=== PATIENT | female | born 1980 | race Caucasian/White ===

== ENCOUNTER 2023-04-09 11:54 | Outpatient (REF) | payer OTHER, SELFPAY ==
--- NOTE | ~2023-04-09 | US_ITS ---
EXAMINATION: US PELVIS CLINICAL INFORMATION: Menorrhagia COMPARISON: None available. TECHNIQUE: Ultrasound of the pelvis is performed using both transabdominal and transvaginal transducers along with Doppler. Transvaginal imaging is performed due to inadequate visualization transabdominally. FINDINGS: Uterus: The uterus is anteverted and measures 10.1 x 5.5 x 7.0 cm. The double wall endometrial thickness is 1.3 cm and fluid within. The uterus is smooth in contour and has normal myometrial echogenicity. No visible fibroid. There are small nabothian cysts seen in the cervix. Adnexa: Both ovaries are visualized. There is normal color flow to the adnexa. There is no ovarian torsion. There is no pelvic ascites or fluid collection. Right ovary measures 2.8 x 1.6 x 2.1 CM and volume 4.9 mL. Left ovary measures 3.5 x 2.0 x 2.5 and volume 9.2 mL. There is anechoic cyst measuring 2.3 x 1.4 x 1.8 cm. There is no free fluid in cul-de-sac. US/US pelvic and transvaginal IMPRESSION: 1. Unremarkable uterus. 2. Small nabothian cysts in the cervix. 3. Simple cyst left ovary.
== END 2023-04-09 11:55 | disposition home or self-care (01) ==
LOC: HO.US 11:54
PROVIDERS: PCP Family Medicine; Visit Provider Advanced Practice Midwife
DX: N92.0 Excessive and frequent menstruation with regular cycle (principal)
CPT/HCPCS: 76830; 76856

== ENCOUNTER 2024-11-29 09:32 | Outpatient (AMB) | payer MEDICAID, SELFPAY ==
--- NOTE | 2024-11-29 09:34 | A.OFFVIS_ITS ---
Vital Signs 3 11/29/24 09:43 Height 5 ft Weight 127 lb 3.307 oz BMI 24.8 BP 100/64 Blood Pressure Location Rt brachial Position Sitting Pulse 70 Pulse Source Pulse Oximeter Intake Visit Reasons: Enlargement of pituitary gland Intake Note: New patient present today for Enlargement of pituitary gland office visit. Community Recreation Coordinator Required: Yes Community Recreation Coordinator Language: Belt Measurer Services: Community Recreation Coordinator Present Community Recreation Coordinator Name: José Information Interpreted: non-clinical & clinical Accompanied by: Self / Same As Patient Allergies No Known Allergies Allergy (Verified 11/29/24 09:44) Medication List - Last Reconciled 11/29/24 by Mia Tristan MD celecoxib 200 mg PO DAILY cyclobenzaprine 5 mg PO BEDTIME famotidine 20 mg PO BID ibuprofen 800 mg PO Q8H PRN HPI Comments Details: 44-year-old female here today for initial evaluation of pituitary incidentaloma. Patient presented 30 mins late to appointment. Patient had CT scan of her orbits June 2024 due to ocular pain to rule out orbital cellulitis which showed a macroadenoma of the pituitary gland measuring 1.6 X 1.5 cm. No dedicated MRI of the pituitary done. 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 ? Easy bruising: yes Proximal muscle weakness: none No DM, HTN, fractures Nausea: none Vomiting:none Lightheadedness: intermittent Weight: lost 5 lbs in 1 month Physical exam General: sitting comfortably in no acute distress HEENT: normocephalic/atraumatic, EOM intact, moist oral mucosa, visual coe grossly intact Neck: supple, symmetrical, no thyromegaly , no dorsocervical or supraclavicular fat pads Cardiac: normal heart sounds Pulm: normal breath sounds B/L, no added breath sounds Abd: not distended, no tenderness Extremities: no edema, no signs of myxedema Neuro: AAO x3, Speech: normal, no facial droop, moving all 4 extremities [facility] Medical History (Updated 11/29/24 @ 09:49 by Mia Tristan MD) Pituitary macroadenoma Surgical History (Updated 11/29/24 @ 09:40 by RIO Diaz) History of bilateral tubal ligation Social History Alcohol intake: never Patient Tobacco Use Status: Never used Tobacco Assessment & Plan Assessment & Plan (1) Pituitary macroadenoma: Code(s): D35.2 - Benign neoplasm of pituitary gland Category: Medical Plan: 44-year-old female here today for initial evaluation of pituitary macroadenoma. Patient had CT scan of her orbits June 2024 due to ocular pain to rule out orbital cellulitis which showed a macroadenoma of the pituitary gland measuring 1.6 X 1.5 cm. No dedicated MRI of the pituitary done. We will obtain MRI pituitary gland. Given macroadenoma we will evaluate her for both hyper secretion and hypo secretion of the pituitary gland with a full pituitary panel as well as 24 hour urine cortisol levels. She does report some intermittent blurriness, however visual coe grossly intact however given microadenoma we will place ophthalmology referral for visual field evaluation. Plan: MRI of the pituitary ordered Labs for hypo secretion and hypersecretion with full pituitary panel and 24 hour urine cortisol levels Ophthalmology referral placed for evaluation of visual coe -follow up in 6 weeks to discuss results Plan See above Orders: Orders 2 Lutenizing Hormone Today D35.2 - Benign neoplasm of pituitary gland Human Growth Hormone Today D35.2 - Benign neoplasm of pituitary gland IGF-1 (Somatomedin C) Today D35.2 - Benign neoplasm of pituitary gland Free T4 (Free Thyroxine) Today D35.2 - Benign neoplasm of pituitary gland Prolactin Today D35.2 - Benign neoplasm of pituitary gland Prolactin Dilution Study Today D35.2 - Benign neoplasm of pituitary gland Thyroid Stimulating Hormone Today D35.2 - Benign neoplasm of pituitary gland MRI Pituitary w/wo shea Today D35.2 - Benign neoplasm of pituitary gland Adrenocorticotropic Hormone Today D35.2 - Benign neoplasm of pituitary gland Follicle Stimulating Hormone Today D35.2 - Benign neoplasm of pituitary gland Estradiol Ultra Sensitive Today D35.2 - Benign neoplasm of pituitary gland Cortisol Random Today D35.2 - Benign neoplasm of pituitary gland Cortisol, Free 24Hr Urine Today D35.2 - Benign neoplasm of pituitary gland Creatinine, 24 Hr Group Today D35.2 - Benign neoplasm of pituitary gland Alpha Subunit Today D35.2 - Benign neoplasm of pituitary gland DHEA Sulfate Today D35.2 - Benign neoplasm of pituitary gland Referrals 2 Ophthalmology Referral D35.2 - Benign neoplasm of pituitary gland Patient Instructions: Do MRI of the pituitary , someone will call you to schedule this -do blood work forms builder 08:00 fasting Do 24 hour urine collection See eye doctor 24 hr urine collection instructions You have been asked to collect your urine for 24 hours to assess for cortisol excretion. You must choose a 24 hour period of time when you will be home. The morning of the first day, DISCARD the FIRST morning void and then note the time. You will collect every single void from then on for 24 hours. For example, if you wake up at 6am and urinate, flush down that void. You will then collect every drop of urine all day and all night through 6am the following day. You will urinate one last time at 6am for the collection. The jug of urine must be kept in the refrigerator until you bring it to the lab. Haz lavonne resonancia magn?joanna de la hip?fisis, alguien te llamar? para programarla. -hacer an?lisis de sabi temprano en la ma?daysi 08:00 en ayunas italo al oftalm?logo Hacer recolecci?n de orina de 24 horas Instrucciones para la recolecci?n de orina de 24 horas. Se le gonzales pedido que recolecte orina aidan 24 horas para evaluar la excreci?n de cortisol. Debe elegir un per?odo de 24 horas en el que estar? en casa. La ma?daysi del primer d?a, DESCARTE el PRIMER vac?o de la ma?daysi y luego anote la hora. A partir de bruce momento, recolectar?s todos los vac?os aidan 24 horas. Por ejemplo, si te despiertas a las 6 de la ma?daysi y orinas, enrique bruce vac?o. Luego recolectar? cada gota de orina aidan todo el d?a y toda la noche hasta las 6 a.m. del d?a siguiente. Orinar?s por ?ltima vez a las 6 a. m. para la recolecci?n. El frasco de orina debe conservarse en el frigor?fico hasta henao llegada al laboratorio. Coding Level of Care Code New Pt Level 4 (72465) Diagnoses Pituitary macroadenoma D35.2
[2024-11-29 09:43] VITALS: BP 100/64; PULSE 70; BMI 24.8
== END 2024-11-29 10:13 | disposition home or self-care (01) ==
LOC: HO.ENCR 09:32
PROVIDERS: PCP Nurse Practitioner Family; Visit Provider Student in an Organized Health Care Education/Training Program
DX: D35.2 Benign neoplasm of pituitary gland (principal)
CPT/HCPCS: 99204

== ENCOUNTER → 2024-11-29 09:32 | Outpatient (BNVA) | payer MEDICAID, SELFPAY | PROVIDERS: PCP Nurse Practitioner Family; Visit Provider Student in an Organized Health Care Education/Training Program | DX: D35.2 Benign neoplasm of pituitary gland (principal) | CPT/HCPCS: 99202 ==

== ENCOUNTER 2024-12-20 08:32 | Outpatient (REF) | payer MEDICAID, SELFPAY ==
--- OUTSIDE RECORDS SUMMARY | 2024-12-20 08:47 | XMS_ITS | Encounter Summary ---
Author Organization [employer] [facility] Address [address] 7t [place] [address] Care Team Providers Care Auditing Coder Name Role Phone Kim Johnson MARGIN ANALYST Primary Care Provider [phone] Raya Pan NP Primary Care Provider [phone] Encounter Details Date Type Department Care Team (Late st Contact Info) Description 09/25/2023 Abstract [facility] ADULT DENTAL [address] [place] [address] Kate Mejia DDS [address] [place] [address] Social History Tobacco Use Types Packs/Day Years Used Date Smoking Tobacco: Never Smokeless Tobacco: Never Comments No Sex and Gender Information Value Date Recorded Sex Assigned at Female 09/15/2022 10:26 AM EDT Legal Sex Female 10:26 AM EDT Gender Identity Female 09/15/2022 10:26 AM EDT Sexual Orientation Straight 09/15/2022 10 :26 AM EDT documented as of this encounter Plan of Treatment Upcoming Encounters Date Type Department Care Team (Late st Contact Info) Description 12/23/2024 10:30 AM EST Office Visit [facility] MEDICINE [address] [place] [address] Raya Pan, RADHA [address] [place] [address] 03/17/2025 9:30 AM EDT Office Visit [facility] OPTOMETRY [address] [place] [address] Destinee Hernandez, OD [address] [place] [address] documented as of this encounter Visit Diagnoses Not on filedocumented in this encounter Care Teams Auditing Coder Relationship Specialty Start Date End Date Alex GLORIA Alvarez [address] [place] [address] PCP - General Family Medicine 05/14/22 12/17/23 Raya Pan NP [address] [place] [address] PCP - General Family Medicine 12/18/23 documented as of this encounter
--- OUTSIDE RECORDS SUMMARY | 2024-12-20 08:47 | XMS_ITS | Encounter Summary ---
Author Organization [facility] Address [address] 7[address] [place] [address] Care Team Providers Care Sole Stapler Welt Name Role Phone Leslie Panily RADHA Primary Care Provider Reason for Visit * Reason Comments Consult Encounter Details Date Type Department Care Team (Late st Contact Info) Description 11/21/2024 9:00 AM EST Office Visit [facility] ADULT DENTAL [address] [place], [place] [phone] Kate Mejia DDS [address] [place], [place] [phone] Dental plaque (Primary Dx) Social History Tobacco Use Types Packs/Day Years Used Date Smoking Tobacco: Never Smokeless Tobacco: Never Alcohol Use Standard Drinks/Week Comments Never 0 (1 standard drink = 0.6 oz pur e alcohol) Depression Answer Date Recorded Patient Health Questionnaire-9 Score 11 10/07/2024 Patient Health Questionnaire-9 Score 11 10/07/2024 Last PHQ-9: Questionnaire Data Not on file 1 12/07/2023 Housing Stability Answer Date Recorded What is your housing situation today? I have mark morgan 09/29/[address] you li ve. Do you have problems with any of the following? None of the above 09/29/2024 Food Insecurity Answer Date Recorded Within the past 12 months, y ou worried that your food would run out before you got money to buy more: Never True 09/29/2024 Within the past 12 months,th e food you bought just didn't last and you didn't have enough money to get more: Never True Transportation Answer Date Recorded In the past 12 months, has l ack of transportation kept you from medical appts, meetings, work or from getting things needed for daily living? No 09/29/2024 Utilities Answer Date Recorded In the past 12 months, has t he electric, gas, oil or water company threatened to shut off services in your home? No 09/29/2024 Depression Answer Date Recorded Patient Health Questionnaire-2 Score 4 10/07/2024 Internet Access Answer Date Recorded Internet Access Q1 Yes 09/29/2024 Internet Access Q2 Not on file 09/29/2024 Comments No Sex and Gender Information Value Date Recorded Sex Assigned at Female 09/15/2022 10:26 AM EDT Legal Sex Female 10:26 AM EDT Gender Identity Female 09/15/2022 10:26 AM EDT Sexual Orientation Straight 09/15/2022 10 :26 AM EDT documented as of this encounter Last Filed Vital Signs Vital Sign Reading Time Taken Comments Blood Pressure 124/78 11/21/2024 9:24 AM EST Pulse - - Temperature - - Respiratory Rate - - Oxygen Saturation - - Inhaled Oxygen Concentration - - Weight - - Height - - Body Mass Index - - documented in this encounter Progress Notes * Kate Mejia DDS - 11/21/2024 9:00 AM EST Dental procedures in this visit D0140 - LIMITED ORAL EVALUATION - PROBLEM FOCUSED (Completed) Service provider: Kate Mejia DDS Billing provider: Kate Mejia DDS D0270 - BITEWING - SINGLE RADIOGRAPHIC IMAGE (Completed) Service provider: Kate Mejia DDS Billing provider: Kate Mejia DDS [id number] - CASE PRESENTATION, DETAILED AND EXTENSIVE TREATMENT PLANNING (Completed) Service provider: Kate Mejia DDS Billing provider: Kate Mejia DDS Patient ID: Mellissa Tracy is a 44 y.o. female. Time Out: Timeout Date: 11/21/24, Timeout Time: 0924 (Time out for Limited Exam) Location: [facility] Tooth: Maxilla and Mandible Procedure: limited exam Verified the above with patient, personnel assistant, and provider. Confirmed via patient's chart, intraorally and by radiographs. Imitation Marble Mechanic: not applicable Chief Complaint Patient presents with Consult Medical Hx: Vitals: Blood pressure 124/78. Past Medical History: Diagnosis Date Bleeding gums Halitosis Periodontal disease Medications: Outpatient Encounter Medications as of 11/21/2024 Medication Sig Dispense Refill Apple Cider Vinegar 500 MG tablet Take 1 tablet by mouth Once per day. famotidine (Pepcid) 20 MG tablet Take 1 tablet (20 mg) by mouth 2 times daily. 60 tablet 0 No facility-administered encounter medications on file as of 11/21/2024. Subjective: Pt in office for orthodoxy on UL side. On the previous x-ray - no cavity is observed, and a new x-ray is taken today to confirm findings. Also, clinical evaluation completed. Amalgam fillings are within normal limits and no open margins are observed, teeth negative to percussion and palpation. Advised pt to have a Pad since inflammation of surrounding gingival tissue is noticed with soft plaque accumulation. No orthodoxy needed today, pt would like to wait for RPD fabrication. Diagnosis: Dental Plaque Pt tolerated procedure well, all questions answered. Dismissed in good condition. NV: Rpd adjustment Ed Transporter: Ashley Nam Dentist: Kate Mejia DDS documented in this encounter Plan of Treatment Upcoming Encounters Date Type Department Care Team (Late st Contact Info) Description 12/23/2024 10:30 AM EST Office Visit [facility] MEDICINE [address] [place] [address] Raya Pan NP [address] [place] [address] 03/17/2025 9:30 AM EDT Office Visit [facility] OPTOMETRY [address] [place] [address] Destinee Hernandez OD [address] [place] [address] documented as of this encounter Procedures Procedure Name Priority Date/Time Associated Diagnosis Comments LIMITED ORAL EVALUATION - PROBLEM FOCUSED Routine 11/21/2024 9:00 AM EST ADJUN[facility] GENERAL SERVICES - PROFESSIONAL VISITS - CASE PRESENTATION, SUBSEQUENT TO DETAILED AND EXTENSIVE TREATMENT PLANNING Routine 11/21/2024 9:00 AM EST BITEWING - SINGLE RADIOGRAPHIC IMAGE Routine 11/21/2024 9:00 AM EST documented in this encounter Visit Diagnoses Diagnosis Dental plaque- Primary Accretions on teeth documented in this encounter Additional Health Concerns Assessment Noted Time PHQ-9 Depression Total Score: 11 024 9:22 AM EST documented as of this encounter Care Teams Sole Stapler Welt Relationship Specialty Start Date End Date Raya Pan NP [address] [place] [address] PCP - General Family Medicine 12/18/23 documented as of this encounter
--- OUTSIDE RECORDS SUMMARY | 2024-12-20 08:47 | XMS_ITS | Encounter Summary ---
Author Organization [facility] Address [address] [facility] [address] [facility] 7t [place] [address] Care Team Providers Care Summer School Coordinator Name Role Phone Maxim Raya RADHA Primary Care Provider [phone] Reason for Visit * Reason Onset Date Comments pain from crown 09/09/2024 Encounter Details Date Type Department Care Team ([facility] st Contact Info) Description 09/09/2024 Telephone [facility] ADULT DENTAL [address] [place], [place] [phone] Kate Mejia DDS [address] [place], [place] [phone] pain from crown Social History Tobacco Use Types Packs/Day Years Used Date Smoking Tobacco: Never Smokeless Tobacco: Never Alcohol Use Standard Drinks/Week Comments Never 0 (1 standard drink = 0.6 oz pur e alcohol) Comments No Sex and Gender Information Value Date Recorded Sex Assigned at Female 09/15/2022 10:26 AM EDT Legal Sex Female 10:26 AM EDT Gender Identity Female 09/15/2022 10:26 AM EDT Sexual Orientation Straight 09/15/2022 10 :26 AM EDT documented as of this encounter Miscellaneous Notes * Telephone Encounter - Shabnam Pickering - 09/09/2024 12:33 PM EDT Patient called in because she is having pain on crown work she had done on 08/16. She says it hurtsa lot. No emergency appts available today. Gave her emergency protocol. She would like to know if medication can be sent to the pharmacy for pain DR documented in this encounter Plan of Treatment Upcoming Encounters Date Type Department Care Team (Late st Contact Info) Description 12/23/2024 10:30 AM EST Office Visit [facility] [address] [place] [address] Raya Pan NP [address] [place] [address] 03/17/2025 9:30 AM EDT Office Visit [facility] OPTOMETRY [address] [place] [address] Destinee Hernandez, OD [address] [place] [address] documented as of this encounter Visit Diagnoses Not on filedocumented in this encounter Care Teams Summer School Coordinator Relationship Specialty Start Date End Date Raya Pan NP [address] [place] [address] PCP - General Family Medicine 12/18/23 documented as of this encounter
--- OUTSIDE RECORDS SUMMARY | 2024-12-20 08:48 | XMS_ITS | Encounter Summary ---
Author Organization [facility] Address [address] [place] [address] Care Team Providers Care Quality Audit Representative Name Role Phone Kim Johnson Primary Care Provider [phone] Raya Pan REGIONAL CONTROLLER Primary Care Provider [phone] Encounter Details Date Type Department Care Team (Latest Contact Info) Description 10/17/2021 Abstract [facility] Dental, Provider, DDS Social History Tobacco Use Types Packs/Day Years Used Date Smoking Tobacco: Never Assessed Comments Unknown Sex and Gender Information Value Date Recorded Sex Assigned at Female 09/15/2022 10:26 AM EDT Legal Sex Female 10:26 AM EDT Gender Identity Female 09/15/2022 10:26 AM EDT Sexual Orientation Straight 09/15/2022 10 :26 AM EDT documented as of this encounter Plan of Treatment Upcoming Encounters Date Type Department Care Team (Late st Contact Info) Description 12/23/2024 10:30 AM EST Office Visit [facility] [address] [place] [address] Raya Pan, RADHA [address] [place] [address] 03/17/2025 9:30 AM EDT Office Visit [facility] OPTOMETRY [address] [place] [address] Destinee Hernandez, OD [address] [place] [address] documented as of this encounter Visit Diagnoses Not on filedocumented in this encounter Care Teams Quality Audit Representative Relationship Specialty Start Date End Date Kim Johnson FNP [address] [place] [address] PCP - General Family Medicine 05/14/22 12/17/23 Raya Pan NP [address] [place] [address] PCP - General Family Medicine 12/18/23 documented as of this encounter
--- OUTSIDE RECORDS SUMMARY | 2024-12-20 08:48 | XMS_ITS | Encounter Summary ---
Author Organization [facility] Address [address] [facility] [address]t [place] [address] Care Team Providers Care Junior Qa Analyst Name Role Phone Kim Johnson GLORIA Primary Care Provider [phone] Raya Pan NP Primary Care Provider [phone] Encounter Details Date Type Department Care Team (Late st Contact Info) Description 06/30/[address] [facility] ADULT DENTAL [address] [place] [address] Abena Mascorro [address] [place] [address] Social History Tobacco Use Types Packs/Day Years [...] 10:30 AM EST Office Visit [facility] MEDICINE [address] [place] [address] Raya Pan NP [address] [place] [address] 03/17/2025 9:30 AM EDT Office Visit [facility] OPTOMETRY [address] [place] [address] David, Destinee, OD [address] [place] [address] documented as of this encounter Visit Diagnoses Not on filedocumented in this encounter Care Teams Junior Qa Analyst Relationship Specialty Start Date End Date Alex GLORIA Alvarez [address] [place] [address] PCP - General Family Medicine 05/14/22 12/17/23 Raya Pan NP [address] [place] [address] PCP - General Family Medicine 12/18/23 documented as of this encounter
--- OUTSIDE RECORDS SUMMARY | 2024-12-20 08:48 | XMS_ITS | Encounter Summary ---
Author Organization [employer] Address [address] [place] [address] Care Team Providers Care Veterinarian Assistant Name Role Phone Raya Pan NP Primary Care Provider [phone] Reason for Visit * Reason Onset Date Comments Chart Prep 12/13/2024 Encounter Details Date Type Department Care Team ([facility] st Contact Info) Description 12/13/2024 Telephone [facility] MEDICINE [address] [place], [place] [phone] Alena Vega MA Chart Prep Social History Tobacco Use Types Packs/Day Years [...] encounter Miscellaneous Notes * Telephone Encounter - Alena Vega MA - 12/13/2024 9:52 AM EST Chart Prep Labs: not done Images: not done Vaccines due: Covid Due, Tdap Due, Hep B Due, and Flu Due Referrals: Endocrinology pending appt, Optometry appointment on 03/17/25 at 9:30 Am, and Podiatry pending appt, Radiology Pending appointment Screenings: none Overdue care gaps: None documented in this encounter Plan of Treatment Upcoming Encounters Date Type Department Care Team (Late st Contact Info) Description 12/23/2024 10:30 AM EST Office Visit [facility] MEDICINE [address] [place] [address] Raya Pna NP [address] [place] [address] 03/17/2025 9:30 AM EDT Office Visit [facility] OPTOMETRY [address] [place] [address] David, Destinee, OD [address] [place] [address] documented as of this encounter Visit Diagnoses Not on filedocumented in this encounter Additional Health Concerns Assessment Noted Time PHQ-9 Depression Total Score: 11 024 9:22 AM EST documented as of this encounter Care Teams Veterinarian Assistant Relationship Specialty Start Date End Date Raya Pan NP [address] [place] [address] PCP - General Family Medicine 12/18/23 documented as of this encounter
--- OUTSIDE RECORDS SUMMARY | 2024-12-20 08:48 | XMS_ITS | Encounter Summary ---
Author Organization [facility] Address [address] [place] [address] Care Team Providers Care Faculty Member Name Role Phone Raya Pan NP Primary Care Provider [phone] Reason for Visit * Reason Comments Med Refill Encounter Details Date Type Department Care Team ([facility] st Contact Info) Description 11/21/2024 Refill [facility] [address] [place], [place] [phone] Raya Pan NP [address] [place], [place] [phone] Social History Tobacco Use Types Packs/Day Years [...] Description 12/23/2024 10:30 AM EST Office Visit [facility] [address] [place] [address] Raya Pan NP [address] [place] [address] 03/17/2025 9:30 AM EDT Office Visit [facility] OPTOM[facility] [address] [place] [address] David, Destinee, OD [address] [place] [address] documented as of this encounter Visit Diagnoses Not on filedocumented in this encounter Additional Health Concerns Assessment Noted Time PHQ-9 Depression Total Score: 11 024 9:22 AM EST documented as of this encounter Care Teams Faculty Member Relationship Specialty Start Date End Date Raya Pan NP [address] [place] [address] PCP - General Family Medicine 12/18/23 documented as of this encounter
--- OUTSIDE RECORDS SUMMARY | 2024-12-20 08:48 | XMS_ITS | Encounter Summary ---
Author Organization [employer] Address [address] [place] [address] Care Team Providers Care Shredder Operator Name Role Phone Raya Pan NP Primary Care Provider [phone] Reason for Visit * Reason Onset Date Comments Chart Prep 11/30/2024 Encounter Details Date Type Department Care Team ([facility] st Contact Info) Description 11/30/2024 Telephone [facility] [address] [place], [place] [phone] Alena Vega MA Chart Prep Social History [...] Telephone Encounter - Alena Vega MA - 11/30/2024 2:26 PM EST Chart Prep Labs: not done Images: not done Vaccines due: Covid Due, Tdap Due, Hep B Due, and Flu Due Referrals: Endocrinology pending appt, Optometry appointment on 03/17/25 at 9:30 Am, and Podiatry pending appt, Radiology Pending appointment Screenings: none Overdue care gaps: none documented in this encounter Plan of Treatment Upcoming Encounters Date Type Department Care Team (Late st Contact Info) Description 12/23/2024 10:30 AM EST Office Visit [facility] [address] [place] [address] Raya Pan NP [address] [place] [address] 03/17/2025 9:30 AM EDT Office Visit [facility] OPTOMETRY [address] [place] [address] David, Destinee, OD [address] [place] [address] documented as of this encounter Visit Diagnoses Not on filedocumented in this encounter Additional Health Concerns Assessment Noted Time PHQ-9 Depression Total Score: 11 024 9:22 AM EST documented as of this encounter Care Teams Shredder Operator Relationship Specialty Start Date End Date Raya Pan NP [address] [place] [address] PCP - General Family Medicine 12/18/23 documented as of this encounter
--- OUTSIDE RECORDS SUMMARY | 2024-12-20 08:48 | XMS_ITS | Clinical Summary ---
Author Organization [employer] Address [address] [facility] 7t [place] [address] Care Team Providers Care Airflight Attendants Supervisor Name Role Phone Maxim Raya RADHA Primary Care Provider [phone] Allergies Active Allergy Reactions Criticality Noted Date Comments Fish-Derived Products Hives Medium 07/02/2024 Medications Apple Cider Vinegar 500 MG tablet Take 1 tablet by mouth Once per day. Active famotidine (Pepcid) 20 MG tablet TAKE 1 TABLET BY MOUTH TWICE DAILY 180 tablet 5 Active famotidine (Pepcid) 20 MG tablet Take 1 tablet (20 mg) by mouth 2 times daily. 60 tablet 4 11/22/19 25 Discontinued Active Problems Problem Noted Date Diagnosed Date Breast screening 10/07/2024 Unintentional weight change 10/07/2024 Assessment & Plan (10/07/2024 10:03 AM EST): Labs as ordered below History of enlargement of pituitary gland 2023 Assessment & Plan (10/07/2024 10:03 AM EST): Labs as ordered below Referral to endocrine Onychomycosis 10/07/2024 Gastroesophageal reflux disease without esophagi tis 10/07/2024 Assessment & Plan (10/07/2024 10:02 AM EST): Pt epigastric, chest and left breast symptoms are aggravated by spicy and heavy foos Trial famotidine Blurry vision 10/07/2024 Assessment & Plan (10/07/2024 10:03 AM EST): Referral to eye care Dysuria 10/07/2024 Assessment & Plan (10/07/2024 10:01 AM EST): Hx of, denies today Vaginal discharge 10/07/2024 Assessment & Plan (10/07/2024 10:02 AM EST): Reports this occurs post menses, asymptomatic today on menses Reviewed options for vaginal self swab should these symptoms occur post menses Preseptal cellulitis 08/14/2024 Pineal gland, tumor 08/14/2024 Dental calculus 06/02/2023 Periodontal disease 06/02/2023 Moderate localized gingival recession 06/02/2023 Helicobacter pylori gastritis 02/07/2019 ALT (SGPT) level raised 02/02/2019 Prediabetes 02/02/2019 Menorrhagia 02/23/2017 Peripheral neuropathic pain 02/23/2017 Iron deficiency anemia 09/19/2016 Encounters Date Type Department Care Team Description 12/13/2024 Telephone [facility] [address] [place] [address] Alena Vega MA Chart Prep 11/30/2024 Telephone [facility] [address] [place] [address] Alena Vega MA Chart Prep 11/21/2024 9:00 AM EST Office Visit [facility] [address] [place] [address] Kate Mejia, DDS Dental plaque (Primary Dx) 11/21/2024 Refill [facility] [address] [place] [address] Raya Pan NP 10/11/2024 Travel 10/07/2024 9:00 AM EST Office Visit [facility] [address] [place] [address] Raya Pan NP Breast screening (Primary Dx); Unintentional weight change; History of enlargement of pituitary gland; Onychomycosis; Gastroesophageal reflux disease without esophagitis; Blurry vision; Dysuria; Vaginal discharge 10/07/2024 Travel 10/06/2024 11:00 AM EST Office Visit [facility] [address] [place] [address] Hidalgo-Welsh , Kate, DDS Acute gingival inflammation (Primary Dx) 10/05/2024 Telephone [facility] [address] [place] [address] Alena Vega MA Chart Prep 09/29/2024 Patient Outreach [facility] [address] [place] [address] Raya Pan NP Pre-visit Planning (SDOH Screening negative and Tobacco screening negative) 09/23/2024 9:00 AM EST Office Visit [facility] [address] [place] [address] Hidalgo-Welsh , Kate, DDS Tooth sensitivity to cold (Primary Dx) from Last 3 Months Immunizations Name Administration Dates Next Due Hep B, adult 02/02/2023 Influenza injectable quadriv alent IIV4 with preservative 09/15/2016 Influenza injectable quadriv alent preservative free 12/23/2021,10/03/2019,01/31/2019 MMR 03/10/2021 Tdap 08/17/2014 Social History Tobacco Use Types Packs/Day Years Used Date Smoking Tobacco: Never Smokeless Tobacco: Never Tobacco Cessation:Counseling Given: Not Answered Alcohol Use Standard Drinks/Week Comments Never 0 [...] Orientation Straight 09/15/2022 10 :26 AM EDT Last Filed Vital Signs Vital Sign Reading Time Taken Comments Blood Pressure 124/78 11/21/2024 9:24 AM EST Pulse 69 10/07/2024 9:15 AM EST Temperature 36.6 ??C (97.9 ??F) 10/07/2024 9:15 AM ES T Respiratory Rate 16 10/07/2024 9:15 AM EST Oxygen Saturation 98% 10/07/2024 9:15 AM EST Inhaled Oxygen Concentration - - Weight 57.6 kg (127 lb) 10/07/2024 9:15 AM EST Height 146.1 cm (4' 9.5 ) 10/07/2024 9:15 AM EST Body Mass Index 27.01 10/07/2024 9:15 AM EST Plan of Treatment Upcoming Encounters Date Type Department Care Team (Late st Contact Info) Description 12/23/2024 10:30 AM EST Office Visit [facility] [address] [place] [address] Raya Pan NP [address] [place] [address] 03/17/2025 9:30 AM EDT Office Visit [facility] [address] [place] [address] Destinee Hernandez, OD [address] [place] [address] Health Maintenance Due Date Last Done Comments Diabetes: Hemoglobin A1C 1980 Family Planning (PISQ) 1995 Mammogram 2020 Dental Prophylaxis 12/04/2022 06/02/2022, 1 12/18/2020, 01/19/2017, Additional history exists Hepatitis B Vaccines (2 of 3 - 19+ 3-dose series) 03/02/2023 02/02/2023 Dental Oral Exam 12/04/2023 06/02/2023, 07/2022, 10/17/2021, Additional history exists COVID-19 Vaccine ( - season) 2024 04/16/2021 Influenza Vaccine (#1) 2024 , 10/03/2019, 01/31/2019, Additional history exists DTaP/Tdap/Td Vaccines (2 - Td or Tdap) 08/17/2024 08/17/2014 Dental X-Ray: Full Mouth 10/18/2024 10/17/2021, 03/2015 Pap Smear 12/23/2024 12/23/2021, 12/23/2021 Depression Monitoring (PHQ-9) 04/06/2025 10/07/2024, 10/07/2024 SDOH Screening 09/29/2025 09/29/2024 Alcohol/Substance Use Screening 10/07/2025 10/07/2024 Depression Screening 10/07/2025 10/07/2024, 10/07/20 24 Tobacco Screening 11/21/2025 11/21/2024 Dental X-Ray: Bitewings 11/22/2025 11/21/19 25, 10/06/2024, 08/16/2024, Additional history exists Cervical Cancer Screening 12/23/2026 HPV/Cotest 12/23/2026 12/23/2021 Zoster Vaccines (1 of 2) 2030 RSV Patients and Patients Aged 60 years or older (1 - 1-dose 75+ series) 2055 HIV Screening Completed 12/23/2021 Hepatitis C Screening Completed 12/23/2021 HIB Vaccines Aged Out No longer eligi ble based on patient's age to complete this topic HPV Vaccines Aged Out No longer eligi ble based on patient's age to complete this topic Hepatitis A Vaccines Aged Out No long er eligible based on patient's age to complete this topic IPV Vaccines Aged Out No longer eligi ble based on patient's age to complete this topic Meningococcal Vaccine Aged Out No vanessa anderson eligible based on patient's age to complete this topic Pneumococcal Vaccine: Pediatrics (0 to 5 Years) and At-Risk Patients (6 to 49) Years) Aged Out No longer eligible based on patient's age to complete this topic RSV under 20 months Aged Out No longe r eligible based on patient's age to complete this topic Rotavirus Vaccines Aged Out No longer eligible based on patient's age to complete this topic Procedures Procedure Name Priority Date/Time Associated Diagnosis Comments ADJUNCTIVE GENERAL SERVICES - PROFESSIONAL VISITS - CASE PRESENTATION, SUBSEQUENT TO DETAILED AND EXTENSIVE TREATMENT PLANNING Routine 11/21/2024 9:00 AM EST BITEWING - SINGLE RADIOGRAPHIC IMAGE Routine 11/21/2024 9:00 AM EST LIMITED ORAL EVALUATION - PROBLEM FOCUSED Routine 11/21/2024 9:00 AM EST ADJUNCTIVE GENERAL SERVICES - PROFESSIONAL VISITS - CASE PRESENTATION, SUBSEQUENT TO DETAILED AND EXTENSIVE TREATMENT PLANNING Routine 10/06/2024 11:00 AM EST Acute gingival inflammation BITEWING - SINGLE RADIOGRAPHIC IMAGE Routine 10/06/2024 11:00 AM EST Acute gingival inflammation DIAGNOSTIC - CLINICAL ORAL EVALUATIONS - RE-EVALUATION - POST-OPERATIVE OFFICE VISIT Routine 10/06/2024 11:00 AM EST Acute gingival inflammation ADJUNCTIVE GENERAL SERVICES - PROFESSIONAL VISITS - CASE PRESENTATION, SUBSEQUENT TO DETAILED AND EXTENSIVE TREATMENT PLANNING Routine 09/23/2024 9:00 AM EST Tooth sensitivity to cold INTRAORAL - PERIAPICAL FIRST RADIOGRAPHIC IMAGE Routine 09/23/2024 9:00 AM EST Tooth sensitivity to cold LIMITED ORAL EVALUATION - PROBLEM FOCUSED Routine 09/23/2024 9:00 AM EST Tooth sensitivity to cold PERIODIC ORAL EVALUATION - ESTABLISHED PATIENT Routine 06/02/2023 8:00 AM EDT Dental calculus Periodontal disease Moderate localized gingival recession Supra-eruption of tooth Encounter for dental examination Dental caries PROPHYLAXIS - ADULT Routine 06/02/2022 1 2:00 AM EDT ZZZ HISTORICAL HEPATITIS C AB W/REFL TO HCV RNA, QN, PCR Routine 12/23/2021 10:03 AM EST HIV 1/2 ANTIGEN/ANTIBODY, FOURTH GENERATION W/RFL Routine 12/23/2021 10:03 AM EST THINPREP IMAGING PAP AND HPV MRNA E6/E7, WITH CT/NG, TRICHOMONAS Routine 12/23/2021 9:16 AM EST PAP SMEAR Routine 12/23/2021 12:00 AM EST DIAGNOSTIC - DIAGNOSTIC IMAGING - INTRAORAL - COMPREHENSIVE SERIES OF RADIOGRAPHIC IMAGES Routine 10/17/2021 12:00 AM EST from Last 3 Months or Most Recently Relevant to Health Maintenance Results * HEPATITIS C AB W/REFL TO HCV RNA, QN, PCR (12/23/2021 10:03 AM EST) HEPATITIS C ANTIBODY NON-REACT VERONA NON-REACT VERONA [facility] INDEX 0.01 <1.00 [facility] Comment: ?? HCV antibody was non-reactive. There is no laboratory ?? evidence of HCV infection. ?? In most cases, no further action is required. However, if recent HCV exposure is suspected, a test for HCV RNA (test code 03172) is suggested. ?? For additional information please refer to http://education.[employer]/faq/XHC25c5 (This link is being provided for informational/ educational purposes only.) ?? 12/23/2021 10:0 3 AM EST Isi Lind CNM HISTORICAL/NON ORDERABLE LABS Final Result [facility] [address] * HIV 1/2 ANTIGEN/ANTIBODY,FOURTH GENERATION W/RFL (12/23/2021 10:03 AM EST) HIV-1/2 ANTIGEN AND ANTIBODIES, 4TH GENERATION W/ REFLEX NON-REACT VERONA NON-REACT VERONA [facility] Comment: HIV-1 antigen and HIV-1/HIV-2 antibodies were not detected. There is no laboratory evidence of HIV infection. ?? PLEASE NOTE: This information has been disclosed to you from records whose confidentiality may be protected by state law. ??If your state requires such protection, then the state law prohibits you from making any further disclosure of the information without the specific written consent of the person to whom it pertains, or as otherwise permitted by law. A general authorization for the release of medical or other information is NOT sufficient for this purpose. ? For additional information please refer to http://[employer]Soft.[employer]/faq/ANK202 (This link is being provided for informational/ educational purposes only.) ? The performance of this assay has not been clinically validated in patients less than 2 years old. ?? 12/23/2021 10:0 3 AM EST us Isi Lind [facility] BLOOD ORDERABLES Melvina tejinder Result [facility] [address] [place] [address], * THINPREP TIS PAP AND HPV mRNA E6/E7, CT/NG, TRICH (12/23/2021 9:16 AM EST) Chlamydia trachomatis RNA, TMA, Urogenital NOT DETECTED NOT DETECTED [facility] Clinical Information: None given [facility] COMMENT SEE COMMENT [facility] Comment: The analytical performance characteristics of this assay, when used to test SurePath(TM) specimens have been determined by [employer]. The modifications have not been cleared or approved by the FDA. This assay has been validated pursuant to the CLIA regulations and is used for clinical purposes. ?? For additional information, please refer to https://VSoft.[employer]/faq/MBQ230 (This link is being provided for information/ educational purposes only.) ?? COMMENT SEE COMMENT [facility] Comment: EXPLANATORY NOTE: ? The Pap is a screening test for cervical cancer. It is ?? not a diagnostic test and is subject to false negative ?? and false positive results. It is most reliable when a ?? satisfactory sample, regularly obtained, is submitted ?? with relevant clinical findings and history, and when ?? the Pap result is evaluated along with historic and ?? current clinical information. ?? COMMENT: This Pap test has been evaluated with computer assisted technology. [facility] Epic Cupid Analyst: SEE COMMENT [facility] Comment: RMM, CT(ASCP) CT screening location: [address] ??[id number] HPV nRNA E6/E7 Not Detected Not Detected [facility] Comment: Methodology: Cryptologic Supervisor-Mediated Amplification This assay detects E6/E7 viral messenger RNA (mRNA) from 14 high-risk HPV types (16,18,31,33,35,39,45,51,52,56,58,59,66,68). ? The analytical performance characteristics of this assay have been determined by [employer]. The modifications have not been cleared or approved by the FDA. This assay has been validated pursuant to the CLIA regulations and is used for clinical purposes. ?? For additional information, please refer to http://VSoft.[employer]/faq/HIB230q4 (This link if provided for information/ educational purposes only.) Interpretation/Re sult: Negative for intraepithelial lesion or malignancy. [facility] LMP: 12/09/2021 [facility] Neisseria gonorrhoeae RNA, TMA, Urogenital NOT DETECTED NOT DETECTED [facility] Prev. BX: NONE GIVEN [facility] Prev. PAP: NONE GIVEN [facility] SOURCE: None given [facility] Statement Of Adequacy: SEE COMMENT [facility] Comment: Satisfactory for evaluation. Endocervical/transformation zone component present. Trichomonas vaginalis, QL, TMA, PAP Vial NOT DETECTED NOT DETECTED [facility] Comment: The analytical performance characteristics of this assay have been determined by [employer]. The modifications have not been cleared or approved by the FDA. This assay has been validated pursuant to the CLIA regulations and is used for clinical purposes. ?? For additional information, please refer to http://education.[employer]/ faq/Trichomonastma (This link is being provided for information/ educational purposes only.) ?? 12/23/2021 9:16 AM EST [facility] PATHOLOGY ORDERABLES Final Result [facility] [address] [place] [address], * Pap Smear (12/23/2021 12:00 AM EST) Swab [facility] CYTOLOGY ORDERABLES F inal Result [facility] [address] [facility], [place] [address] from Last 3 Months or Most Recently Relevant to Health Maintenance Insurance [employer] ST[facility] ADULT Care Teams Airflight Attendants Supervisor Relationship Specialty Start Date End Date Raya Pan NP [address] [place] [address] PCP - General Family Medicine 12/18/23
--- OUTSIDE RECORDS SUMMARY | 2024-12-20 08:48 | XMS_ITS | Encounter Summary ---
Author Organization [employer] [facility] Address [address] [facility] [address] [place] [address] Care Team Providers Care Burr Bench Operator Name Role Phone Kim Johnson Primary Care Provider [phone] Raya Pan FREEZING ROOM WORKER Primary Care Provider [phone] Encounter Details Date Type Department Care Team (Latest Contact Info) Description 03/07/2019 Abstract [facility] CONVERSIONS Dental, Provider, DDS Social History Tobacco [...] Description 12/23/2024 10:30 AM EST Office Visit [facility] [address] [place] [address] Raya Pan, RADHA [address] [place] [address] 03/17/2025 9:30 AM EDT Office Visit [facility] OPTOMETRY [address] [place] [address] Destinee Hernandez, OD [address] [place] [address] documented as of this encounter Visit Diagnoses Not on filedocumented in this encounter Care Teams Burr Bench Operator Relationship Specialty Start Date End Date Kim Johnson FNP [address] [place] [address] PCP - General Family Medicine 05/14/22 12/17/23 Raya Pan NP [address] [place] [address] PCP - General Family Medicine 12/18/23 documented as of this encounter
[2024-12-20 09:40] LABS: Free T4 (Free Thyroxine) 1.05 ng/dL (0.71-1.85); Thyroid Stimulating Hormone 1.14 uIU/mL (0.32-4.0)
[2024-12-20 11:08] LABS: Cortisol Random < 1.0 ug/dL
[2024-12-21 16:32] LABS: DHEA Sulfate 29 mcg/dL (15-205)
[2024-12-21 17:13] LABS: Human Growth Hormone 0.2 ng/mL (< OR = 7.1)
[2024-12-23 06:53] LABS: Follicle Stimulating Hormone 7.6 mIU/mL; Lutenizing Hormone 7.7 mIU/mL; Prolactin Undiluted 20.7 ng/mL
[2024-12-24 21:04] LABS: Adrenocorticotropic Hormone 13 pg/mL (6-50)
[2024-12-27 08:23] LABS: Estradiol Ultra Sensitive 45 pg/mL
[2024-12-27 15:33] LABS: IGF-1 (Somatomedin C) 73 ng/mL (52-328); IGF-1 Z Score (Female) -1.3 SD (-2.0 - +2.0)
== END 2024-12-20 08:33 | disposition home or self-care (01) ==
LOC: HO.MAMMO 08:32
PROVIDERS: Absent Provider Student in an Organized Health Care Education/Training Program; PCP Nurse Practitioner Family; Visit Provider Nurse Practitioner Family
DX: D35.2 Benign neoplasm of pituitary gland (principal)
CPT/HCPCS: 36415; 82024; 82533; 82627; 82670; 83001; 83002; 83003; 83519; 84146; 84305; 84439; 84443

== ENCOUNTER 2024-12-26 07:52 | Outpatient (REF) | payer MEDICAID, SELFPAY ==
--- OUTSIDE RECORDS SUMMARY | 2024-12-26 08:36 | XMS_ITS | Encounter Summary ---
Author Organization [employer] [facility] Address [address] [facility] [facility] [address] [place] [address] Care Team Providers Care Business Services Director Name Role Phone MaximRaya RADHA Primary Care Provider [phone] Encounter Details Date Type Department Care Team (Late st Contact Info) Description 12/20/2024 Orders Only GENERIC EXTERNAL DATA DEPARTMENT Provider, Generic External Data Social History Tobacco Use Types Packs/Day Years [...] Care Team (Late st Contact Info) Description 03/17/2025 9:30 AM EDT Office Visit [facility] [address] [place] [address] David, Destinee, OD [address] [place] [address] Pending Results Name Type Priority Associated Diagnoses Date /Time DHEA Sulfate Lab Routine 12/20/2024 8 :53 AM EST Growth Hormone (GH) Lab Routine 12/20 8:53 AM EST FSH Lab Routine 12/20/2024 8:5 3 AM EST LH Lab Routine 12/20/2024 8:5 3 AM EST Prolactin, Dilution Study Lab Routine 12/20/2024 8:53 AM EST documented as of this encounter Procedures Procedure Name Priority Date/Time Associated Diagnosis Comments PROLACTIN, DILUTION STUDY Routine 12/20/2024 8:53 AM EST CORTISOL RANDOM Routine 12/20/2024 8:53 AM EST GROWTH HORMONE (GH) Routine 12/20/2024 8 :53 AM EST DHEA SULFATE Routine 12/20/2024 8:53 AM EST ACTH, PLASMA Routine 12/20/2024 8:53 AM EST TSH Routine 12/20/2024 8:53 AM EST T4, FREE Routine 12/20/2024 8:53 AM EST LH Routine 12/20/2024 8:53 AM EST FSH Routine 12/20/2024 8:53 AM EST documented in this encounter Results * ACTH, Plasma (12/20/2024 8:53 AM EST) ACTH, Plasma 13 6 - 50 pg/mL [facility] Comment:Reference range appl ies only to specimens collectedbetween 7am-10am.THIS TEST WAS PERFORMED AT:[employer] [place] [address]WJDDBZZSRAVANI SLAUGHTER MD,PHD 12/20/2024 8:53 AM EST 12/20/2024 8:53 AM EST Generic External Data Provider LAB BLOOD ORDERAB LES Final Result Performing Organization Address [facility]/ZIP Co de Phone Number [facility] [address] [place] [phone] * Cortisol Random (12/20/2024 8:53 AM EST) [facility] Cortisol Random <1.0 ug/dL [facility] Comment:Reference Range*: Be fore 10 am 6.2-19.4 ug/dL After 5 pm 2.3-11.9 ug/dL*Please interpret above results accordingly.This test was performed using the Venmo chemiluminescentmethod. Values obtained from different assay methods cannotbe used interchangeably.Patients receiving fludrocortisone, prednisolone orprednisone may show artificially elevated cortisol valuesdue to cross-reactivity. 12/20/2024 8:53 AM EST 12/20/2024 8:53 AM EST Generic External Data Provider LAB BLOOD ORDERAB LES Final Result Performing Organization Address City/[facility]/ZIP Co de Phone Number [facility] [address] [place] [phone] * TSH (12/20/2024 8:53 AM EST) Thyroid Stimulating Hormone 1.14 0.32 - 4.0 uIU/mL [facility] Comment:TSH 3rd Generation ( [facility]) 12/20/2024 8:53 AM EST 12/20/2024 8:53 AM EST us Generic External Data Provider LAB BLOOD ORDERAB LES Final Result Performing Organization Address [facility] Co de Phone Number [facility] [address] [place] [address] [phone] * T4, Free (12/20/2024 8:53 AM EST) Free T4 (Free Thyroxine) 1.05 0.71 - 1.85 ng/dL [facility] 12/20/2024 8:53 AM EST 12/20/2024 8:53 AM EST Generic External Data Provider LAB BLOOD ORDERAB LES Final Result Performing Organization Address [facility] de Phone Number [facility] [address] [place] [phone] documented in this encounter Visit Diagnoses Not on filedocumented in this encounter Additional Health Concerns Assessment Noted Time PHQ-9 Depression Total Score: 11 024 9:22 AM EST documented as of this encounter Care Teams Business Services Director Relationship Specialty Start Date End Date Raya Pan NP [address] [place] [address] PCP - General Family Medicine 12/18/23 documented as of this encounter
--- OUTSIDE RECORDS SUMMARY | 2024-12-26 08:36 | XMS_ITS | Encounter Summary ---
Author Organization [employer] [facility] Address [address] [facility] [address] [place] [address] Care Team Providers Care Electrical Engineering Drafting Officer Name Role Phone Alex Kim SOLIDS CONTROL TECHNICIAN Primary Care Provider [phone] Raya Pan NP Primary Care Provider [phone] Encounter Details Date Type Department Care Team (Latest Contact Info) Description 03/07/2019 Abstract [facility] CONVERSIONS Dental, Provider, DDS Social History Tobacco [...] Description 03/17/2025 9:30 AM EDT Office Visit [facility] OPTOMETRY [address] [place] [address] Destinee Hernandez, OD [address] [place] [address] documented as of this encounter Visit Diagnoses Not on filedocumented in this encounter Care Teams Electrical Engineering Drafting Officer Relationship Specialty Start Date End Date AlexKim FNP [address] [place] [address] PCP - General Family Medicine 05/14/22 12/17/23 Raya Pan NP [address] [place] [address] PCP - General Family Medicine 12/18/23 documented as of this encounter
--- OUTSIDE RECORDS SUMMARY | 2024-12-26 08:36 | XMS_ITS | Encounter Summary ---
Author Organization [employer] Address [address] [facility] [address] [place] [address] Care Team Providers Care Foxer Name Role Phone Raya Pan NP Primary Care Provider [phone] Reason for Visit * Reason Onset Date Comments Chart Prep 11/30/2024 Encounter Details Date Type Department Care Team ([facility] st Contact Info) Description 11/30/2024 Telephone [facility] MEDICINE [address] [place], [place] [phone] Alena Vega MA Chart Prep Social History [...] Description 03/17/2025 9:30 AM EDT Office Visit [facility] OPTOMETRY [address] [place] [address] David, Destinee, OD [address] [place] [address] documented as of this encounter Visit Diagnoses Not on filedocumented in this encounter Additional Health Concerns Assessment Noted Time PHQ-9 Depression Total Score: 11 024 9:22 AM EST documented as of this encounter Care Teams Foxer Relationship Specialty Start Date End Date Raya Pan NP [address] [place] [address] PCP - General Family Medicine 12/18/23 documented as of this encounter
--- OUTSIDE RECORDS SUMMARY | 2024-12-26 08:36 | XMS_ITS | Encounter Summary ---
Author Organization [employer] [facility] Address [address] [place] [address] [address] [place] [address] Care Team Providers Care Neonatal Doctor Name Role Phone Alex Kim GLORIA Primary Care Provider [phone] Raya Pan NP Primary Care Provider Encounter Details Date Type Department Care Team (Late st Contact Info) Description 09/25/2023 Abstract [facility] ADULT DENTAL [address] [place] [address] Kate Mejia DDS [address] [place] [address] Social History Tobacco Use Types Packs/Day Years [...] Description 03/17/2025 9:30 AM EDT Office Visit [facility] OPTOMETRY [address] [place] [address] David, Destinee, OD 230 [place] [address] documented as of this encounter Visit Diagnoses Not on filedocumented in this encounter Care Teams Neonatal Doctor Relationship Specialty Start Date End Date Kim Johnson FNP [address] [place] [address] PCP - General Family Medicine 05/14/22 12/17/23 Raya Pan NP [address] [place] [address] PCP - General Family Medicine 12/18/23 documented as of this encounter
--- OUTSIDE RECORDS SUMMARY | 2024-12-26 08:36 | XMS_ITS | Clinical Summary ---
Author Organization [employer] Address 75 [facility] 7t [place] [address] Care Team Providers Care Lozenge Dough Mixer Name Role Phone Raya Pan NP Primary Care Provider [phone] Allergies Active Allergy Reactions Criticality Noted Date Comments Fish-Derived Products Hives Medium 07/02/2024 Medications Apple Cider Vinegar 500 MG tablet Take 1 tablet by mouth Once per day. Active hydrocortisone (Cortef) 10 MG tablet Take 20 mg by mouth Once per day. Active famotidine (Pepcid) 20 MG tablet Take 1 tablet (20 mg) by mouth 2 times daily. 180 tablet 12/23/19 25 Active ketoconazole (NIZOral) 2 % creamIndicatio ns:Tinea pedis of right foot Apply topically Once per day. 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 Assessment & Plan (12/23/2024 7:07 PM EST): Pt in care with endocrine, encouraged follow up s/s to report reviewed including headache, vision change Pain due to onychomycosis of toenail of right fo ot 12/23/2024 Assessment & Plan (12/23/2024 7:06 PM EST): Referral to podiatry Tinea pedis of right foot 12/23/2024 Assessment & Plan (12/23/2024 7:06 PM EST): Topical ketoconazole rx Hair loss 12/23/2024 Dietary counseling 12/22/2024 Assessment & Plan (12/23/2024 7:07 PM EST): Dietary Recommendations: Fruits, vegetables, whole grains, protein foods, and fat-free or low-fat dairy products are healthy choices. Eat different types of protein foods in your diet. This can include seafood, lean meats, poultry, beans, peas, lentils, nuts, seeds, soy products, and eggs. Limit foods and beverages higher in added sugars, saturated fat, and sodium. Exercise Recommendations: At least 150 minutes of moderate-intensity physical activity per week, or an equivalent combination of moderate- and vigorous-intensity activity Exercise counseling 12/22/2024 Breast screening 10/07/2024 Unintentional weight change 10/07/2024 [...] neuropathic pain 02/23/2017 Iron deficiency anemia 09/19/2016 Assessment & Plan (12/23/2024 7:06 PM EST): Labs as ordered below Pt reports hair loss Encounters Date Type Department Care Team Description 12/23/2024 10:30 AM EST Office Visit [address] [address] Raya Pan NP Hair loss (Primary Dx); Dietary counseling; Exercise counseling; Tinea pedis of right foot; Pain due to onychomycosis of toenail of right foot; 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[facility]) 12/20/2024 Orders Only GENERIC EXTERNAL DATA DEPARTMENT Provider, Generic External Data 12/13/[address] [address] Alena Vega MA Chart Prep 11/30/[address] [address] Alena Vega MA Chart Prep 11/21/2024 9:00 AM EST Office Visit [facility] ADULT DENTAL [address] [place] [address] Hidalgo-Welsh, Kate, DDS Dental plaque (Primary Dx) 11/21/[address] [address] Raya Pan NP 10/11/2024 Travel 10/07/2024 9:00 AM EST Office Visit [address] [address] Raya Pan NP Breast screening (Primary Dx); Unintentional weight change; History of enlargement of pituitary gland; Onychomycosis; Gastroesophageal reflux disease without esophagitis; Blurry vision; Dysuria; Vaginal discharge 10/07/2024 Travel 10/06/2024 11:00 AM EST Office Visit [facility] ADULT DENTAL [address] [place] [address] Kate Mejia DDS Acute gingival inflammation (Primary Dx) 10/05/2024 Telephone [facility] MEDICINE [address] [place] [address] Alena Vega MA Chart Prep 09/29/2024 Patient Outreach [facility] [address] [place] [address] Raya Pan NP Pre-visit Planning (SDOH Screening negative and Tobacco screening negative) from Last 3 Months Immunizations Name Administration [...] Sign Reading Time Taken Comments Blood Pressure 117/74 12/23/2024 10:34 AM EST Pulse 72 12/23/2024 10:34 AM EST Temperature 36.3 ??C (97.4 ??F) 12/23/2024 10:[address] Respiratory Rate 21 12/23/2024 10:34 AM EST Oxygen Saturation 99% 12/23/2024 10:34 AM EST Inhaled Oxygen Concentration - - Weight 56.7 kg (125 lb) 12/23/2024 10:34 AM EST Height 146.1 cm (4' 9.5 ) 12/23/2024 10:34 AM ES T Body Mass Index 26.58 12/23/2024 10:34 AM EST Plan of Treatment Upcoming Encounters Date Type Department Care Team (Late st Contact Info) Description 03/17/2025 9:30 AM EDT Office Visit [facility] OPTOMETRY [address] [place] [address] David, Destinee, OD [address] [place] [address] Health Maintenance Due Date Last Done Comments Diabetes: Hemoglobin A1C 1980 Family Planning (PISQ) 1995 Mammogram 2020 Dental Prophylaxis 12/04/2022 06/02/2022, 1 12/18/2020, 01/19/2017, Additional history exists Hepatitis B Vaccines (2 of 3 - 19+ 3-dose series) 03/02/2023 02/02/2023 Dental Oral Exam 12/04/2023 06/02/2023, 07/2022, 10/17/2021, Additional history exists COVID-19 Vaccine ( season) 2024 04/16/2021 Influenza Vaccine (#1) 2024 , 10/03/2019, 01/31/2019, Additional history exists DTaP/Tdap/Td Vaccines (2 - Td or Tdap) 08/17/2024 08/17/2014 Dental X-Ray: Full Mouth 10/18/2024 10/17/2021, 03/2015 Pap Smear 12/23/2024 12/23/2021, 12/23/2021 Depression Monitoring (PHQ-9) 04/06/2025 10/07/2024, 10/07/2024 SDOH Screening 09/29/2025 09/29/2024 Alcohol/Substance Use Screening 10/07/2025 10/07/2024 Depression Screening 10/07/2025 10/07/2024, 10/07/20 24 Dental X-Ray: Bitewings 11/22/2025 11/21/19, 10/06/2024, 08/16/2024, Additional history exists Tobacco Screening 12/23/2025 12/23/2024 Cervical Cancer Screening 12/23/2026 HPV/Cotest 12/23/2026 12/23/2021 [...] Procedure Name Priority Date/Time Associated Diagnosis Comments ACTH, PLASMA Routine 12/20/2024 8:53 AM EST PROLACTIN, DILUTION STUDY Routine 12/20/2024 8:53 AM EST LH Routine 12/20/2024 8:53 AM EST FSH Routine 12/20/2024 8:53 AM EST GROWTH HORMONE (GH) Routine 12/20/2024 8 :53 AM EST DHEA SULFATE Routine 12/20/2024 8:53 AM EST CORTISOL RANDOM Routine 12/20/2024 8:53 AM EST TSH Routine 12/20/2024 8:53 AM EST T4, FREE Routine 12/20/2024 8:53 AM EST ADJUNCT[employer] GENER[employer] - PROFESSIONAL [...] 10/06/2024 11:00 AM EST Acute gingival inflammation PERIODIC ORAL EVALUATION - ESTABLISHED PATIENT Routine [...] Recently Relevant to Health Maintenance Results * Cortisol Random (12/20/2024 8:53 AM EST) Cortisol Random <1.0 ug/dL [facility] Comment:Reference Range*: Be fore 10 am 6.2-19.4 ug/dL After 5 pm 2.3-11.9 ug/dL*Please interpret above results accordingly.This test was performed using the Graphene[employer] chemiluminescentmethod. Values obtained from different assay methods cannotbe used interchangeably.Patients receiving fludrocortisone, prednisolone orprednisone may show artificially elevated cortisol valuesdue to cross-reactivity. 12/20/2024 8:53 AM EST 12/20/2024 8:53 AM EST us Generic External Data Provider LAB BLOOD ORDERAB LES Final Result Performing Organization Address [facility]/ZIP Co de Phone Number [facility] [address] [place] [phone] * ACTH, Plasma (12/20/2024 8:53 AM EST) ACTH, Plasma 13 6 - 50 pg/mL [facility] Comment:Reference range appl ies only to specimens collectedbetween 7am-10am.THIS TEST WAS PERFORMED AT:[employer]/[id number] [place] [address]HQARQEQSRAVANI SLAUGHTER MD,PHD 12/20/2024 8:53 AM EST 12/20/2024 8:53 AM EST us Generic External Data Provider LAB BLOOD ORDERAB LES Final Result [facility] [address] [place] [phone] * TSH (12/20/2024 8:53 AM EST) Pathologist [facility] Thyroid Stimulating Hormone 1.14 0.32 - 4.0 uIU/mL [facility] Comment:TSH 3rd Generation ( [facility]) 12/20/2024 8:53 AM EST 12/20/2024 8:53 AM EST Generic External Data Provider LAB BLOOD ORDERAB LES Final Result Performing Organization Address [facility] Co de Phone Number [facility] [address] [place] [phone] * T4, Free (12/20/2024 8:53 AM EST) Pathologist [facility] Free T4 (Free Thyroxine) 1.05 0.71 - 1.85 ng/dL [facility] 12/20/2024 8:53 AM EST 12/20/2024 8:53 AM EST Generic External Data Provider LAB BLOOD ORDERAB LES Final Result Performing Organization Address [facility] de Phone Number [facility] [address] [place] [phone] * HEPATITIS C AB W/REFL TO HCV RNA, QN, PCR (12/23/2021 10:03 AM EST) Pathologist [facility] HEPATITIS C ANTIBODY NON-REACT VERONA NON-REACT [facility] INDEX 0.01 <1.00 [facility] Comment: ?? HCV antibody was non-reactive. There is no laboratory ?? evidence of HCV infection. ?? In most cases, no further action is required. However, if recent HCV exposure is suspected, a test for HCV RNA (test code 17239) is suggested. ?? For additional information please refer to http://education.[employer]/faq/YPN89a6 (This link is being provided for informational/ educational purposes only.) ?? 12/23/2021 10:0 3 AM EST Isi Lind CNM HISTORICAL/NON ORDERABLE LABS Final Result Performing Organization Address [facility] Co de Phone Number [facility] [address] [place] [address], * HIV 1/2 ANTIGEN/ANTIBODY,FOURTH GENERATION W/RFL (12/23/2021 10:03 AM EST) Pathologist [facility] HIV-1/2 ANTIGEN AND ANTIBODIES, 4TH GENERATION W/ REFLEX NON-REACT VERONA NON-REACT VERONA [facility] Comment: HIV-1 antigen and HIV-1/HIV-2 [...] ? For additional information please refer to http://education.[employer]/faq/ZGI836 (This link is being provided for informational/ educational purposes only.) ? The performance of this assay has not been clinically validated in patients less than 2 years old. ?? 12/23/2021 10:0 3 AM EST Isi Lind CNM LAB BLOOD ORDERABLES Melvina l Result Performing Organization Address [facility] Co de Phone Number [facility] [address] [place] [address], * THINPREP TIS PAP AND HPV mRNA E6/E7, CT/NG, TRICH (12/23/2021 9:16 AM EST) Pathologist [facility] Chlamydia trachomatis RNA, TMA, Urogenital NOT DETECTED NOT DETECTED [facility] Clinical Information: None given [facility] COMMENT SEE COMMENT [facility] Comment: The analytical performance characteristics of this assay, when used to test SurePath(TM) specimens have been determined by [employer]. The modifications have not been cleared or approved by the FDA. This assay has been validated pursuant to the CLIA regulations and is used for clinical purposes. ?? For additional information, please refer to https://[employer]/faq/QWT973 (This link is being provided for information/ [...] has been evaluated with computer assisted technology. [facility] Dogman/Woman: SEE COMMENT [facility] Comment: RMM, CT(ASCP) CT screening location: [address] ??[id number] HPV nRNA E6/E7 Not Detected Not Detected [facility] [place] Comment: Methodology: Tool And Cutter Grinder-Mediated Amplification This assay detects E6/E7 viral messenger RNA (mRNA) from 14 high-risk HPV types (16,18,31,33,35,39,45,51,52,56,58,59,66,68). ? The analytical performance characteristics of this assay have been determined by [employer]. The modifications have not been cleared or approved by the FDA. This assay has been validated pursuant to the CLIA regulations and is used for clinical purposes. ?? For additional information, please refer to http://[employer]/faq/NDO116h2 (This link if provided for information/ educational purposes only.) Interpretation/Re sult: Negative for intraepithelial lesion or malignancy. [facility] LMP: 12/09/2021 [facility] [place] Neisseria gonorrhoeae RNA, TMA, Urogenital NOT DETECTED NOT DETECTED [facility] Prev. BX: NONE GIVEN [facility] [...] of this assay have been determined by [employer]. The modifications have not been cleared or approved by the FDA. This assay has been validated pursuant to the CLIA regulations and is used for clinical purposes. ?? For additional information, please refer to http://education.[employer]/ faq/Trichomonastma (This link is being provided for information/ educational purposes only.) ?? 12/23/2021 9:16 AM EST [facility] PATH[facility] ORDERABLES Final Result [facility] [address] * Pap Smear (12/23/2021 12:00 AM EST) Swab [facility] CYTOLOGY ORDERABLES F inal Result [facility] [address], [place] [address] from Last 3 Months or Most Recently Relevant to Health Maintenance Insurance [facility] AD[facility] Care Teams Lozenge Dough Mixer Relationship Specialty Start Date End Date Raya Pan NP [address] [place] [address] PCP - General Family Medicine 12/18/23
--- OUTSIDE RECORDS SUMMARY | 2024-12-26 08:36 | XMS_ITS | Encounter Summary ---
Author Organization [employer] [facility] Address [address] [facility] [address] [address] Care Team Providers Care Vice President Residential Solar Sales Name Role Phone Alex Kim LEGAL SERVICE SPECIALIST Primary Care Provider [phone] Raya Pan NP Primary Care Provider [phone] Encounter Details Date Type Department Care Team (Latest Contact Info) Description 10/17/[address] [facility] CONVERSIONS Dental, Provider, DDS Social History [...] Description 03/17/2025 9:30 AM EDT Office Visit [facility] OPTOMETRY [address] [place] [address] Destinee Hernandez, OD [address] [place] [address] documented as of this encounter Visit Diagnoses Not on filedocumented in this encounter Care Teams Vice President Residential Solar Sales Relationship Specialty Start Date End Date AlexKim FNP [address] [place] [address] PCP - General Family Medicine 05/14/22 12/17/23 Raya Pan NP [address] [place] [address] PCP - General Family Medicine 12/18/23 documented as of this encounter
--- OUTSIDE RECORDS SUMMARY | 2024-12-26 08:36 | XMS_ITS | Encounter Summary ---
Author Organization [employer] [facility] Address [address] [facility] 7t [place] [address] Care Team Providers Care Shore Working Supervisor Name Role Phone Maxim Raya RADHA Primary Care Provider [phone] Reason for Visit * Reason Onset Date Comments pain from crown 09/09/2024 Encounter Details Date Type Department Care Team ([facility] st Contact Info) Description 09/09/2024 Telephone [facility] ADULT DENTAL [address] [place], [place] [phone] Kate Mejia DDS [address] [place], [place] [phone] pain from crown Social History Tobacco Use [...] Description 03/17/2025 9:30 AM EDT Office Visit [facility] OPTOMETRY [address] [place] [address] Destinee Hernandez, JHON [address] [place] [address] documented as of this encounter Visit Diagnoses Not on filedocumented in this encounter Care Teams Shore Working Supervisor Relationship Specialty Start Date End Date Raya Pan NP [address] [place] [address] PCP - General Family Medicine 12/18/23 documented as of this encounter
--- OUTSIDE RECORDS SUMMARY | 2024-12-26 08:36 | XMS_ITS | Encounter Summary ---
Author Organization [employer] [facility] Address [address] [facility] [address]t [place] [address] Care Team Providers Care Gas Prover Name Role Phone Kim JohnsonP Primary Care Provider [phone] Raya Pan NP Primary Care Provider Encounter Details Date Type Department Care Team (Late st Contact Info) Description 06/30/2023 Abstract [facility] ADULT DENTAL [address] [place] [address] Subha, Abena [address] [place] [address] Social History Tobacco Use Types Packs/Day Years [...] Description 03/17/2025 9:30 AM EDT Office Visit [facility] OPTOMETRY [address] [place] [address] David, Destinee, OD [address] [place] [address] documented as of this encounter Visit Diagnoses Not on filedocumented in this encounter Care Teams Gas Prover Relationship Specialty Start Date End Date Kim Johnson FNP [address] [place] [address] PCP - General Family Medicine 05/14/22 12/17/23 Raya Pan NP [address] [place] [address] PCP - General Family Medicine 12/18/23 documented as of this encounter
--- OUTSIDE RECORDS SUMMARY | 2024-12-26 08:36 | XMS_ITS | Encounter Summary ---
Author Organization [employer] Address [address] [facility] [address] [place] [address] Care Team Providers Care Roller Skater Name Role Phone Raya Pan NP Primary Care Provider [phone] Reason for Visit * Reason Onset Date Comments Chart Prep 12/13/2024 Encounter Details Date Type Department Care Team ([facility] st Contact Info) Description 12/13/2024 Telephone [facility] MEDICINE [address] [place], [place] [phone] Alena Vega MA Chart Prep Social History [...] Description 03/17/2025 9:30 AM EDT Office Visit [facility] OPTOMETRY [address] [place] [address] David, Destinee, OD [address] [place] [address] documented as of this encounter Visit Diagnoses Not on filedocumented in this encounter Additional Health Concerns Assessment Noted Time PHQ-9 Depression Total Score: 11 024 9:22 AM EST documented as of this encounter Care Teams Roller Skater Relationship Specialty Start Date End Date Raya Pan NP [address] [place] [address] PCP - General Family Medicine 12/18/23 documented as of this encounter
--- OUTSIDE RECORDS SUMMARY | 2024-12-26 08:36 | XMS_ITS | Encounter Summary ---
Author Organization [facility] Address [address] [place] [address] Care Team Providers Care Apprentice Plant Attendant Name Role Phone Raya Pan NP Primary Care Provider [phone] Reason for Referral * Consultation (Routine) - Pending Review Specialty Diagnoses / Procedures Referred By Chika william Referred To Contact Podiatry Diagnoses Tinea pedis of right foot Pain due to onychomycosis of toenail of right foot Raya Pan NP [address] [place] [address] Phone: tel: fax: Referral ID Status Reason Start Date Expiration Date Visits Requested Visits Authorized [id number] Pending Review Specialty Services Required 12/23/2024 12/23/2025 1 1 Encounter Details Date Type Department Care Team (Latest Contact Info) Description 12/23/2024 10:30 AM EST Office Visit [facility] [address] [place] [address] Raya Pan NP [address], [place] [phone] Hair loss (Primary Dx); Dietary counseling; Exercise counseling; Tinea pedis of right foot; Pain due to onychomycosis of toenail of right foot; 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CMS/HCC) Social History Tobacco Use Types Packs/Day Years [...] Mass Index 26.58 12/23/2024 10:34 AM EST documented in this encounter Progress Notes * Raya Pan, LOGISTICS INTERN - 12/23/2024 10:30 AM EST Subjective Mellissa Tracy is a 44 y.o. female who presents to the office for follow up visit - chronic conditions. Interim history: 44-year-old female here today for initial evaluation of pituitary macroadenoma. Patient had CT scan of her orbits June 2024 due to ocular pain to rule out orbital cellulitis which showed a macroadenoma of the pituitary gland measuring 1.6 X 1.5 cm. No dedicated MRI of the pituitary done. We will obtain MRI pituitary gland. Given macroadenoma we will evaluate her for both hyper secretion and hypo secretion of the pituitary gland with a full pituitary panel as well as 24 hour urine cortisol levels. She does report some intermittent blurriness, however visual coe grossly intact however given microadenoma we will place ophthalmology referral for visual field evaluation. Plan: MRI of the pituitary ordered Labs for hypo secretion and hypersecretion with full pituitary panel and 24 hour urine cortisol levels Ophthalmology referral placed for evaluation of visual coe -follow up in 6 weeks to discuss results Current concerns: Right arm pain, was started on hydrocortisone, right arm pain, sometimes arm gets swollen this has improved Not taking pepcid, but spicy food trigger pain no other abdominal smyptoms including bloating, constipation, diarrhea or blood in the stool Right foot, toenail is damaged and reports dry skin chronically with flaking around heel Patient Active Problem List Diagnosis Dental calculus Periodontal disease Moderate localized gingival recession ALT (SGPT) level raised Helicobacter pylori gastritis Iron deficiency anemia Menorrhagia Peripheral neuropathic pain Prediabetes Preseptal cellulitis Pineal gland, tumor Breast screening Unintentional weight change History of enlargement of pituitary gland Onychomycosis Gastroesophageal reflux disease without esophagitis Blurry vision Dysuria Vaginal discharge Dietary counseling Exercise counseling 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CMS/HCC) Pain due to onychomycosis of toenail of right foot Tinea pedis of right foot Hair loss Review of Systems Constitutional: Negative for activity change and appetite change. Eyes: Negative for discharge, redness, itching and visual disturbance. Respiratory: Negative for chest tightness. Gastrointestinal: Negative for abdominal pain. Musculoskeletal: Positive for arthralgias. Skin: Negative for color change. Objective Visit Vitals BP 117/74 (BP Location: Left arm, Patient Position: Sitting, BP Cuff Size: Adult) Pulse 72 Temp 97.4 ??F (36.3 ??C) (Oral) Resp 21 Ht 4' 9.5 (1.461 m) Wt 125 lb (56.7 kg) SpO2 99% BMI 26.58 kg/m?? OB Status Having periods Smoking Status Never BSA 1.52 m?? Physical Exam Vitals reviewed. HENT: Head: Normocephalic and atraumatic. Nose: Nose normal. Eyes: Conjunctiva/sclera: Conjunctivae normal. Cardiovascular: Rate and Rhythm: Normal rate and regular rhythm. Pulmonary: Effort: Pulmonary effort is normal. Breath sounds: Normal breath sounds. Musculoskeletal: Cervical back: Normal range of motion and neck supple. Skin: General: Skin is dry. Findings: Rash present. Comments: Dry flaking skin right heel Thickened dicolored shortened nail bed of right great toe Neurological: General: No focal deficit present. Mental Status: She is alert. Assessment/Plan Problem List Items Addressed This Visit Dietary counseling Current Assessment & Plan Dietary Recommendations: Fruits, vegetables, whole grains, protein foods, and fat-free or low-fat dairy products are healthychoices. Eat different types of protein foods in your diet. This can include seafood, lean meats, poultry, beans, peas, lentils, nuts, seeds, soy products, and eggs. Limit foods and beverages higher in added sugars, saturated fat, and sodium. Exercise Recommendations: At least 150 minutes of moderate-intensity physical activity per week, or an equivalent combinationof moderate- and vigorous-intensity activity Exercise counseling 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CMS/HCC) Current Assessment & Plan Pt in care with endocrine, encouraged follow up s/s to report reviewed including headache, vision change Pain due to onychomycosis of toenail of right foot Current Assessment & Plan Referral to podiatry Relevant Orders Referral to Podiatry Tinea pedis of right foot Current Assessment & Plan Topical ketoconazole rx Relevant Medications ketoconazole (NIZOral) 2 % cream Other Relevant Orders Referral to Podiatry Hair loss - Primary Relevant Orders CBC auto differential Iron And Total Iron Binding Capacity Hemoglobin A1c Comprehensive Metabolic Panel Current Outpatient Medications Medication Sig Dispense Refill Apple Cider Vinegar 500 MG tablet Take 1 tablet by mouth Once per day. famotidine (Pepcid) 20 MG tablet Take 1 tablet (20 mg) by mouth 2 times daily. 180 tablet 0 hydrocortisone (Cortef) 10 MG tablet Take 20 mg by mouth Once per day. ketoconazole (NIZOral) 2 % cream Apply topically Once per day. 40 g 1 No current facility-administered medications for this visit. Visit Conducted in: Tuvaluan Translation by: provided by [employer] [id number] documented in this encounter Miscellaneous Notes * Assessment & Plan Note - Raya Pan NP - 12/23/2024 7:07 PM ESTAssociated Problem(s): Dietary counseling Dietary Recommendations: Fruits, vegetables, whole grains, protein foods, and fat-free or low-fat dairy products are healthychoices. Eat different types of protein foods in your diet. This can include seafood, lean meats, poultry, beans, peas, lentils, nuts, seeds, soy products, and eggs. Limit foods and beverages higher in added sugars, saturated fat, and sodium. Exercise Recommendations: At least 150 minutes of moderate-intensity physical activity per week, or an equivalent combinationof moderate- and vigorous-intensity activity * Assessment & Plan Note - Raya Pan NP - 12/23/2024 7:07 PM ESTAssociated Problem(s): 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CMS/HCC) Pt in care with endocrine, encouraged follow up s/s to report reviewed including headache, vision change * Assessment & Plan Note - Raya Pan NP - 12/23/2024 7:06 PM ESTAssociated Problem(s): Iron deficiency anemia Labs as ordered below Pt reports hair loss * Assessment & Plan Note - Raya Pan NP - 12/23/2024 7:06 PM ESTAssociated Problem(s): Tinea pedis of right foot Topical ketoconazole rx * Assessment & Plan Note - Raya Pan NP - 12/23/2024 7:06 PM ESTAssociated Problem(s): Pain due to onychomycosis of toenail of right foot Referral to podiatry documented in this encounter Plan of Treatment Upcoming Encounters Date Type Department Care Team (Late st Contact Info) Description 03/17/2025 9:30 AM EDT Office Visit [facility] OPTOMETRY [address] [place], [place] [id number] David, Destinee, OD [address] [place] [address] Scheduled Orders Name Type Priority Associated Diagnoses Orde r Schedule CBC auto differential Lab Routine Hair loss Expected: 12/23/2024 (Approximate), Expires: 12/23/2025 Iron And Total Iron Binding Capacity Lab Routine Hair loss Expected: 12/23/2024, Expires: 12/23/2025 Hemoglobin A1c Lab Routine Hair loss Expected: 12/23/2024 (Approximate), Expires: 12/23/2025 Comprehensive Metabolic Panel Lab Routine Hair loss Expected: 12/23/2024 (Approximate), Expires: 12/23/2025 Scheduled Referrals Name Type Priority Associated Diagnoses Orde r Schedule Referral to Podiatry Outpatient Referral Routine Tinea pedis of right foot Pain due to onychomycosis of toenail of right foot Expected: 12/23/2024 (Approximate), Expires: 12/23/2025 documented as of this encounter Visit Diagnoses Diagnosis Hair loss- Primary Unspecified alopecia Dietary counseling Dietary surveillance and counseling Exercise counseling Tinea pedis of right foot Pain due to onychomycosis of toenail of right foot 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CMS/HCC) Benign neoplasm of pituitary gland and craniopharyngeal duct (pouch) documented in this encounter Additional Health Concerns Assessment Noted Time PHQ-9 Depression Total Score: 11 024 9:22 AM EST documented as of this encounter Care Teams Apprentice Plant Attendant Relationship Specialty Start Date End Date Raya Pan NP [address] [place] [address] PCP - General Family Medicine 12/18/23 documented as of this encounter
[2024-12-26 08:57] LABS: Basophils Percent Auto 0.3 % (0-2); Eosinophils Percent Auto 0.3 % (0-4); Hematocrit 39.7 % (37.0-47.0); Hemoglobin 13.6 g/dl (12.0-16.0); Imm Gran Abs Auto 0.04 X10*3/uL (0.00-0.03); Imm Gran Pct Auto 0.6 % (0.0-0.4); Lymphocytes Absolute Auto 1.6 X10*3/uL (1.2-4.9); MANUAL DIFF FLAG NO; Mean Corpuscular HGB Conc 34.3 g/dl (31.0-35.0); Mean Corpuscular Hemoglobin 28.9 pg (27.0-33.0); Mean Corpuscular Volume 84.5 fL (80.0-98.0); Mean Platelet Volume 12.1 fL (9.4-12.3); Monocytes Absolute Auto 0.4 X10*3/uL (0.1-1.2); Monocytes Percent Auto 5.6 % (2-11); Neutrophils Absolute Auto 4.3 x10*3/uL (2.0-8.3); Neutrophils Percent Auto 68.2 % (45-73); Platelet Count 146 X10*3/uL (160-400); Red Cell Distribution Width 13.2 % (11.0-16.0); White Blood Count 6.3 X10*3/uL (4.8-10.8)
[2024-12-26 09:03] LABS: Estimated Average Glucose 324 mg/dL; Hemoglobin A1C 410.1373 umol/L; Hemoglobin A1c % 12.9 % (<6.0); Total Hemoglobin (HGBA1C) 3486.2488 umol/L
[2024-12-26 09:18] LABS: Alanine Aminotransferase 170 U/L (0-31); Alkaline Phosphatase 149 U/L (39-117); Anion Gap 13 (12-20); Aspartate Amino Transferase 82 U/L (5-31); Bilirubin Total 0.5 mg/dL (0.0-1.0); Blood Urea Nitrogen 15 mg/dL (9-16); Calcium 9.3 mg/dL (8.4-10.2); Carbon Dioxide 24 mmol/L (22-29); Chloride 104 mmol/L (96-108); Estimated Glomerular Filt Rate > 60; Glucose Random 328 mg/dL (60-115); Iron 48 mcg/dL (30-160); Percent Iron Saturation 15 % (15-50); Potassium 3.9 mmol/L (3.3-5.1); Sodium 137 mmol/L (135-145); Total Iron Binding Capacity 321 mcg/dL (228-428); Total Protein 7.7 g/dL (6.5-8.0); Unsaturated Iron Binding 273 ug/dL
[2024-12-26 09:31] LABS: Free T4 (Free Thyroxine) 1.05 ng/dL (0.71-1.85)
[2024-12-26 09:33] LABS: Cortisol Random 2.3 ug/dL
[2024-12-26 09:36] LABS: Thyroid Stimulating Hormone 1.75 uIU/mL (0.32-4.0)
[2024-12-27 18:02] LABS: Follicle Stimulating Hormone 9.5 mIU/mL
[2024-12-27 18:13] LABS: DHEA Sulfate 19 mcg/dL (15-205)
[2024-12-30 23:24] LABS: Adrenocorticotropic Hormone 15 pg/mL (6-50)
== END 2024-12-26 07:53 | disposition home or self-care (01) ==
LOC: HO.LAB 07:52
PROVIDERS: PCP Nurse Practitioner Family; Visit Provider Student in an Organized Health Care Education/Training Program
DX: R68.89 Other general symptoms and signs (principal); Z86.39 Personal history of other endocrine, nutritional and metabolic disease; L65.9 Nonscarring hair loss, unspecified; D35.2 Benign neoplasm of pituitary gland
CPT/HCPCS: 36415; 80053; 82024; 82533; 82627; 83001; 83002; 83036; 83540; 84439; 84443; 85025; 99212

== ENCOUNTER 2025-01-10 09:03 | Outpatient (AMB) | payer MEDICAID, SELFPAY ==
--- NOTE | 2025-01-10 09:04 | A.OFFVIS_ITS ---
Vital Signs 3 01/10/25 09:05 Height 5 ft Weight 127 lb 10.362 oz BMI 24.9 BP 102/70 Blood Pressure Location Lt brachial Position Sitting Pulse 74 Pulse Source Pulse Oximeter Pulse Oximetry (%) 97 Oxygen Delivery Method Room Air Intake Visit Reasons: Enlargement of pituitary gland Intake Note: Patient present today for Enlargement of pituitary gland. Manager Professional Development Required: Yes Manager Professional Development Language: Parts Sales Representative Services: Manager Professional Development Present Manager Professional Development Name: Jacob [id number] Information Interpreted: non-clinical & clinical Accompanied by: Self / Same As Patient Allergies No Known Allergies Allergy (Verified 01/10/25 09:08) Medication List - Last Reconciled 01/10/25 by Mia Tristan MD celecoxib 200 mg PO DAILY cyclobenzaprine 5 mg PO BEDTIME famotidine 20 mg PO BID hydrocortisone 10 mg PO BID ibuprofen 800 mg PO Q8H PRN HPI Comments Details: 44-year-old female here today for followup of pituitary incidentaloma. HPI Patient had CT scan of her orbits June 2024 due to ocular pain to rule out orbital cellulitis which showed a macroadenoma of the pituitary gland measuring 1.6 X 1.5 cm. no mass effect on optic chiasm. No dedicated MRI of the pituitary done. Vision changes: blurry vision intermittently trouble with reading , reports ocular pain intermittently Headache: none Nipple discharge: none Sound Cutter history: LMP: mid October 2024, regular Pregnancies : 4 , 4 living children , no fertility issues Change in sense of smell: no Change in ring size: none Change in shoe size: none Patient currently denies heat or cold intolerance, diarrhea or constipation, hair loss, palpitation, anxiety, weight changes, mood changes, low energy, changes in appearance of eyes or vision changes, tremors, increased diaphoresis or dry skin. ? Easy bruising: yes Proximal muscle weakness: none has uncontrolled DM Nausea: none Vomiting:none Lightheadedness: intermittent Weight: lost 5 lbs in 1 month Labs from 12/20/2024 showed normal thyroid function, undetectable cortisol level, acth of 13, DHEA-S of 29, IGF-1, estradiol level pending. Prolactin level normal 20.7. She is very inconsistent with her history and said that she was having some lightheadedness or dizziness that had already resolved before she started the medication that we had prescribed to her over the phone hydrocortisone 10 mg twice a day. She has lost 5 lb since the last visit. Interval history 12/26/2024: Apparently after holding the hydrocortisone the afternoon before in the morning off, cortisol level in a.m. was 2.3 with a ACTH of 15. 12/27/2024: Again after holding the hydrocortisone in the afternoon before and the morning of, cortisol level was 0.5 in a.m. at [facility] with ACTH of 3.9 No vision changes, no eye symptoms No nausea, vomiting , dizziness , lightheadedness. On hydrocortisone 10 mg in AM and 10 mg in afternoon at 2 PM Still waiting for MRI pituitary to be scheduled Physical exam General: sitting comfortably in no acute distress HEENT: normocephalic/atraumatic, , moist oral mucosa, visual coe grossly intact Neck: supple, Cardiac: normal heart sounds Pulm: normal breath sounds B/L, no added breath sounds Abd: not distended, no tenderness Laboratory Tests 12/20/24 08:53 TSH 1.14 Free T4 1.05 FSH 7.6 Luteinizing Hormone 7.7 Prolactin Undiluted 20.7 DHEA Sulfate 29 Human Growth Hormone 0.2 Random Cortisol < 1.0 ACTH 13 Laboratory Tests 12/20/24 12/26/24 08:53 08:49 Sodium 137 Potassium 3.9 Chloride 104 Carbon Dioxide 24 Anion Gap 13 BUN 15 Creatinine 0.67 Estimated GFR > 60 Alpha Subunit Marker 0.2 TSH 1.14 1.75 Free T4 1.05 1.05 Estradiol Ultra LCMSMS 45 FSH 7.6 9.5 Luteinizing Hormone 7.7 21.0 Prolactin Undiluted 20.7 DHEA Sulfate 29 19 Human Growth Hormone 0.2 Somatomedin-C 73 Somato-C Z-Score Female -1.3 Random Cortisol < 1.0 2.3 ACTH 13 15 PFSH Medical History Pituitary macroadenoma Surgical History History of bilateral tubal ligation Social History Alcohol intake: never Patient Tobacco Use Status: Never used Tobacco Physical Exam Vital Signs: Last Vital Signs Pulse 74 01/10/25 09:05 BP 102/70 01/10/25 09:05 Pulse Ox 97 01/10/25 09:05 Oxygen Delivery Method Room Air 01/10/25 09:05 BMI result Body Mass Index 24.9 Assessment & Plan Assessment & Plan (1) Pituitary macroadenoma: Code(s): D35.2 - Benign neoplasm of pituitary gland Category: Medical Plan: 44-year-old female here today for followup of pituitary macroadenoma. Seen with the help of interpreter translator Patient had CT scan of her orbits June 2024 due to ocular pain to rule out orbital cellulitis which showed a macroadenoma of the pituitary gland measuring 1.6 X 1.5 cm. No optic chiasm compression. No dedicated MRI of the pituitary done. I had ordered 1 on 11/29/2024, and then again 1 on 12/26/2024, however this still has not been scheduled. Our staff is following up on the status. Given macroadenoma we decided to evaluate her for both hyper secretion and hypo secretion of the pituitary gland with a full pituitary panel as well as 24 hour urine cortisol levels. She does report some intermittent blurriness, however visual coe grossly intact however given macroadenoma we placed ophthalmology referral for visual field evaluation. Again patient has still not seen Ophthalmology. Labs from 12/20/2024 showed normal thyroid function, undetectable cortisol level, acth of 13, DHEA-S of 29, IGF-1, estradiol level pending. Prolactin level normal 20.7. Started on hydrocortisone 10 mg in a.m. and 10 mg in the afternoon. 12/26/2024: Apparently after holding the hydrocortisone the afternoon before in the morning off, cortisol level in a.m. was 2.3 with a ACTH of 15. 12/27/2024: Again after holding the hydrocortisone in the afternoon before and the morning of, cortisol level was 0.5 in a.m. at [facility] with ACTH of 3.9 At this point we really need to get MRI of the pituitary, Her labs at [facility] showed a quite a low ACTH levels so I do not see the purpose of doing a cosyntropin stimulation test. Plan: Obtain MRI of the pituitary Ophthalmology referral placed last visit for evaluation of visual coe in November 2024 -continue hydrocortisone 10 mg in a.m. and 10 mg in the afternoon -discussed adrenal insufficiency sick rules and to obtain a medical bracelet -follow up in 2 weeks to discuss results I am going to put in a referral for Dr. Apple Cornejo at [facility] for patient to get evaluated for surgical evaluation of the pituitary microadenoma, however I would like to get the results of the MRI of pituitary before that. We will place the risks referral at the time of patient's follow up appointment in 2 weeks. Note: Patient had told me during her last visit that she does not have any history of diabetes mellitus, however I noticed today on her labs that she has blood sugars in the 300s with an A1c of 12.9%. At this time she is seeing me for pituitary macroadenoma, and we spent all of her visit time addressing that. Could not even get to her diabetes mellitus to see if she knows further about this diagnosis. Seems like PCP ordered these labs so I am unsure why she is not on any diabetes mellitus medications. New diagnosis? I am seeing the patient back in 2 weeks to follow up on her MRI results, we will also get her scheduled for a new diabetes mellitus visit at our clinic , unsure if anybody is managing this?. She is on steroids now for adrenal insufficiency which is just going to make her blood sugars worse. Plan I spent 30 minutes in reviewing the record, seeing the patient and documenting in the medical record. Orders: Orders 2 MR head/brain wo/w con Today D35.2 - Benign neoplasm of pituitary gland Medications: Refilled 2 hydrocortisone Take 1 tablet in the morning and 1 tablet at 2 PM in the afternoon daily 10 mg PO BID 60 tabs 7RF Patient Instructions: Continue hydrocortisone 10 mg in AM and 10 mg in afternoon ADRENAL SICK DAY RULE Minor ailments can affect anyone with a steroid-dependent adrenal condition very differently. Things like vomiting, diarrhea, colds and flu could cause an adrenal crisis. It's important that you spot the early symptoms of a bug or cold and adjust your steroid replacement medication. The Sick Day Rules are here to help you. If you're feeling ill or injured follow these rules to keep safe and reduce the chances of an adrenal crisis.?Make sure that you keep taking your medication whatever is going on. An adrenal crisis is serious, uncomfortable and can be life-threatening. What to do Double?your daily hydrocortisone, prednisone or prednisolone dose if: ? You have a temperature of 100.4 degrees or above. ? You get a bad cold, flu, diarrhea or other infection that makes you feel poorly or weak. ? You break a bone or suffer from any similar significant injury. For how long? ? Double your dose for 48-72 hours. If you are feeling better, go back to your usual dose. ? If you don't feel better after 48hrs, continue to double your does and speak to your doctor for more advice. ? If you are prescribed antibiotics, continue to double your dose until you finish the course or feel completely back to normal. I can't keep my medication down 1. If you vomit and bring up your medication within 30 minutes of taking it, take a double dose again immediately. 2. If you bring up the second dose,?go to ER immediately for IV steroids 3. If you carry on vomiting, you will become dehydrated Get MRI pituitary done MELISSA Buy a medical bracelet which says ADRENAL INSUFFICIENCY Continuar con hidrocortisona 10 mg por la ma?daysi y 10 mg por la tarde. SANIA DEL D?A DE ENFERMEDAD SUPRARRENAL Las dolencias menores pueden afectar de manera muy diferente a cualquier persona con lavonne afecci?n suprarrenal dependiente de esteroides. Cosas efe v?mitos, diarrea, resfriados y gripe pueden provocar lavonne crisis suprarrenal. Es importante que detecte los primeros s?ntomas de un virus o un resfriado y ajuste henao medicamento de reemplazo de esteroides. Las Reglas para los d?as de enfermedad est?n aqu? para ayudarlo. Si se siente enfermo o lesionado, siga estas reglas para mantenerse seguro y reducir las posibilidades de sufrir lavonne crisis suprarrenal.?Aseg?rese de seguir tomando hali medicamentos pase lo que pase. Lavonne crisis suprarrenal es grave, inc?moda y puede poner en peligro la benigno. que hacer Duplique hneao dosis diaria de hidrocortisona, prednisona o prednisolona si: ? Tiene lavonne temperatura de 100,4 grados o m?s. ? Tiene un resfriado esau, gripe, diarrea u otra infecci?n que lo hace sentir mal o d?clarence. ? Se rompe un hueso o sufre alguna lesi?n importante similar. ?Por cu?nto tiempo? ? Duplique henao dosis aidan 48 a 72 horas. Si se siente mejor, vuelva a henao dosis habitual. ? Si no se siente mejor despu?s de 48 horas, contin?e duplicando henao dosis y hable con heano m?dico para obtener m?s consejos. ? Si le recetan antibi?ticos, contin?e duplicando henao dosis hasta que termine el tratamiento o se sienta completamente normal. No puedo mantener mis medicamentos bajos 1. Si vomita y sube el medicamento dentro de los 30 minutos posteriores a haberlo tomado, vuelva a rosmery lavonne dosis doble inmediatamente. 2. Si sube la segunda dosis, vaya a urgencias inmediatamente para recibir esteroides intravenosos. 3. Si contin?as vomitando, te deshidratar?s H?gase lavonne resonancia magn?joanna de la hip?fisis lo antes posible Ted la prueba de estimulaci?n, las enfermeras llamar?n para programarla. Mantenga hidrocortsina el d?a anterior y la ma?daysi de esta prueba de estimulaci?n con cosintropina que se programar? en el centro de infusi?n. Compra lavonne pulsera m?dica que diga INSUFICIENCIA SUPRARRENAL Coding Level of Care Code Est Pt Level 4 (34612) Diagnoses Pituitary macroadenoma D35.2 Time Spent (min) 30
[2025-01-10 09:05] VITALS: BP 102/70; PULSE 74; O2SAT 97; BMI 24.9
--- OUTSIDE RECORDS SUMMARY | 2025-01-10 09:50 | XMS_ITS | Encounter Summary ---
Author Organization [email or web address] [facility] Address [address] [place] [address] Care Team Providers Care Radio Electronics Officer Name Role Phone Kim JohnsonP Primary Care Provider [phone] Raya Pan NP Primary Care Provider [phone] Encounter Details Date Type Department Care Team (Late st Contact Info) Description 06/30/2023 Abstract [facility] ADULT DENTAL [address] [place] [address] Subha, Abena [address] [place] [address] Social History Tobacco Use Types Packs/Day Years [...] Description 03/17/2025 9:30 AM EDT Office Visit [facility] OPTOMETRY [address] [place] [address] David, Destinee, OD [address] [place] [address] documented as of this encounter Visit Diagnoses Not on filedocumented in this encounter Care Teams Radio Electronics Officer Relationship Specialty Start Date End Date Kim Johnson FNP [address] [place] [address] PCP - General Family Medicine 05/14/22 12/17/23 Raya Pan NP [address] [place] [id number] PCP - General Family Medicine 12/18/23 documented as of this encounter
--- OUTSIDE RECORDS SUMMARY | 2025-01-10 09:50 | XMS_ITS | Encounter Summary ---
Author Organization [employer] Address [address] [place] [address] Care Team Providers Care Facility Coordinator Name Role Phone Raya Pan NP Primary Care Provider [phone] Reason for Visit * Reason Onset Date Comments Chart Prep 12/13/2024 Encounter Details Date Type Department Care Team ([facility] st Contact Info) Description 12/13/2024 Telephone [facility] MEDICINE [address] [place], [place] [phone] Alena Vega MA Chart Prep Social History [...] Description 03/17/2025 9:30 AM EDT Office Visit [facility] OPTOMETRY [address] [place] [address] David, Destinee, OD [address] [place] [address] documented as of this encounter Visit Diagnoses Not on filedocumented in this encounter Additional Health Concerns Assessment Noted Time PHQ-9 Depression Total Score: 11 024 9:22 AM EST documented as of this encounter Care Teams Facility Coordinator Relationship Specialty Start Date End Date Raya Pan NP [address] [place] [address] PCP - General Family Medicine 12/18/23 documented as of this encounter
--- OUTSIDE RECORDS SUMMARY | 2025-01-10 09:50 | XMS_ITS | Encounter Summary ---
Author Organization [email or web address] [facility] Address [address] [place] [address] Care Team Providers Care Funeral Home Makeup Artist Name Role Phone Raya Pan NP Primary Care Provider [phone] Reason for Referral * Consultation (Routine) - Authorized Specialty Diagnoses / Procedures Referred By Chika william Referred To Contact Podiatry Diagnoses Tinea pedis of right foot Pain due to onychomycosis of toenail of right foot Raya Pan NP [address] [place] [address] Phone: tel: fax: Kameron Ward DPM [address] [address] Phone: tel: fax: Referral ID Status Reason Start Date Expiration Date Visits Requested Visits Authorized [id number] Authorized Specialty Services Required 12/23/2024 12/23/2025 1 1 Encounter Details Date Type Department Care Team (Latest Contact Info) Description 12/23/2024 10:30 AM EST Office Visit [facility] MEDICINE [address] [place], [place] [phone] Raya Pan NP [address] [place], [place] [phone] Hair loss (Primary Dx); Dietary counseling; Exercise [...] this encounter Progress Notes * Raya Pan, VULCANIZING MACHINE OPERATOR - 12/23/2024 10:30 AM EST Subjective Mellissa [...] medications for this visit. Visit Conducted in: Bulgarian Translation by: provided by [employer] CRAZE [id number] documented in this encounter Miscellaneous Notes * [...] * Assessment & Plan Note - Raya aPn NP - 12/23/2024 7:06 PM ESTAssociated Problem(s): [...] 9:30 AM EDT Office Visit [facility] OPTOMETRY [address] [place] [address] Destinee Hernandez, OD [address] [place] [address] Scheduled Orders Name Type Priority Associated Diagnoses Orde r Schedule CBC auto differential Lab Routine Hair loss Expected: 12/23/2024 (Approximate), Expires: 12/23/2025 Scheduled Referrals Name Type Priority Associated Diagnoses Orde r Schedule Referral to Podiatry Outpatient Referral Routine Tinea pedis of right foot Pain due to onychomycosis of toenail of right foot Expected: 12/23/2024 (Approximate), Expires: 12/23/2025 documented as of this encounter Procedures Procedure Name Priority Date/Time Associated Diagnosis Comments IRON AND TOTAL IRON BINDING CAPACITY Routine 12/26/2024 8:49 AM EST Hair loss HEMOGLOBIN A1C Routine 12/26/2024 8:49 AM EST Hair loss COMPREHENSIVE METABOLIC PANEL Routine 12/26/2024 8:49 AM EST Hair loss documented in this encounter Results * (ABNORMAL) Comprehensive Metabolic Panel (12/26/2024 8:49 AM EST) Sodium 137 135 - 145 mmol/L [facility] Potassium 3.9 3.3 - 5.1 mmol/L [facility] Chloride 104 96 - 108 mmol/L [facility] Carbon Dioxide 24 22 - 29 mmol/L [facility] Anion Gap 13 12 - 20 [facility] Urea Nitrogen (BUN) 15 9 - 16 mg/dL [facility] Creatinine, Serum 0.67 0.5 - 1.4 mg/dL [facility] Estimated Glomerular Filt Rate >60 [facility] Comment:Chronic Kidney Disea se: Estimated GFR < 60 mL/min/[id number] Kidney Disease: Estimated GFR < 15 mL/min/1.73m2 Glucose 328(H) 60 - 115 mg/dL [facility] Calcium 9.3 8.4 - 10.2 mg/dL [facility] Bilirubin, Total 0.5 0.0 - 1.0 mg/dL [facility] Aspartate Amino Transferase 82(H) 5 - 31 U/L [facility] Alanine Aminotransferase 170(H) 0 - 31 U/L [facility] Total Protein 7.7 6.5 - 8.0 g/dL [facility] Albumin Level 4.0 3.5 - 5.0 g/dL [facility] Alkaline Phosphatase 149(H) 39 - 117 U/L [facility] Blood Venous blood specimen / Unknown 12/26/2024 8:49 AM EST 12/26/2024 8:49 AM EST us Raya Pan VULCANIZING MACHINE OPERATOR LAB BLOOD ORDERABLES Final Resul t [facility] [address] [place] [phone] * (ABNORMAL) Hemoglobin A1c (12/26/2024 8:49 AM EST) Hemoglobin A1c 12.9(H) <6.0 % [facility] Comment:Hemoglobin A1C Refer ence Range Adults: 4.8 - 6.0 % Non diabetic: < 6.0 % Goal: < 7.0 %Additional Action Suggested: > 8.0 %Note: Hemoglobin A1c results are invalid for patients with abnormal amounts of HbF. Blood transfusions may impact the HbA1c concentration in the patient sample. Estimated Average Glucose 324 mg/dL [facility] Comment:eAG = Estimated ave rage glucose which is %A1C expressed asaverage glucose, using the formula of the R6I-OxetbzmYamlfed Glucose study (ADAG), Diabetes Care, Vol.31,#8,Jun. 2007 Blood Venous blood specimen / Unknown 12/26/2024 8:49 AM EST 12/26/2024 8:49 AM EST Raya Pan VULCANIZING MACHINE OPERATOR LAB BLOOD ORDERABLES Final Resul t Performing Organization Address [facility] Co de Phone Number [facility] [address] [place] [phone] * Iron And Total Iron Binding Capacity (12/26/2024 8:49 AM EST) Iron 48 30 - 160 mcg/dL [facility] Total Iron Binding Capacity 321 228 - 428 mcg/dL [facility] Percent Iron Saturation 15 15 - 50 % [facility] Unsaturated Iron Binding 273 ug/dL [facility] Blood Venous blood specimen / Unknown 12/26/2024 8:49 AM EST 12/26/2024 8:49 AM EST Raya Pan NP LAB BLOOD ORDERABLES Final Resul t Performing Organization Address [facility] Co de Phone Number [facility] [address] [place] [phone] [phone] documented in this encounter Visit Diagnoses Diagnosis Hair loss- [...] documented as of this encounter Care Teams Funeral Home Makeup Artist Relationship Specialty Start Date End Date Raya Pan NP [address] [place] [phone] PCP - General Family Medicine 12/18/23 documented as of this encounter
--- OUTSIDE RECORDS SUMMARY | 2025-01-10 09:50 | XMS_ITS | Encounter Summary ---
Author Organization [facility] Address [address] [facility] [place] [address] Care Team Providers Care Train Operator Name Role Phone Maxim Raya RADHA Primary Care Provider [phone] Reason for Visit * Reason Onset Date Comments pain from crown 09/09/2024 Encounter Details Date Type Department Care Team ([facility] st Contact Info) Description 09/09/2024 Telephone [facility] ADULT DENTAL [address] [place], [place] [phone] Kate Mejia DDS [address] [place], [place] [phone] pain from crown Social History Tobacco Use [...] Description 03/17/2025 9:30 AM EDT Office Visit [facility] OPTOMETRY [address] [place] [address] Destinee Hernandez, JHON [address] [place] [address] documented as of this encounter Visit Diagnoses Not on filedocumented in this encounter Care Teams Train Operator Relationship Specialty Start Date End Date Raya Pan NP [address] [place] [address] PCP - General Family Medicine 12/18/23 documented as of this encounter
--- OUTSIDE RECORDS SUMMARY | 2025-01-10 09:50 | XMS_ITS | Encounter Summary ---
Author Organization [employer] Address [address] [place] [address] Care Team Providers Care Principal Network Engineer Name Role Phone Raya Pan NP Primary Care Provider [phone] Reason for Visit * Reason Onset Date Comments Chart Prep 12/28/2024 Encounter Details Date Type Department Care Team ([facility] st Contact Info) Description 12/28/2024 Telephone [facility] MEDICINE [address] [place], [place] [phone] Alena Vega MA Chart Prep Social History [...] Telephone Encounter - Alena Vega MA - 12/28/2024 2:36 PM EST Chart Prep Labs: done Images: not done Vaccines due: yes Referrals: pending appt Screenings: Urine protein, Lipid panel Overdue care gaps: Glucose documented in this encounter Plan of Treatment Upcoming Encounters Date Type Department Care Team (Late st Contact Info) Description 03/17/2025 9:30 AM EDT Office Visit [facility] OPTOMETRY [address] [place] [address] Destinee Hernandez, OD [address] [place] [address] documented as of this encounter Visit Diagnoses Not on filedocumented in this encounter Additional Health Concerns Assessment Noted Time PHQ-9 Depression Total Score: 11 024 9:22 AM EST documented as of this encounter Care Teams Principal Network Engineer Relationship Specialty Start Date End Date Raya Pan NP [address] [place] [address] PCP - General Family Medicine 12/18/23 documented as of this encounter
--- OUTSIDE RECORDS SUMMARY | 2025-01-10 09:50 | XMS_ITS | Encounter Summary ---
Author Organization [facility] Address [address] [place] [address] Care Team Providers Care Foreign Correspondent Name Role Phone Raya Pan NP Primary Care Provider [phone] Encounter Details Date Type Department Care Team (Late st Contact Info) Description 01/04/2025 Telephone [facility] MEDICINE [address] [place], [place] [phone] Raya Pan NP [address] [place], [place] [phone] Social History Tobacco Use Types Packs/Day Years [...] encounter Miscellaneous Notes * Telephone Encounter - Raya Pan NP - 01/04/2025 11:10 AM EST Please call pt , she had visit today to disuss hgb A1c of 12.9 (new diagnosis of diabetes) please relay urgency of visit jesús to manage this. Thank you documented in this encounter Plan of Treatment Upcoming Encounters Date Type Department Care Team (Late st Contact Info) Description 03/17/2025 9:30 AM EDT Office Visit [facility] OPTOMETRY [address] [place] [address] Destinee Hernandez, OD [address] [place] [address] documented as of this encounter Visit Diagnoses Not on filedocumented in this encounter Additional Health Concerns Assessment Noted Time PHQ-9 Depression Total Score: 11 024 9:22 AM EST documented as of this encounter Care Teams Foreign Correspondent Relationship Specialty Start Date End Date Raya Pan NP [address] [place] [address] PCP - General Family Medicine 12/18/23 documented as of this encounter
--- OUTSIDE RECORDS SUMMARY | 2025-01-10 09:50 | XMS_ITS | Clinical Summary ---
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/23/2024 Assessment & Plan (12/23/2024 [...] Encounters Date Type Department Care Team Description 01/04/[address] [address] Raya Pan NP 12/28/[address] [address] Alena Vega MA Chart Prep 12/26/[address] [address] Alena Vega MA appointment for results 12/23/2024 10:30 AM EST Office Visit [address] [address] Raya Pan NP Hair loss (Primary Dx); Dietary counseling; Exercise counseling; Tinea pedis of right foot; Pain due to onychomycosis of toenail of right foot; 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[facility]) 12/20/2024 Orders Only GENERIC EXTERNAL DATA DEPARTMENT Provider, Generic External Data 12/13/[address] [address] Alena Vega MA Chart Prep 11/30/[address] [address] Alena Vega MA Chart Prep 11/21/2024 9:00 AM EST Office Visit [facility] [address] [place] [phone] Hidalgo-Welsh, Kate, DDS Dental plaque (Primary Dx) 11/21/[address] [place] [address] Raya Pan NP 10/11/2024 Travel from Last 3 Months Immunizations Name Administration [...] 9:30 AM EDT Office Visit [facility] [address] [place] [address] David, Destinee, OD [address] [place] [address] Health Maintenance Due Date Last Done Comments Lipid Panel 1980 Diabetes: Foot Exam 1990 Eye Exam 1990 Family Planning (PISQ) 1995 Diabetes: Urine Protein Screening 1999 Pneumococcal Vaccine: Pediatrics (0 to 5 Years) and At-Risk Patients (6 to 49) Years) (1 of 2 - PCV) 1999 Mammogram 2020 Dental Prophylaxis 12/04/2022 06/02/2022, 1 12/18/2020, 01/19/2017, Additional history exists Hepatitis B Vaccines (2 of 3 - 19+ 3-dose series) 03/02/2023 02/02/2023 Dental Oral Exam 12/04/2023 06/02/2023, 07/2022, 10/17/2021, Additional history exists COVID-19 Vaccine (2 - 2023- season) 2024 04/16/2021 Influenza Vaccine (#1) 2024 2, 10/03/2019, 01/31/2019, Additional history exists DTaP/Tdap/Td Vaccines (2 - Td or Tdap) 08/17/2024 08/17/2014 Dental X-Ray: Full Mouth 10/18/2024 10/17/2021, 0203/2015 Pap Smear 12/23/2024 12/23/2021, 12/23/2021 Diabetes: Hemoglobin A1C 03/25/2025 12/26/2024 Depression Monitoring (PHQ-9) 04/06/2025 10/07/2024, 10/07/2024 SDOH Screening 09/29/2025 09/29/2024 Alcohol/Substance Use Screening 10/07/2025 10/07/2024 Depression Screening 10/07/2025 10/07/2024, 10/07/20 24 Dental X-Ray: Bitewings 11/22/2025 11/21/19 25, 10/06/2024, 08/16/2024, Additional history exists Tobacco Screening [...] Date/Time Associated Diagnosis Comments ACTH, PLASMA Routine 12/26/2024 8:49 AM EST DHEA SULFATE Routine 12/26/2024 8:49 AM EST LH Routine 12/26/2024 8:49 AM EST FSH Routine 12/26/2024 8:49 AM EST TSH Routine 12/26/2024 8:49 AM EST CORTISOL RANDOM Routine 12/26/2024 8:49 AM EST T4, FREE Routine 12/26/2024 8:49 AM EST COMPREHENSIVE METABOLIC PANEL Routine 12/26/2024 8:49 AM EST Hair loss HEMOGLOBIN A1C Routine 12/26/2024 8:49 AM EST Hair loss IRON AND TOTAL IRON BINDING CAPACITY Routine 12/26/2024 8:49 AM EST Hair loss CBC WITH AUTO DIFFERENTIAL Routine 12/26/2024 8:49 AM EST Unintentional weight change History of enlargement of pituitary gland PROLACTIN Routine 12/20/2024 8:53 AM EST ALPHA SUBUNIT Routine 12/20/2024 8:53 AM EST IGF 1, LC/MS Routine 12/20/2024 8:53 AM EST ESTRADIOL Routine 12/20/2024 8:53 AM EST ACTH, PLASMA [...] T4, FREE Routine 12/20/2024 8:53 AM EST CASE PRESENTATION, DETAILED AND EXTENSIVE TREATMENT PLANNING Routine 11/21/2024 9:00 AM EST BITEWING - SINGLE RADIOGRAPHIC IMAGE Routine 11/21/2024 9:00 AM EST LIMITED ORAL EVALUATION - PROBLEM FOCUSED Routine 11/21/2024 9:00 AM EST PERIODIC ORAL EVALUATION - ESTABLISHED PATIENT Routine [...] PAP SMEAR Routine 12/23/2021 12:00 AM EST INTRAORAL - COMPLETE SERIES OF RADIOGRAPHIC IMAGES Routine 10/17/2021 12:00 AM EST from Last 3 Months or Most Recently Relevant to Health Maintenance Results * Cortisol Random (12/26/2024 8:49 AM EST) Only the most recent of2 resultswithin the time period is included. Cortisol Random 2.3 ug/dL [facility] Comment:Reference Range*: Be fore 10 am 6.2-19.4 ug/dL After 5 pm 2.3-11.9 ug/dL*Please interpret above results accordingly.This test was performed using the Agorique chemiluminescentmethod. Values obtained from different assay methods cannotbe used interchangeably.Patients receiving fludrocortisone, prednisolone orprednisone may show artificially elevated cortisol valuesdue to cross-reactivity. 12/26/2024 8:49 AM EST 12/26/2024 8:49 AM EST us Generic External Data Provider LAB BLOOD ORDERAB LES Final Result [facility] [address] [place] [phone] * (ABNORMAL) CBC auto differential (12/26/2024 8:49 AM EST) White Blood Count 6.3 4.8 - 10.8 X10*3/uL [facility] Red Blood Count 4.70 4.20 - 5.50 X10*6/uL [facility] Hemoglobin 13.6 12.0 - 16.0 g/dl [facility] Hematocrit 39.7 37.0 - 47.0 % [facility] Mean Corpuscular Volume 84.5 80.0 - 98.0 fL [facility] Mean Corpuscular Hemoglobin 28.9 27.0 - 33.0 pg [facility] Mean Corpuscular HGB Conc 34.3 31.0 - 35.0 g/dl [facility] Red Cell Distribution Width 13.2 11.0 - 16.0 % [facility] Platelet Count 146(L) 160 - 400 X10*3/uL [facility] Mean Platelet Volume 12.1 9.4 - 12.3 fL [facility] Neutrophils Percent Auto 68.2 45 - 73 % [facility] Imm Gran Pct Auto 0.6(H) 0.0 - 0.4 % [facility] Lymphocytes Percent Auto 25.0 20 - 40 % [facility] Monocytes Percent Auto 5.6 2 - 11 % [facility] Eosinophils Percent Auto 0.3 0 - 4 % [facility] Basophils Percent Auto 0.3 0 - 2 % [facility] NRBC Pct Auto 0.0 0.0 - 0.2 /100WBC [facility] Neutrophils Absolute Auto 4.3 2.0 - 8.3 x10*3/uL [facility] Imm Gran Abs Auto 0.04(H) 0.00 - 0.03 X10*3/uL [facility] Lymphocytes Absolute Auto 1.6 1.2 - 4.9 X10*3/uL [facility] Monocytes Absolute Auto 0.4 0.1 - 1.2 X10*3/uL [facility] Eosinophils Absolute Auto 0.0 0.0 - 0.4 X10*3/uL [facility] Basophils Absolute Auto 0.0 0.0 - 0.2 X10*3/uL [facility] NRBC Abs Auto 0.000 0.0 - 0.012 X10*3/uL [facility] Blood Venous blood specimen / Unknown 12/26/2024 8:49 AM EST 12/26/2024 9:05 AM EST us Raya Pan MANAGER DRIVE LAB BLOOD ORDERABLES Final Resul t Performing Organization Address City/[facility] de Phone Number [facility] [address] [place] [phone] * Iron And Total Iron Binding Capacity (12/26/2024 8:49 AM EST) Iron 48 30 - 160 mcg/dL [facility] Total Iron Binding Capacity 321 228 - 428 mcg/dL [facility] Percent Iron Saturation 15 15 - 50 % [facility] Unsaturated Iron Binding 273 ug/dL [facility] Blood Venous blood specimen / Unknown 12/26/2024 8:49 AM EST 12/26/2024 8:49 AM EST us Raya Pan MANAGER DRIVE LAB BLOOD ORDERABLES Final Resul t Performing Organization Address [facility] Co de Phone Number [facility] [address] [place] [phone] * DHEA Sulfate (12/26/2024 8:49 AM EST) Only the most recent of2 resultswithin the time period is included. DHEA Sulfate 19 15 - 205 mcg/dL [facility] Comment:THIS TEST WAS PERFOR MED AT:[employer] [address] [address]DGEKNTAMIA HERNANDEZ MD 12/26/2024 8:49 AM EST 12/26/2024 8:49 AM EST Generic External Data Provider LAB BLOOD ORDERAB LES Final Result Performing Organization Address [facility]/ZIP Co de Phone Number [facility] [address] [place] [phone] * ACTH, Plasma (12/26/2024 8:49 AM EST) Only the most recent of2 resultswithin the time period is included. ACTH, Plasma 15 6 - 50 pg/mL [facility] Comment:Reference range appl ies only to specimens collectedbetween 7am-10am.THIS TEST WAS PERFORMED AT:[employer] [place] [address]TAHNUJNSRAVANI SLAUGHTER MD,PHD 12/26/2024 8:49 AM EST 12/26/2024 8:49 AM EST Generic External Data Provider LAB BLOOD ORDERAB LES Final Result Performing Organization Address City/[facility]/ZIP Co de Phone Number [facility] [address] [place] [phone] * TSH (12/26/2024 8:49 AM EST) Only the most recent of2 resultswithin the time period is included. Thyroid Stimulating Hormone 1.75 0.32 - 4.0 uIU/mL [facility] Comment:TSH 3rd Generation ( [facility]) 12/26/2024 8:49 AM EST 12/26/2024 8:49 AM EST us Generic External Data Provider LAB BLOOD ORDERAB LES Final Result Performing Organization Address [facility] Co de Phone Number [facility] [address] [place] [phone] * T4, Free (12/26/2024 8:49 AM EST) Only the most recent of2 resultswithin the time period is included. Free T4 (Free Thyroxine) 1.05 0.71 - 1.85 ng/dL [facility] 12/26/2024 8:49 AM EST 12/26/2024 8:49 AM EST us Generic External Data Provider LAB BLOOD ORDERAB LES Final Result Performing Organization Address [facility] Phone Number [facility] [address] [place] [phone] * (ABNORMAL) Hemoglobin A1c (12/26/2024 8:49 AM EST) Hemoglobin A1c 12.9(H) <6.0 % [facility] Comment:Hemoglobin A1C Refer ence Range Adults: 4.8 - 6.0 % Non diabetic: < 6.0 % Goal: < 7.0 %Additional Action Suggested: > 8.0 %Note: Hemoglobin A1c results are invalid for patients with abnormal amounts of HbF. Blood transfusions may impact the HbA1c concentration in the patient sample. Estimated Average Glucose 324 mg/dL [facility] Comment:eAG = Estimated ave rage glucose which is %A1C expressed asaverage glucose, using the formula of the G2D-UmvxqcfOxrgxky Glucose study (ADAG), Diabetes Care, Vol.31,#8,Jun. 2007 Blood Venous blood specimen / Unknown 12/26/2024 8:49 AM EST 12/26/2024 8:49 AM EST us Raya Pan MANAGER DRIVE LAB BLOOD ORDERABLES Final Resul t Performing Organization Address [facility] de Phone Number [facility] [address] [place] [phone] * LH (12/26/2024 8:49 AM EST) Only the most recent of2 resultswithin the time period is included. Lutenizing Hormone 21.0 mIU/mL [facility] Comment:Reference Range Fol licular Phase 1.9-12.5 Mid-Cycle Peak 8.7-76.3 Luteal Phase 0.5-16.9 Postmenopausal 10.0-54.7THIS TEST WAS PERFORMED AT:[employer] [address] [address]TBLHETAMIA HERNANDEZ MD 12/26/2024 8:49 AM EST 12/26/2024 8:49 AM EST Generic External Data Provider LAB BLOOD ORDERAB LES Final Result Performing Organization Address [facility] Number [facility] [address] [place] [phone] * FSH (12/26/2024 8:49 AM EST) Only the most recent of2 resultswithin the time period is included. Follicle Stimulating Hormone 9.5 mIU/mL [facility] Comment:Reference Range Foll icular Phase 2.5-10.2 Mid-cycle Peak 3.1-17.7 Luteal Phase 1.5- 9.1 Postmenopausal 23.0-116.3THIS TEST WAS PERFORMED AT:[employer] [address] [address]DTWTITAMIA HERNANDEZ MD 12/26/2024 8:49 AM EST 12/26/2024 8:49 AM EST us Generic External Data Provider LAB BLOOD ORDERAB LES Final Result Performing Organization Address [facility] de Phone Number [facility] [address] [place] [phone] * (ABNORMAL) Comprehensive Metabolic Panel (12/26/2024 8:49 AM EST) Pathologist [facility] Sodium 137 135 - 145 mmol/L [facility] Potassium 3.9 3.3 - 5.1 mmol/L [facility] Chloride 104 96 - 108 mmol/L [facility] Carbon Dioxide 24 22 - 29 mmol/L [facility] Anion Gap 13 12 - 20 [facility] Urea Nitrogen (BUN) 15 9 - 16 mg/dL [facility] Creatinine, Serum 0.67 0.5 - 1.4 mg/dL [facility] Estimated Glomerular Filt Rate >60 [facility] Comment:Chronic Kidney Disea se: Estimated GFR < 60 mL/min/1.44y9Rpdtbs Kidney Disease: Estimated GFR < 15 mL/min/1.73m2 Glucose 328(H) 60 - 115 mg/dL [facility] Calcium 9.3 8.4 - 10.2 mg/dL [facility] Bilirubin, Total 0.5 0.0 - 1.0 mg/dL [facility] Aspartate Amino Transferase 82(H) 5 - 31 U/L [facility] Alanine Aminotransferase 170(H) 0 - 31 U/L [facility] Total Protein 7.7 6.5 - 8.0 g/dL [facility] Albumin Level 4.0 3.5 - 5.0 g/dL [facility] Alkaline Phosphatase 149(H) 39 - 117 U/L [facility] Blood Venous blood specimen / Unknown 12/26/2024 8:49 AM EST 12/26/2024 8:49 AM EST us Raya Pan MANAGER DRIVE LAB BLOOD ORDERABLES Final Resul t [facility] [address] [place] [phone] * Alpha Subunit (12/20/2024 8:53 AM EST) Pathologist [facility] Alpha Subunit 0.2 ng/mL [facility] Comment:Reference Range for Alpha Subunit:Premenopausal Females: 0.1-0.6 ng/mLPostmenopausal Females: 0.1-1.5 ng/mLPregnancy (1st and 2nd Trimesters): 35.0-186.0 ng/mLHypothyroidism: 0.2-3.2 ng/mLThis test measures the free alpha subunit that is common toLH, FSH, TSH and hCG. These hormones are comprised ofidentical alpha subunits and unique beta subunits thatconfer biological specificity.This test was developed and its analytical performancecharacteristics have been determined by [email or web address].It has not been cleared or approved by FDA. This assay hasbeen validated pursuant to the CLIA regulations and is usedfor clinical purposes.THIS TEST WAS PERFORMED AT:[employer]/[facility] [id number] [place] [address]OKOMXLEVON FORTE MD,PHD,JOSHUA 12/20/2024 8:53 AM EST 12/20/2024 8:53 AM EST us Generic External Data Provider LAB BLOOD ORDERAB LES Final Result [facility] [address] [place] [phone] * Prolactin, Dilution Study (12/20/2024 8:53 AM EST) Prolactin, Undiluted 20.7 ng/mL [facility] Prolactin, Diluted SEE NOTE ng/mL [facility] Comment:Result confirmed by 1:100 dilution. No high dosehook effect detected. Reference Range Females Non- 3.0-30.0 10.0-209.0 Postmenopausal 2.0-20.0Prolactin dilution studies are done to determine ifthere is a high-dose hook effect (i.e. a non-linearassay response due to a very high concentration ofProlactin). This is reported to occur at Prolactinconcentrations at or above 30,000 ng/mL.This test is not recommended for identifyingmacroprolactin. The [employer] [facility], Prolactin, Total and Monomeric is therecommended test (Order code [id number]).THIS TEST WAS PERFORMED AT:[employer] [place] [address]QKGTXTAMIA HERNANDEZ MD 12/20/2024 8:53 AM EST 12/20/2024 8:53 AM EST Generic External Data Provider LAB BLOOD ORDERAB LES Final Result Performing Organization Address [facility] de Phone Number [facility] [address] [place] [phone] * Prolactin (12/20/2024 8:53 AM EST) Prolactin [facility] Comment:DUPLICATE 12/20/2024 8:53 AM EST 12/20/2024 8:53 AM EST Generic External Data Provider LAB BLOOD ORDERAB LES Final Result Performing Organization Address [facility] Number [facility] [address] [place] [phone] * IGF-1, LC/MS (12/20/2024 8:53 AM EST) IGF 1, LC/MS 73 52 - 328 ng/mL [facility] Z Score (Male) [facility] Z Score (Female) -1.3 -2.0 - 2.0 SD [facility] Comment:This test was develo ped and its analytical performancecharacteristics have been determined by [email or web address].It has not been cleared or approved by FDA. This assay hasbeen validated pursuant to the CLIA regulations and is usedfor clinical purposes.THIS TEST WAS PERFORMED AT:[employer]/[place] [id number] [place] [address]RMESHLEVON FORTE MD,PHD,JOSHUA 12/20/2024 8:53 AM EST 12/20/2024 8:53 AM EST us Generic External Data Provider LAB BLOOD ORDERAB LES Final Result [facility] [address] [place] [phone] * Growth Hormone (GH) (12/20/2024 8:53 AM EST) Growth Hormone 0.2 < OR = 7.1 ng/mL [facility] Comment: Because of a pulsatile secretion pattern, random(unstimulated) growth hormone (GH) levels arefrequently undetectable in normal children and adultsand are not reliable for diagnosing GH deficiency.Regarding suppression tests, failure to suppress GHis diagnostic of acromegaly.Typical GH response in healthy subjects: ??Using the glucose tolerance (GH suppression) test, ??acromegaly is ruled out if the patient's GH level ??is <1.0 ng/mL at any point in the timed sequence. ??[Darvin L, Louis Pacheco ER, Kevan S, et al. ??Acromegaly: an Endocrine Society Clinical Practice ??Guideline. J Clin Endocrinol Metab 2014; 99: 3933- ??3951]. ??Using GH stimulation testing, the following result ??at any point in the timed sequence makes GH ??deficiency unlikely: ?? Adults (> or = 20 years): ?Insulin Hypoglycemia ??> or = 5.1 ng/mL ?Arginine/GHRH ? > or = 4.1 ng/mL ?Glucagon ?> or = 3.0 ng/mL ?? Children (< 20 years): ?All Stimulation Tests > or = 10.0 ng/mLTHIS TEST WAS PERFORMED AT:[facility] [place] [address] ??[id number] HERNANDEZ MD 12/20/2024 8:53 AM EST 12/20/2024 8:53 AM EST us Generic External Data Provider LAB BLOOD ORDERAB LES Final Result Performing Organization Address [facility] Co de Phone Number [facility] [address] [place] [phone] * Estradiol (12/20/2024 8:53 AM EST) Estradiol Ultra Sensitive 45 pg/mL [facility] Comment:Female Reference Ran ges for Estradiol, Ultrasensitive (pg/mL): Follicular Phase: 39-375 Luteal Phase: 48-440 Postmenopausal Phase: < or = 10This test was developed and its analytical performancecharacteristics have been determined by [email or web address].It has not been cleared or approved by FDA. This assay hasbeen validated pursuant to the CLIA regulations and is usedfor clinical purposes.THIS TEST WAS PERFORMED AT:[employer]/[facility] [id number] [place] [address]GDKIZLEVON FORTE MD,PHD,JOSHUA 12/20/2024 8:53 AM EST 12/20/2024 8:53 AM EST Generic External Data Provider LAB BLOOD ORDERAB LES Final Result Performing Organization Address [facility] de Phone Number [facility] [address] [place] [phone] * HEPATITIS C AB W/REFL TO HCV RNA, QN, PCR (12/23/2021 10:03 AM EST) Pathologist [facility] HEPATITIS C ANTIBODY NON-REACT [facility] NON-REACT [facility] INDEX 0.01 <1.00 [facility] Comment: ?? HCV antibody was non-reactive. There is no laboratory ?? evidence of HCV infection. ?? In most cases, no further action is required. However, if recent HCV exposure is suspected, a test for HCV RNA (test code 37900) is suggested. ?? For additional information please refer to http://education.[employer]/faq/WXW78o8 (This link is being provided for informational/ educational purposes only.) ?? 12/23/2021 10:0 3 AM EST Isi Lind CNM HISTORICAL/NON ORDERABLE LABS Final Result Performing Organization Address [facility] Co de Phone Number [facility] [address] * HIV 1/2 ANTIGEN/ANTIBODY,FOURTH GENERATION W/RFL (12/23/2021 10:03 AM EST) Pathologist [facility] HIV-1/2 ANTIGEN AND ANTIBODIES, 4TH GENERATION W/ [...] ? For additional information please refer to http://education.[employer]/faq/PEV110 (This link is being provided for informational/ educational purposes only.) ? The performance of this assay has not been clinically validated in patients less than 2 years old. ?? 12/23/2021 10:0 3 AM EST sIi [facility] LAB BLOOD ORDERABLES Melvina l Result Performing Organization Address [facility] Co de Phone Number [facility] [address] [place] [address], * THINPREP TIS PAP AND HPV mRNA E6/E7, CT/NG, TRICH (12/23/2021 9:16 AM EST) Pathologist [facility] Chlamydia trachomatis RNA, TMA, Urogenital NOT DETECTED NOT DETECTED [facility] Clinical Information: None given [facility] COMMENT SEE COMMENT [facility] Comment: The analytical performance characteristics of this assay, when used to test SurePath(TM) specimens have been determined by [facility]. The modifications have not been cleared or approved by the FDA. This assay has been validated pursuant to the CLIA regulations and is used for clinical purposes. ?? For additional information, please refer to https://SafeNet.[employer]valiant/faq/LDH892 (This link is being provided for information/ [...] has been evaluated with computer assisted technology. [facility] Loom Fixer Apprentice: SEE COMMENT [facility] Comment: RMM, CT(ASCP) CT screening location: [address] ??[address] HPV nRNA E6/E7 Not Detected Not Detected [facility] Comment: Methodology: [employer] Consultant-Mediated Amplification This assay detects E6/E7 viral messenger RNA (mRNA) from 14 high-risk HPV types (16,18,31,33,35,39,45,51,52,56,58,59,66,68). ? The analytical performance characteristics of this assay have been determined by [email or web address]. The modifications have not been cleared or approved by the FDA. This assay has been validated pursuant to the CLIA regulations and is used for clinical purposes. ?? For additional information, please refer to http://SafeNet.[employer]iant/faq/MXO326x5 (This link if provided for information/ educational purposes only.) Interpretation/Re sult: Negative for intraepithelial lesion or malignancy. [facility] LMP: 12/09/2021 [facility] Neisseria gonorrhoeae RNA, TMA, Urogenital NOT DETECTED NOT DETECTED [facility] Prev. BX: NONE GIVEN [facility] Prev. PAP: NONE GIVEN [facility] SOURCE: None given [facility] Statement Of Adequacy: SEE COMMENT [facility] Comment: Satisfactory for evaluation. Endocervical/transformation zone component present. Trichomonas vaginalis, QL, TMA, PAP Vial NOT DETECTED NOT DETECTED [facility] Comment: The analytical performance characteristics of this assay have been determined by [email or web address]. The modifications have not been cleared or approved by the FDA. This assay has been validated pursuant to the CLIA regulations and is used for clinical purposes. ?? For additional information, please refer to http://education.Advaliant/ faq/Trichomonastma (This link is being provided for information/ educational purposes only.) ?? 12/23/2021 9:16 AM EST [facility] PATHOLOGY ORDERABLES Final Result [facility] [address] [place] [address] * Pap Smear (12/23/2021 12:00 AM EST) [facility] CYTOLOGY ORDERABLES F inal Result [facility] [address] [place] [address], [place] [address] from Last 3 Months or Most Recently Relevant to Health Maintenance Insurance N FULL [facility] STANDARD DENTAL-[facility] MEDICAID STAND ADULT Care Teams Machine Engineer Relationship Specialty Start Date End Date Raya Pan NP [address] [place] [phone] PCP - General Family Medicine 12/18/23
--- OUTSIDE RECORDS SUMMARY | 2025-01-10 09:50 | XMS_ITS | Encounter Summary ---
Author Organization [employer] [facility] Address [address] [place] [address] Care Team Providers Care Registration Manager Name Role Phone Alex Kim COAL SAMPLE TESTER Primary Care Provider [phone] Raya Pan NP Primary Care Provider [phone] Encounter Details Date Type Department Care Team (Latest Contact Info) Description 03/07/2019 Abstract [facility] CONVERSIONS Dental, Provider, DDS Social History [...] Description 03/17/2025 9:30 AM EDT Office Visit [facility] OPT[facility] [address] [place] [address] Destinee Hernandez, OD [address] [place] [address] documented as of this encounter Visit Diagnoses Not on filedocumented in this encounter Care Teams Registration Manager Relationship Specialty Start Date End Date AlexKim FNP [address] [place] [address] PCP - General Family Medicine 05/14/22 12/17/23 Raya Pan NP [address] [place] [address] PCP - General Family Medicine 12/18/23 documented as of this encounter
--- OUTSIDE RECORDS SUMMARY | 2025-01-10 09:50 | XMS_ITS | Encounter Summary ---
Author Organization [employer] Address [address] [place] [address] Care Team Providers Care Quality Review Trainer Name Role Phone Raya Pan NP Primary Care Provider [phone] Reason for Visit * Reason Onset Date Comments appointment for results 12/26/2024 Encounter Details Date Type Department Care Team ([facility] st Contact Info) Description 12/26/2024 Telephone [facility] [address] [place], [place] [phone] Alena Vega MA appointment for results Social History Tobacco Use Types Packs/Day Years [...] Telephone Encounter - Alena Vega MA - 12/26/2024 10:26 AM EST Related information to Pt. Pt understood and also aggred to a appointment on 01/04/25 at 10:30 am. * Telephone Encounter - Alena Vega MA - 12/26/2024 10:25 AM EST ----- Message from Raya Pan sent at 12/26/2024 9:18 AM EST ----- Please call pt for visit jesús to discuss this lab result thank you - documented in this encounter Plan of Treatment Upcoming Encounters Date Type Department Care Team (Late st Contact Info) Description 03/17/2025 9:30 AM EDT Office Visit [facility] OPTOMET[facility] [address] [place] [address] Destinee Hernandez, OD [address] [place] [address] documented as of this encounter Visit Diagnoses Not on filedocumented in this encounter Additional Health Concerns Assessment Noted Time PHQ-9 Depression Total Score: 11 024 9:22 AM EST documented as of this encounter Care Teams Quality Review Trainer Relationship Specialty Start Date End Date Raya Pan NP [address] [place] [address] PCP - General Family Medicine 12/18/23 documented as of this encounter
--- OUTSIDE RECORDS SUMMARY | 2025-01-10 09:50 | XMS_ITS | Encounter Summary ---
Author Organization [employer] [facility] Address [address] [place] [address] Care Team Providers Care Library Circulation Technician Name Role Phone MaximRaya RADHA Primary Care Provider [phone] Encounter Details Date Type Department Care Team [...] Description 03/17/2025 9:30 AM EDT Office Visit [facility] OPTOMET[facility] [address] [place] [address] David, Destinee, OD [address] [place] [address] documented as of this encounter Procedures Procedure Name Priority Date/Time Associated Diagnosis Comments CORTISOL RANDOM Routine 12/26/2024 8:49 AM EST DHEA SULFATE Routine 12/26/2024 8:49 AM EST ACTH, PLASMA Routine 12/26/2024 8:49 AM EST TSH Routine 12/26/2024 8:49 AM EST T4, FREE Routine 12/26/2024 8:49 AM EST LH Routine 12/26/2024 8:49 AM EST FSH Routine 12/26/2024 8:49 AM EST ALPHA SUBUNIT Routine 12/20/2024 8:53 AM EST PROLACTIN, DILUTION STUDY Routine 12/20/2024 8:53 AM EST CORTISOL RANDOM Routine 12/20/2024 8:53 AM EST PROLACTIN Routine 12/20/2024 8:53 AM EST IGF 1, LC/MS Routine 12/20/2024 8:53 AM EST GROWTH HORMONE (GH) Routine 12/20/2024 8 :53 AM EST DHEA SULFATE Routine 12/20/2024 8:53 AM EST ESTRADIOL Routine 12/20/2024 8:53 AM EST ACTH, PLASMA Routine 12/20/2024 8:53 AM EST TSH Routine 12/20/2024 8:53 AM EST T4, FREE Routine 12/20/2024 8:53 AM EST LH Routine 12/20/2024 8:53 AM EST FSH Routine 12/20/2024 8:53 AM EST documented in this encounter Results * ACTH, Plasma (12/26/2024 8:49 AM EST) ACTH, Plasma 15 6 - 50 pg/mL [facility] Comment:Reference range appl ies only to specimens collectedbetween 7am-10am.THIS TEST WAS PERFORMED AT:[facility]/[id number] [place] [address]KZXWYUA W. MASON,MD,PHD 12/26/2024 8:49 AM EST 12/26/2024 8:49 AM EST us Generic External Data Provider LAB BLOOD ORDERAB LES Final Result [facility] [address] [place] [address] [phone] * DHEA Sulfate (12/26/2024 8:49 AM EST) DHEA Sulfate 19 15 - 205 mcg/dL [facility] Comment:THIS TEST WAS PERFOR MED AT:[facility] [address] [address]WWXEHPIYUSH HERNANDEZ MD 12/26/2024 8:49 AM EST 12/26/2024 8:49 AM EST us Generic External Data Provider LAB BLOOD ORDERAB LES Final Result Performing Organization Address [facility] de Phone Number [facility] [address] [place] [phone] * LH (12/26/2024 8:49 AM EST) Lutenizing Hormone 21.0 mIU/mL [facility] Comment:Reference Range Foll icular Phase 1.9-12.5 Mid-Cycle Peak 8.7-76.3 Luteal Phase 0.5-16.9 Postmenopausal 10.0-54.7THIS TEST WAS PERFORMED AT:[facility] [address] [address]WNOOUMATHEW HERNANDEZ MD 12/26/2024 8:49 AM EST 12/26/2024 8:49 AM EST Generic External Data Provider LAB BLOOD ORDERAB LES Final Result Performing Organization Address [facility] de Phone Number [facility] [address] [place] [phone] * FSH (12/26/2024 8:49 AM EST) Follicle Stimulating Hormone 9.5 mIU/mL [facility] Comment:Reference Range Foll icular Phase 2.5-10.2 Mid-cycle Peak 3.1-17.7 Luteal Phase 1.5- 9.1 Postmenopausal 23.0-116.3THIS TEST WAS PERFORMED AT:[facility] [address] [address]YSOKBREUBEN HERNANDEZ MD 12/26/2024 8:49 AM EST 12/26/2024 8:49 AM EST us Generic External Data Provider LAB BLOOD ORDERAB LES Final Result Performing Organization Address [facility] Co de Phone Number [facility] [address] [place] [phone] * TSH (12/26/2024 8:49 AM EST) [facility] Thyroid Stimulating Hormone 1.75 0.32 - 4.0 uIU/mL [facility] Comment:TSH 3rd Generation ( [facility]) 12/26/2024 8:49 AM EST 12/26/2024 8:49 AM EST Generic External Data Provider LAB BLOOD ORDERAB LES Final Result Performing Organization Address [facility] Phone Number [facility] [address] [place] [phone] * Cortisol Random (12/26/2024 8:49 AM EST) [facility] Cortisol Random 2.3 ug/dL [facility] Comment:Reference Range*: Be fore 10 am 6.2-19.4 ug/dL After 5 pm 2.3-11.9 ug/dL*Please interpret above results accordingly.This test was performed using the Zahroof Valves chemiluminescentmethod. Values obtained from different assay methods cannotbe used interchangeably.Patients receiving fludrocortisone, prednisolone orprednisone may show artificially elevated cortisol valuesdue to cross-reactivity. 12/26/2024 8:49 AM EST 12/26/2024 8:49 AM EST us Generic External Data Provider LAB BLOOD ORDERAB LES Final Result Performing Organization Address [facility] Co de Phone Number [facility] [address] [place] [phone] * T4, Free (12/26/2024 8:49 AM EST) [facility] Free T4 (Free Thyroxine) 1.05 0.71 - 1.85 ng/dL [facility] 12/26/2024 8:49 AM EST 12/26/2024 8:49 AM EST us Generic External Data Provider LAB BLOOD ORDERAB LES Final Result Performing Organization Address [facility] Co de Phone Number [facility] [address] [place] [phone] * Prolactin (12/20/2024 8:53 AM EST) Prolactin TNP [facility] Comment:DUPLICATE 12/20/2024 8:53 AM EST 12/20/2024 8:53 AM EST Generic External Data Provider LAB BLOOD ORDERAB LES Final Result Performing Organization Address [facility] Number [facility] [address] [place] [phone] * Alpha Subunit (12/20/2024 8:53 AM EST) Alpha Subunit 0.2 ng/mL [facility] Comment:Reference Range for Alpha Subunit:Premenopausal Females: 0.1-0.6 ng/mLPostmenopausal Females: 0.1-1.5 ng/mLPregnancy (1st and 2nd Trimesters): 35.0-186.0 ng/mLHypothyroidism: 0.2-3.2 ng/mLThis test measures the free alpha subunit that is common toLH, FSH, TSH and hCG. These hormones are comprised ofidentical alpha subunits and unique beta subunits thatconfer biological specificity.This test was developed and its analytical performancecharacteristics have been determined by [employer].It has not been cleared or approved by FDA. This assay hasbeen validated pursuant to the CLIA regulations and is usedfor clinical purposes.THIS TEST WAS PERFORMED AT:[facility]/[id number] [place] [address]KPQTDLEVON FORTE MD,PHD,JOSHUA 12/20/2024 8:53 AM EST 12/20/2024 8:53 AM EST Generic External Data Provider LAB BLOOD ORDERAB LES Final Result Performing Organization Address [facility] Co de Phone Number [facility] [address] [place] [phone] * IGF-1, LC/MS (12/20/2024 8:53 AM EST) IGF 1, LC/MS 73 52 - 328 ng/mL [facility] Z Score (Male) TNP [facility] Z Score (Female) -1.3 -2.0 - 2.0 SD [facility] Comment:This test was develo ped and its analytical performancecharacteristics have been determined by [employer].It has not been cleared or approved by FDA. This assay hasbeen validated pursuant to the CLIA regulations and is usedfor clinical purposes.THIS TEST WAS PERFORMED AT:[facility]/[employer] [id number] [place] [address]VKENKLEVON FORTE MD,PHD,JOSHUA 12/20/2024 8:53 AM EST 12/20/2024 8:53 AM EST Generic External Data Provider LAB BLOOD ORDERAB LES Final Result Performing Organization Address [facility] Co de Phone Number [facility] [address] [place] [phone] * Estradiol (12/20/2024 8:53 AM EST) Estradiol Ultra Sensitive 45 pg/mL [facility] Comment:Female Reference Ran ges for Estradiol, Ultrasensitive (pg/mL): Follicular Phase: 39-375 Luteal Phase: 48-440 Postmenopausal Phase: < or = 10This test was developed and its analytical performancecharacteristics have been determined by [employer].It has not been cleared or approved by FDA. This assay hasbeen validated pursuant to the CLIA regulations and is usedfor clinical purposes.THIS TEST WAS PERFORMED AT:[facility]/[id number] [place], [place] [address] [address]WMDGXLEVON FORTE MD,PHD,JOSHUA 12/20/2024 8:53 AM EST 12/20/2024 8:53 AM EST us Generic External Data Provider LAB BLOOD ORDERAB LES Final Result Performing Organization Address [facility]/ZIP Co de Phone Number [facility] [address] [place] [phone] * ACTH, Plasma (12/20/2024 8:53 AM EST) ACTH, Plasma 13 6 - 50 pg/mL [facility] Comment:Reference range appl ies only to specimens collectedbetween 7am-10am.THIS TEST WAS PERFORMED AT:[facility]/[employer] [id number] [place] [address]PNFRCDSSRAVANI SLAUGHTER MD,PHD 12/20/2024 8:53 AM EST 12/20/2024 8:53 AM EST Generic External Data Provider LAB BLOOD ORDERAB LES Final Result Performing Organization Address [facility] Co de Phone Number [facility] [address] [place] [phone] * Prolactin, Dilution Study (12/20/2024 8:53 AM EST) Prolactin, Undiluted 20.7 ng/mL [facility] Prolactin, Diluted SEE NOTE ng/mL [facility] Comment:Result confirmed by 1:100 dilution. No high dosehook effect detected. Reference Range Females Non- 3.0-30.0 10.0-209.0 Postmenopausal 2.0-20.0Prolactin dilution studies are done to determine ifthere is a high-dose hook effect (i.e. a non-linearassay response due to a very high concentration ofProlactin). This is reported to occur at Prolactinconcentrations at or above 30,000 ng/mL.This test is not recommended for identifyingmacroprolactin. The [facility] [employer] [facility], Prolactin, Total and Monomeric is therecommended test (Order code [id number]).THIS TEST WAS PERFORMED AT:[facility] [address] [address]QWIWVREUBEN HERNANDEZ MD 12/20/2024 8:53 AM EST 12/20/2024 8:53 AM EST Generic External Data Provider LAB BLOOD ORDERAB LES Final Result Performing Organization Address [facility]/ZIP Co de Phone Number [facility] [address] [place] [phone] * LH (12/20/2024 8:53 AM EST) Lutenizing Hormone 7.7 mIU/mL [facility] Comment:Reference Range Foll icular Phase 1.9-12.5 Mid-Cycle Peak 8.7-76.3 Luteal Phase 0.5-16.9 Postmenopausal 10.0-54.7THIS TEST WAS PERFORMED AT:[facility] [address] [address]HIPQFTAMIA HERNANDEZ MD 12/20/2024 8:53 AM EST 12/20/2024 8:53 AM EST Generic External Data Provider LAB BLOOD ORDERAB LES Final Result Performing Organization Address [facility] Co de Phone Number [facility] [address] [place] [phone] * FSH (12/20/2024 8:53 AM EST) Follicle Stimulating Hormone 7.6 mIU/mL [facility] Comment:Reference Range Foll icular Phase 2.5-10.2 Mid-cycle Peak 3.1-17.7 Luteal Phase 1.5- 9.1 Postmenopausal 23.0-116.3THIS TEST WAS PERFORMED AT:[facility] [address] [address]DRVBYREUBEN HERNANDEZ MD 12/20/2024 8:53 AM EST 12/20/2024 8:53 AM EST us Generic External Data Provider LAB BLOOD ORDERAB LES Final Result [facility] [address] [place] [phone] [phone] * Growth Hormone (GH) (12/20/2024 8:53 AM EST) Growth Hormone 0.2 < OR = 7.1 ng/mL [facility] Comment: Because of a pulsatile [...] or = 10.0 ng/mLTHIS TEST WAS PERFORMED AT:[employer] [place] [address] ??[address]LJRVETAMIA HERNANDEZ MD 12/20/2024 8:53 AM EST 12/20/2024 8:53 AM EST Generic External Data Provider LAB BLOOD ORDERAB LES Final Result Performing Organization Address [facility] Co de Phone Number [facility] [address] [place] [phone] * DHEA Sulfate (12/20/2024 8:53 AM EST) Pathologist [facility] DHEA Sulfate 29 15 - 205 mcg/dL [facility] Comment:THIS TEST WAS PERFOR MED AT:[employer] [place] [address]TSKMOTAMIA HERNANDEZ MD 12/20/2024 8:53 AM EST 12/20/2024 8:53 AM EST Generic External Data Provider LAB BLOOD ORDERAB LES Final Result Performing Organization Address [facility] Phone Number [facility] [address] [place] [phone] * Cortisol Random (12/20/2024 8:53 AM EST) [facility] Cortisol Random <1.0 ug/dL [facility] Comment:Reference Range*: Be fore 10 am 6.2-19.4 ug/dL After 5 pm 2.3-11.9 ug/dL*Please interpret above results accordingly.This test was performed using the [employer]ah[employer] Valves chemiluminescentmethod. Values obtained from different assay methods cannotbe used interchangeably.Patients receiving fludrocortisone, prednisolone orprednisone may show artificially elevated cortisol valuesdue to cross-reactivity. 12/20/2024 8:53 AM EST 12/20/2024 8:53 AM EST Generic External Data Provider LAB BLOOD ORDERAB LES Final Result Performing Organization Address [facility] Co de Phone Number [facility] [address] [place] [phone] * TSH (12/20/2024 8:53 AM EST) Thyroid Stimulating Hormone 1.14 0.32 - 4.0 uIU/mL [facility] Comment:TSH 3rd Generation ( [facility]) 12/20/2024 8:53 AM EST 12/20/2024 8:53 AM EST us Generic External Data Provider LAB BLOOD ORDERAB LES Final Result Performing Organization Address [facility]/ZIP Co de Phone Number [facility] [address] [place] [address] [phone] * T4, Free (12/20/2024 8:53 AM EST) Free T4 (Free Thyroxine) 1.05 0.71 - 1.85 ng/dL [facility] 12/20/2024 8:53 AM EST 12/20/2024 8:53 AM EST us Generic External Data Provider LAB BLOOD ORDERAB LES Final Result Performing Organization Address [facility] Co de Phone Number [facility] [address] [place] [phone] documented in this encounter Visit Diagnoses Not on filedocumented in this encounter Additional Health Concerns Assessment Noted Time PHQ-9 Depression Total Score: 11 024 9:22 AM EST documented as of this encounter Care Teams Library Circulation Technician Relationship Specialty Start Date End Date Raya Pan NP [address] [place] [phone] PCP - General Family Medicine 12/18/23 documented as of this encounter
--- OUTSIDE RECORDS SUMMARY | 2025-01-10 09:50 | XMS_ITS | Encounter Summary ---
Author Organization [employer] [facility] Address [address] [place] [address] [address] [place] [address] Care Team Providers Care Director Of Business Services Name Role Phone Alex Kim GLORIA Primary Care Provider [phone] Raya Pan NP Primary Care Provider [phone] Encounter Details Date Type Department Care Team (Late st Contact Info) Description 09/25/2023 Abstract [facility] [address] [place] [address] Kate Mejia DDS [address] [place] [address] Social History Tobacco Use Types Packs/Day Years [...] Description 03/17/2025 9:30 AM EDT Office Visit [facility] [address] [place] [address] David, Destinee, OD [address] [place] [address] documented as of this encounter Visit Diagnoses Not on filedocumented in this encounter Care Teams Director Of Business Services Relationship Specialty Start Date End Date Kim Johnson FNP [address] [place] [address] PCP - General Family Medicine 05/14/22 12/17/23 Raya Pan NP [address] [place] [phone] PCP - General Family Medicine 12/18/23 documented as of this encounter
--- OUTSIDE RECORDS SUMMARY | 2025-01-10 09:50 | XMS_ITS | Encounter Summary ---
Author Organization [employer] [facility] Address [address] [place] [address] Care Team Providers Care Acid Strength Inspector Name Role Phone Alex Kim MASKING MACHINE FEEDER Primary Care Provider [phone] Raya Pan NP Primary Care Provider [phone] Encounter Details Date Type Department Care Team (Latest Contact Info) Description 10/17/[address] [facility] CONVERSIONS Dental, Provider, DDS Social History [...] AM EDT Office Visit [facility] OPTOMETRY [address] [place] [address] Destinee Hernandez, OD [address] [place] [address] documented as of this encounter Visit Diagnoses Not on filedocumented in this encounter Care Teams Acid Strength Inspector Relationship Specialty Start Date End Date AlexKim FNP [address] [place] [address] PCP - General Family Medicine 05/14/22 12/17/23 Raya Pan NP [address] [place] [address] PCP - General Family Medicine 12/18/23 documented as of this encounter
== END 2025-01-10 09:33 | disposition home or self-care (01) ==
PROVIDERS: PCP Nurse Practitioner Family; Visit Provider Student in an Organized Health Care Education/Training Program
DX: D35.2 Benign neoplasm of pituitary gland (principal)
CPT/HCPCS: 99214

== ENCOUNTER → 2025-01-10 09:03 | Outpatient (BNVA) | payer MEDICAID, SELFPAY | PROVIDERS: PCP Nurse Practitioner Family; Visit Provider Student in an Organized Health Care Education/Training Program | DX: D35.2 Benign neoplasm of pituitary gland (principal) | CPT/HCPCS: 99212 ==

== ENCOUNTER 2025-01-13 07:45 | Outpatient (AMB) | payer MEDICAID, SELFPAY ==
[2025-01-13 07:48] VITALS: BP 120/76; PULSE 68; O2SAT 98; BMI 24.4
--- NOTE | 2025-01-13 07:48 | MHC.OFFVIS ---
Vital Signs 01/13/25 07:48 Height 5 ft Weight 125 lb 0.034 oz BMI 24.4 BP 120/76 Blood Pressure Location Lt brachial Position Sitting Pulse 68 Pulse Source Pulse Oximeter Pulse Oximetry (%) 98 Oxygen Delivery Method Room Air Intake Visit Reasons: DM Intake Note: Patient present today for Diabetes Mellitus Last Diabetic eye exam: Over 5 years ago Last Podiatry Visit: Doesn't have one Random Glucose: 325 mg/dl HgA1C: 12.9% 12/26/24 Blood Or Blood Bank Technician Required: Yes Blood Or Blood Bank Technician Language: Raised Printer Services: Blood Or Blood Bank Technician Present Blood Or Blood Bank Technician Name: Charley [id number] Information Interpreted: non-clinical & clinical Accompanied by: Spouse Allergies No Known Allergies Allergy (Verified 01/13/25 07:53) Medication List - Last Reconciled 01/13/25 by Mia Tristan MD celecoxib 200 mg PO DAILY cyclobenzaprine 5 mg PO BEDTIME famotidine 20 mg PO BID hydrocortisone 10 mg PO BID ibuprofen 800 mg PO Q8H PRN HPI Comments Details: 44-year-old female here today for initial evaluation of type 2 diabetes mellitus. 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 Noted to have uncontrolled type 2 diabetes mellitus so she was brought in for evaluation of that today. Here today . Pituitary incidentaloma and adrenal insufficiency not addressed for today's visit. Type 2 diabetes mellitus History of diabetes Diagnosed Dec 2024 Prior therapy: None Current regimen: None Random Glucose: 325 mg/dl HgA1C: 12.9% 12/26/24 Denies polyuria, polydipsia currently, says she was having that a few months ago. Weight stable. . Denies any hypoglycemic symptoms. SMBG's Doesnt check new diagnosis Complications Last Diabetic eye exam: Over 5 years ago Last Podiatry Visit: Doesn't have one Neuropathy: no symptoms Kidney disease: no history Macrovascular complications: No history of macrovascular complications. Statin:none VISHNU/ARB: none Exercise: None Active at work but other gamez no Diet control: Most days Breakfast: rice beans and fried chicken tomatoes Some pakoras and samosas sometimes at restaurant Dinner rice and soup No desserts Lately juice and soda, a lot He has never had any hospitalizations for hyperglycemia/hypoglycemia. 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 no mass effect on optic chiasm. No dedicated MRI of the pituitary done. 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 ? Easy bruising: yes Proximal muscle weakness: none has uncontrolled DM Nausea: none Vomiting:none Lightheadedness: intermittent Weight: lost 5 lbs in 1 month Labs from 12/20/2024 showed normal thyroid function, undetectable cortisol level, acth of 13, DHEA-S of 29, IGF-1, estradiol level pending. Prolactin level normal 20.7. She is very inconsistent with her history and said that she was having some lightheadedness or dizziness that had already resolved before she started the medication that we had prescribed to her over the phone hydrocortisone 10 mg twice a day. She has lost 5 lb since the last visit. 12/26/2024: Apparently after holding the hydrocortisone the afternoon before in the morning off, cortisol level in a.m. was 2.3 with a ACTH of 15. 12/27/2024: Again after holding the hydrocortisone in the afternoon before and the morning of, cortisol level was 0.5 in a.m. at [facility] with ACTH of 3.9 No vision changes, no eye symptoms No nausea, vomiting , dizziness , lightheadedness. On hydrocortisone 10 mg in AM and 10 mg in afternoon at 2 PM Still waiting for MRI pituitary to be scheduled Physical exam General: sitting comfortably in no acute distress HEENT: normocephalic/atraumatic, , moist oral mucosa, visual coe grossly intact Neck: supple, Cardiac: normal heart sounds Pulm: normal breath sounds B/L, no added breath sounds Abd: not distended, no tenderness Foot exam: Warm, well-perfused, right big toenail has thickening, Intact sensation to monofilament, intact pulses, intact vibration Laboratory Tests 12/20/24 08:53 TSH 1.14 Free T4 1.05 FSH 7.6 Luteinizing Hormone 7.7 Prolactin Undiluted 20.7 DHEA Sulfate 29 Human Growth Hormone 0.2 Random Cortisol < 1.0 ACTH 13 Laboratory Tests 12/20/24 12/26/24 08:53 08:49 Sodium 137 Potassium 3.9 Chloride 104 Carbon Dioxide 24 Anion Gap 13 BUN 15 Creatinine 0.67 Estimated GFR > 60 Alpha Subunit Marker 0.2 TSH 1.14 1.75 Free T4 1.05 1.05 Estradiol Ultra LCMSMS 45 FSH 7.6 9.5 Luteinizing Hormone 7.7 21.0 Prolactin Undiluted 20.7 DHEA Sulfate 29 19 Human Growth Hormone 0.2 Somatomedin-C 73 Somato-C Z-Score Female -1.3 Random Cortisol < 1.0 2.3 ACTH 13 15 PFSH Medical History Pituitary macroadenoma Surgical History History of bilateral tubal ligation Social History Alcohol intake: never Patient Tobacco Use Status: Never used Tobacco Physical Exam Vital Signs: Last Vital Signs Pulse 68 01/13/25 07:48 BP 120/76 01/13/25 07:48 Pulse Ox 98 01/13/25 07:48 Oxygen Delivery Method Room Air 01/13/25 07:48 BMI result Body Mass Index 24.4 Assessment & Plan Assessment & Plan (1) Diabetes mellitus with hyperglycemia: Code(s): E11.65 - Type 2 diabetes mellitus with hyperglycemia Category: Medical Qualifiers: Diabetes mellitus type: type 2 Diabetes mellitus nursing home insulin use: with termite helper use Qualified Code(s): E11.65 - Type 2 diabetes mellitus with hyperglycemia; Z79.4 - terminal carman (current) use of insulin Plan: 44-year-old female who was seeing me for pituitary incidentaloma and adrenal insufficiency on steroids, was noted to have uncontrolled hyperglycemia, with no prior history of diabetes, now with new onset of type 2 diabetes mellitus. A1c 12.9% from December 2024. Patient states she has never been on any therapy before, and does not know how to check blood sugars. We spent greater than 50% of today's visit, educating her about uncontrolled hyperglycemia, what his type 2 diabetes mellitus, complications of uncontrolled hyperglycemia, and need for monitoring blood sugars and starting medications. She has no family history of type 2 diabetes mellitus and she has never seen anybody check blood sugars or administer insulin. At this time given A1c is greater than 10% and blood sugars are in the 300s and she is currently on steroids for adrenal insufficiency, I will have to start her on basal insulin. She will need appointments with the peer educator as soon as possible. She also has some dietary indiscretion and drinking a lot of sodas and juices lately, I will have her establish with our manager integrated. I asked her nurse to also come after today's visit with me, and teach her how to check blood sugars and administer insulin and Trulicity. Plan: -start insulin Lantus 8 units daily in the morning -start Trulicity 0.75 mg weekly, denies history of pancreatitis, no alcohol use, no history of gallstones, no family history of medullary thyroid cancer , advised about GI intolerance -check blood sugars daily fasting in a.m. and 2 hours post meal -prescribed freestyle Margot 3 less sensor she has a an iPhone for continuous glucose monitoring given she is going to be on insulin -lifestyle modification advised with the avoiding carbs, eliminating any sugars are sugary drinks such as soda isn't juices -150 minutes of exercise advised with 30 minutes of walking daily -see educator -see manager integrated -we already placed ophthalmology referral previously for pituitary incidentaloma to evaluate visual coe given she has a macroadenoma, however she never heard back from them, given number today to call them and establish care -foot exam done today was unremarkable, she does not have any symptoms of neuropathy -ordered lipid panel, urine microalbumin, CMP, we will also check C-peptide and insulin antibodies given her BMI is only 24.4 kg per m2, and she does not have any family history of type 2 diabetes mellitus, evaluating for JONATHAN -podiatry referral placed Plan I spent 70 minutes in reviewing the record, seeing the patient and documenting in the medical record. Orders: Orders Lipid Panel Today E11.65 - Type 2 diabetes mellitus with hyperglycemia C Peptide Today E11.65 - Type 2 diabetes mellitus with hyperglycemia Islet Cell Antibody Scrn/Titer Today E11.65 - Type 2 diabetes mellitus with hyperglycemia Microalbumin, Random (w Creat) Today E11.65 - Type 2 diabetes mellitus with hyperglycemia Comprehensive [place]. Panel Fast Today E11.65 - Type 2 diabetes mellitus with hyperglycemia Glucose Random Today E11.65 - Type 2 diabetes mellitus with hyperglycemia Glutamic acid decarboxylase Ab Today E11.65 - Type 2 diabetes mellitus with hyperglycemia Referrals Podiatry Referral E11.65 - Type 2 diabetes mellitus with hyperglycemia Diabetes Education Referral E11. - Type 2 diabetes mellitus with hyperglycemia Supervisor Capacitor Processing Nutrition Referral E11.65 - Type 2 diabetes mellitus with hyperglycemia Medications: New lancets (Therapydiauch Delica Plus Lancet) As directed to check sugars twice daily 100 ea 5RF blood-glucose meter ([employer]ier LiveTouch Verio Flex Meter) As directed to check sugars 2 times daily 1 ea 0RF pen needle, diabetic As directed to inject insulin daily 100 ea 3RF dulaglutide (Trulicity) 0.75 mg (0.5 mL) subcut QWEEK 2 mL 5RF insulin glargine (Lantus Solostar U-100 Insulin) 8 units (0.08 mL) subcut QPM 6 mL 5RF insulin glargine (Lantus Solostar U-100 Insulin) 8 units (0.08 mL) subcut QAM 6 mL 5RF blood sugar diagnostic (OneTouch Verio test strips) As directed to check sugars twice daily 100 ea 4RF insulin glargine (Lantus Solostar U-100 Insulin) 10 units (0.1 mL) subcut QPM 6 mL 5RF glucose (Dex4 Glucose) Take 4 tablets when blood sugar less than 70mg/dl, repeat in 15 mins if blood glucose less than 70mg/dl 4 grams PO Q15M PRN 60 tabs 4RF hypoglycemia blood-glucose sensor (FreeStyle Margot 3 Plus Sensor device) As directed every 15 days type 2 diabetes mellitus with hyperglycemia and long-term insulin use is E11.65 plus Z79.4 6 ea 5RF Patient Instructions: Do fasting blood work and urine test today Start insulin Lantus (glargine ) 8 units daily in morning Start Trulicity 0.75 mg weekly injection ONCE WEEKLY Check sugars daily in AM fasting (target 90 to 120 mg/dl) And once daily 2 hours post dinner (target <140 mg/dl) See educator and manager integrated Bring your glucometer to every visit in our office Bring your insulins and Trulicity meds and glucometer supplies to educator visit 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 Rest for 15 minutes Re-check your blood glucose. If it is still low, (below 70), repeat step 1 above. ? If your next meal is more than an hour away, you will need to eat one carbohydrate choice as a snack to keep your blood glucose from going low again. ?If you can't figure out why you have low blood glucose, call your healthcare provider, as your medicine may need to be adjusted. ?Always carry something with you to treat an insulin reaction. Use food from the list below. ? Foods equal to One Carbohydrate Choice (15 grams of carbohydrate): 3 Glucose ?tablets or 4 Dextrose tablets 4 ounces of fruit juice 5-6 ounces (about 1/2 can) of regular soda such as Coke or Pepsi ? 7-8 gummy or regular Life Savers ? 1 Tbsp. of sugar or jelly NOTE: If your blood sugar is less than 50, double the portion above for a total of 30 gm. ?Carbohydrate. ? Follow meal plan of 45-60 g of consistent carbohydrates at 3 meals each day and 15 g of carbohydrate at 1-2 snacks each day. See eye doctor H?gase an?lisis de sabi y an?lisis de orina en ayunas hoy Comience con insulina Lantus (glargina) 8 unidades diarias por la ma?daysi Inicie la inyecci?n semanal de Trulicity 0,75 mg LAVONNE VEZ A LA SEMANA Controle los az?cares diariamente en ayunas por la ma?daysi (objetivo de 90 a 120 mg/dl) Y lavonne vez al d?a 2 horas despu?s de la jacqueline (objetivo <140 mg/dl) Italo educador y nutricionista Traiga henao gluc?metro a cada visita a nuestra oficina Traiga hali insulinas, medicamentos Trulicity y suministros de gluc?metro a la visita del educador Cuando recoja hali suministros, si no sabe c?mo usar el medicamento o controlar los niveles de az?car o est? confundido, llame a nuestra oficina para venir a italo tambi?n a la enfermera. Tambi?n le estoy recetando un sensor de monitorizaci?n continua de glucosa que se conectar?a con henao tel?fono para controlar henao nivel de az?car en la sabi. Ll?velo a la visita del educador para que pueda ense?arle c?mo usarlo. S?ntomas revisados ?de hipoglucemia. Shannon de 15 Tratamiento para la hipoglucemia (nivel bajo de az?car en sabi) Si henao nivel de glucosa en sabi es bajo (70 o menos)*, siga los pasos a continuaci?n para tratarlo: Coma o nikole algo de la lista a continuaci?n equivalente a 15 gramos de carbohidratos (carbohidratos). Descanse 15 minutos Vuelva a controlar henao nivel de glucosa en sabi. Si a?n est? bajo (por debajo de 70), repita el paso 1 anterior. ? Si falta m?s de lavonne hora para henao pr?xima comida, necesitar? comer lavonne opci?n de carbohidratos efe refrigerio para evitar que henao nivel de glucosa en sabi vuelva a bajar. ?Si no puede entender por qu? tiene un nivel bajo de glucosa en sabi, llame a henao proveedor de atenci?n m?dica, ya que es posible que sea necesario ajustar henao medicamento. ?Lleve siempre consigo algo para tratar lavonne reacci?n a la insulina. Utilice alimentos de la lista siguiente. ? Alimentos equivalentes a Lavonne Elecci?n de Carbohidratos (15 gramos de carbohidratos): 3 tabletas de glucosa o 4 tabletas de dextrosa 4 onzas de jugo de frutas 5 a 6 onzas (aproximadamente 1/2 ericka) de refresco regular efe Coca-Cola o Pepsi ? 7-8 gomitas o salvavidas regulares ? 1 cucharada. de az?car o gelatina NOTA: Si henao nivel de az?car en sabi es inferior a 50, duplique la porci?n anterior para un total de 30 g. ?Carbohidrato. ? Siga un plan de alimentaci?n de 45 a 60 g de carbohidratos constantes en 3 comidas al d?a y 15 g de carbohidratos en 1 a 2 refrigerios al d?a. Italo oculista Coding Level of Care Code Est Pt Level 5 (74181) Complex EM visit Add On G2211 Diagnoses Type 2 diabetes mellitus with hyperglycemia, with long-term current use of insulin E11.65; Z79.4 Diabetes mellitus type: type 2 Diabetes mellitus nursing home insulin use: with termite helper use Time Spent (min) 70
--- OUTSIDE RECORDS SUMMARY | 2025-01-13 07:49 | XMS_ITS | Encounter Summary ---
Author Organization [employer] Address [address] [place] [address] Care Team Providers Care Librarian Assistant Name Role Phone Raya Pan NP Primary Care Provider [phone] Reason for Visit * Reason Onset Date Comments appointment for results 12/26/2024 Encounter Details Date Type Department Care Team ([facility] st Contact Info) Description 12/26/2024 Telephone [facility] [address] [place], [place] [phone] Alena Vega MA appointment for results Social [...] Office Visit [facility] [address] [place] [address] Destinee Hernandez, OD [address] [place] [address] documented as of this encounter Visit Diagnoses Not on filedocumented in this encounter Additional Health Concerns Assessment Noted Time PHQ-9 Depression Total Score: 11 024 9:22 AM EST documented as of this encounter Care Teams Librarian Assistant Relationship Specialty Start Date End Date Raya Pan NP [address] [place] [address] PCP - General Family Medicine 12/18/23 documented as of this encounter
--- OUTSIDE RECORDS SUMMARY | 2025-01-13 07:49 | XMS_ITS | Encounter Summary ---
Author Organization [facility] Address [address] [place] [address] Care Team Providers Care Sourcing Intern Name Role Phone Maxim Raya RADHA Primary Care Provider Reason for Visit * Reason Onset Date Comments pain from crown 09/09/2024 Encounter Details Date Type Department Care Team ([facility] st Contact Info) Description 09/09/2024 Telephone [facility] [address] [place], [place] [phone] Kate Mejia DDS [address] [place], [place] [phone] pain from crown Social History Tobacco Use [...] Description 03/17/2025 9:30 AM EDT Office Visit [facility] [address] [place] [address] Destinee Hernandez, JHON [address] [place] [address] documented as of this encounter Visit Diagnoses Not on filedocumented in this encounter Care Teams Sourcing Intern Relationship Specialty Start Date End Date Raya Pan NP [address] [place] [address] PCP - General Family Medicine 12/18/23 documented as of this encounter
--- OUTSIDE RECORDS SUMMARY | 2025-01-13 07:49 | XMS_ITS | Encounter Summary ---
Author Organization [facility] [facility] Address [address] [place] [address] Care Team Providers Care Boiler Reliner Name Role Phone Alex Kim SENIOR OFFICER Primary Care Provider [phone] Raya Pan NP Primary Care Provider [phone] Encounter Details Date Type Department Care Team (Latest Contact Info) Description 10/17/2021 Abstract [facility] CONVERSIONS Dental, Provider, DDS Social History [...] 03/17/2025 9:30 AM EDT Office Visit [facility] [address] [place] [address] Destinee Hernandez, OD [address] [place] [address] documented as of this encounter Visit Diagnoses Not on filedocumented in this encounter Care Teams Boiler Reliner Relationship Specialty Start Date End Date AlexKim FNP [address] [place] [address] PCP - General Family Medicine 05/14/22 12/17/23 Raya Pan NP [address] [place] [address] PCP - General Family Medicine 12/18/23 documented as of this encounter
--- OUTSIDE RECORDS SUMMARY | 2025-01-13 07:49 | XMS_ITS | Encounter Summary ---
Author Organization [employer] [facility] Address [address] [place] [address] Care Team Providers Care Houseman Name Role Phone MaximRaya RADHA Primary Care Provider [phone] Encounter Details Date Type Department Care Team [...] 03/17/2025 9:30 AM EDT Office Visit [facility] [address] [place] [address] David, Destinee, OD [address] [place] [address] documented as of this encounter Procedures Procedure [...] ACTH, Plasma 15 6 - 50 pg/mL [facility] Comment:Reference range appl ies only to specimens collectedbetween 7am-10am.THIS TEST WAS PERFORMED AT:[facility]/[id number] [place] [address]UYPUPBY W. MASON,MD,PHD 12/26/2024 8:49 AM EST 12/26/2024 8:49 AM EST us Generic External Data Provider LAB BLOOD ORDERAB LES Final Result [facility] [address] [place] [address] [phone] * DHEA Sulfate (12/26/2024 8:49 AM EST) DHEA Sulfate 19 15 - 205 mcg/dL [facility] Comment:THIS TEST WAS PERFOR MED AT:[facility] [address] [address]XHVIHPIYUSH HERNANDEZ MD 12/26/2024 8:49 AM EST 12/26/2024 8:49 AM EST us Generic External Data Provider LAB BLOOD ORDERAB LES Final Result Performing Organization Address [facility] de Phone Number [facility] [address] [place] [phone] * LH (12/26/2024 8:49 AM EST) Lutenizing Hormone 21.0 mIU/mL [facility] Comment:Reference Range Foll icular Phase 1.9-12.5 Mid-Cycle Peak 8.7-76.3 Luteal Phase 0.5-16.9 Postmenopausal 10.0-54.7THIS TEST WAS PERFORMED AT:[facility] [address] [address]YKPIKMATHEW HERNANDEZ MD 12/26/2024 8:49 AM EST 12/26/2024 8:49 AM EST Generic External Data Provider LAB BLOOD ORDERAB LES Final Result Performing Organization Address [facility] de Phone Number [facility] [address] [place] [phone] * FSH (12/26/2024 8:49 AM EST) Follicle Stimulating Hormone 9.5 mIU/mL [facility] Comment:Reference Range Foll icular Phase 2.5-10.2 Mid-cycle Peak 3.1-17.7 Luteal Phase 1.5- 9.1 Postmenopausal 23.0-116.3THIS TEST WAS PERFORMED AT:[facility] [address] [address]UJCJEREUBEN HERNANDEZ MD 12/26/2024 8:49 AM EST 12/26/2024 8:49 AM EST us Generic External Data Provider LAB BLOOD ORDERAB LES Final Result Performing Organization Address [facility] Co de Phone Number [facility] [address] [place] [phone] * TSH (12/26/2024 8:49 AM EST) [facility] Thyroid Stimulating Hormone 1.75 0.32 - 4.0 uIU/mL [facility] Comment:TSH 3rd Generation ( [facility]) 12/26/2024 8:49 AM EST 12/26/2024 8:49 AM EST Generic External Data Provider LAB BLOOD ORDERAB LES Final Result Performing Organization Address [facility] Phone Number [facility] [address] [place] [phone] * Cortisol Random (12/26/2024 8:49 AM EST) [facility] Cortisol Random 2.3 ug/dL [facility] Comment:Reference Range*: Be fore 10 am 6.2-19.4 ug/dL After 5 pm 2.3-11.9 ug/dL*Please interpret above results accordingly.This test was performed using the [employer] chemiluminescentmethod. Values obtained from different assay methods cannotbe used interchangeably.Patients receiving fludrocortisone, prednisolone orprednisone may show artificially elevated cortisol valuesdue to cross-reactivity. 12/26/2024 8:49 AM EST 12/26/2024 8:49 AM EST us Generic External Data Provider LAB BLOOD ORDERAB LES Final Result Performing Organization Address [facility] Co de Phone Number [facility] [address] [place] [phone] * T4, Free (12/26/2024 8:49 AM EST) [facility] Free T4 (Free Thyroxine) 1.05 0.71 - 1.85 ng/dL [facility] 12/26/2024 8:49 AM EST 12/26/2024 8:49 AM EST us Generic External Data Provider LAB BLOOD ORDERAB LES Final Result Performing Organization Address [facility] Co de Phone Number [facility] [address] [place] [phone] * Prolactin (12/20/2024 8:53 AM EST) Prolactin TNP [facility] Comment:DUPLICATE 12/20/2024 8:53 AM EST 12/20/2024 8:53 AM EST Generic External Data Provider LAB BLOOD ORDERAB LES Final Result Performing Organization Address [facility] Number [facility] [address] [place] [phone] * Alpha Subunit (12/20/2024 8:53 AM EST) Alpha Subunit 0.2 ng/mL [facility] Comment:Reference Range for Alpha Subunit:Premenopausal Females: 0.1-0.6 ng/mLPostmenopausal Females: 0.1-1.5 ng/mLPregnancy (1st and 2nd Trimesters): 35.0-186.0 ng/mLHypothyroidism: 0.2-3.2 ng/mLThis test measures the free alpha subunit that is common toLH, FSH, TSH and hCG. These hormones are comprised ofidentical alpha subunits and unique beta subunits thatconfer biological specificity.This test was developed and its analytical performancecharacteristics have been determined by [email or web address].It has not been cleared or approved by FDA. This assay hasbeen validated pursuant to the CLIA regulations and is usedfor clinical purposes.THIS TEST WAS PERFORMED AT:[facility]/[id number] [place] [address]ACGRFLEVON FORTE MD,PHD,JOSHUA 12/20/2024 8:53 AM EST 12/20/2024 8:53 AM EST Generic External Data Provider LAB BLOOD ORDERAB LES Final Result Performing Organization Address [facility] Co de Phone Number [facility] [address] [place] [phone] * IGF-1, LC/MS (12/20/2024 8:53 AM EST) IGF 1, LC/MS 73 52 - 328 ng/mL [facility] Z Score (Male) TNP [facility] Z Score (Female) -1.3 -2.0 - 2.0 SD [facility] Comment:This test was develo ped and its analytical performancecharacteristics have been determined by [email or web address].It has not been cleared or approved by FDA. This assay hasbeen validated pursuant to the CLIA regulations and is usedfor clinical purposes.THIS TEST WAS PERFORMED AT:[facility]/[employer] [id number] [place] [address]REKYNLEVON FORTE MD,PHD,JOSHUA 12/20/2024 8:53 AM EST 12/20/2024 8:53 AM EST Generic External Data Provider LAB BLOOD ORDERAB LES Final Result Performing Organization Address [facility] Co de Phone Number [facility] [address] [place] [phone] * Estradiol (12/20/2024 8:53 AM EST) Estradiol Ultra Sensitive 45 pg/mL [facility] Comment:Female Reference Ran ges for Estradiol, Ultrasensitive (pg/mL): Follicular Phase: 39-375 Luteal Phase: 48-440 Postmenopausal Phase: < or = 10This test was developed and its analytical performancecharacteristics have been determined by [email or web address].It has not been cleared or approved by FDA. This assay hasbeen validated pursuant to the CLIA regulations and is usedfor clinical purposes.THIS TEST WAS PERFORMED AT:[facility]/[employer] [id number] [place], [place] [address] [address]DMHHULEVON FORTE MD,PHD,JOSHUA 12/20/2024 8:53 AM EST 12/20/2024 8:53 AM EST us Generic External Data Provider LAB BLOOD ORDERAB LES Final Result Performing Organization Address [facility]/ZIP Co de Phone Number [facility] [address] [place] [phone] * ACTH, Plasma (12/20/2024 8:53 AM EST) ACTH, Plasma 13 6 - 50 pg/mL [facility] Comment:Reference range appl ies only to specimens collectedbetween 7am-10am.THIS TEST WAS PERFORMED AT:[facility]/[employer] [id number] [place] [address]QRBEDKKSRAVANI SLAUGHTER MD,PHD 12/20/2024 8:53 AM EST 12/20/2024 8:53 AM EST Generic External Data Provider LAB BLOOD ORDERAB LES Final Result Performing Organization Address [facility] Co de Phone Number [facility] [address] [place] [phone] * Prolactin, Dilution Study (12/20/2024 8:53 AM EST) Prolactin, Undiluted 20.7 ng/mL [facility] Prolactin, Diluted SEE NOTE ng/mL [facility] Comment:Result confirmed by 1:100 dilution. No high dosehook effect detected. Reference Range Females Non- 3.0-30.0 10.0-209.0 Postmenopausal 2.0-20.0Prolactin dilution studies are done to determine ifthere is a high-dose hook effect (i.e. a non-linearassay response due to a very high concentration ofProlactin). This is reported to occur at Prolactinconcentrations at or above 30,000 ng/mL.This test is not recommended for identifyingmacroprolactin. The [facility], Prolactin, Total and Monomeric is therecommended test (Order code [id number]).THIS TEST WAS PERFORMED AT:[facility] [address] [address]LBTTOREUBEN HERNANDEZ MD 12/20/2024 8:53 AM EST 12/20/2024 8:53 AM EST Generic External Data Provider LAB BLOOD ORDERAB LES Final Result Performing Organization Address [facility]/ZIP Co de Phone Number [facility] [address] [place] [phone] * LH (12/20/2024 8:53 AM EST) Lutenizing Hormone 7.7 mIU/mL [facility] Comment:Reference Range Foll icular Phase 1.9-12.5 Mid-Cycle Peak 8.7-76.3 Luteal Phase 0.5-16.9 Postmenopausal 10.0-54.7THIS TEST WAS PERFORMED AT:[facility] [address] [address]WNUWYTAMIA HERNANDEZ MD 12/20/2024 8:53 AM EST 12/20/2024 8:53 AM EST Generic External Data Provider LAB BLOOD ORDERAB LES Final Result Performing Organization Address [facility] Co de Phone Number [facility] [address] [place] [phone] * FSH (12/20/2024 8:53 AM EST) Follicle Stimulating Hormone 7.6 mIU/mL [facility] Comment:Reference Range Foll icular Phase 2.5-10.2 Mid-cycle Peak 3.1-17.7 Luteal Phase 1.5- 9.1 Postmenopausal 23.0-116.3THIS TEST WAS PERFORMED AT:[facility] [address] [address]PQFCLREUBEN HERNANDEZ MD 12/20/2024 8:53 AM EST 12/20/2024 8:53 AM EST us Generic External Data Provider LAB BLOOD ORDERAB LES Final Result [facility] [address] [place] [phone] * Growth Hormone (GH) (12/20/2024 8:53 AM EST) Growth Hormone 0.2 < OR = 7.1 ng/mL [facility] Comment: Because of a pulsatile [...] or = 10.0 ng/mLTHIS TEST WAS PERFORMED AT:[employer] [place] [address] ??[address]IVDEPTAMIA HERNANDEZ MD 12/20/2024 8:53 AM EST 12/20/2024 8:53 AM EST Generic External Data Provider LAB BLOOD ORDERAB LES Final Result Performing Organization Address [facility] Co de Phone Number [facility] [address] [place] [phone] * DHEA Sulfate (12/20/2024 8:53 AM EST) Pathologist [facility] DHEA Sulfate 29 15 - 205 mcg/dL [facility] Comment:THIS TEST WAS PERFOR MED AT:[employer] [place] [address]JVIYCTAMIA HERNANDEZ MD 12/20/2024 8:53 AM EST 12/20/2024 8:53 AM EST Generic External Data Provider LAB BLOOD ORDERAB LES Final Result Performing Organization Address [facility] Phone Number [facility] [address] [place] [phone] * Cortisol Random (12/20/2024 8:53 AM EST) [facility] Cortisol Random <1.0 ug/dL [facility] Comment:Reference Range*: Be fore 10 am 6.2-19.4 ug/dL After 5 pm 2.3-11.9 ug/dL*Please interpret above results accordingly.This test was performed using the [employer] chemiluminescentmethod. Values obtained from different assay methods cannotbe used interchangeably.Patients receiving fludrocortisone, prednisolone orprednisone may show artificially elevated cortisol valuesdue to cross-reactivity. 12/20/2024 8:53 AM EST 12/20/2024 8:53 AM EST Generic External Data Provider LAB BLOOD ORDERAB LES Final Result Performing Organization Address [facility] Co de Phone Number [facility] [address] [place] [phone] * TSH (12/20/2024 8:53 AM EST) Thyroid Stimulating Hormone 1.14 0.32 - 4.0 uIU/mL [facility] Comment:TSH 3rd Generation ( [facility]) 12/20/2024 8:53 AM EST 12/20/2024 8:53 AM EST us Generic External Data Provider LAB BLOOD ORDERAB LES Final Result Performing Organization Address [facility]/ZIP Co de Phone Number [facility] [address] [place] [phone] [phone] * T4, Free (12/20/2024 8:53 AM EST) Free T4 (Free Thyroxine) 1.05 0.71 - 1.85 ng/dL [facility] 12/20/2024 8:53 AM EST 12/20/2024 8:53 AM EST us Generic External Data Provider LAB BLOOD ORDERAB LES Final Result Performing Organization Address [facility] Co de Phone Number [facility] [address] [place] [phone] documented in this encounter Visit Diagnoses Not on filedocumented in this encounter Additional Health Concerns Assessment Noted Time PHQ-9 Depression Total Score: 11 024 9:22 AM EST documented as of this encounter Care Teams Houseman Relationship Specialty Start Date End Date Raya Pan NP [address] [place] [phone] PCP - General Family Medicine 12/18/23 documented as of this encounter
--- OUTSIDE RECORDS SUMMARY | 2025-01-13 07:49 | XMS_ITS | Encounter Summary ---
Author Organization [employer] [facility] Address [address] [place] [address] Care Team Providers Care Commercial Makeup Artist Name Role Phone Raya Pan NP Primary Care Provider [phone] Encounter Details Date Type Department Care Team (Late st Contact Info) Description 01/04/2025 Telephone [facility] [address] [place], [place] [phone] Raya Pan NP [address] [place], [place] [phone] Social History Tobacco Use Types Packs/Day Years [...] Description 03/17/2025 9:30 AM EDT Office Visit [facility] [address] [place] [address] Destinee Hernandez, OD [address] [place] [address] documented as of this encounter Visit Diagnoses Not on filedocumented in this encounter Additional Health Concerns Assessment Noted Time PHQ-9 Depression Total Score: 11 024 9:22 AM EST documented as of this encounter Care Teams Commercial Makeup Artist Relationship Specialty Start Date End Date Raya Pan NP [address] [place] [address] PCP - General Family Medicine 12/18/23 documented as of this encounter
--- OUTSIDE RECORDS SUMMARY | 2025-01-13 07:49 | XMS_ITS | Encounter Summary ---
Author Organization [employer] [facility] Address [address] [facility] [address] [place] [address] Care Team Providers Care Haulpak Driver Name Role Phone Alex Kim TRAY SETTER Primary Care Provider [phone] Raya Pan NP Primary Care Provider [phone] Encounter Details Date Type Department Care Team (Latest Contact Info) Description 03/07/[address] [facility] Dental, Provider, DDS Social History [...] Description 03/17/2025 9:30 AM EDT Office Visit [facility] [address] [place] [address] Destinee Hernandez, OD [address] [place] [address] documented as of this encounter Visit Diagnoses Not on filedocumented in this encounter Care Teams Haulpak Driver Relationship Specialty Start Date End Date AlexKim FNP [address] [place] [address] PCP - General Family Medicine 05/14/22 12/17/23 Raya Pan NP [address] [place] [address] PCP - General Family Medicine 12/18/23 documented as of this encounter
--- OUTSIDE RECORDS SUMMARY | 2025-01-13 07:49 | XMS_ITS | Clinical Summary ---
Author Organization [employer] Address [address] [facility] [address] [place] [address] Care Team Providers Care Shuttle Fixer Name Role Phone Raya Pan NP Primary Care Provider [phone] Allergies Active Allergy Reactions Criticality Noted Date [...] Type Department Care Team Description 01/04/[address] [address] Raay Pan NP 12/28/[address] [address] Alena Vega MA Chart Prep 12/26/[address] [address] Alena Vega [place] appointment for results 12/23/2024 10:30 AM EST Office Visit [address] [address] Raya Pan NP Hair loss (Primary Dx); Dietary counseling; Exercise counseling; Tinea pedis of right foot; Pain due to onychomycosis of toenail of right foot; 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[facility]) 12/20/2024 Orders Only GENERIC EXTERNAL DATA DEPARTMENT Provider, Generic External Data 12/13/[address] [address] Alena Vega MA Chart Prep 11/30/[address] [address] Alena Vega MA Chart Prep 11/21/2024 9:00 AM EST Office Visit [facility] ADULT DENTAL [address] [place] [phone] Hidalgo-Welsh, Kate, DDS Dental plaque (Primary Dx) 11/21/[address] [place] [address] Raya Pan NP from Last 3 Months Immunizations Name Administration [...] Description 03/17/2025 9:30 AM EDT Office Visit [facility] OPTOMETRY [address] [place] [address] David, Destinee, OD [address] [place] [address] Health Maintenance Due Date Last Done Comments [...] Additional history exists COVID-19 Vaccine (2 - season) 2024 04/16/2021 Influenza Vaccine (#1) 2024 2, 10/03/2019, 01/31/2019, Additional history exists DTaP/Tdap/Td Vaccines (2 - Td or Tdap) 08/17/2024 08/17/2014 Dental X-Ray: Full Mouth 10/18/2024 10/17/2021, 03/2015 Pap Smear 12/23/2024 12/23/2021, 12/23/2021 Diabetes: Hemoglobin [...] period is included. Cortisol Random 2.3 ug/dL [facility] Comment:Reference Range*: Be fore 10 am 6.2-19.4 ug/dL After 5 pm 2.3-11.9 ug/dL*Please interpret above results accordingly.This test was performed using the Chtiogen chemiluminescentmethod. Values obtained from different assay methods cannotbe used interchangeably.Patients receiving fludrocortisone, prednisolone orprednisone may show artificially elevated cortisol valuesdue to cross-reactivity. 12/26/2024 8:49 AM EST 12/26/2024 8:49 AM EST us Generic External Data Provider LAB BLOOD ORDERAB LES Final Result [facility] [address] [place] [phone] * (ABNORMAL) CBC auto differential (12/26/2024 8:49 AM EST) White Blood Count 6.3 4.8 - 10.8 X10*3/uL [facility] Red Blood Count 4.70 4.20 - 5.50 X10*6/uL [facility] Hemoglobin 13.6 12.0 - 16.0 g/dl [facility] Hematocrit 39.7 37.0 - 47.0 % [facility] Mean Corpuscular Volume 84.5 80.0 - 98.0 fL [facility] Mean Corpuscular Hemoglobin 28.9 27.0 - 33.0 pg [facility] Mean Corpuscular HGB Conc 34.3 31.0 - 35.0 g/dl [facility] Red Cell Distribution Width 13.2 11.0 - 16.0 % [facility] Platelet Count 146(L) 160 - 400 X10*3/uL [facility] Mean Platelet Volume 12.1 9.4 - 12.3 fL [facility] Neutrophils Percent Auto 68.2 45 - 73 % [facility] Imm Gran Pct Auto 0.6(H) 0.0 - 0.4 % [facility] Lymphocytes Percent Auto 25.0 20 - 40 % [facility] Monocytes Percent Auto 5.6 2 - 11 % [facility] Eosinophils Percent Auto 0.3 0 - 4 % [facility] Basophils Percent Auto 0.3 0 - 2 % [facility] NRBC Pct Auto 0.0 0.0 - 0.2 /100WBC [facility] Neutrophils Absolute Auto 4.3 2.0 - 8.3 x10*3/uL [facility] Imm Gran Abs Auto 0.04(H) 0.00 - 0.03 X10*3/uL [facility] Lymphocytes Absolute Auto 1.6 1.2 - 4.9 X10*3/uL [facility] Monocytes Absolute Auto 0.4 0.1 - 1.2 X10*3/uL [facility] Eosinophils Absolute Auto 0.0 0.0 - 0.4 X10*3/uL [facility] Basophils Absolute Auto 0.0 0.0 - 0.2 X10*3/uL [facility] NRBC Abs Auto 0.000 0.0 - 0.012 X10*3/uL [facility] Blood Venous blood specimen / Unknown 12/26/2024 8:49 AM EST 12/26/2024 9:05 AM EST us Raya Pan FITTER WELDER LAB BLOOD ORDERABLES Final Resul t Performing Organization Address City/[facility]/ZIP Co de Phone Number [facility] [address] [place] [address] [phone] * Iron And Total Iron Binding Capacity (12/26/2024 8:49 AM EST) Iron 48 30 - 160 mcg/dL [facility] Total Iron Binding Capacity 321 228 - 428 mcg/dL [facility] Percent Iron Saturation 15 15 - 50 % [facility] Unsaturated Iron Binding 273 ug/dL [facility] Blood Venous blood specimen / Unknown 12/26/2024 8:49 AM EST 12/26/2024 8:49 AM EST us Raya Pan FITTER WELDER LAB BLOOD ORDERABLES Final Resul t Performing Organization Address City/[facility]/ZIP Co de Phone Number [facility] [address] [place] [phone] * DHEA Sulfate (12/26/2024 8:49 AM EST) Only the most recent of2 resultswithin the time period is included. DHEA Sulfate 19 15 - 205 mcg/dL [facility] Comment:THIS TEST WAS PERFOR MED AT:[facility] [address] [id number] HERNANDEZ MD 12/26/2024 8:49 AM EST 12/26/2024 8:49 AM EST Generic External Data Provider LAB BLOOD ORDERAB LES Final Result Performing Organization Address [facility]/ZIP Co de Phone Number [facility] [address] [place] [phone] * ACTH, Plasma (12/26/2024 8:49 AM EST) Only the most recent of2 resultswithin the time period is included. ACTH, Plasma 15 6 - 50 pg/mL [facility] Comment:Reference range appl ies only to specimens collectedbetween 7am-10am.THIS TEST WAS PERFORMED AT:[facility]/NOAH [id number] [place] [address]TFYOEDHSRAVANI SLAUGHTER MD,PHD 12/26/2024 8:49 AM EST 12/26/2024 8:49 AM EST Generic External Data Provider LAB BLOOD ORDERAB LES Final Result Performing Organization Address City/[facility]/ZIP Co de Phone Number [facility] [address] [place] [phone] * TSH (12/26/2024 8:49 AM EST) Only the most recent of2 resultswithin the time period is included. Thyroid Stimulating Hormone 1.75 0.32 - 4.0 uIU/mL [facility] Comment:TSH 3rd Generation ( [facility]) 12/26/2024 8:49 AM EST 12/26/2024 8:49 AM EST us Generic External Data Provider LAB BLOOD ORDERAB LES Final Result Performing Organization Address [facility] Co de Phone Number [facility] [address] [place] [phone] * T4, Free (12/26/2024 8:49 AM EST) Only the most recent of2 resultswithin the time period is included. Free T4 (Free Thyroxine) 1.05 0.71 - 1.85 ng/dL [facility] 12/26/2024 8:49 AM EST 12/26/2024 8:49 AM EST us Generic External Data Provider LAB BLOOD ORDERAB LES Final Result Performing Organization Address [facility] de Phone Number [facility] [address] [place] [phone] * (ABNORMAL) Hemoglobin A1c (12/26/2024 8:49 AM EST) Hemoglobin A1c 12.9(H) <6.0 % [facility] Comment:Hemoglobin A1C Refer ence Range Adults: 4.8 - 6.0 % Non diabetic: < 6.0 % Goal: < 7.0 %Additional Action Suggested: > 8.0 %Note: Hemoglobin A1c results are invalid for patients with abnormal amounts of HbF. Blood transfusions may impact the HbA1c concentration in the patient sample. Estimated Average Glucose 324 mg/dL [facility] Comment:eAG = Estimated ave rage glucose which is %A1C expressed asaverage glucose, using the formula of the G9E-KuxlepkGxmvkna Glucose study (ADAG), Diabetes Care, Vol.31,#8,Jun. 2007 Blood Venous blood specimen / Unknown 12/26/2024 8:49 AM EST 12/26/2024 8:49 AM EST us Raya Pan NP LAB BLOOD ORDERABLES Final Resul t Performing Organization Address City/[facility]/ZIP Co de Phone Number [facility] [address] [place] [phone] * LH (12/26/2024 8:49 AM EST) Only the most recent of2 resultswithin the time period is included. Lutenizing Hormone 21.0 mIU/mL [facility] Comment:Reference Range Foll icular Phase 1.9-12.5 Mid-Cycle Peak 8.7-76.3 Luteal Phase 0.5-16.9 Postmenopausal 10.0-54.7THIS TEST WAS PERFORMED AT:[facility] [address] [address]TDUPMTAMIA HERNANDEZ MD 12/26/2024 8:49 AM EST 12/26/2024 8:49 AM EST us Generic External Data Provider LAB BLOOD ORDERAB LES Final Result Performing Organization Address [facility] Number [facility] [address] [place] [phone] * FSH (12/26/2024 8:49 AM EST) Only the most recent of2 resultswithin the time period is included. Follicle Stimulating Hormone 9.5 mIU/mL [facility] Comment:Reference Range Foll icular Phase 2.5-10.2 Mid-cycle Peak 3.1-17.7 Luteal Phase 1.5- 9.1 Postmenopausal 23.0-116.3THIS TEST WAS PERFORMED AT:[facility] [address] [address]JDQQCTAMIA HERNANDEZ MD 12/26/2024 8:49 AM EST 12/26/2024 8:49 AM EST us Generic External Data Provider LAB BLOOD ORDERAB LES Final Result Performing Organization Address [facility] Co de Phone Number [facility] [address] [place] [phone] * (ABNORMAL) Comprehensive Metabolic Panel (12/26/2024 8:49 AM EST) Sodium 137 135 - 145 mmol/L [facility] Potassium 3.9 3.3 - 5.1 mmol/L [facility] Chloride 104 96 - 108 mmol/L [facility] Carbon Dioxide 24 22 - 29 mmol/L [facility] Anion Gap 13 12 - 20 [facility] Urea Nitrogen (BUN) 15 9 - 16 mg/dL [facility] Creatinine, Serum 0.67 0.5 - 1.4 mg/dL [facility] Estimated Glomerular Filt Rate >60 [facility] Comment:Chronic Kidney Disea se: Estimated GFR < 60 mL/min/1.70q2Mkrzhw Kidney Disease: Estimated GFR < 15 mL/min/1.73m2 Glucose 328(H) 60 - 115 mg/dL [facility] Calcium 9.3 8.4 - 10.2 mg/dL [facility] Bilirubin, Total 0.5 0.0 - 1.0 mg/dL [facility] Aspartate Amino Transferase 82(H) 5 - 31 U/L [facility] Alanine Aminotransferase 170(H) 0 - 31 U/L [facility] Total Protein 7.7 6.5 - 8.0 g/dL [facility] Albumin Level 4.0 3.5 - 5.0 g/dL [facility] Alkaline Phosphatase 149(H) 39 - 117 U/L [facility] Blood Venous blood specimen / Unknown 12/26/2024 8:49 AM EST 12/26/2024 8:49 AM EST us Raya Pan NP LAB BLOOD ORDERABLES Final Resul t [facility] [address] [place] [phone] * Alpha Subunit (12/20/2024 8:53 AM EST) Alpha Subunit 0.2 ng/mL [facility] Comment:Reference Range for Alpha Subunit:Premenopausal Females: 0.1-0.6 ng/mLPostmenopausal Females: 0.1-1.5 ng/mLPregnancy (1st and 2nd Trimesters): 35.0-186.0 ng/mLHypothyroidism: 0.2-3.2 ng/mLThis test measures the free alpha subunit that is common toLH, FSH, TSH and hCG. These hormones are comprised ofidentical alpha subunits and unique beta subunits thatconfer biological specificity.This test was developed and its analytical performancecharacteristics have been determined by [employer].It has not been cleared or approved by FDA. This assay hasbeen validated pursuant to the CLIA regulations and is usedfor clinical purposes.THIS TEST WAS PERFORMED AT:[facility]/[employer] [id number] [place] [address]JJWINLEVON FORTE MD,PHD,JOSHUA 12/20/2024 8:53 AM EST 12/20/2024 8:53 AM EST us Generic External Data Provider LAB BLOOD ORDERAB LES Final Result [facility] [address] [place] [address] [phone] * Prolactin, Dilution Study (12/20/2024 8:53 AM EST) Prolactin, Undiluted 20.7 ng/mL [facility] Prolactin, Diluted SEE NOTE ng/mL [facility] Comment:Result confirmed by 1:100 dilution. No high dosehook effect detected. Reference Range Females Non- 3.0-30.0 10.0-209.0 Postmenopausal 2.0-20.0Prolactin dilution studies are done to determine ifthere is a high-dose hook effect (i.e. a non-linearassay response due to a very high concentration ofProlactin). This is reported to occur at Prolactinconcentrations at or above 30,000 ng/mL.This test is not recommended for identifyingmacroprolactin. The [employer], Prolactin, Total and Monomeric is therecommended test (Order code 10661).THIS TEST WAS PERFORMED AT:[employer] [place] [address]MNLJQTAMIA HERNANDEZ MD 12/20/2024 8:53 AM EST 12/20/2024 8:53 AM EST Generic External Data Provider LAB BLOOD ORDERAB LES Final Result Performing Organization Address [facility] Phone Number [facility] [address] [place] [phone] * Prolactin (12/20/2024 8:53 AM EST) Prolactin [facility] Comment:DUPLICATE 12/20/2024 8:53 AM EST 12/20/2024 8:53 AM EST Generic External Data Provider LAB BLOOD ORDERAB LES Final Result Performing Organization Address [facility] Number [facility] [address] [place] [phone] * IGF-1, LC/MS (12/20/2024 8:53 AM EST) [facility] IGF 1, LC/MS 73 52 - 328 ng/mL [facility] Z Score (Male) [facility] Z Score (Female) -1.3 -2.0 - 2.0 SD [facility] Comment:This test was develo ped and its analytical performancecharacteristics have been determined by [employer].It has not been cleared or approved by FDA. This assay hasbeen validated pursuant to the CLIA regulations and is usedfor clinical purposes.THIS TEST WAS PERFORMED AT:[facility]/[id number] [place] [address]FAWRELEVON FORTE MD,PHD,JOSHUA 12/20/2024 8:53 AM EST 12/20/2024 8:53 AM EST us Generic External Data Provider LAB BLOOD ORDERAB LES Final Result Performing Organization Address [facility]/State/ZIP Co de Phone Number [facility] [address] [place] [phone] [phone] * Growth Hormone (GH) (12/20/2024 8:53 AM EST) Growth Hormone 0.2 < OR = 7.1 ng/mL [facility] Comment: Because of a pulsatile secretion [...] or = 10.0 ng/mLTHIS TEST WAS PERFORMED AT:[employer] [place] [address] ??[id number] HERNANDEZ MD 12/20/2024 8:53 AM EST 12/20/2024 8:53 AM EST Generic External Data Provider LAB BLOOD ORDERAB LES Final Result Performing Organization Address City/[facility]/ZIP Co de Phone Number [facility] [address] [place] [phone] * Estradiol (12/20/2024 8:53 AM EST) Estradiol Ultra Sensitive 45 pg/mL [facility] Comment:Female Reference Ran ges for Estradiol, Ultrasensitive (pg/mL): Follicular Phase: 39-375 Luteal Phase: 48-440 Postmenopausal Phase: < or = 10This test was developed and its analytical performancecharacteristics have been determined by [employer].It has not been cleared or approved by FDA. This assay hasbeen validated pursuant to the CLIA regulations and is usedfor clinical purposes.THIS TEST WAS PERFORMED AT:[facility] [id number] [facility] [place] [address]OPGOLLEVON FORTE MD,PHD,JOSHUA 12/20/2024 8:53 AM EST 12/20/2024 8:53 AM EST us Generic External Data Provider LAB BLOOD ORDERAB LES Final Result Performing Organization Address [facility] Co de Phone Number [facility] [address] [place] [phone] * HEPATITIS C AB W/REFL TO HCV RNA, QN, PCR (12/23/2021 10:03 AM EST) Pathologist [facility] HEPATITIS C ANTIBODY NON-REACT VERONA NON-REACT [facility] INDEX 0.01 <1.00 [facility] Comment: ?? HCV antibody was non-reactive. There is no laboratory ?? evidence of HCV infection. ?? In most cases, no further action is required. However, if recent HCV exposure is suspected, a test for HCV RNA (test code 98781) is suggested. ?? For additional information please refer to http://education.[employer] Mobile/faq/JBI69q0 (This link is being provided for informational/ educational purposes only.) ?? 12/23/2021 10:0 3 AM EST [facility]i [facility] HISTORICAL/NON ORDERABLE LABS Final Result Performing Organization Address [facility] Co de Phone Number [facility] [address] [place] [address], * HIV 1/2 ANTIGEN/ANTIBODY,FOURTH GENERATION W/RFL (12/23/2021 10:03 AM EST) HIV-1/2 ANTIGEN AND ANTIBODIES, 4TH GENERATION W/ REFLEX NON-REACT VERONA NON-REACT VREONA [facility] Comment: HIV-1 [...] ? For additional information please refer to http://education.[employer]/faq/KZQ292 (This link is being provided for informational/ educational purposes only.) ? The performance of this assay has not been clinically validated in patients less than 2 years old. ?? 12/23/2021 10:0 3 AM EST [facility] LAB BLOOD ORDERABLES Melvina l Result Performing Organization Address [facility] Co de Phone Number [facility] [address] [place] [address], * THINPREP TIS PAP AND HPV mRNA E6/E7, CT/NG, TRICH (12/23/2021 9:16 AM EST) Chlamydia trachomatis RNA, TMA, Urogenital NOT DETECTED NOT DETECTED [facility] Clinical Information: None given [facility] COMMENT SEE COMMENT [facility] Comment: The analytical performance characteristics of this assay, when used to test SurePath(TM) specimens have been determined by [employer]. The modifications have not been cleared or approved by the FDA. This assay has been validated pursuant to the CLIA regulations and is used for clinical purposes. ?? For additional information, please refer to https://AppTap.[employer] Mobile/faq/OPO545 (This link is being provided for information/ [...] has been evaluated with computer assisted technology. [employer] [facility] Gas Examiner: SEE COMMENT [facility] Comment: RMM, CT(ASCP) CT screening location: [address] ??[phone] HPV nRNA E6/E7 Not Detected Not Detected [facility] Comment: Methodology: Barrel Washer-Mediated Amplification This assay detects E6/E7 viral messenger RNA (mRNA) from 14 high-risk HPV types (16,18,31,33,35,39,45,51,52,56,58,59,66,68). ? The analytical performance characteristics of this assay have been determined by [employer]. The modifications have not been cleared or approved by the FDA. This assay has been validated pursuant to the CLIA regulations and is used for clinical purposes. ?? For additional information, please refer to http://AppTap.[employer] Mobile/faq/XLW646d6 (This link if provided for information/ educational purposes only.) Interpretation/Re sult: Negative for intraepithelial lesion or malignancy. [employer] [facility] LMP: 12/09/2021 [facility] [...] of this assay have been determined by [employer]. The modifications have not been cleared or approved by the FDA. This assay has been validated pursuant to the CLIA regulations and is used for clinical purposes. ?? For additional information, please refer to http://education.[employer]/ faq/Trichomonastma (This link is being provided for information/ educational purposes only.) ?? 12/23/2021 9:16 AM EST Isi Lind [facility] PATHOLOGY ORDERABLES Final Result [facility] [address] * Pap Smear (12/23/2021 12:00 AM EST) Swab [facility] LAB CYTOLOGY ORDERABLES F inal Result [facility] [address], [place] [phone] from Last 3 Months or Most Recently Relevant to Health Maintenance Insurance [facility] STANDARD D[facility]AL[facility] STAND ADULT Care Teams Shuttle Fixer Relationship Specialty Start Date End Date Raya Pan NP [address] [place] [phone] PCP - General Family Medicine 12/18/23
--- OUTSIDE RECORDS SUMMARY | 2025-01-13 07:49 | XMS_ITS | Encounter Summary ---
Author Organization [employer] [facility] Address [address] [facility] 7t [place] [address] Care Team Providers Care Flare Man Name Role Phone Raya Pan NP Primary Care Provider [phone] Reason for Referral * Consultation (Routine) - Authorized Specialty Diagnoses / Procedures Referred By Chika william Referred To Contact Podiatry Diagnoses Tinea pedis of right foot Pain due to onychomycosis of toenail of right foot Raya Pan NP [address] [place] [address] Phone: tel: fax: Kameron Ward DPM [address] [address] Phone: tel: fax: Referral ID Status Reason Start Date Expiration Date Visits Requested Visits Authorized [id number] Authorized Specialty Services Required 12/23/2024 12/23/2025 1 1 Encounter Details Date Type Department Care Team (Latest Contact Info) Description 12/23/2024 10:30 AM EST Office Visit [facility] [address] [place], [place] [phone] Raya Pan NP [address] [place], [place] [phone] Hair loss (Primary Dx); Dietary counseling; Exercise [...] this encounter Progress Notes * Raya Pan, PANELBOARD TANK PUMPER - 12/23/2024 10:30 AM EST Subjective Mellissa [...] medications for this visit. Visit Conducted in: Wolof Translation by: provided by [employer] [id number] documented in this encounter Miscellaneous Notes * [...] Description 03/17/2025 9:30 AM EDT Office Visit [facility] OPTOMETRY [address] [place] [address] Destinee Hernandez, OD [address] [place] [address] Scheduled Orders Name Type Priority Associated Diagnoses [...] EST) Sodium 137 135 - 145 mmol/L [facility] Potassium 3.9 3.3 - 5.1 mmol/L [facility] Chloride 104 96 - 108 mmol/L [facility] Carbon Dioxide 24 22 - 29 mmol/L [facility] Anion Gap 13 12 - 20 [facility] Urea Nitrogen (BUN) 15 9 - 16 mg/dL [facility] Creatinine, Serum 0.67 0.5 - 1.4 mg/dL [facility] Estimated Glomerular Filt Rate >60 [facility] Comment:Chronic Kidney Disea se: Estimated GFR < 60 mL/min/[id number] Kidney Disease: Estimated GFR < 15 mL/min/1.73m2 Glucose 328(H) 60 - 115 mg/dL [facility] Calcium 9.3 8.4 - 10.2 mg/dL [facility] Bilirubin, Total 0.5 0.0 - 1.0 mg/dL [facility] Aspartate Amino Transferase 82(H) 5 - 31 U/L [facility] Alanine Aminotransferase 170(H) 0 - 31 U/L [facility] Total Protein 7.7 6.5 - 8.0 g/dL [facility] Albumin Level 4.0 3.5 - 5.0 g/dL [facility] Alkaline Phosphatase 149(H) 39 - 117 U/L [facility] Blood Venous blood specimen / Unknown 12/26/2024 8:49 AM EST 12/26/2024 8:49 AM EST us Raya Pan PANELBOARD TANK PUMPER LAB BLOOD ORDERABLES Final Resul t [facility] [address] [place] [address] [phone] * (ABNORMAL) Hemoglobin A1c (12/26/2024 8:49 AM EST) Hemoglobin A1c 12.9(H) <6.0 % [facility] Comment:Hemoglobin A1C Refer ence Range Adults: 4.8 - 6.0 % Non diabetic: < 6.0 % Goal: < 7.0 %Additional Action Suggested: > 8.0 %Note: Hemoglobin A1c results are invalid for patients with abnormal amounts of HbF. Blood transfusions may impact the HbA1c concentration in the patient sample. Estimated Average Glucose 324 mg/dL [facility] Comment:eAG = Estimated ave rage glucose which is %A1C expressed asaverage glucose, using the formula of the R3W-MipyfetFuyqkki Glucose study (ADAG), Diabetes Care, Vol.31,#8,Jun. 2007 Blood Venous blood specimen / Unknown 12/26/2024 8:49 AM EST 12/26/2024 8:49 AM EST Raya Pan PANELBOARD TANK PUMPER LAB BLOOD ORDERABLES Final Resul t Performing Organization Address [facility] Co de Phone Number [facility] [address] [place] [phone] * Iron And Total Iron Binding Capacity (12/26/2024 8:49 AM EST) Iron 48 30 - 160 mcg/dL [facility] Total Iron Binding Capacity 321 228 - 428 mcg/dL [facility] Percent Iron Saturation 15 15 - 50 % [facility] Unsaturated Iron Binding 273 ug/dL [facility] Blood Venous blood specimen / Unknown 12/26/2024 8:49 AM EST 12/26/2024 8:49 AM EST Raya aPn NP LAB BLOOD ORDERABLES Final Resul t Performing Organization Address [facility] Co de Phone Number [facility] [address] [place] [address] [phone] documented in this encounter Visit Diagnoses [...] documented as of this encounter Care Teams Flare Man Relationship Specialty Start Date End Date Raya Pan NP [address] [place] [address] PCP - General Family Medicine 12/18/23 documented as of this encounter
--- OUTSIDE RECORDS SUMMARY | 2025-01-13 07:49 | XMS_ITS | Encounter Summary ---
Author Organization [facility] Address [address] [place] [address] [address] [place] [address] Care Team Providers Care New Autos Delivery Driver Name Role Phone Alex Kim GLORIA Primary Care Provider [phone] Raya Pan NP Primary Care Provider [phone] Encounter Details Date Type Department Care Team (Late st Contact Info) Description 09/25/2023 Abstract [facility] ADULT DENTAL [address] [place] [address] Kate Mejia DDS [address] [place] [address] Social History Tobacco Use Types Packs/Day Years [...] Description 03/17/2025 9:30 AM EDT Office Visit [facility] OPTOMETRY [address] [place] [address] David, Destinee, OD [address] [place] [address] documented as of this encounter Visit Diagnoses Not on filedocumented in this encounter Care Teams New Autos Delivery Driver Relationship Specialty Start Date End Date Kim Johnson FNP [address] [place] [address] PCP - General Family Medicine 05/14/22 12/17/23 Raya Pan NP [address] [place] [address] PCP - General Family Medicine 12/18/23 documented as of this encounter
--- OUTSIDE RECORDS SUMMARY | 2025-01-13 07:49 | XMS_ITS | Encounter Summary ---
Author Organization [employer] Address [address] [facility] [address] 7[address] [place] [address] Care Team Providers Care Ethylene Compressor Operator Name Role Phone Raya Pan NP Primary Care Provider [phone] Reason for Visit * Reason Onset Date Comments Chart Prep 12/28/2024 Encounter Details Date Type Department Care Team ([facility] st Contact Info) Description 12/28/2024 Telephone [facility] MEDICINE [address] [place], [place] [phone] Alena Vega MA Chart Prep Social History [...] 9:30 AM EDT Office Visit [facility] OPTOMETRY [address] [place] [address] Destinee Hernandez, OD [address] [place] [address] documented as of this encounter Visit Diagnoses Not on filedocumented in this encounter Additional Health Concerns Assessment Noted Time PHQ-9 Depression Total Score: 11 024 9:22 AM EST documented as of this encounter Care Teams Ethylene Compressor Operator Relationship Specialty Start Date End Date Raya Pan NP [address] [place] [address] PCP - General Family Medicine 12/18/23 documented as of this encounter
--- OUTSIDE RECORDS SUMMARY | 2025-01-13 07:50 | XMS_ITS | Encounter Summary ---
Author Organization [employer] [facility] Address [address] [facility] 7t [place] [address] Care Team Providers Care Database Administration Project Manager Name Role Phone Kim JohnsonP Primary Care Provider [phone] Raya Pan NP Primary Care Provider [phone] Encounter Details Date Type Department Care Team (Late st Contact Info) Description 06/30/2023 Abstract [facility] ADULT DENTAL [address] [place] [address] Subha, Abena [address] [place] [address] Social History Tobacco Use Types Packs/Day Years [...] Description 03/17/2025 9:30 AM EDT Office Visit [facility] OPTOM[facility]RY [address] [place] [address] David, Destinee, OD [address] [place] [address] documented as of this encounter Visit Diagnoses Not on filedocumented in this encounter Care Teams Database Administration Project Manager Relationship Specialty Start Date End Date Kim Johnson FNP [address] [place] [address] PCP - General Family Medicine 05/14/22 12/17/23 Raya Pan NP [address] [place] [address] PCP - General Family Medicine 12/18/23 documented as of this encounter
[2025-01-13 09:01] LABS: Glucose, Whole Blood 325 mg/dL (60-115)
== END 2025-01-13 10:05 | disposition home or self-care (01) ==
PROVIDERS: PCP Nurse Practitioner Family; Visit Provider Student in an Organized Health Care Education/Training Program
DX: E11.65 Type 2 diabetes mellitus with hyperglycemia (principal); Z79.4 Long term (current) use of insulin
CPT/HCPCS: 99215

== ENCOUNTER → 2025-01-13 07:45 | Outpatient (BNVA) | payer MEDICAID, SELFPAY | PROVIDERS: PCP Nurse Practitioner Family; Visit Provider Student in an Organized Health Care Education/Training Program | DX: E11.65 Type 2 diabetes mellitus with hyperglycemia (principal); Z79.4 Long term (current) use of insulin | CPT/HCPCS: 36415; 80061; 82043; 82570; 82947; 99212 ==

== ENCOUNTER 2025-01-13 10:14 | Outpatient (REF) | payer MEDICAID, SELFPAY ==
--- OUTSIDE RECORDS SUMMARY | 2025-01-13 11:27 | XMS_ITS | Encounter Summary ---
Author Organization [employer] [facility] Address [address] [facility] [address] [address] 7[address] [place] [address] Care Team Providers Care Hha Name Role Phone Raya Pan NP Primary Care Provider [phone] Encounter Details Date Type Department Care Team (Late st Contact Info) Description 01/04/[address] [facility] MEDICINE [address] [place], [place] [phone] Raya Pan NP [address] [place], [place] [phone] Social History Tobacco Use Types Packs/Day Years [...] 9:30 AM EDT Office Visit [facility] OPTOMETRY [address] [place] [address] Destinee Hernandez, OD [address] [place] [address] documented as of this encounter Visit Diagnoses Not on filedocumented in this encounter Additional Health Concerns Assessment Noted Time PHQ-9 Depression Total Score: 11 024 9:22 AM EST documented as of this encounter Care Teams Hha Relationship Specialty Start Date End Date Raya Pan NP [address] [place] [address] PCP - General Family Medicine 12/18/23 documented as of this encounter
--- OUTSIDE RECORDS SUMMARY | 2025-01-13 11:27 | XMS_ITS | Encounter Summary ---
Author Organization [email or web address] [facility] Address [address] [facility] 7t [place] [address] Care Team Providers Care Boarder Machine Name Role Phone Maxim Raya RADHA Primary Care Provider [phone] Reason for Visit * Reason Onset Date Comments pain from crown 09/09/2024 Encounter Details Date Type Department Care Team ([facility] st Contact Info) Description 09/09/2024 Telephone [facility] ADULT DENTAL [address] [place], [place] [phone] Kate Mejia DDS [address] [place], [place] [phone] pain from crown Social History Tobacco Use [...] Description 03/17/2025 9:30 AM EDT Office Visit [facility] OPTOMETRY [address] [place] [address] Destinee Hernandez, JHON [address] [place] [address] documented as of this encounter Visit Diagnoses Not on filedocumented in this encounter Care Teams Boarder Machine Relationship Specialty Start Date End Date Raya Pan NP [address] [place] [address] PCP - General Family Medicine 12/18/23 documented as of this encounter
--- OUTSIDE RECORDS SUMMARY | 2025-01-13 11:27 | XMS_ITS | Encounter Summary ---
Author Organization [employer] [facility] Address [address] [facility] 7t [place] [address] Care Team Providers Care Economic Research Analyst Name Role Phone Raya Pan NP Primary Care Provider [phone] Reason for Referral * Consultation (Routine) - Authorized Specialty Diagnoses / Procedures Referred By Chika william Referred To Contact Podiatry Diagnoses Tinea pedis of right foot Pain due to onychomycosis of toenail of right foot Raya Pan NP [address] [place] [address] Phone: tel: fax: Kameron Ward DPM [address] [address] Phone: tel: fax: Referral ID Status Reason Start Date Expiration Date Visits Requested Visits Authorized [id number] Authorized Specialty Services Required 12/23/2024 12/23/2025 1 1 Encounter Details Date Type Department Care Team (Latest Contact Info) Description 12/23/2024 10:30 AM EST Office Visit [facility] [address] [place], [place] [phone] Raya Pan NP [address] [place], [place] [phone] Hair loss (Primary Dx); Dietary counseling; Exercise [...] this encounter Progress Notes * Raya Pan, CORRECTIONAL PROBATION OFFICER - 12/23/2024 10:30 AM EST Subjective Mellissa [...] medications for this visit. Visit Conducted in: Georgian Translation by: provided by [employer] [id number] documented in this encounter Miscellaneous Notes * [...] 9:30 AM EDT Office Visit [facility] OPTOMET[facility] [address] [place] [address] Destinee Hernandez, OD [address] [place] [address] Scheduled Orders Name Type Priority Associated Diagnoses [...] EST) Sodium 137 135 - 145 mmol/L [facility] Potassium 3.9 3.3 - 5.1 mmol/L [facility] Chloride 104 96 - 108 mmol/L [facility] Carbon Dioxide 24 22 - 29 mmol/L [facility] Anion Gap 13 12 - 20 [facility] Urea Nitrogen (BUN) 15 9 - 16 mg/dL [facility] Creatinine, Serum 0.67 0.5 - 1.4 mg/dL [facility] Estimated Glomerular Filt Rate >60 [facility] Comment:Chronic Kidney Disea se: Estimated GFR < 60 mL/min/[id number] Kidney Disease: Estimated GFR < 15 mL/min/1.73m2 Glucose 328(H) 60 - 115 mg/dL [facility] Calcium 9.3 8.4 - 10.2 mg/dL [facility] Bilirubin, Total 0.5 0.0 - 1.0 mg/dL [facility] Aspartate Amino Transferase 82(H) 5 - 31 U/L [facility] Alanine Aminotransferase 170(H) 0 - 31 U/L [facility] Total Protein 7.7 6.5 - 8.0 g/dL [facility] Albumin Level 4.0 3.5 - 5.0 g/dL [facility] Alkaline Phosphatase 149(H) 39 - 117 U/L [facility] Blood Venous blood specimen / Unknown 12/26/2024 8:49 AM EST 12/26/2024 8:49 AM EST us Raya Pan CORRECTIONAL PROBATION OFFICER LAB BLOOD ORDERABLES Final Resul t [facility] [address] [place] [address] [phone] * (ABNORMAL) Hemoglobin A1c (12/26/2024 8:49 AM EST) Hemoglobin A1c 12.9(H) <6.0 % [facility] Comment:Hemoglobin A1C Refer ence Range Adults: 4.8 - 6.0 % Non diabetic: < 6.0 % Goal: < 7.0 %Additional Action Suggested: > 8.0 %Note: Hemoglobin A1c results are invalid for patients with abnormal amounts of HbF. Blood transfusions may impact the HbA1c concentration in the patient sample. Estimated Average Glucose 324 mg/dL [facility] Comment:eAG = Estimated ave rage glucose which is %A1C expressed asaverage glucose, using the formula of the P4Q-JehlzelHnxwbqe Glucose study (ADAG), Diabetes Care, Vol.31,#8,Jun. 2007 Blood Venous blood specimen / Unknown 12/26/2024 8:49 AM EST 12/26/2024 8:49 AM EST Raya Pan CORRECTIONAL PROBATION OFFICER LAB BLOOD ORDERABLES Final Resul t Performing Organization Address [facility] Co de Phone Number [facility] [address] [place] [phone] * Iron And Total Iron Binding Capacity (12/26/2024 8:49 AM EST) Iron 48 30 - 160 mcg/dL [facility] Total Iron Binding Capacity 321 228 - 428 mcg/dL [facility] Percent Iron Saturation 15 15 - 50 % [facility] Unsaturated Iron Binding 273 ug/dL [facility] Blood Venous blood specimen / Unknown 12/26/2024 8:49 AM EST 12/26/2024 8:49 AM EST Raya Pan NP LAB BLOOD ORDERABLES Final Resul t Performing Organization Address [facility] Co de Phone Number [facility] [address] [place] [address] [phone] documented in this encounter Visit Diagnoses [...] documented as of this encounter Care Teams Economic Research Analyst Relationship Specialty Start Date End Date Raya Pan NP [address] [place] [address] PCP - General Family Medicine 12/18/23 documented as of this encounter
--- OUTSIDE RECORDS SUMMARY | 2025-01-13 11:27 | XMS_ITS | Encounter Summary ---
Author Organization [employer] [facility] Address [address] [place] [address] Care Team Providers Care Director Telemetry Name Role Phone MaximRaya RADHA Primary Care Provider [phone] Encounter Details Date Type Department Care Team [...] 9:30 AM EDT Office Visit [facility] OPTOMETRY [address] [place] [address] David, Destinee, OD [address] [place] [address] documented as of this encounter Procedures Procedure Name Priority Date/Time Associated Diagnosis Comments GLUCOSE, WHOLE BLOOD Routine 01/13/2025 7:57 AM EST CORTISOL RANDOM Routine 12/26/2024 8:49 [...] EST documented in this encounter Results * (ABNORMAL) Glucose, Whole Blood (01/13/2025 7:57 AM EST) Glucose, Whole Blood 325(H) 60 - 115 mg/dL [facility] Comment:METER #: [id number] Testing performed in the Endocrinology Department [address] , [address], [facility]. 01/13/2025 7:57 AM EST 01/13/2025 9:01 AM EST us Generic External Data Provider LAB BLOOD ORDERAB LES Final Result [facility] [address] [place] [phone] * ACTH, Plasma (12/26/2024 8:49 AM EST) ACTH, Plasma 15 6 - 50 pg/mL [facility] Comment:Reference range appl ies only to specimens collectedbetween 7am-10am.THIS TEST WAS PERFORMED AT:[facility] [id number] [place] [address]LFTRCDJSRAVANI SLAUGHTER MD,PHD 12/26/2024 8:49 AM EST 12/26/2024 8:49 AM EST us Generic External Data Provider LAB BLOOD ORDERAB LES Final Result Performing Organization Address [facility] Co de Phone Number [facility] [address] [place] [phone] * DHEA Sulfate (12/26/2024 8:49 AM EST) DHEA Sulfate 19 15 - 205 mcg/dL [facility] Comment:THIS TEST WAS PERFOR MED AT:[facility] [address] [id number] HERNANDEZ MD 12/26/2024 8:49 AM EST 12/26/2024 8:49 AM EST Generic External Data Provider LAB BLOOD ORDERAB LES Final Result Performing Organization Address [facility] de Phone Number [facility] [address] [place] [phone] * LH (12/26/2024 8:49 AM EST) Lutenizing Hormone 21.0 mIU/mL [facility] Comment:Reference Range Foll icular Phase 1.9-12.5 Mid-Cycle Peak 8.7-76.3 Luteal Phase 0.5-16.9 Postmenopausal 10.0-54.7THIS TEST WAS PERFORMED AT:[facility] [address] [id number] HERNANDEZ MD 12/26/2024 8:49 AM EST 12/26/2024 8:49 AM EST Generic External Data Provider LAB BLOOD ORDERAB LES Final Result Performing Organization Address [facility] de Phone Number [facility] [address] [place] [phone] * FSH (12/26/2024 8:49 AM EST) Follicle Stimulating Hormone 9.5 mIU/mL [facility] Comment:Reference Range Foll icular Phase 2.5-10.2 Mid-cycle Peak 3.1-17.7 Luteal Phase 1.5- 9.1 Postmenopausal 23.0-116.3THIS TEST WAS PERFORMED AT:[employer] [place] [id number] HERNANDEZ MD 12/26/2024 8:49 AM EST 12/26/2024 8:49 AM EST Generic External Data Provider LAB BLOOD ORDERAB LES Final Result Performing Organization Address [facility] de Phone Number [facility] [address] [place] [phone] * TSH (12/26/2024 8:49 AM EST) [facility] Thyroid Stimulating Hormone 1.75 0.32 - 4.0 uIU/mL [facility] Comment:TSH 3rd Generation ( [facility]) 12/26/2024 8:49 AM EST 12/26/2024 8:49 AM EST Generic External Data Provider LAB BLOOD ORDERAB LES Final Result Performing Organization Address [facility] Co de Phone Number [facility] [address] [place] [phone] * Cortisol Random (12/26/2024 8:49 AM EST) Cortisol Random 2.3 ug/dL [facility] Comment:Reference Range*: Be fore 10 am 6.2-19.4 ug/dL After 5 pm 2.3-11.9 ug/dL*Please interpret above results accordingly.This test was performed using the [employer] chemiluminescentmethod. Values obtained from different assay methods cannotbe used interchangeably.Patients receiving fludrocortisone, prednisolone orprednisone may show artificially elevated cortisol valuesdue to cross-reactivity. 12/26/2024 8:49 AM EST 12/26/2024 8:49 AM EST Generic External Data Provider LAB BLOOD ORDERAB LES Final Result Performing Organization Address [facility] Co de Phone Number [facility] [address] [place] [phone] * T4, Free (12/26/2024 8:49 AM EST) Pathologist [facility] Free T4 (Free Thyroxine) 1.05 0.71 - 1.85 ng/dL [facility] 12/26/2024 8:49 AM EST 12/26/2024 8:49 AM EST Generic External Data Provider LAB BLOOD ORDERAB LES Final Result Performing Organization Address [facility] de Phone Number [facility] [address] [place] [phone] * Prolactin (12/20/2024 8:53 AM EST) Pathologist [facility] Prolactin [facility] Comment:DUPLICATE 12/20/2024 8:53 AM EST 12/20/2024 8:53 AM EST Generic External Data Provider LAB BLOOD ORDERAB LES Final Result Performing Organization Address [facility] de Phone Number [facility] [address] [place] [address] [phone] * Alpha Subunit (12/20/2024 8:53 AM EST) Alpha Subunit 0.2 ng/mL [facility] Comment:Reference Range for Alpha Subunit:Premenopausal Females: 0.1-0.6 ng/mLPostmenopausal Females: 0.1-1.5 ng/mLPregnancy (1st and 2nd Trimesters): 35.0-186.0 ng/mLHypothyroidism: 0.2-3.2 ng/mLThis test measures the free alpha subunit that is common toLH, FSH, TSH and hCG. These hormones are comprised ofidentical alpha subunits and unique beta subunits thatconfer biological specificity.This test was developed and its analytical performancecharacteristics have been determined by [employer].It has not been cleared or approved by FDA. This assay hasbeen validated pursuant to the CLIA regulations and is usedfor clinical purposes.THIS TEST WAS PERFORMED AT:[facility] [id number] ASHOK YANEZ [id number] FORTE MD,PHD,JOSHUA 12/20/2024 8:53 AM EST 12/20/2024 8:53 AM EST us Generic External Data Provider LAB BLOOD ORDERAB LES Final Result [facility] [address] [place] [address] [phone] * IGF-1, LC/MS (12/20/2024 8:53 AM EST) IGF 1, LC/MS 73 52 - 328 ng/mL [facility] Z Score (Male) TNP [facility] Z Score (Female) -1.3 -2.0 - 2.0 SD [facility] Comment:This test was develo ped and its analytical performancecharacteristics have been determined by [employer].It has not been cleared or approved by FDA. This assay hasbeen validated pursuant to the CLIA regulations and is usedfor clinical purposes.THIS TEST WAS PERFORMED AT:[facility] [id number] ASHOK YANEZ [address]MYIVALEVON FORTE MD,PHD,JOSHUA 12/20/2024 8:53 AM EST 12/20/2024 8:53 AM EST Generic External Data Provider LAB BLOOD ORDERAB LES Final Result Performing Organization Address [facility]/ZIP Co de Phone Number [facility] [address] [place] [phone] * Estradiol (12/20/2024 8:53 AM EST) Estradiol Ultra Sensitive 45 pg/mL [facility] Comment:Female Reference Ran ges for Estradiol, Ultrasensitive (pg/mL): Follicular Phase: 39-375 Luteal Phase: 48-440 Postmenopausal Phase: < or = 10This test was developed and its analytical performancecharacteristics have been determined by [employer].It has not been cleared or approved by FDA. This assay hasbeen validated pursuant to the CLIA regulations and is usedfor clinical purposes.THIS TEST WAS PERFORMED AT:[facility] [id number] [facility] [address]ZHDWFLEVON FORTE MD,PHD,JOSHUA 12/20/2024 8:53 AM EST 12/20/2024 8:53 AM EST Generic External Data Provider LAB BLOOD ORDERAB LES Final Result Performing Organization Address [facility] Co de Phone Number [facility] [address] [place] [phone] * ACTH, Plasma (12/20/2024 8:53 AM EST) ACTH, Plasma 13 6 - 50 pg/mL [facility] Comment:Reference range appl ies only to specimens collectedbetween 7am-10am.THIS TEST WAS PERFORMED AT:[facility] [id number] [place] [address]EGOPLHASRAVANI SLAUGHTER MD,PHD 12/20/2024 8:53 AM EST 12/20/2024 8:53 AM EST Generic External Data Provider LAB BLOOD ORDERAB LES Final Result Performing Organization Address [facility]/ZIP Co de Phone Number [facility] [address] [place] [phone] * Prolactin, Dilution Study (12/20/2024 8:53 AM EST) Prolactin, Undiluted 20.7 ng/mL [facility] Prolactin, Diluted SEE NOTE ng/mL [facility] Comment:Result confirmed by 1:100 dilution. No high dosehook effect detected. Reference Range Females Non- 3.0-30.0 10.0-209.0 Postmenopausal 2.0-20.0Prolactin dilution studies are done to determine ifthere is a high-dose hook effect (i.e. a non-linearassay response due to a very high concentration ofProlactin). This is reported to occur at Prolactinconcentrations at or above 30,000 ng/mL.This test is not recommended for identifyingmacroprolactin. The [employer], Prolactin, Total and Monomeric is therecommended test (Order code [id number]).THIS TEST WAS PERFORMED AT:[employer] [place] [id number] HERNANDEZ MD 12/20/2024 8:53 AM EST 12/20/2024 8:53 AM EST us Generic External Data Provider LAB BLOOD ORDERAB LES Final Result Performing Organization Address [facility]/ZIP Co de Phone Number [facility] [address] [place] [phone] * LH (12/20/2024 8:53 AM EST) Lutenizing Hormone 7.7 mIU/mL [facility] Comment:Reference Range Foll icular Phase 1.9-12.5 Mid-Cycle Peak 8.7-76.3 Luteal Phase 0.5-16.9 Postmenopausal 10.0-54.7THIS TEST WAS PERFORMED AT:[facility] [address] [id number] HERNANDEZ MD 12/20/2024 8:53 AM EST 12/20/2024 8:53 AM EST Generic External Data Provider LAB BLOOD ORDERAB LES Final Result Performing Organization Address [facility] de Phone Number [facility] [address] [place] [phone] * FSH (12/20/2024 8:53 AM EST) Follicle Stimulating Hormone 7.6 mIU/mL [facility] Comment:Reference Range Foll icular Phase 2.5-10.2 Mid-cycle Peak 3.1-17.7 Luteal Phase 1.5- 9.1 Postmenopausal 23.0-116.3THIS TEST WAS PERFORMED AT:[employer] [place] [id number] HERNANDEZ MD 12/20/2024 8:53 AM EST 12/20/2024 8:53 AM EST Generic External Data Provider LAB BLOOD ORDERAB LES Final Result Performing Organization Address [facility] Phone Number [facility] [address] [place] [phone] * Growth Hormone (GH) (12/20/2024 8:53 AM EST) Growth Hormone 0.2 < OR = 7.1 ng/mL [facility] Comment: Because of a [...] or = 10.0 ng/mLTHIS TEST WAS PERFORMED AT:[employer] [place] [address] ??[phone] HERNANDEZ MD 12/20/2024 8:53 AM EST 12/20/2024 8:53 AM EST Generic External Data Provider LAB BLOOD ORDERAB LES Final Result Performing Organization Address [facility] de Phone Number [facility] [address] [place] [phone] * DHEA Sulfate (12/20/2024 8:53 AM EST) DHEA Sulfate 29 15 - 205 mcg/dL [facility] Comment:THIS TEST WAS PERFOR MED AT:[employer] [place] [id number] HERNANDEZ MD 12/20/2024 8:53 AM EST 12/20/2024 8:53 AM EST Generic External Data Provider LAB BLOOD ORDERAB LES Final Result Performing Organization Address [facility] de Phone Number [facility] [address] [place] [phone] * Cortisol Random (12/20/2024 8:53 AM EST) Cortisol Random <1.0 ug/dL [facility] Comment:Reference Range*: Be fore 10 am 6.2-19.4 ug/dL After 5 pm 2.3-11.9 ug/dL*Please interpret above results accordingly.This test was performed using the [employer]iluminescentmethod. Values obtained from different assay methods cannotbe used interchangeably.Patients receiving fludrocortisone, prednisolone orprednisone may show artificially elevated cortisol valuesdue to cross-reactivity. 12/20/2024 8:53 AM EST 12/20/2024 8:53 AM EST Generic External Data Provider LAB BLOOD ORDERAB LES Final Result Performing Organization Address [facility] Co de Phone Number [facility] [address] [place] [phone] * TSH (12/20/2024 8:53 AM EST) Thyroid Stimulating Hormone 1.14 0.32 - 4.0 uIU/mL [facility] Comment:TSH 3rd Generation ( [facility]) 12/20/2024 8:53 AM EST 12/20/2024 8:53 AM EST Generic External Data Provider LAB BLOOD ORDERAB LES Final Result Performing Organization Address [facility] Co de Phone Number [facility] [address] [place] [phone] * T4, Free (12/20/2024 8:53 AM EST) Free T4 (Free Thyroxine) 1.05 0.71 - 1.85 ng/dL [facility] 12/20/2024 8:53 AM EST 12/20/2024 8:53 AM EST Generic External Data Provider LAB BLOOD ORDERAB LES Final Result Performing Organization Address [facility] Co de Phone Number [facility] [address] [place] [phone] documented in this encounter Visit Diagnoses Not on filedocumented in this encounter Additional Health Concerns Assessment Noted Time PHQ-9 Depression Total Score: 11 024 9:22 AM EST documented as of this encounter Care Teams Director Telemetry Relationship Specialty Start Date End Date Raya Pan NP [address] [place] [address] PCP - General Family Medicine 12/18/23 documented as of this encounter
--- OUTSIDE RECORDS SUMMARY | 2025-01-13 11:27 | XMS_ITS | Clinical Summary ---
Author Organization [employer] Address [address] [facility] 7t [place] [address] Care Team Providers Care Agency Owner Name Role Phone Raya Pan NP Primary Care Provider [phone] Allergies Active Allergy Reactions Criticality Noted Date [...] Type Department Care Team Description 01/04/[address] [address] Raya Pan NP 12/28/[address] [address] Alena Vega [place] Chart Prep 12/26/[address] [address] Alena Vega [place] appointment for results 12/23/2024 10:30 AM EST Office Visit [address] [address] Raya Pan NP Hair loss (Primary Dx); Dietary counseling; Exercise counseling; Tinea pedis of right foot; Pain due to onychomycosis of toenail of right foot; 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[facility]) 12/20/2024 Orders Only GENERIC EXTERNAL DATA DEPARTMENT Provider, Generic External Data 12/13/[address] [address] Alena Vega [place] Chart Prep 11/30/[address] [address] Alena Vega MA Chart Prep 11/21/2024 9:00 AM EST Office Visit [facility] [address] [place] [phone] Hidalgo-Welsh, Kate, DDS Dental plaque (Primary Dx) 11/21/[address] [place] [address] Raya Pan NP from Last 3 Months [...] Description 03/17/2025 9:30 AM EDT Office Visit [facility] OPTOMETRY [address] [place] [address] David, Destinee, OD [address] [place] [address] Health Maintenance Due Date Last Done Comments [...] WHOLE BLOOD Routine 01/13/2025 7:57 AM EST ACTH, PLASMA Routine 12/26/2024 8:49 [...] Recently Relevant to Health Maintenance Results * (ABNORMAL) Glucose, Whole Blood (01/13/2025 7:57 AM EST) Glucose, Whole Blood 325(H) 60 - 115 mg/dL [facility] Comment:METER #: [id number] Testing performed in the Endocrinology Department [address], [facility]. 01/13/2025 7:57 AM EST 01/13/2025 9:01 AM EST Generic External Data Provider LAB BLOOD ORDERAB LES Final Result Performing Organization Address [facility]/ZIP Co de Phone Number [facility] [address] [place] [address] [phone] * Cortisol Random (12/26/2024 8:49 AM EST) Only the most recent of2 resultswithin the time period is included. Cortisol Random 2.3 ug/dL [facility] Comment:Reference Range*: Be fore 10 am 6.2-19.4 ug/dL After 5 pm 2.3-11.9 ug/dL*Please interpret above results accordingly.This test was performed using the Cardpool chemiluminescentmethod. Values obtained from different assay methods cannotbe used interchangeably.Patients receiving fludrocortisone, prednisolone orprednisone may show artificially elevated cortisol valuesdue to cross-reactivity. 12/26/2024 8:49 AM EST 12/26/2024 8:49 AM EST Generic External Data Provider LAB BLOOD ORDERAB LES Final Result Performing Organization Address [facility]/ZIP Co de Phone Number [facility] [address] [place] [phone] * (ABNORMAL) CBC auto differential (12/26/2024 8:49 AM EST) White Blood Count 6.3 4.8 - 10.8 X10*3/uL [facility] Red Blood Count 4.70 4.20 - 5.50 X10*6/uL [facility] Hemoglobin 13.6 12.0 - 16.0 g/dl [facility] Hematocrit 39.7 37.0 - 47.0 % [facility] Mean Corpuscular Volume 84.5 80.0 - 98.0 fL [facility] Mean Corpuscular Hemoglobin 28.9 27.0 - 33.0 pg [facility] Mean Corpuscular HGB Conc 34.3 31.0 - 35.0 g/dl [facility] Red Cell Distribution Width 13.2 11.0 - 16.0 % [facility] Platelet Count 146(L) 160 - 400 X10*3/uL [facility] Mean Platelet Volume 12.1 9.4 - 12.3 fL [facility] Neutrophils Percent Auto 68.2 45 - 73 % [facility] Imm Gran Pct Auto 0.6(H) 0.0 - 0.4 % [facility] Lymphocytes Percent Auto 25.0 20 - 40 % [facility] Monocytes Percent Auto 5.6 2 - 11 % [facility] Eosinophils Percent Auto 0.3 0 - 4 % [facility] Basophils Percent Auto 0.3 0 - 2 % [facility] NRBC Pct Auto 0.0 0.0 - 0.2 /100WBC [facility] Neutrophils Absolute Auto 4.3 2.0 - 8.3 x10*3/uL [facility] Imm Gran Abs Auto 0.04(H) 0.00 - 0.03 X10*3/uL [facility] Lymphocytes Absolute Auto 1.6 1.2 - 4.9 X10*3/uL [facility] Monocytes Absolute Auto 0.4 0.1 - 1.2 X10*3/uL [facility] Eosinophils Absolute Auto 0.0 0.0 - 0.4 X10*3/uL [facility] Basophils Absolute Auto 0.0 0.0 - 0.2 X10*3/uL [facility] NRBC Abs Auto 0.000 0.0 - 0.012 X10*3/uL [facility] Blood Venous blood specimen / Unknown 12/26/2024 8:49 AM EST 12/26/2024 9:05 AM EST us Raya Pan NP LAB BLOOD ORDERABLES Final Resul t [facility] [address] [place] [address] [phone] * Iron And Total Iron Binding Capacity (12/26/2024 8:49 AM EST) Iron 48 30 - 160 mcg/dL [facility] Total Iron Binding Capacity 321 228 - 428 mcg/dL [facility] Percent Iron Saturation 15 15 - 50 % [facility] Unsaturated Iron Binding 273 ug/dL [facility] Blood Venous blood specimen / Unknown 12/26/2024 8:49 AM EST 12/26/2024 8:49 AM EST us Raya Pan NP LAB BLOOD ORDERABLES Final Resul t Performing Organization Address [facility]/ZIP Co de Phone Number [facility] [address] [place] [phone] * DHEA Sulfate (12/26/2024 8:49 AM EST) Only the most recent of2 resultswithin the time period is included. Pathologist [facility] DHEA Sulfate 19 15 - 205 mcg/dL [facility] Comment:THIS TEST WAS PERFOR MED AT:[facility] [address] [address]WDSZBTAMIA HERNANDEZ MD 12/26/2024 8:49 AM EST 12/26/2024 8:49 AM EST us Generic External Data Provider LAB BLOOD ORDERAB LES Final Result Performing Organization Address City/[facility]/ZIP Co de Phone Number [facility] [address] [place] [phone] * ACTH, Plasma (12/26/2024 8:49 AM EST) Only the most recent of2 resultswithin the time period is included. ACTH, Plasma 15 6 - 50 pg/mL [facility] Comment:Reference range appl ies only to specimens collectedbetween 7am-10am.THIS TEST WAS PERFORMED AT:[facility] [place] [address]TWEZIYNSRAVANI SLAUGHTER MD,PHD 12/26/2024 8:49 AM EST 12/26/2024 8:49 AM EST us Generic External Data Provider LAB BLOOD ORDERAB LES Final Result Performing Organization Address City/[facility]/ZIP Co de Phone Number [facility] [address] [place] [phone] * TSH (12/26/2024 8:49 AM EST) Only the most recent of2 resultswithin the time period is included. Thyroid Stimulating Hormone 1.75 0.32 - 4.0 uIU/mL [facility] Comment:TSH 3rd Generation ( [facility]) 12/26/2024 8:49 AM EST 12/26/2024 8:49 AM EST Generic External Data Provider LAB BLOOD ORDERAB LES Final Result Performing Organization Address [facility] Co de Phone Number [facility] [address] [place] [phone] * T4, Free (12/26/2024 8:49 AM EST) Only the most recent of2 resultswithin the time period is included. Free T4 (Free Thyroxine) 1.05 0.71 - 1.85 ng/dL [facility] 12/26/2024 8:49 AM EST 12/26/2024 8:49 AM EST Generic External Data Provider LAB BLOOD ORDERAB LES Final Result Performing Organization Address [facility] Co de Phone Number [facility] [address] [place] [phone] * (ABNORMAL) Hemoglobin A1c (12/26/2024 8:49 AM EST) Hemoglobin A1c 12.9(H) <6.0 % [facility] Comment:Hemoglobin A1C Refer ence Range Adults: 4.8 - 6.0 % Non diabetic: < 6.0 % Goal: < 7.0 %Additional Action Suggested: > 8.0 %Note: Hemoglobin A1c results are invalid for patients with abnormal amounts of HbF. Blood transfusions may impact the HbA1c concentration in the patient sample. Estimated Average Glucose 324 mg/dL [facility] Comment:eAG = Estimated ave rage glucose which is %A1C expressed asaverage glucose, using the formula of the E4D-KpqgvsiAaccpzi Glucose study (ADAG), Diabetes Care, Vol.31,#8,2007 Blood Venous blood specimen / Unknown 12/26/2024 8:49 AM EST 12/26/2024 8:49 AM EST us Raya Pan NP LAB BLOOD ORDERABLES Final Resul t Performing Organization Address [facility]/ZIP Co de Phone Number [facility] [address] [place] [phone] * LH (12/26/2024 8:49 AM EST) Only the most recent of2 resultswithin the time period is included. Lutenizing Hormone 21.0 mIU/mL [facility] Comment:Reference Range Foll icular Phase 1.9-12.5 Mid-Cycle Peak 8.7-76.3 Luteal Phase 0.5-16.9 Postmenopausal 10.0-54.7THIS TEST WAS PERFORMED AT:[facility] [place] [id number] HERNANDEZ MD 12/26/2024 8:49 AM EST 12/26/2024 8:49 AM EST us Generic External Data Provider LAB BLOOD ORDERAB LES Final Result Performing Organization Address [facility]/ZIP Co de Phone Number [facility] [address] [place] [phone] * FSH (12/26/2024 8:49 AM EST) Only the most recent of2 resultswithin the time period is included. Follicle Stimulating Hormone 9.5 mIU/mL [facility] Comment:Reference Range Foll icular Phase 2.5-10.2 Mid-cycle Peak 3.1-17.7 Luteal Phase 1.5- 9.1 Postmenopausal 23.0-116.3THIS TEST WAS PERFORMED AT:[facility] [place] [id number] HERNANDEZ MD 12/26/2024 8:49 AM EST 12/26/2024 8:49 AM EST us Generic External Data Provider LAB BLOOD ORDERAB LES Final Result [facility] [address] [place] [phone] * (ABNORMAL) Comprehensive Metabolic Panel (12/26/2024 8:49 AM EST) Pathologist [facility] Sodium 137 135 - 145 mmol/L [facility] Potassium 3.9 3.3 - 5.1 mmol/L [facility] Chloride 104 96 - 108 mmol/L [facility] Carbon Dioxide 24 22 - 29 mmol/L [facility] Anion Gap 13 12 - 20 [facility] Urea Nitrogen (BUN) 15 9 - 16 mg/dL [facility] Creatinine, Serum 0.67 0.5 - 1.4 mg/dL [facility] Estimated Glomerular Filt Rate >60 [facility] Comment:Chronic Kidney Disea se: Estimated GFR < 60 mL/min/1.71l5Ubqynv Kidney Disease: Estimated GFR < 15 mL/min/1.73m2 Glucose 328(H) 60 - 115 mg/dL [facility] Calcium 9.3 8.4 - 10.2 mg/dL [facility] Bilirubin, Total 0.5 0.0 - 1.0 mg/dL [facility] Aspartate Amino Transferase 82(H) 5 - 31 U/L [facility] Alanine Aminotransferase 170(H) 0 - 31 U/L [facility] Total Protein 7.7 6.5 - 8.0 g/dL [facility] Albumin Level 4.0 3.5 - 5.0 g/dL [facility] Alkaline Phosphatase 149(H) 39 - 117 U/L [facility] Blood Venous blood specimen / Unknown 12/26/2024 8:49 AM EST 12/26/2024 8:49 AM EST us Raya Pan CRIMINAL INVESTIGATOR LAB BLOOD ORDERABLES Final Resul t Performing Organization Address [facility] Co de Phone Number [facility] [address] [place] [phone] * Alpha Subunit (12/20/2024 8:53 AM EST) Alpha Subunit 0.2 ng/mL [facility] Comment:Reference Range for Alpha Subunit:Premenopausal Females: 0.1-0.6 ng/mLPostmenopausal Females: 0.1-1.5 ng/mLPregnancy (1st and 2nd Trimesters): 35.0-186.0 ng/mLHypothyroidism: 0.2-3.2 ng/mLThis test measures the free alpha subunit that is common toLH, FSH, TSH and hCG. These hormones are comprised ofidentical alpha subunits and unique beta subunits thatconfer biological specificity.This test was developed and its analytical performancecharacteristics have been determined by [facility].It has not been cleared or approved by FDA. This assay hasbeen validated pursuant to the CLIA regulations and is usedfor clinical purposes.THIS TEST WAS PERFORMED AT:[facility] [id number] [facility] [place] [address]KWJMYLEVON FORTE MD,PHD,JOSHUA 12/20/2024 8:53 AM EST 12/20/2024 8:53 AM EST us Generic External Data Provider LAB BLOOD ORDERAB LES Final Result Performing Organization Address [facility]/ZIP Co de Phone Number [facility] [address] [place] [phone] * Prolactin, Dilution Study (12/20/2024 8:53 AM EST) Prolactin, Undiluted 20.7 ng/mL [facility] Prolactin, Diluted SEE NOTE ng/mL [facility] Comment:Result confirmed by 1:100 dilution. No high dosehook effect detected. Reference Range Females Non- 3.0-30.0 10.0-209.0 Postmenopausal 2.0-20.0Prolactin dilution studies are done to determine ifthere is a high-dose hook effect (i.e. a non-linearassay response due to a very high concentration ofProlactin). This is reported to occur at Prolactinconcentrations at or above 30,000 ng/mL.This test is not recommended for identifyingmacroprolactin. The [facility], Prolactin, Total and Monomeric is therecommended test (Order code [id number]).THIS TEST WAS PERFORMED AT:[facility] [address] [address]CPEHCTAMIA HENRANDEZ MD 12/20/2024 8:53 AM EST 12/20/2024 8:53 AM EST us Generic External Data Provider LAB BLOOD ORDERAB LES Final Result [facility] [address] [place] [phone] * Prolactin (12/20/2024 8:53 AM EST) Prolactin TNP [facility] Comment:DUPLICATE 12/20/2024 8:53 AM EST 12/20/2024 8:53 AM EST us Generic External Data Provider LAB BLOOD ORDERAB LES Final Result [facility] [address] [place] [phone] [phone] * IGF-1, LC/MS (12/20/2024 8:53 AM EST) IGF 1, LC/MS 73 52 - 328 ng/mL [facility] Z Score (Male) TNP [facility] Z Score (Female) -1.3 -2.0 - 2.0 SD [facility] Comment:This test was develo ped and its analytical performancecharacteristics have been determined by [facility].It has not been cleared or approved by FDA. This assay hasbeen validated pursuant to the CLIA regulations and is usedfor clinical purposes.THIS TEST WAS PERFORMED AT:[facility] [id number] [place] [address]DSALALEVON FORTE MD,PHD,JOSHUA 12/20/2024 8:53 AM EST 12/20/2024 8:53 AM EST us Generic External Data Provider LAB BLOOD ORDERAB LES Final Result [facility] [address] [place] [phone] * Growth Hormone (GH) (12/20/2024 8:53 AM EST) Pathologist [facility] Growth Hormone 0.2 < OR = 7.1 ng/mL [facility] Comment: Because of a pulsatile [...] any point in the timed sequence. ??[Darvin Marr, Louis Pacheco ER, Kevan S, et al. [...] or = 10.0 ng/mLTHIS TEST WAS PERFORMED AT:[facility] [address] ??[address]IPKIRTAMIA HERNANDEZ MD 12/20/2024 8:53 AM EST 12/20/2024 8:53 AM EST Generic External Data Provider LAB BLOOD ORDERAB LES Final Result Performing Organization Address [facility] Phone Number [facility] [address] [place] [phone] * Estradiol (12/20/2024 8:53 AM EST) Pathologist [facility] Estradiol Ultra Sensitive 45 pg/mL [facility] Comment:Female Reference Ran ges for Estradiol, Ultrasensitive (pg/mL): Follicular Phase: 39-375 Luteal Phase: 48-440 Postmenopausal Phase: < or = 10This test was developed and its analytical performancecharacteristics have been determined by [facility].It has not been cleared or approved by FDA. This assay hasbeen validated pursuant to the CLIA regulations and is usedfor clinical purposes.THIS TEST WAS PERFORMED AT:[facility] [id number] ASHOK YANEZ [address]BNZKKLEVON FORTE MD,PHD,JOSHUA 12/20/2024 8:53 AM EST 12/20/2024 8:53 AM EST us Generic External Data Provider LAB BLOOD ORDERAB LES Final Result Performing Organization Address [facility] de Phone Number [facility] [address] [place] [phone] [phone] * HEPATITIS C AB W/REFL TO [...] a test for HCV RNA (test code 02918) is suggested. ?? For additional information please refer to http://[employer]gr[employer]/faq/LHQ05a2 (This link is being provided for informational/ educational purposes only.) ?? 12/23/2021 10:0 3 AM EST Isi Lind CNM HISTORICAL/NON ORDERABLE LABS Final Result [facility] [address] * HIV 1/2 ANTIGEN/ANTIBODY,FOURTH GENERATION W/RFL [...] ? For additional information please refer to http://[employer]/faq/BBQ532 (This link is being provided for informational/ educational purposes only.) ? The performance of this assay has not been clinically validated in patients less than 2 years old. ?? 12/23/2021 10:0 3 AM EST Isi Lind [facility] BLOOD ORDERABLES Melvina marr Result [facility] [address] [place] [address], * THINPREP TIS PAP AND HPV mRNA E6/E7, CT/NG, TRICH (12/23/2021 9:16 AM EST) Chlamydia trachomatis RNA, TMA, Urogenital NOT DETECTED NOT DETECTED [facility] Clinical Information: None given [facility] COMMENT SEE COMMENT [facility] Comment: The analytical performance characteristics of this assay, when used to test SurePath(TM) specimens have been determined by [facility]. The modifications have not been cleared or approved by the FDA. This assay has been validated pursuant to the CLIA regulations and is used for clinical purposes. ?? For additional information, please refer to https://education.[employer]/faq/WVI628 (This link is being provided for information/ [...] has been evaluated with computer assisted technology. [facility] [place]: SEE COMMENT [facility] Comment: RMM, CT(ASCP) CT screening location: [address] ??[address] HPV nRNA E6/E7 Not Detected Not Detected [facility] Comment: Methodology: Critical Care Nurse Practitioner-Mediated Amplification This assay detects E6/E7 viral messenger RNA (mRNA) from 14 high-risk HPV types (16,18,31,33,35,39,45,51,52,56,58,59,66,68). ? The analytical performance characteristics of this assay have been determined by [facility]. The modifications have not been cleared or approved by the FDA. This assay has been validated pursuant to the CLIA regulations and is used for clinical purposes. ?? For additional information, please refer to http://[employer]/faq/NOV131d7 (This link if provided for information/ educational purposes only.) Interpretation/Re sult: Negative for intraepithelial lesion or malignancy. [facility] LMP: 12/09/2021 [facility] Neisseria gonorrhoeae RNA, TMA, Urogenital [...] of this assay have been determined by [facility]. The modifications have not been cleared or approved by the FDA. This assay has been validated pursuant to the CLIA regulations and is used for clinical purposes. ?? For additional information, please refer to http://[employer]gr[employer]/ faq/Trichomonastma (This link is being provided for information/ educational purposes only.) ?? 12/23/2021 9:16 AM EST Isi Lind [facility] PATHOLOGY ORDERABLES Final Result Performing Organization Address City/[facility]/ZIP Co de Phone Number [facility] [address] * Pap Smear (12/23/2021 12:00 AM EST) Swab Isi Lind [facility] CYTOLOGY ORDERABLES F inal Result [facility] [address], [place] [address] from Last 3 Months or Most Recently Relevant to Health Maintenance Insurance [employer] F[employer] [facility] STANDARD DENTAL-[facility] MEDICAID STAND ADULT Care Teams Agency Owner Relationship Specialty Start Date End Date Raya Pan NP [address] [place] [phone] PCP - General Family Medicine 12/18/23
--- OUTSIDE RECORDS SUMMARY | 2025-01-13 11:27 | XMS_ITS | Encounter Summary ---
Author Organization [employer] [facility] Address [address] [place] [address] [address] [place] [address] Care Team Providers Care Harvest Worker Field Crop Name Role Phone Alex Kim GLORIA Primary Care Provider [phone] Raya Pan NP Primary Care Provider [phone] Encounter Details Date Type Department Care Team (Late st Contact Info) Description 09/25/2023 Abstract [facility] [address] [place] [address] Kate Mejia DDS [address] [place] [address] Social History Tobacco Use Types Packs/Day Years [...] Description 03/17/2025 9:30 AM EDT Office Visit [facility] OPT[facility] [address] [place] [address] David, Destinee, OD [address] [place] [address] documented as of this encounter Visit Diagnoses Not on filedocumented in this encounter Care Teams Harvest Worker Field Crop Relationship Specialty Start Date End Date Kim Johnson FNP [address] [place] [address] PCP - General Family Medicine 05/14/22 12/17/23 Raya Pan NP [address] [place] [address] PCP - General Family Medicine 12/18/23 documented as of this encounter
--- OUTSIDE RECORDS SUMMARY | 2025-01-13 11:27 | XMS_ITS | Encounter Summary ---
Author Organization [employer] [facility] Address [address] [facility] [address]t [place] [address] Care Team Providers Care Steel Rod Buster Name Role Phone Kim JohnsonP Primary Care Provider [phone] Raya Pan NP Primary Care Provider [phone] Encounter Details Date Type Department Care Team (Late st Contact Info) Description 06/30/2023 Abstract [facility]ULT D[facility] [address] [place] [address] Subha, Abena [address] [place] [address] Social History Tobacco Use Types Packs/Day Years [...] 9:30 AM EDT Office Visit [facility] OPTOMETRY [address] [place] [address] David, Destinee, OD [address] [place] [address] documented as of this encounter Visit Diagnoses Not on filedocumented in this encounter Care Teams Steel Rod Buster Relationship Specialty Start Date End Date Kim Johnson FNP [address] [place] [address] PCP - General Family Medicine 05/14/22 12/17/23 Raya Pan NP [address] [place] [address] PCP - General Family Medicine 12/18/23 documented as of this encounter
--- OUTSIDE RECORDS SUMMARY | 2025-01-13 11:27 | XMS_ITS | Encounter Summary ---
Author Organization [employer] [facility] Address [address] [facility] [address] [place] [address] Care Team Providers Care Lab Asst Name Role Phone Alex Kim WOOD BOX MAKER Primary Care Provider [phone] Raya Pan NP Primary Care Provider [phone] Encounter Details Date Type Department Care Team (Latest Contact Info) Description 03/07/2019 Abstract [facility] CONVERSIONS Dental, Provider, DDS Social [...] Description 03/17/2025 9:30 AM EDT Office Visit [facility] OPTOMETRY [address] [place] [address] Destinee Hernandez, OD [address] [place] [address] documented as of this encounter Visit Diagnoses Not on filedocumented in this encounter Care Teams Lab Asst Relationship Specialty Start Date End Date AlexKim FNP [address] [place] [address] PCP - General Family Medicine 05/14/22 12/17/23 Raya Pan NP [address] [place] [address] PCP - General Family Medicine 12/18/23 documented as of this encounter
--- OUTSIDE RECORDS SUMMARY | 2025-01-13 11:27 | XMS_ITS | Encounter Summary ---
Author Organization [employer] Address [address] [place] [address] Care Team Providers Care Lubrication Worker Name Role Phone Raya Pan NP Primary Care Provider [phone] Reason for Visit * Reason Onset Date Comments appointment for results 12/26/2024 Encounter Details Date Type Department Care Team ([facility] st Contact Info) Description 12/26/2024 Telephone [facility] [address] [place], [place] [phone] Alena Vega MA appointment for results Social [...] 03/17/2025 9:30 AM EDT Office Visit [facility] OPTOM[facility] [address] [place] [address] Destinee Hernandez, OD [address] [place] [address] documented as of this encounter Visit Diagnoses Not on filedocumented in this encounter Additional Health Concerns Assessment Noted Time PHQ-9 Depression Total Score: 11 024 9:22 AM EST documented as of this encounter Care Teams Lubrication Worker Relationship Specialty Start Date End Date Raya Pan NP [address] [place] [address] PCP - General Family Medicine 12/18/23 documented as of this encounter
--- OUTSIDE RECORDS SUMMARY | 2025-01-13 11:27 | XMS_ITS | Encounter Summary ---
Author Organization [employer] Address [address] [place] [address] Care Team Providers Care Ekg Tech Name Role Phone Raya Pan NP Primary Care Provider [phone] Reason for Visit * Reason Onset Date Comments Chart Prep 12/28/2024 Encounter Details Date Type Department Care Team ([facility] st Contact Info) Description 12/28/2024 Telephone [facility] [address] [place], [place] [phone] Alena Vega MA Chart Prep Social History [...] Description 03/17/2025 9:30 AM EDT Office Visit [facility] [address] [place] [address] Destinee Hernandez, OD [address] [place] [address] documented as of this encounter Visit Diagnoses Not on filedocumented in this encounter Additional Health Concerns Assessment Noted Time PHQ-9 Depression Total Score: 11 024 9:22 AM EST documented as of this encounter Care Teams Ekg Tech Relationship Specialty Start Date End Date Raya Pan NP [address] [place] [address] PCP - General Family Medicine 12/18/23 documented as of this encounter
--- OUTSIDE RECORDS SUMMARY | 2025-01-13 11:27 | XMS_ITS | Encounter Summary ---
Author Organization [facility] [facility] Address [address] [place] [address] Care Team Providers Care Chair Spring Assembler Name Role Phone Alex Kim PULMONOLOGIST INTENSIVIST Primary Care Provider [phone] Raya Pan NP Primary Care Provider [phone] Encounter Details Date Type Department Care Team (Latest Contact Info) Description 10/17/2021 Abstract [facility] CONVERSIONS Dental, Provider, DDS Social History [...] Description 03/17/2025 9:30 AM EDT Office Visit [facility] OPTOMETRY [address] [place] [address] Destinee Hernandez, OD [address] [place] [address] documented as of this encounter Visit Diagnoses Not on filedocumented in this encounter Care Teams Chair Spring Assembler Relationship Specialty Start Date End Date AlexKim FNP [address] [place] [address] PCP - General Family Medicine 05/14/22 12/17/23 Raya Pan NP [address] [place] [address] PCP - General Family Medicine 12/18/23 documented as of this encounter
[2025-01-13 11:40] LABS: Cholesterol 244 mg/dL (<200); HDL Cholesterol 49 mg/dL (>40); LDL Cholesterol Calculated 171 mg/dL (<100); Triglycerides 120 mg/dL (<150)
[2025-01-13 11:55] LABS: Creatinine Urine 38.72 mg/dL; Microalbum/Creatinine Ratio Ur 28.4 ug/mg cr (<30)
== END 2025-01-13 10:15 | disposition home or self-care (01) ==
LOC: HO.10HDL 10:14
PROVIDERS: Visit Provider Student in an Organized Health Care Education/Training Program
DX: E11.65 Type 2 diabetes mellitus with hyperglycemia (principal)
CPT/HCPCS: 36415; 80061; 82043; 82570

== ENCOUNTER 2025-01-15 13:41 | Outpatient (REF) | payer MEDICAID, SELFPAY ==
--- NOTE | ~2025-01-15 | MR_ITS ---
CLINICAL HISTORY: D35.2 - Benign neoplasm of pituitary gland MR brain without contrast. Thin slice imaging through the pituitary gland was obtained. COMPARISON: None FINDINGS: High-resolution imaging of the pituitary region demonstrates a T1 isointense, T2 mildly hyperintense, FLAIR hyperintense, diffusion restricting, mildly heterogeneously enhancing mass measuring 1.6 x 1.2 x 1.5 cm within the sella turcica. The pituitary stalk is shifted to the left. Neurohypophysis appears normal in position. Mass abuts the optic chiasm. Cavernous sinuses appear symmetric. Flow voids within the carotid siphons normal. There is likely mild expansion of the sella turcica. No abnormal diffusion restriction in the brain parenchyma or extra-axial spaces. No evidence of mass, mass effect or midline shift. No intracranial hemorrhage or abnormal extra-axial fluid collection. No evidence of hydrocephalus. The basilar cisterns are patent. A few scattered foci of T2/FLAIR hyperintensity within the chapman radiata white matter in the frontal lobes bilaterally and in the right temporal lobe. Cerebellar hemispheres and cerebellar vermis are normal. Fourth ventricle is normal. No brainstem abnormality is identified. Intracranial flow voids are patent. The visualized paranasal sinuses and mastoid air-cells are clear. IMPRESSION: 1. Pituitary mass measuring up to 1.6 cm abuts the optic chiasm and shift the pituitary stalk to the left. 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 This document has been electronically signed by: Lam Tripathi MD on 01/15/2025 15:31:23
[2025-01-15] MEDS: gadobutroL 7.5 ML VIAL IVPUSH (14:42)
== END 2025-01-15 13:42 | disposition home or self-care (01) ==
LOC: HO.MRI 13:41
PROVIDERS: PCP Nurse Practitioner Family; Visit Provider Student in an Organized Health Care Education/Training Program
DX: D35.2 Benign neoplasm of pituitary gland (principal)
CPT/HCPCS: 70553; A9585

== ENCOUNTER → 2025-01-15 13:59 | Outpatient (BNV) | payer MEDICAID, SELFPAY | PROVIDERS: PCP Nurse Practitioner Family; Visit Provider Radiology Diagnostic Radiology | DX: D35.2 Benign neoplasm of pituitary gland (principal) | CPT/HCPCS: 70553 ==

== ENCOUNTER 2025-01-24 08:33 | Outpatient (AMB) | payer MEDICAID, SELFPAY ==
[2025-01-24 08:40] VITALS: BP 118/72; PULSE 77; O2SAT 98; BMI 24.1
--- NOTE | 2025-01-24 08:40 | MHC.OFFVIS ---
Vital Signs 01/24/25 08:40 Height 5 ft Weight 123 lb 7.342 oz BMI 24.1 BP 118/72 Blood Pressure Location Rt brachial Position Sitting Pulse 77 Pulse Source Pulse Oximeter Pulse Oximetry (%) 98 Intake Visit Reasons: Enlargement of pituitary gland Intake Note: Patient present today for Enlargement of pituitary gland. Reproduction Production Manager Required: Yes Reproduction Production Manager Services: Reproduction Production Manager Present (Rajeshe Tablet) Reproduction Production Manager Name: Radha [id number] Information Interpreted: non-clinical & clinical Accompanied by: Self / Same As Patient Allergies No Known Allergies Allergy (Verified 01/13/25 07:53) Medication List - Last Reconciled 01/24/25 by Mia Tristan MD blood sugar diagnostic (Advanced Oncotherapy Verio test strips) As directed to check sugars twice daily blood-glucose meter (Newsh[employer] Verio Flex Meter) As directed to check sugars 2 times daily blood-glucose sensor (FreeStyle Margot 3 Plus Sensor device) As directed every 15 days type 2 diabetes mellitus with hyperglycemia and long-term insulin use is E11.65 plus Z79.4 celecoxib 200 mg PO DAILY cyclobenzaprine 5 mg PO BEDTIME dulaglutide (Trulicity) 0.75 mg (0.5 mL) subcut QWEEK famotidine 20 mg PO BID glucose (Dex4 Glucose) 4 grams PO Q15M PRN hydrocortisone orally 2 times a day; Take 1 tablet in the morning and 0.5 tablet at 2 PM in the afternoon daily ibuprofen 800 mg PO Q8H PRN insulin glargine (Lantus Solostar U-100 Insulin) 8 units (0.08 mL) subcut QAM lancets (YUPIQTouch Delica Plus Lancet) As directed to check sugars twice daily pen needle, diabetic As directed to inject insulin daily HPI Comments Details: 44-year-old female here today for followup of pituitary incidentaloma. She is also has a new diagnosis of type 2 diabetes mellitus for which I am seeing her as well, however not addressed in today's visit. She has follow up on 01/26/2025 for addressing her type 2 diabetes mellitus. HPI Patient had CT scan of her orbits June 2024 due to ocular pain to rule out orbital cellulitis which showed a macroadenoma of the pituitary gland measuring 1.6 X 1.5 cm. no mass effect on optic chiasm. No dedicated MRI of the pituitary done. 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 ? Easy bruising: yes Proximal muscle weakness: none has uncontrolled DM Nausea: none Vomiting:none Lightheadedness: intermittent Weight: lost 5 lbs in 1 month Labs from 12/20/2024 showed normal thyroid function, undetectable cortisol level, acth of 13, DHEA-S of 29, IGF-1, estradiol level pending. Prolactin level normal 20.7. She is very inconsistent with her history and said that she was having some lightheadedness or dizziness that had already resolved before she started the medication that we had prescribed to her over the phone hydrocortisone 10 mg twice a day. She has lost 5 lb since the last visit. 12/26/2024: after holding the hydrocortisone the afternoon before in the morning off, cortisol level in a.m. was 2.3 with a ACTH of 15. 12/27/2024: Again after holding the hydrocortisone in the afternoon before and the morning of, cortisol level was 0.5 in a.m. at [facility] with ACTH of 3.9 Interval history 01/24/2025 Continues on hydrocortisone 10 mg in a.m. and 10 mg in the afternoon 01/15/2025: MRI of the pituitary with and without contrast showed a T1 isointense and a T2 mildly hyperintense, mildly heterogenously enhancing mass measuring 1.6 X 1.2 X 1.5 cm within the sella turcica with the pituitary stalk shifted to the left. Mass abuts the optic chiasm. Cavernous sinuses appear symmetric. No evidence of mass, mass effect or midline shift. Appearance consistent with pituitary macroadenoma. Medical alert bracelet:hasnt bought yet Ophthalmology referral: faxed referral . and then again on 01/19/25 Neurosurgery referral:Referral has been sent to Dr. Apple Cornejo 01/20/25, she hasnt heard from them yet No vision changes, no eye symptoms No nausea, vomiting , dizziness , lightheadedness. Physical exam General: sitting comfortably in no acute distress HEENT: normocephalic/atraumatic, , moist oral mucosa, visual coe grossly intact Neck: supple, Cardiac: normal heart sounds Pulm: normal breath sounds B/L, no added breath sounds Abd: not distended, no tenderness Laboratory Tests 12/20/24 08:53 TSH 1.14 Free T4 1.05 FSH 7.6 Luteinizing Hormone 7.7 Prolactin Undiluted 20.7 DHEA Sulfate 29 Human Growth Hormone 0.2 Random Cortisol < 1.0 ACTH 13 Laboratory Tests 12/20/24 12/26/24 08:53 08:49 Sodium 137 Potassium 3.9 Chloride 104 Carbon Dioxide 24 Anion Gap 13 BUN 15 Creatinine 0.67 Estimated GFR > 60 Alpha Subunit Marker 0.2 TSH 1.14 1.75 Free T4 1.05 1.05 Estradiol Ultra LCMSMS 45 FSH 7.6 9.5 Luteinizing Hormone 7.7 21.0 Prolactin Undiluted 20.7 DHEA Sulfate 29 19 Human Growth Hormone 0.2 Somatomedin-C 73 Somato-C Z-Score Female -1.3 Random Cortisol < 1.0 2.3 ACTH 13 15 MR brain without contrast. Thin slice imaging through the pituitary gland was obtained. 01/15/25 COMPARISON: None FINDINGS: High-resolution imaging of the pituitary region demonstrates a T1 isointense, T2 mildly hyperintense, FLAIR hyperintense, diffusion restricting, mildly heterogeneously enhancing mass measuring 1.6 x 1.2 x 1.5 cm within the sella turcica. The pituitary stalk is shifted to the left. Neurohypophysis appears normal in position. Mass abuts the optic chiasm. Cavernous sinuses appear symmetric. Flow voids within the carotid siphons normal. There is likely mild expansion of the sella turcica. No abnormal diffusion restriction in the brain parenchyma or extra-axial spaces. No evidence of mass, mass effect or midline shift. No intracranial hemorrhage or abnormal extra-axial fluid collection. No evidence of hydrocephalus. The basilar cisterns are patent. A few scattered foci of T2/FLAIR hyperintensity within the chapman radiata white matter in the frontal lobes bilaterally and in the right temporal lobe. Cerebellar hemispheres and cerebellar vermis are normal. Fourth ventricle is normal. No brainstem abnormality is identified. Intracranial flow voids are patent. The visualized paranasal sinuses and mastoid air-cells are clear. IMPRESSION: 1. Pituitary mass measuring up to 1.6 cm abuts the optic chiasm and shift the pituitary stalk to the left. 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 This document has been electronically signed by: Lam Tripathi MD on 01/15/2025 15:31:23 [facility] Medical History (Updated 01/13/25 @ 09:06 by Mia Tristan MD) Diabetes mellitus with hyperglycemia Pituitary macroadenoma Surgical History History of bilateral tubal ligation Social History Alcohol intake: never Patient Tobacco Use Status: Never used Tobacco Physical Exam Vital Signs: BMI result Body Mass Index 24.1 Assessment & Plan Assessment & Plan (1) Pituitary macroadenoma: Code(s): D35.2 - Benign neoplasm of pituitary gland Category: Medical Plan: 44-year-old female here today for followup of pituitary macroadenoma. Seen with the help of faculty support coordinator Patient had CT scan of her orbits June 2024 due to ocular pain to rule out orbital cellulitis which showed a macroadenoma of the pituitary gland measuring 1.6 X 1.5 cm. No optic chiasm compression. 01/15/2025: MRI of the pituitary with and without contrast showed a T1 isointense and a T2 mildly hyperintense, mildly heterogenously enhancing mass measuring 1.6 X 1.2 X 1.5 cm within the sella turcica with the pituitary stalk shifted to the left. Mass abuts the optic chiasm. Cavernous sinuses appear symmetric. No evidence of mass, mass effect or midline shift. Appearance consistent with pituitary macroadenoma. We [place] [facility] [place] Apple Cornejo on 01/20/2025, patient is waiting to hear back from them for surgical evaluation. Also we had sent ophthalmology referral for evaluation of visual coe on 11/29/2024, patient did not hear back from them and then we sent a referral again on 01/19/2025 after making ophthalmology office aware about the referral again, and also given patient number today to call the office and confirm her appointment. Given macroadenoma we decided to evaluate her for both hyper secretion and hypo secretion of the pituitary gland with a full pituitary panel as well as 24 hour urine cortisol levels. She does report some intermittent blurriness, however visual coe grossly intact however given macroadenoma we placed ophthalmology referral for visual field evaluation. Again patient has still not seen Ophthalmology. Labs from 12/20/2024 showed normal thyroid function, undetectable cortisol level, acth of 13, DHEA-S of 29, IGF-1, estradiol level pending. Prolactin level normal 20.7. Started on hydrocortisone 10 mg in a.m. and 10 mg in the afternoon. 12/26/2024: after holding the hydrocortisone the afternoon before in the morning off, cortisol level in a.m. was 2.3 with a ACTH of 15. 12/27/2024: Again after holding the hydrocortisone in the afternoon before and the morning of, cortisol level was 0.5 in a.m. 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 and 5 mg in the afternoon -discussed adrenal insufficiency sick rules and emphasized again to obtain a medical bracelet -follow up in 8 weeks Plan I spent 30 minutes in reviewing the record, seeing the patient and documenting in the medical record. Medications: Changed From hydrocortisone Take 1 tablet in the morning and 1 tablet at 2 PM in the afternoon daily 10 mg PO BID 60 tabs 7RF To hydrocortisone orally 2 times a day; Take 1 tablet in the morning and 0.5 tablet at 2 PM in the afternoon daily 60 tabs 7RF Patient Instructions: Please call the eye doctor above , and let them know you need to be seen urgently and your endocrine doctor sent a referral for evaluation of visual coe for your pituitary tumor and evaluation for diabetic retinopathy as well Reduce hydrocortisone to 10 mg in AM and 5 mg at 2 pm in afternoon You should be getting a call from [facility] [employer] from Dr. Apple Cornejo office , if you dont hear back within this week , call our office or their office to check on the status of the referral Dr. Apple Cornejo office Get medical alert bracelet saying ADRENAL INSUFFICIENCY from [facility], [facility] or [employer] Llame al oftalm?logo mencionado anteriormente y d?gale que necesita que lo atiendan con urgencia. [place] endocrin?logo le envi? lavonne derivaci?n para que eval?en los fung visuales de [place] tumor hipofisario y tambi?n para que eval?en la retinopat?a diab?joanna. [phone] Reduzca la hidrocortisona a 10 mg por la ma?daysi y a 5 mg a las 2:00 p. m. por la tarde. Deber?a recibir lavonne llamada del [facility] de la oficina de la . Apple Cornejo. Si no recibe lavonne respuesta dentro de esta semana, llame a nuestra oficina o a la de ellos para verificar el estado de la derivaci?n. Oficina de la [place]. Apple Cornejo [phone] Consigue lavonne pulsera de alerta m?dica que diga INSUFICIENCIA SUPRARRENAL en [facility], [facility] o [employer] Coding Level of Care Code Est Pt Level 4 (48747) Diagnoses Pituitary macroadenoma D35.2 Time Spent (min) 30
== END 2025-01-24 09:05 | disposition home or self-care (01) ==
LOC: HO.ENCR 08:33
PROVIDERS: PCP Nurse Practitioner Family; Visit Provider Student in an Organized Health Care Education/Training Program
DX: D35.2 Benign neoplasm of pituitary gland (principal)
CPT/HCPCS: 99214

== ENCOUNTER → 2025-01-24 08:33 | Outpatient (BNVA) | payer MEDICAID, SELFPAY | PROVIDERS: PCP Nurse Practitioner Family; Visit Provider Student in an Organized Health Care Education/Training Program | DX: D35.2 Benign neoplasm of pituitary gland (principal) | CPT/HCPCS: 99212 ==

== ENCOUNTER 2025-01-26 07:38 | Outpatient (AMB) | payer MEDICAID, SELFPAY ==
[2025-01-26 07:41] VITALS: BP 100/60; PULSE 74; O2SAT 98; BMI 24.1
--- NOTE | 2025-01-26 07:41 | MHC.OFFVIS ---
Vital Signs 01/26/25 07:41 Height 5 ft Weight 123 lb 7.342 oz BMI 24.1 BP 100/60 Blood Pressure Location Rt brachial Position Sitting Pulse 74 Pulse Source Pulse Oximeter Pulse Oximetry (%) 98 Oxygen Delivery Method Room Air Intake Visit Reasons: T2DM Intake Note: Patient presents today for a follow-up on Type 2 Diabetes Mellitus: Last Diabetic eye exam was on: DUE Last Podiatry exam was on: Patient does not see a Snowboard Instructor Most recent HbA1c: 12.9%, 12/26/2024 Random Glucose- 299 mg/dL, Today Floor Coverings Salesperson Required: Yes Floor Coverings Salesperson Language: Power And Recovery Supervisor Services: Floor Coverings Salesperson Present (Ante Up Rebeca) Floor Coverings Salesperson Name: Sukumar #[id number] Information Interpreted: non-clinical & clinical Allergies No Known Allergies Allergy (Verified 01/13/25 07:53) HPI Comments Details: 44-year-old female here today for follow up of type 2 diabetes mellitus. 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 Pituitary incidentaloma and adrenal insufficiency not addressed for today's visit. Type 2 diabetes mellitus History of diabetes Diagnosed Dec 2024 Prior therapy: None Current regimen: insulin Lantus 8 units in AM hasnt started yet Trulicity 0.75 mg weekly took first dose 01/25/25Thursday fasting today Glucose: 299 mg/dl HgA1C: 12.9% 12/26/24 Denies polyuria, polydipsia currently, says she was having that a few months ago. Weight stable. . Denies any hypoglycemic symptoms. SMBG's glucometer has pick Complications Last Diabetic eye exam: referral placed in Dec 10, still pending appointment Last Podiatry Visit: Doesn't have one Neuropathy: no symptoms Kidney disease: no history Macrovascular complications: No history of macrovascular complications. Statin:none VISHNU/ARB: none Exercise: None Active at work but other gamez no Diet control: Most days Breakfast: rice beans and fried chicken tomatoes Some pakoras and samosas sometimes at restaurant Dinner rice and soup No desserts Stopped drinking sodas and juices CDE appointment upcoming 01/30/25 Office Director appointment upcoming 02/09/25 He has never had any hospitalizations for hyperglycemia/hypoglycemia. 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 no mass effect on optic chiasm. No dedicated MRI of the pituitary done. Vision changes: blurry vision intermittently trouble with reading , reports ocular pain intermittently Headache: none Nipple discharge: none Electrical Systems Drafter history: LMP: mid October 2024, regular Pregnancies : 4 , 4 living children , no fertility issues Change in sense of smell: no Change in ring size: none Change in shoe size: none Patient currently denies heat or cold intolerance, diarrhea or constipation, hair loss, palpitation, anxiety, weight changes, mood changes, low energy, changes in appearance of eyes or vision changes, tremors, increased diaphoresis or dry skin. ? Easy bruising: yes Proximal muscle weakness: none has uncontrolled DM Nausea: none Vomiting:none Lightheadedness: intermittent Weight: lost 5 lbs in 1 month Labs from 12/20/2024 showed normal thyroid function, undetectable cortisol level, acth of 13, DHEA-S of 29, IGF-1, estradiol level pending. Prolactin level normal 20.7. She is very inconsistent with her history and said that she was having some lightheadedness or dizziness that had already resolved before she started the medication that we had prescribed to her over the phone hydrocortisone 10 mg twice a day. She has lost 5 lb since the last visit. 12/26/2024: after holding the hydrocortisone the afternoon before in the morning off, cortisol level in a.m. was 2.3 with a ACTH of 15. 12/27/2024: Again after holding the hydrocortisone in the afternoon before and the morning of, cortisol level was 0.5 in a.m. at [facility] with ACTH of 3.9 Continues on hydrocortisone 10 mg in a.m. and 10 mg in the afternoon 01/15/2025: MRI of the pituitary with and without contrast showed a T1 isointense and a T2 mildly hyperintense, mildly heterogenously enhancing mass measuring 1.6 X 1.2 X 1.5 cm within the sella turcica with the pituitary stalk shifted to the left. Mass abuts the optic chiasm. Cavernous sinuses appear symmetric. No evidence of mass, mass effect or midline shift. Appearance consistent with pituitary macroadenoma. Medical alert bracelet:hasnt bought yet Ophthalmology referral: faxed referral . and then again on 01/19/25 Neurosurgery referral:Referral has been sent to Dr. Apple Cornejo 01/20/25, she hasnt heard from them yet No vision changes, no eye symptoms No nausea, vomiting , dizziness , lightheadedness. Physical exam General: sitting comfortably in no acute distress HEENT: normocephalic/atraumatic, , moist oral mucosa, visual coe grossly intact Neck: supple, Cardiac: normal heart sounds Pulm: normal breath sounds B/L, no added breath sounds Abd: not distended, no tenderness Foot exam: done 01/13/25 Warm, well-perfused, right big toenail has thickening, Intact sensation to monofilament, intact pulses, intact vibration Laboratory Tests 12/20/24 08:53 TSH 1.14 Free T4 1.05 FSH 7.6 Luteinizing Hormone 7.7 Prolactin Undiluted 20.7 DHEA Sulfate 29 Human Growth Hormone 0.2 Random Cortisol < 1.0 ACTH 13 Laboratory Tests 12/20/24 12/26/24 08:53 08:49 Sodium 137 Potassium 3.9 Chloride 104 Carbon Dioxide 24 Anion Gap 13 BUN 15 Creatinine 0.67 Estimated GFR > 60 Alpha Subunit Marker 0.2 TSH 1.14 1.75 Free T4 1.05 1.05 Estradiol Ultra LCMSMS 45 FSH 7.6 9.5 Luteinizing Hormone 7.7 21.0 Prolactin Undiluted 20.7 DHEA Sulfate 29 19 Human Growth Hormone 0.2 Somatomedin-C 73 Somato-C Z-Score Female -1.3 Random Cortisol < 1.0 2.3 ACTH 13 15 Laboratory Tests 12/26/24 01/13/25 01/13/25 08:49 07:57 10:18 Plt Count 146 L Sodium 137 Potassium 3.9 Creatinine 0.67 Estimated GFR > 60 Glucose (Clinic) 325 H Random Glucose 328 H Estimat Average Glucose 324 Hemoglobin A1c % 12.9 H AST 82 H ALT 170 H Alkaline Phosphatase 149 H Albumin 4.0 Triglycerides 120 Cholesterol 244 H LDL Cholesterol, Calc 171 H HDL Cholesterol 49 Urine Creatinine 38.72 Urine Microalbumin 11.0 Microalb/Creat Ratio 28.4 01/26/25 07:44 Plt Count Sodium Potassium Creatinine Estimated GFR Glucose (Clinic) 299 H Random Glucose Estimat Average Glucose Hemoglobin A1c % AST ALT Alkaline Phosphatase Albumin Triglycerides Cholesterol LDL Cholesterol, Calc HDL Cholesterol Urine Creatinine Urine Microalbumin Microalb/Creat Ratio MR brain without contrast. Thin slice imaging through the pituitary gland was obtained. 01/15/25 COMPARISON: None FINDINGS: High-resolution imaging of the pituitary region demonstrates a T1 isointense, T2 mildly hyperintense, FLAIR hyperintense, diffusion restricting, mildly heterogeneously enhancing mass measuring 1.6 x 1.2 x 1.5 cm within the sella turcica. The pituitary stalk is shifted to the left. Neurohypophysis appears normal in position. Mass abuts the optic chiasm. Cavernous sinuses appear symmetric. Flow voids within the carotid siphons normal. There is likely mild expansion of the sella turcica. No abnormal diffusion restriction in the brain parenchyma or extra-axial spaces. No evidence of mass, mass effect or midline shift. No intracranial hemorrhage or abnormal extra-axial fluid collection. No evidence of hydrocephalus. The basilar cisterns are patent. A few scattered foci of T2/FLAIR hyperintensity within the chapman radiata white matter in the frontal lobes bilaterally and in the right temporal lobe. Cerebellar hemispheres and cerebellar vermis are normal. Fourth ventricle is normal. No brainstem abnormality is identified. Intracranial flow voids are patent. The visualized paranasal sinuses and mastoid air-cells are clear. IMPRESSION: 1. Pituitary mass measuring up to 1.6 cm abuts the optic chiasm and shift the pituitary stalk to the left. 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 This document has been electronically signed by: Lam Tripathi MD on 01/15/2025 15:31:23 [facility] Medical History (Updated 01/26/25 @ 08:28 by Mia Tristan MD) HLD (hyperlipidemia) Diabetes mellitus with hyperglycemia Pituitary macroadenoma Surgical History History of bilateral tubal ligation Social History Alcohol intake: never Patient Tobacco Use Status: Never used Tobacco Physical Exam Vital Signs: Last Vital Signs Pulse 74 01/26/25 07:41 BP 100/60 01/26/25 07:41 Pulse Ox 98 01/26/25 07:41 Oxygen Delivery Method Room Air 01/26/25 07:41 BMI result Body Mass Index 24.1 Results Reviewed Results Reviewed: Laboratory Last Values Glucose (Clinic) 299 mg/dL (60-115) H 01/26/25 07:44 Assessment & Plan Assessment & Plan (1) Diabetes mellitus with hyperglycemia: Code(s): E11.65 - Type 2 diabetes mellitus with hyperglycemia Category: Medical Qualifiers: Diabetes mellitus shelter insulin use: with civil defense director use Diabetes mellitus type: type 2 Qualified Code(s): E11.65 - Type 2 diabetes mellitus with hyperglycemia; Z79.4 - nursing home (current) use of insulin Plan: 44-year-old female who was seeing me for pituitary incidentaloma and adrenal insufficiency on steroids, was noted to have uncontrolled hyperglycemia, with no prior history of diabetes, now with new onset of type 2 diabetes mellitus. A1c 12.9% from December 2024. Last visit we spent around 2 hours on her, with 60 minutes of my in person time, plus the nurse spend over 60 minutes with her teaching her how to administer medications, check blood sugars. Today again she presented saying she has not started checking blood sugars. She did not bring the meter or any of her supplies which I told her to bring for us to clarify how to administer medications are check blood sugars. She did not bring her freestyle Margot either for us to apply this. She has an appointment coming up with the educator on 01/30/2025 and I have stressed to her again how important it is to bring all her supplies to this appointment. Again todayWe spent greater than 50% of today's visit, educating her about uncontrolled hyperglycemia, what his type 2 diabetes mellitus, complications of uncontrolled hyperglycemia, and need for monitoring blood sugars and starting medications. She has no family history of type 2 diabetes mellitus and she has never seen anybody check blood sugars or administer insulin. At this time given A1c is greater than 10% and blood sugars are in the 300s and she is currently on steroids for adrenal insufficiency, I have started her on on basal insulin. she has pending appointments with the assembler sandal parts and educator. She has still not started the Lantus despite picking it up 2 days ago. She only took the Trulicity yesterday. It was again a very challenging visit today as patient has a very poor understanding of her health condition and I spent a great amount of time explaining to her regarding importance controlling blood sugars. She is still has not called the eye doctor herself. Plan: -start insulin Lantus 8 units daily in the morning -continue Trulicity 0.75 mg weekly, denies history of pancreatitis, no alcohol use, no history of gallstones, no family history of medullary thyroid cancer , advised about GI intolerance -check blood sugars daily fasting in a.m. and 2 hours post meal -prescribed freestyle Margot 3 less sensor she has a an iPhone for continuous glucose monitoring given she is going to be on insulin -lifestyle modification advised with the avoiding carbs, eliminating any sugars are sugary drinks such as soda isn't juices -150 minutes of exercise advised with 30 minutes of walking daily -see educator -see assembler sandal parts -we already placed ophthalmology referral previously for pituitary incidentaloma to evaluate visual coe given she has a macroadenoma, however she never heard back from them, given number again today to call them and establish care -foot exam done 01/13/25, she does not have any symptoms of neuropathy - I had ordered C-peptide and insulin antibodies given her BMI is only 24.4 kg per m2, and she does not have any family history of type 2 diabetes mellitus, evaluating for JONATHAN, these were not drawn with her other labs given how challenging her situation is right now, I will have her do these later to avoid multiple visits to labs. I am not sure why the lab did not draw these with her other labs. -podiatry referral in place (2) HLD (hyperlipidemia): Code(s): E78.5 - Hyperlipidemia, unspecified Category: Medical Qualifiers: Hyperlipidemia type: mixed hyperlipidemia Qualified Code(s): E78.2 - Mixed hyperlipidemia Plan: LDL elevated at 171 mg/dL. Goal LDL less than 70 mg/dL. Plan: - start atorvastatin 40 mg daily -will plan to repeat lipid panel in 3 months sometime around April 2025 Plan I spent 45 minutes in reviewing the record, seeing the patient and documenting in the medical record. Medications: New atorvastatin 40 mg PO BEDTIME 90 tabs 3RF atorvastatin 40 mg PO BEDTIME 90 tabs 3RF Refilled hydrocortisone orally 2 times a day; Take 1 tablet in the morning and 0.5 tablet at 2 PM in the afternoon daily 60 tabs 7RF Patient Instructions: Start insulin Lantus (glargine ) 8 units daily in morning Start Trulicity 0.75 mg weekly injection ONCE WEEKLY Check sugars daily in AM fasting (target 90 to 120 mg/dl) And once daily 2 hours post dinner (target <140 mg/dl) Start atorvastatin 40 mg daily at bedtime See educator and assembler sandal parts Bring your glucometer to every visit in our office Bring your insulins and Trulicity meds and glucometer supplies to educator visit When you warehouse order picker your supplies , if you dont know how to use the medicine or check sugars or are confused call our office to also come see the nurse I am also prescribing you a continuous glucose monitor sensor that would connect with your phone to monitor your blood sugars, please bring this to educator visit so she can teach you how to use it Reviewed symptoms of hypoglycemia Rule of 15 Treatment for Hypoglycemia (Low blood sugar) If your blood glucose is low (70 and below)*, follow the steps below to treat: Eat or drink something from the list below equal to 15 grams of carbohydrate (carb). Rest for 15 minutes Re-check your blood glucose. If it is still low, (below 70), repeat step 1 above. ? If your next meal is more than an hour away, you will need to eat one carbohydrate choice as a snack to keep your blood glucose from going low again. ?If you can't figure out why you have low blood glucose, call your healthcare provider, as your medicine may need to be adjusted. ?Always carry something with you to treat an insulin reaction. Use food from the list below. ? Foods equal to One Carbohydrate Choice (15 grams of carbohydrate): 3 Glucose ?tablets or 4 Dextrose tablets 4 ounces of fruit juice 5-6 ounces (about 1/2 can) of regular soda such as Coke or Pepsi ? 7-8 gummy or regular Life Savers ? 1 Tbsp. of sugar or jelly NOTE: If your blood sugar is less than 50, double the portion above for a total of 30 gm. ?Carbohydrate. ? Follow meal plan of 45-60 g of consistent carbohydrates at 3 meals each day and 15 g of carbohydrate at 1-2 snacks each day. See eye doctor Please call the eye doctor above , and let them know you need to be seen urgently and your endocrine doctor sent a referral for evaluation of visual coe for your pituitary tumor and evaluation for diabetic retinopathy as well Lonny al antonio?logo mencionado anteriormente y d?gale que necesita que lo atiendan con urgencia. Eugene endocrin?logo le envi? lavonne derivaci?n para que eval?en los fung visuales de eugene tumor hipofisario y tambi?n para que eval?en la retinopat?a diab?joanna. [phone] H?gase an?lisis de sabi y an?lisis de orina en ayunas hoy Comience con insulina Lantus (glargina) 8 unidades diarias por la ma?daysi Inicie la inyecci?n semanal de Trulicity 0,75 mg LAVONNE VEZ A LA SEMANA Controle los az?cares diariamente en ayunas por la ma?daysi (objetivo de 90 a 120 mg/dl) Y lavonne vez al d?a 2 horas despu?s de la jacqueline (objetivo <140 mg/dl) Comience a rosmery atorvastatina 40 mg al d?a antes de acostarse. Italo educador y nutricionista Traiga eugene gluc?metro a cada visita a nuestra oficina Traiga hali insulinas, medicamentos Trulicity y suministros de gluc?metro a la visita del educador Cuando recoja hali suministros, si no sabe c?mo usar el medicamento o controlar los niveles de az?car o est? confundido, llame a nuestra oficina para venir a italo tambi?n a la enfermera. Tambi?n le estoy recetando un sensor de monitorizaci?n continua de glucosa que se conectar?a con eugene tel?fono para controlar eugene nivel de az?car en la sabi. Ll?velo a la visita del educador para que pueda ense?arle c?mo usarlo. S?ntomas revisados ?de hipoglucemia. Shannon de 15 Tratamiento para la hipoglucemia (nivel bajo de az?car en sabi) Si eugene nivel de glucosa en sabi es bajo (70 o menos)*, siga los pasos a continuaci?n para tratarlo: Coma o nikole algo de la lista a continuaci?n equivalente a 15 gramos de carbohidratos (carbohidratos). Descanse 15 minutos Vuelva a controlar eugene nivel de glucosa en sabi. Si a?n est? bajo (por debajo de 70), repita el paso 1 anterior. ? Si falta m?s de lavonne hora para eugene pr?xima comida, necesitar? comer lavonne opci?n de carbohidratos efe refrigerio para evitar que eugene nivel de glucosa en sabi vuelva a bajar. ?Si no puede entender por qu? tiene un nivel bajo de glucosa en sabi, llame a eugene proveedor de atenci?n m?dica, ya que es posible que sea necesario ajustar eugene medicamento. ?Lleve siempre consigo algo para tratar lavonne reacci?n a la insulina. Utilice alimentos de la lista siguiente. ? Alimentos equivalentes a Lavonne Elecci?n de Carbohidratos (15 gramos de carbohidratos): 3 tabletas de glucosa o 4 tabletas de dextrosa 4 onzas de jugo de frutas 5 a 6 onzas (aproximadamente 1/2 ericka) de refresco regular efe Coca-Cola o Pepsi ? 7-8 gomitas o salvavidas regulares ? 1 cucharada. de az?car o gelatina NOTA: Si eugene nivel de az?car en sabi es inferior a 50, duplique la porci?n anterior para un total de 30 g. ?Carbohidrato. ? Siga un plan de alimentaci?n de 45 a 60 g de carbohidratos constantes en 3 comidas al d?a y 15 g de carbohidratos en 1 a 2 refrigerios al d?a. Coding Level of Care Code Est Pt Level 4 (12333) Complex EM visit Add On G2211 Diagnoses Type 2 diabetes mellitus with hyperglycemia, with long-term current use of insulin E11.65; Z79.4 Diabetes mellitus civil defense director insulin use: with shelter use Diabetes mellitus type: type 2 Mixed hyperlipidemia E78.2 Hyperlipidemia type: mixed hyperlipidemia Time Spent (min) 45
--- OUTSIDE RECORDS SUMMARY | 2025-01-26 07:42 | XMS_ITS | Encounter Summary ---
Author Organization [facility] Address [address] [place] [address] Care Team Providers Care Auto Club Travel Counselor Name Role Phone Maxim Raya RADHA Primary Care Provider [phone] Reason for Visit * Reason Onset Date Comments pain from crown 09/09/2024 Encounter Details Date Type Department Care Team ([facility] st Contact Info) Description 09/09/2024 Telephone [facility] [address] [place], [place] [phone] Kate Mejia DDS [address] [place], [place] [phone] pain from crown Social History Tobacco Use [...] Description 03/17/2025 9:30 AM EDT Office Visit [facility] [address] [place] [address] Destinee Hernandez, OD [address] [place] [address] 03/23/2025 9:00 AM EDT Office Visit [facility] [address] [place] [address] Ana Koehler documented as of this encounter Visit Diagnoses Not on filedocumented in this encounter Care Teams Auto Club Travel Counselor Relationship Specialty Start Date End Date Raya Pan NP [address] [place] [address] PCP - General Family Medicine 12/18/23 documented as of this encounter
--- OUTSIDE RECORDS SUMMARY | 2025-01-26 07:42 | XMS_ITS | Encounter Summary ---
Author Organization [facility] Address [address] [place] [address] Care Team Providers Care Civil Cad Tech Name Role Phone Kim Johnson CARDIAC NURSE Primary Care Provider [phone] Raya Pan NP Primary Care Provider [phone] Encounter Details Date Type Department Care Team (Late st Contact Info) Description 09/25/2023 Abstract [facility] [address] [place] [address] Kate Mejia DDS [address] [place] [address] Social History Tobacco Use Types Packs/Day Years [...] 03/17/2025 9:30 AM EDT Office Visit [facility] [address] [place] [address] David, Destinee, OD [address] [place] [address] 03/23/2025 9:00 AM EDT Office Visit [facility] [address] [place] [address] Ana Koehler documented as of this encounter Visit Diagnoses Not on filedocumented in this encounter Care Teams Civil Cad Tech Relationship Specialty Start Date End Date Kim Johnson GLORIA [address] [place] [address] PCP - General Family Medicine 05/14/22 12/17/23 Raya Pan NP [address] [place] [address] PCP - General Family Medicine 12/18/23 documented as of this encounter
--- OUTSIDE RECORDS SUMMARY | 2025-01-26 07:42 | XMS_ITS | Clinical Summary ---
Author Organization Not [employer] Address [address] [facility] 7[address] [place] [address] Care Team Providers Care Avionics Electrical Engineer Name Role Phone Raya Pan NP Primary Care Provider [phone] Allergies Active Allergy Reactions Criticality Noted Date Comments Fish-Derived Products Hives Medium 07/02/2024 Medications Apple Cider Vinegar 500 MG tablet Take 1 tablet by mouth Once per day. Active hydrocortisone (Cortef) 10 MG tablet Take 20 mg by mouth Once per day. Active famotidine (Pepcid) 20 MG tablet Take 1 tablet (20 mg) by mouth 2 times daily. 180 tablet Active ketoconazole (NIZOral) 2 % creamIndication s:Tinea pedis of right foot Apply topically Once per day. 40 g 1 5 Active Active Problems Problem Noted Date Diagnosed Date [...] Encounters Date Type Department Care Team Description 01/17/[address] [address] Raya Pan NP 01/04/[address] [address] Raya Pan NP 12/28/[address] [address] Alena Vega MA Chart Prep 12/26/[address] [address] Alena Vega MA appointment for results 12/23/2024 10:30 AM EST Office Visit [address] [address] Raya Pan NP Hair loss (Primary Dx); Dietary counseling; Exercise counseling; Tinea pedis of right foot; Pain due to onychomycosis of toenail of right foot; 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 I have markvictor m morgan 09/29/[address] you [...] Description 03/17/2025 9:30 AM EDT Office Visit [facility] [address] [place] [address] DavidDestinee, OD [address] [place] [address] 03/23/2025 9:00 AM EDT Office Visit [facility] [address] [place] [address] Ana Koehler Health Maintenance Due Date Last Done Comments [...] Additional history exists COVID-19 Vaccine ( - 2024-25 season) 2024 04/16/2021 Influenza Vaccine (#1) 2024 2, 10/03/2019, 01/31/2019, Additional history exists DTaP/Tdap/Td Vaccines (2 - Td or Tdap) 08/17/2024 08/17/2014 Dental X-Ray: Full Mouth 10/18/2024 10/17/2021, 03/2015 Pap Smear 12/23/2024 12/23/2021, 12/23/2021 Diabetes: Hemoglobin A1C 03/25/2025 12/26/2024 Depression Monitoring (PHQ-9) 04/06/2025 10/07/2024, 10/07/2024 SDOH Screening 09/29/2025 09/29/2024 Alcohol/Substance Use Screening 10/07/2025 10/07/2024 Depression Screening 10/07/2025 10/07/2024, 10/07/20 Dental X-Ray: Bitewings 11/22/2025 11/21/19 25, 10/06/2024, [...] Procedure Name Priority Date/Time Associated Diagnosis Comments MR BRAIN W AND WO CONTRAST Routine 01/15/2025 3:31 PM EST GLUCOSE, WHOLE BLOOD Routine 01/13/2025 7:57 AM [...] Recently Relevant to Health Maintenance Results * Mr Brain w/ and w/o Contrast (01/15/2025 3:31 PM EST) Anatomical Region Laterality Modality Brain Magnetic Resonan ce 01/15/2025 3:31 PM EST Narrative 01/15/2025 3:33 PM EST ? [facility] ?[address] ?[place], [place] [address] ? Magnetic Resonance Report ? Signed ? Patient: Stephanie Tracy,Kendra ?MR# ?? : [id number] ? : 1980 ?Acct:[id number] ? Age/Sex: 44 / F ?ADM Date: 01/15/25 ? Loc: HO.MRI ? Attending Dr: Mia Tristan MD ? Ordering Physician: Mia Tristan MD ?? Date of Service: 01/15/25 ?? Procedure(s): MR head/brain wo/w con ?? Accession Number(s): [id number] ? cc: Raya Pan NP; Mia Tristan MD ? CLINICAL HISTORY: D35.2 - Benign neoplasm of pituitary gland ? MR brain without contrast. Thin slice imaging through the pituitary gland ?? was obtained. ? COMPARISON: None ? FINDINGS: ?? High-resolution imaging of the pituitary region demonstrates a T1 ?? isointense, T2 mildly hyperintense, FLAIR hyperintense, diffusion ?? restricting, mildly heterogeneously enhancing mass measuring 1.6 x 1.2 x ?? 1.5 cm within the sella turcica. The pituitary stalk is shifted to the ?? left. Neurohypophysis appears normal in position. Mass abuts the optic ?? chiasm. Cavernous sinuses appear symmetric. Flow voids within the carotid ?? siphons normal. There is likely mild expansion of the sella turcica. ?? No abnormal diffusion restriction in the brain parenchyma or extra-axial ?? spaces. ? No evidence of mass, mass effect or midline shift. ?? No intracranial hemorrhage or abnormal extra-axial fluid collection. ?? No evidence of hydrocephalus. The basilar cisterns are patent. ?? A few scattered foci of T2/FLAIR hyperintensity within the chapman radiata ?? white matter in the frontal lobes bilaterally and in the right temporal ?? lobe. ? Cerebellar hemispheres and cerebellar vermis are normal. Fourth ventricle ?? is normal. ?? No brainstem abnormality is identified. ? Intracranial flow voids are patent. ?? The visualized paranasal sinuses and mastoid air-cells are clear. ? IMPRESSION: ?? 1. Pituitary mass measuring up to 1.6 cm abuts the optic chiasm and shift ?? the pituitary stalk to the left. 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 ? This document has been electronically signed by: Lam Tripathi MD on ?? 01/15/2025 15:31:23 ? Dictated By: ?Lam Tripathi MD ? Signed By: ?<Electronically signed by Lam Tripathi MD in OV> ?01/15/25 1532 ? DD/ 1531 ? TD/TT: 01/15/25 1531 ? Strap Cutting Machine Operator: ? Procedure Note Donotuseinterpreter, Image - 01/15/2025 [place] [address] Magnetic Resonance Report Signed Patient: Mellissa Basurto AMR# : [id number] : 1980Acct:[id number] Age/Sex: 44 / FADM Date: 01/15/25 Loc: HO.MRI Attending Dr: Mia Tristan MD Ordering Physician: Mia Tristan MD Date of Service: 01/15/25 Procedure(s): MR head/brain wo/w con Accession Number(s): [id number] cc: Raya Pan MERCHANDISE PROCESSOR; Mia Tristan MD CLINICAL HISTORY: D35.2 - Benign neoplasm of pituitary gland MR brain without contrast. Thin slice imaging through the pituitary gland was obtained. COMPARISON: None FINDINGS: High-resolution imaging of the pituitary region demonstrates a T1 isointense, T2 mildly hyperintense, FLAIR hyperintense, diffusion restricting, mildly heterogeneously enhancing mass measuring 1.6 x 1.2 x 1.5 cm within the sella turcica. The pituitary stalk is shifted to the left. Neurohypophysis appears normal in position. Mass abuts the optic chiasm. Cavernous sinuses appear symmetric. Flow voids within the carotid siphons normal. There is likely mild expansion of the sella turcica. No abnormal diffusion restriction in the brain parenchyma or extra-axial spaces. No evidence of mass, mass effect or midline shift. No intracranial hemorrhage or abnormal extra-axial fluid collection. No evidence of hydrocephalus. The basilar cisterns are patent. A few scattered foci of T2/FLAIR hyperintensity within the chapman radiata white matter in the frontal lobes bilaterally and in the right temporal lobe. Cerebellar hemispheres and cerebellar vermis are normal. Fourth ventricle is normal. No brainstem abnormality is identified. Intracranial flow voids are patent. The visualized paranasal sinuses and mastoid air-cells are clear. IMPRESSION: 1. Pituitary mass measuring up to 1.6 cm abuts the optic chiasm and shift the pituitary stalk to the left. 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 This document has been electronically signed by: Lam Tripathi MD on 01/15/2025 15:31:23 Dictated By: Lam Tripathi MD Signed By: <Electronically signed by Lam Tripathi MD in OV> 01/15/25 1532 DD/ 153 TD/TT: 01/15/25 1531 Strap Cutting Machine Operator: [facility] External Provider IMG MRI PROCEDURES Edited Result - Final * (ABNORMAL) Glucose, Whole Blood (01/13/2025 7:57 AM EST) Glucose, Whole Blood 325(H) 60 - 115 mg/dL [facility] Comment:METER #: [id number] Testing performed in the Endocrinology Department [address] , [address], [facility]. 01/13/2025 7:57 AM EST 01/13/2025 9:01 AM EST Generic External Data Provider LAB BLOOD ORDERAB LES Final Result [facility] [address] [place], [place] [phone] * Cortisol Random (12/26/2024 8:49 AM EST) Only the most recent of2 resultswithin the time period is included. Cortisol Random 2.3 ug/dL [facility] Comment:Reference Range*: Be fore 10 am 6.2-19.4 ug/dL After 5 pm 2.3-11.9 ug/dL*Please interpret above results accordingly.This test was performed using the Kaboodle chemiluminescentmethod. Values obtained from different assay methods cannotbe used interchangeably.Patients receiving fludrocortisone, prednisolone orprednisone may show artificially elevated cortisol valuesdue to cross-reactivity. 12/26/2024 8:49 AM EST 12/26/2024 8:49 AM EST us Generic External Data Provider LAB BLOOD ORDERAB LES Final Result [facility] [address] [place] [address] [phone] * (ABNORMAL) CBC auto differential (12/26/2024 8:49 AM EST) White Blood Count 6.3 4.8 - 10.8 X10*3/uL [facility] Red Blood Count 4.70 4.20 - 5.50 X10*6/uL [facility] Hemoglobin 13.6 12.0 - 16.0 g/dl [facility] Hematocrit 39.7 37.0 - 47.0 % [facility] Mean Corpuscular Volume 84.5 80.0 - 98.0 fL [facility] Mean Corpuscular Hemoglobin 28.9 27.0 - 33.0 pg [facility] Mean Corpuscular HGB Conc 34.3 31.0 - 35.0 g/dl [facility] Red Cell Distribution Width 13.2 11.0 - 16.0 % [facility] Platelet Count 146(L) 160 - 400 X10*3/uL [facility] Mean Platelet Volume 12.1 9.4 - 12.3 fL [facility] Neutrophils Percent Auto 68.2 45 - 73 % [facility] Imm Gran Pct Auto 0.6(H) 0.0 - 0.4 % [facility] Lymphocytes Percent Auto 25.0 20 - 40 % [facility] Monocytes Percent Auto 5.6 2 - 11 % [facility] Eosinophils Percent Auto 0.3 0 - 4 % [facility] Basophils Percent Auto 0.3 0 - 2 % [facility] NRBC Pct Auto 0.0 0.0 - 0.2 /100WBC [facility] Neutrophils Absolute Auto 4.3 2.0 - 8.3 x10*3/uL [facility] Imm Gran Abs Auto 0.04(H) 0.00 - 0.03 X10*3/uL [facility] Lymphocytes Absolute Auto 1.6 1.2 - 4.9 X10*3/uL [facility] Monocytes Absolute Auto 0.4 0.1 - 1.2 X10*3/uL [facility] Eosinophils Absolute Auto 0.0 0.0 - 0.4 X10*3/uL [facility] Basophils Absolute Auto 0.0 0.0 - 0.2 X10*3/uL [facility] NRBC Abs Auto 0.000 0.0 - 0.012 X10*3/uL [facility] Blood Venous blood specimen / Unknown 12/26/2024 8:49 AM EST 12/26/2024 9:05 AM EST us Raya Pan NP LAB BLOOD ORDERABLES Final Resul t Performing Organization Address [facility] de Phone Number [facility] [address] [place] [phone] * Iron And Total Iron Binding Capacity (12/26/2024 8:49 AM EST) Iron 48 30 - 160 mcg/dL [facility] Total Iron Binding Capacity 321 228 - 428 mcg/dL [facility] Percent Iron Saturation 15 15 - 50 % [facility] Unsaturated Iron Binding 273 ug/dL [facility] Blood Venous blood specimen / Unknown 12/26/2024 8:49 AM EST 12/26/2024 8:49 AM EST us Raya Pan MERCHANDISE PROCESSOR LAB BLOOD ORDERABLES Final Resul t Performing Organization Address City/[facility] Co de Phone Number [facility] [address] [place] [phone] * DHEA Sulfate (12/26/2024 8:49 AM EST) Only the most recent of2 resultswithin the time period is included. DHEA Sulfate 19 15 - 205 mcg/dL [facility] Comment:THIS TEST WAS PERFOR MED AT:[facility] [address] [phone] HERNANDEZ MD 12/26/2024 8:49 AM EST 12/26/2024 8:49 AM EST Generic External Data Provider LAB BLOOD ORDERAB LES Final Result Performing Organization Address [facility] Co de Phone Number [facility] [address] [place] [phone] * ACTH, Plasma (12/26/2024 8:49 AM EST) Only the most recent of2 resultswithin the time period is included. ACTH, Plasma 15 6 - 50 pg/mL [facility] Comment:Reference range appl ies only to specimens collectedbetween 7am-10am.THIS TEST WAS PERFORMED AT:[id number] [place] [address]QFWSOQVSRAVANI SLAUGHTER MD,PHD 12/26/2024 8:49 AM EST 12/26/2024 8:49 AM EST us Generic External Data Provider LAB BLOOD ORDERAB LES Final Result Performing Organization Address City/[facility]/ZIP Co de Phone Number [facility] [address] [place] [phone] * TSH (12/26/2024 8:49 AM EST) Only the most recent of2 resultswithin the time period is included. Thyroid Stimulating Hormone 1.75 0.32 - 4.0 uIU/mL [facility] Comment:TSH 3rd Generation ( [facility]) 12/26/2024 8:49 AM EST 12/26/2024 8:49 AM EST us Generic External Data Provider LAB BLOOD ORDERAB LES Final Result Performing Organization Address [facility]/ZIP Co de Phone Number [facility] [address] [place] [phone] * T4, Free (12/26/2024 8:49 AM EST) Only the most recent of2 resultswithin the time period is included. Free T4 (Free Thyroxine) 1.05 0.71 - 1.85 ng/dL [facility] 12/26/2024 8:49 AM EST 12/26/2024 8:49 AM EST Generic External Data Provider LAB BLOOD ORDERAB LES Final Result Performing Organization Address [facility] Co de Phone Number [facility] [address] [place] [phone] * (ABNORMAL) Hemoglobin A1c (12/26/2024 8:49 AM EST) Hemoglobin A1c 12.9(H) <6.0 % [facility] Comment:Hemoglobin A1C Refer ence Range Adults: 4.8 - 6.0 % Non diabetic: < 6.0 % Goal: < 7.0 %Additional Action Suggested: > 8.0 %Note: Hemoglobin A1c results are invalid for patients with abnormal amounts of HbF. Blood transfusions may impact the HbA1c concentration in the patient sample. Estimated Average Glucose 324 mg/dL [facility] Comment:eAG = Estimated ave rage glucose which is %A1C expressed asaverage glucose, using the formula of the D7C-TunumwxZsijvwh Glucose study (ADAG), Diabetes Care, Vol.31,#8,Jun. 2007 Blood Venous blood specimen / Unknown 12/26/2024 8:49 AM EST 12/26/2024 8:49 AM EST us Raya Radhaguerda MERCHANDISE PROCESSOR LAB BLOOD ORDERABLES Final Resul t Performing Organization Address [facility] de Phone Number [facility] [address] [place] [phone] * LH (12/26/2024 8:49 AM EST) Only the most recent of2 resultswithin the time period is included. Lutenizing Hormone 21.0 mIU/mL [facility] Comment:Reference Range Foll icular Phase 1.9-12.5 Mid-Cycle Peak 8.7-76.3 Luteal Phase 0.5-16.9 Postmenopausal 10.0-54.7THIS TEST WAS PERFORMED AT:[facility] [place] [phone] HERNANDEZ MD 12/26/2024 8:49 AM EST 12/26/2024 8:49 AM EST us Generic External Data Provider LAB BLOOD ORDERAB LES Final Result Performing Organization Address [facility] de Phone Number [facility] [address] [place] [phone] * FSH (12/26/2024 8:49 AM EST) Only the most recent of2 resultswithin the time period is included. Follicle Stimulating Hormone 9.5 mIU/mL [facility] Comment:Reference Range Foll icular Phase 2.5-10.2 Mid-cycle Peak 3.1-17.7 Luteal Phase 1.5- 9.1 Postmenopausal 23.0-116.3THIS TEST WAS PERFORMED AT:[email or web address] [place] [id number] HERNANDEZ MD 12/26/2024 8:49 AM EST 12/26/2024 8:49 AM EST us Generic External Data Provider LAB BLOOD ORDERAB LES Final Result Performing Organization Address [facility] Co de Phone Number [facility] [address] [place] [phone] * (ABNORMAL) Comprehensive Metabolic Panel (12/26/2024 8:49 AM EST) [facility] Sodium 137 135 - 145 mmol/L [facility] Potassium 3.9 3.3 - 5.1 mmol/L [facility] Chloride 104 96 - 108 mmol/L [facility] Carbon Dioxide 24 22 - 29 mmol/L [facility] Anion Gap 13 12 - 20 [facility] Urea Nitrogen (BUN) 15 9 - 16 mg/dL [facility] Creatinine, Serum 0.67 0.5 - 1.4 mg/dL [facility] Estimated Glomerular Filt Rate >60 [facility] Comment:Chronic Kidney Disea se: Estimated GFR < 60 mL/min/1.65s4Nmiqhb Kidney Disease: Estimated GFR < 15 mL/min/1.73m2 Glucose 328(H) 60 - 115 mg/dL [facility] Calcium 9.3 8.4 - 10.2 mg/dL [facility] Bilirubin, Total 0.5 0.0 - 1.0 mg/dL [facility] Aspartate Amino Transferase 82(H) 5 - 31 U/L [facility] Alanine Aminotransferase 170(H) 0 - 31 U/L [facility] Total Protein 7.7 6.5 - 8.0 g/dL [facility] Albumin Level 4.0 3.5 - 5.0 g/dL [facility] Alkaline Phosphatase 149(H) 39 - 117 U/L [facility] Blood Venous blood specimen / Unknown 12/26/2024 8:49 AM EST 12/26/2024 8:49 AM EST us Raya Pan NP LAB BLOOD ORDERABLES Final Resul t [facility] [address] [place] [phone] * Alpha Subunit (12/20/2024 8:53 AM EST) Alpha Subunit 0.2 ng/mL [facility] Comment:Reference Range for Alpha Subunit:Premenopausal Females: 0.1-0.6 ng/mLPostmenopausal Females: 0.1-1.5 ng/mLPregnancy (1st and 2nd Trimesters): 35.0-186.0 ng/mLHypothyroidism: 0.2-3.2 ng/mLThis test measures the free alpha subunit that is common toLH, FSH, TSH and hCG. These hormones are comprised ofidentical alpha subunits and unique beta subunits thatconfer biological specificity.This test was developed and its analytical performancecharacteristics have been determined by [employer].It has not been cleared or approved by FDA. This assay hasbeen validated pursuant to the CLIA regulations and is usedfor clinical purposes.THIS TEST WAS PERFORMED AT:[facility]/[employer] [id number] [facility]WORKTEQUILA [facility] [place] [address]HULCMLEVON FORTE MD,PHD,JOSHUA 12/20/2024 8:53 AM EST 12/20/2024 8:53 AM EST us Generic External Data Provider LAB BLOOD ORDERAB LES Final Result [facility] [address] [place] [phone] * Prolactin, Dilution Study (12/20/2024 8:53 AM EST) Prolactin, Undiluted 20.7 ng/mL [facility] Prolactin, Diluted SEE NOTE ng/mL [facility] Comment:Result confirmed by 1:100 dilution. No high dosehook effect detected. Reference Range Females Non- 3.0-30.0 10.0-209.0 Postmenopausal 2.0-20.0Prolactin dilution studies are done to determine ifthere is a high-dose hook effect (i.e. a non-linearassay response due to a very high concentration ofProlactin). This is reported to occur at Prolactinconcentrations at or above 30,000 ng/mL.This test is not recommended for identifyingmacroprolactin. The [facility], Prolactin, Total and Monomeric is therecommended test (Order code [id number]).THIS TEST WAS PERFORMED AT:[facility] [address] [phone] HERNANDEZ MD 12/20/2024 8:53 AM EST 12/20/2024 8:53 AM EST Generic External Data Provider LAB BLOOD ORDERAB LES Final Result Performing Organization Address [facility] Co de Phone Number [facility] [address] [place] [phone] * Prolactin (12/20/2024 8:53 AM EST) Prolactin [facility] Comment:DUPLICATE 12/20/2024 8:5 3 AM EST 12/20/2024 8:53 AM EST Generic External Data Provider LAB BLOOD ORDERAB LES Final Result Performing Organization Address [facility] de Phone Number [facility] [address] [place] [phone] * IGF-1, LC/MS (12/20/2024 8:53 AM EST) IGF 1, LC/MS 73 52 - 328 ng/mL [facility] Z Score (Male) [facility] Z Score (Female) -1.3 -2.0 - 2.0 SD [facility] Comment:This test was develo ped and its analytical performancecharacteristics have been determined by [employer].It has not been cleared or approved by FDA. This assay hasbeen validated pursuant to the CLIA regulations and is usedfor clinical purposes.THIS TEST WAS PERFORMED AT:[facility] [employer]/[employer] [id number] ASHOK YANEZ [phone] FORTE MD,PHD,JOSHUA 12/20/2024 8:53 AM EST 12/20/2024 8:53 AM EST us Generic External Data Provider LAB BLOOD ORDERAB LES Final Result [facility] [address] [place] [phone] * Growth Hormone (GH) (12/20/2024 8:53 AM EST) Growth Hormone 0.2 < OR = 7.1 ng/mL [facility] Comment: Because of a pulsatile [...] any point in the timed sequence. ??[Darvin Silverman, Louis Pacheco ER, Kevan S, et al. [...] or = 10.0 ng/mLTHIS TEST WAS PERFORMED AT:[facility] [place] [address] ??[phone] HERNANDEZ MD 12/20/2024 8:53 AM EST 12/20/2024 8:53 AM EST Generic External Data Provider LAB BLOOD ORDERAB LES Final Result Performing Organization Address [facility]/ZIP Co de Phone Number [facility] [address] [place] [phone] * Estradiol (12/20/2024 8:53 AM EST) Estradiol Ultra Sensitive 45 pg/mL [facility] Comment:Female Reference Ran ges for Estradiol, Ultrasensitive (pg/mL): Follicular Phase: 39-375 Luteal Phase: 48-440 Postmenopausal Phase: < or = 10This test was developed and its analytical performancecharacteristics have been determined by [employer].It has not been cleared or approved by FDA. This assay hasbeen validated pursuant to the CLIA regulations and is usedfor clinical purposes.THIS TEST WAS PERFORMED AT:[facility] [employer]/[employer] [id number] [facility] [place] [address]NIGJBLEVON FORTE MD,PHD,JOSHUA 12/20/2024 8:53 AM EST 12/20/2024 8:53 AM EST Generic External Data Provider LAB BLOOD ORDERAB LES Final Result Performing Organization Address [facility] Co de Phone Number [facility] [address] [place] [phone] * HEPATITIS C AB W/REFL TO HCV RNA, QN, PCR (12/23/2021 10:03 AM EST) Pathologist [facility] HEPATITIS C ANTIBODY NON-REACT [facility] NON-REACT [facility] INDEX 0.01 <1.00 [facility] Comment: ?? HCV antibody was non-reactive. There is no laboratory ?? evidence of HCV infection. ?? In most cases, no further action is required. However, if recent HCV exposure is suspected, a test for HCV RNA (test code 24533) is suggested. ?? For additional information please refer to http://education.Twigmore/faq/JKR25m5 (This link is being provided for informational/ educational purposes only.) ?? 12/23/2021 10:0 3 AM EST [facility] HISTORICAL/NON ORDERABLE LABS Final Result Performing Organization Address [facility] [facility] Co de Phone Number [facility] [address] [place] [address], * HIV 1/2 ANTIGEN/ANTIBODY,FOURTH GENERATION W/RFL (12/23/2021 10:03 AM EST) Pathologist [facility] HIV-1/2 ANTIGEN AND ANTIBODIES, 4TH GENERATION W/ REFLEX NON-REACT VERONA NON-REACT VERONA [facility] Comment: HIV-1 antigen and HIV-1/HIV-2 [...] ? For additional information please refer to http://education.Twigmore/faq/HRG538 (This link is being provided for informational/ educational purposes only.) ? The performance of this assay has not been clinically validated in patients less than 2 years old. ?? 12/23/2021 10:0 3 AM EST Isi [facility]ON LAB BLOOD ORDERABLES Melvina l Result Performing Organization Address [facility] Co de Phone Number [facility] [address] [place] [address], * THINPREP TIS PAP AND HPV mRNA E6/E7, CT/NG, TRICH (12/23/2021 9:16 AM EST) Pathologist [facility] Chlamydia trachomatis RNA, TMA, Urogenital NOT DETECTED NOT DETECTED [facility] Clinical Information: None given [facility] COMMENT SEE COMMENT [facility] Comment: The analytical performance characteristics of this assay, when used to test SurePath(TM) specimens have been determined by [employer]. The modifications have not been cleared or approved by the FDA. This assay has been validated pursuant to the CLIA regulations and is used for clinical purposes. ?? For additional information, please refer to https://[employer].Twigmore/faq/KBJ896 (This link is being provided for information/ [...] has been evaluated with computer assisted technology. [facility] Biology Research Assistant: SEE COMMENT [facility] Comment: RMM, CT(ASCP) CT screening location: [address] ??[address] HPV nRNA E6/E7 Not Detected Not Detected [facility] ShowEvidence Comment: Methodology: Comic Artist-Mediated Amplification This assay detects E6/E7 viral messenger RNA (mRNA) from 14 high-risk HPV types (16,18,31,33,35,39,45,51,52,56,58,59,66,68). ? The analytical performance characteristics of this assay have been determined by [employer]. The modifications have not been cleared or approved by the FDA. This assay has been validated pursuant to the CLIA regulations and is used for clinical purposes. ?? For additional information, please refer to http://[employer].Twigmore/faq/EVI969g4 (This link if provided for information/ educational purposes only.) Interpretation/Re sult: Negative for intraepithelial lesion or malignancy. [facility] LMP: 12/09/2021 [facility] Neisseria gonorrhoeae RNA, TMA, Urogenital NOT DETECTED NOT DETECTED [facility] Prev. BX: NONE GIVEN [facility] Prev. PAP: NONE GIVEN [facility] SOURCE: None given [facility] Statement Of Adequacy: SEE COMMENT [facility] Comment: Satisfactory for evaluation. Endocervical/transformation zone component present. Trichomonas vaginalis, QL, TMA, PAP Vial NOT DETECTED NOT DETECTED [facility] Comment: The analytical performance characteristics of this assay have been determined by [employer]. The modifications have not been cleared or approved by the FDA. This assay has been validated pursuant to the CLIA regulations and is used for clinical purposes. ?? For additional information, please refer to http://education.Twigmore/ faq/Trichomonastma (This link is being provided for information/ educational purposes only.) ?? 12/23/2021 9:16 AM EST [facility] Final Result Performing Organization Address City/[facility]/ZIP Co de Phone Number [facility] [address] [place] [address] * Pap Smear (12/23/2021 12:00 AM EST) Swab [facility] CYTOLOGY ORDERABLES F inal Result [facility] [address] [place] [address], [place] [address] from Last 3 Months or Most Recently Relevant to Health Maintenance Insurance [facility] STAND ADULT Care Teams Avionics Electrical Engineer Relationship Specialty Start Date End Date Raya Pan NP [address] [place] [address] PCP - General Family Medicine 12/18/23
--- OUTSIDE RECORDS SUMMARY | 2025-01-26 07:42 | XMS_ITS | Encounter Summary ---
Author Organization [facility] Address [address] [place] [address] Care Team Providers Care Mechanical Door Repairer Name Role Phone Raya Pan NP Primary Care Provider [phone] Encounter Details Date Type Department Care Team (Late st Contact Info) Description 01/04/2025 Telephone [facility] MEDICINE [address] [place], [place] [phone] Raya Pan NP [address] [place], [place] [phone] Social History Tobacco Use Types Packs/Day Years [...] Description 03/17/2025 9:30 AM EDT Office Visit [facility] OPTOMETRY [address] [place] [address] David, Destinee, OD [address] [place] [address] 03/23/2025 9:00 AM EDT Office Visit [facility] ADULT DENTAL [address] [place] [address] Ana Koehler documented as of this encounter Visit Diagnoses Not on filedocumented in this encounter Additional Health Concerns Assessment Noted Time PHQ-9 Depression Total Score: 11 024 9:22 AM EST documented as of this encounter Care Teams Mechanical Door Repairer Relationship Specialty Start Date End Date Raya Pan NP [address] [place] [address] PCP - General Family Medicine 12/18/23 documented as of this encounter
--- OUTSIDE RECORDS SUMMARY | 2025-01-26 07:42 | XMS_ITS | Encounter Summary ---
Author Organization [facility] Address [address] [facility] 7t [place] [address] Care Team Providers Care Grails Web Application Developer Name Role Phone Kim Johnson Primary Care Provider [phone] Raya Pan NP Primary Care Provider [phone] Encounter Details Date Type Department Care Team (Latest Contact Info) Description 03/07/2019 Abstract [facility] CONVERSIONS Dental, Provider, DDS Social History [...] Description 03/17/2025 9:30 AM EDT Office Visit [facility] OPTOMETRY [address] [place] [address] David, Destinee, OD [address] [place] [address] 03/23/2025 9:00 AM EDT Office Visit [facility] ADULT DENTAL [address] [place] [address] Ana Koehler documented as of this encounter Visit Diagnoses Not on filedocumented in this encounter Care Teams Grails Web Application Developer Relationship Specialty Start Date End Date Kim Johnson FNP [address] [place] [address] PCP - General Family Medicine 05/14/22 12/17/23 Raya Pan NP [address] [place] [address] PCP - General Family Medicine 12/18/23 documented as of this encounter
--- OUTSIDE RECORDS SUMMARY | 2025-01-26 07:42 | XMS_ITS | Encounter Summary ---
Author Organization [facility] Address [address] [place] [address] Care Team Providers Care Sales Director Name Role Phone Raya Pan NP Primary Care Provider [phone] Encounter Details Date Type Department Care Team (Late st Contact Info) Description 01/17/2025 Telephone [facility] MEDICINE [address] [place], [place] [phone] Raya Pan NP [address] [place], [place] [phone] Social History Tobacco Use Types Packs/Day Years [...] encounter Miscellaneous Notes * Telephone Encounter - Vale Whatley RN - 01/17/2025 1:28 PM EST T/C to pt via [facility] Wood[employer] Machine Feeder Jose #[id number] per request of pcp to reschedule missed f/u glucose appointment as soon as possible. No answer, v/m left to return call to [place] team nurses. documented in this encounter Plan of Treatment Upcoming Encounters Date Type Department Care Team (Late st Contact Info) Description 03/17/2025 9:30 AM EDT Office Visit [facility] OPTOMETRY [address] [place] [address] David, Destinee, OD [address] [place] [address] 03/23/2025 9:00 AM EDT Office Visit [facility] ADULT DENTAL [address] [place] [address] Ana Koehler documented as of this encounter Visit Diagnoses Not on filedocumented in this encounter Additional Health Concerns Assessment Noted Time PHQ-9 Depression Total Score: 11 024 9:22 AM EST documented as of this encounter Care Teams Sales Director Relationship Specialty Start Date End Date Raya Pan NP [address] [place] [address] PCP - General Family Medicine 12/18/23 documented as of this encounter
--- OUTSIDE RECORDS SUMMARY | 2025-01-26 07:42 | XMS_ITS | Encounter Summary ---
Author Organization [facility] Address [address] [facility] [address] [place] [address] Care Team Providers Care Television Newscast Director Name Role Phone Kim Johnson Primary Care Provider [phone] Raya Pan NP Primary Care Provider [phone] Encounter Details Date Type Department Care Team (Late st Contact Info) Description 06/30/2023 Abstract [facility] ADULT DENTAL [address] [place] [address] Abena Mascorro [address] [place] [address] Social History Tobacco Use Types Packs/Day Years [...] 9:30 AM EDT Office Visit [facility] OPTOMETRY [address] [place] [address] David, Destinee, OD [address] [place] [address] 03/23/2025 9:00 AM EDT Office Visit [facility] ADULT DENTAL [address] [place] [address] Ana Koehler documented as of this encounter Visit Diagnoses Not on filedocumented in this encounter Care Teams Television Newscast Director Relationship Specialty Start Date End Date Kim Johnson FNP [address] [place] [address] PCP - General Family Medicine 05/14/22 12/17/23 Raya Pan NP [address] [place] [address] PCP - General Family Medicine 12/18/23 documented as of this encounter
--- OUTSIDE RECORDS SUMMARY | 2025-01-26 07:42 | XMS_ITS | Encounter Summary ---
Author Organization [facility] Address [address] [facility] 7t [place] [address] Care Team Providers Care Sample Washer Name Role Phone Kim Johnson Primary Care Provider [phone] Raya Pan NP Primary Care Provider [phone] Encounter Details Date Type Department Care Team (Latest Contact Info) Description 10/17/2021 Abstract [facility] CONVERSIONS Dental, Provider, DDS Social [...] Upcoming Encounters Date Type Department Care Team ( st Contact Info) Description 03/17/2025 9:30 AM EDT Office Visit [facility] OPTOMETRY [address] [place] [address] David, Destinee, OD [address] [place] [address] 03/23/2025 9:00 AM EDT Office Visit [facility] ADULT DENTAL [address] [place] [address] Ana Koehler documented as of this encounter Visit Diagnoses Not on filedocumented in this encounter Care Teams Sample Washer Relationship Specialty Start Date End Date AlexKim FNP [address] [place] [address] PCP - General Family Medicine 05/14/22 12/17/23 Raya Pan NP [address] [place] [address] PCP - General Family Medicine 12/18/23 documented as of this encounter
--- OUTSIDE RECORDS SUMMARY | 2025-01-26 07:42 | XMS_ITS | Encounter Summary ---
Author Organization [employer] Address [address] [facility] [address] [place] [address] Care Team Providers Care Foreign Agent Name Role Phone Raya Pan NP Primary Care Provider [phone] Reason for Visit * Reason Onset Date Comments Chart Prep 12/28/2024 Encounter Details Date Type Department Care Team ([facility] st Contact Info) Description 12/28/2024 Telephone [facility] MEDICINE [address] [place], [place] [phone] Alena Vega MA Chart Prep Social History [...] Visit [facility] OPTOMETRY [address] [place] [address] David, Destinee, OD [address] [place] [address] 03/23/2025 9:00 AM EDT Office Visit [facility] ADULT DENTAL [address] [place] [address] Ana Koehler documented as of this encounter Visit Diagnoses Not on filedocumented in this encounter Additional Health Concerns Assessment Noted Time PHQ-9 Depression Total Score: 11 024 9:22 AM EST documented as of this encounter Care Teams Foreign Agent Relationship Specialty Start Date End Date Raya Pan NP [address] [place] [address] PCP - General Family Medicine 12/18/23 documented as of this encounter
[2025-01-26 07:48] LABS: Glucose, Whole Blood 299 mg/dL (60-115)
== END 2025-01-26 08:24 | disposition home or self-care (01) ==
LOC: HO.ENCR 07:39
PROVIDERS: PCP Nurse Practitioner Family; Visit Provider Student in an Organized Health Care Education/Training Program
DX: E11.65 Type 2 diabetes mellitus with hyperglycemia (principal); Z79.4 Long term (current) use of insulin; E78.2 Mixed hyperlipidemia
CPT/HCPCS: 99214

== ENCOUNTER → 2025-01-26 07:38 | Outpatient (BNVA) | payer MEDICAID, SELFPAY | PROVIDERS: PCP Nurse Practitioner Family; Visit Provider Student in an Organized Health Care Education/Training Program | DX: E11.65 Type 2 diabetes mellitus with hyperglycemia (principal); E78.2 Mixed hyperlipidemia; Z79.4 Long term (current) use of insulin | CPT/HCPCS: 82947; 99212 ==

== ENCOUNTER 2025-01-30 08:05 | Outpatient (AMB) | payer MEDICAID, SELFPAY ==
--- OUTSIDE RECORDS SUMMARY | 2025-01-30 08:09 | XMS_ITS | Encounter Summary ---
Author Organization [employer] [facility] Address [address] [facility] 7[address] [place] [address] Care Team Providers Care Straight Knife Cutter Machine Name Role Phone Kim Johnson WILD LIFE PHOTOGRAPHER Primary Care Provider [phone] Raya Pan NP Primary Care Provider [phone] Encounter Details Date Type Department Care Team (Late st Contact Info) Description 09/25/2023 Abstract [facility] ADULT DENTAL [address] [place] [address] Kate Mejia DDS [address] [place] [address] Social History Tobacco Use Types Packs/Day Years [...] Description 03/17/2025 9:30 AM EDT Office Visit [facility] OPTOMETRY [address] [place] [address] David, Destinee, OD [address] [place] [address] 03/23/2025 9:00 AM EDT Office Visit [facility] ADULT DENTAL [address] [place] [address] Ana Koehler documented as of this encounter Visit Diagnoses Not on filedocumented in this encounter Care Teams Straight Knife Cutter Machine Relationship Specialty Start Date End Date Kim Johnson GLORIA 230 [place] [address] PCP - General Family Medicine 05/14/22 12/17/23 Raya Pan NP [address] [place] [address] PCP - General Family Medicine 12/18/23 documented as of this encounter
--- OUTSIDE RECORDS SUMMARY | 2025-01-30 08:10 | XMS_ITS | Encounter Summary ---
Author Organization [employer] [facility] Address [address] [facility] 7t [place] [address] Care Team Providers Care Injection Molding Machine Offbearer Name Role Phone Kim Johnson Primary Care Provider Raya Pan NP Primary Care Provider [phone] Encounter Details Date Type Department Care Team (Latest Contact Info) Description 10/17/2021 Abstract [facility] CONVERSIONS Dental, Provider, DDS Social [...] 03/17/2025 9:30 AM EDT Office Visit [facility] OPTOMETRY [address] [place] [address] David, Destinee, OD [address] [place] [address] 03/23/2025 9:00 AM EDT Office Visit [facility] ADULT DENTAL [address] [place] [address] Ana Koehler documented as of this encounter Visit Diagnoses Not on filedocumented in this encounter Care Teams Injection Molding Machine Offbearer Relationship Specialty Start Date End Date AlexKim FNP [address] [place] [address] PCP - General Family Medicine 05/14/22 12/17/23 Raya Pan NP [address] [place] [address] PCP - General Family Medicine 12/18/23 documented as of this encounter
--- OUTSIDE RECORDS SUMMARY | 2025-01-30 08:10 | XMS_ITS | Encounter Summary ---
Author Organization [employer] [facility] Address [address] [place] [address] Care Team Providers Care Comfort Station Attendant Name Role Phone Raya Pan NP Primary Care Provider [phone] Encounter Details Date Type Department Care Team (Late st Contact Info) Description 01/17/2025 Telephone [facility] MEDICINE [address] [place], [place] [phone] Raya Pan NP [address] [place], [place] [phone] Social History Tobacco Use Types Packs/Day Years [...] 1:28 PM EST T/C to pt via [facility] Humane Agent Jose #[id number] per request of pcp to reschedule missed f/u glucose appointment as soon as possible. No answer, v/m left to return call to [place] team nurses. documented in this encounter Plan of Treatment Upcoming Encounters Date Type Department Care Team (Late st Contact Info) Description 03/17/2025 9:30 AM EDT Office Visit [facility] OPTOMETRY [address] [place] [address] David, Destinee, OD [address] [place] [address] 03/23/2025 9:00 AM EDT Office Visit [facility] ADULT DENTAL [address] [place] [address] Ana Koehler documented as of this encounter Visit Diagnoses Not on filedocumented in this encounter Additional Health Concerns Assessment Noted Time PHQ-9 Depression Total Score: 11 024 9:22 AM EST documented as of this encounter Care Teams Comfort Station Attendant Relationship Specialty Start Date End Date Raya Pan NP [address] [place] [address] PCP - General Family Medicine 12/18/23 documented as of this encounter
--- OUTSIDE RECORDS SUMMARY | 2025-01-30 08:10 | XMS_ITS | Encounter Summary ---
Author Organization [employer] [facility] Address [address] [facility] [address] [address] Care Team Providers Care Foster Winder Name Role Phone Kim Johnson Primary Care Provider [phone] Raya Pan NP Primary Care Provider [phone] Encounter Details Date Type Department Care Team (Late st Contact Info) Description 06/30/2023 Abstract [facility] ADULT DENTAL [address] [place] [address] Abena Mascorro [address] [place] [address] Social History Tobacco Use Types Packs/Day Years [...] Description 03/17/2025 9:30 AM EDT Office Visit [facility] OPTOMETRY [address] [place] [address] David, Destinee, OD [address] [place] [address] 03/23/2025 9:00 AM EDT Office Visit [facility] ADULT DENTAL [address] [place] [address] Ana Koehler documented as of this encounter Visit Diagnoses Not on filedocumented in this encounter Care Teams Foster Winder Relationship Specialty Start Date End Date Kim Johnson FNP 230 [place] [address] PCP - General Family Medicine 05/14/22 12/17/23 Raya Pan NP [address] [place] [address] PCP - General Family Medicine 12/18/23 documented as of this encounter
--- OUTSIDE RECORDS SUMMARY | 2025-01-30 08:10 | XMS_ITS | Clinical Summary ---
Author Organization [employer] Address [address] [facility] 7t [place] [address] Care Team Providers Care Continuous Improvement Engineer Name Role Phone Raya Pan NP Primary Care Provider [phone] Allergies Active Allergy Reactions Criticality Noted Date [...] Encounters Date Type Department Care Team Description 01/27/2025 Population Health Risk Score [facility] (C3) Department [address] [phone] Provider, Population Health Generic 01/17/2025 Telephone [facility] MEDICINE [address] [place] [address] Raya Pan NP 01/04/2025 Telephone [facility] MEDICINE [address] [place] [address] Raya Pan NP 12/28/[address] [address] Alena Vega MA Chart Prep 12/26/[address] [address] Alena Vega MA appointment for results 12/23/2024 10:30 AM EST Office Visit [address] [address] Raya Pan NP Hair loss (Primary Dx); Dietary counseling; Exercise counseling; Tinea pedis of right foot; Pain due to onychomycosis of toenail of right foot; 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[facility]) 12/20/2024 Orders Only GENERIC EXTERNAL DATA DEPARTMENT Provider, Generic External Data 12/13/[address] [address] Alena Vega MA Chart Prep 11/30/[address] [address] Alena Vega MA Chart Prep 11/21/2024 9:00 AM EST Office Visit [facility] ADULT DENTAL [address] [place] [phone] Kate Mejia, EMILIE Dental plaque (Primary Dx) 11/21/2024 Refill [facility] MEDICINE [address] [place] [address] Raya Pan NP from Last 3 Months [...] Description 03/17/2025 9:30 AM EDT Office Visit [facility] OPTOMETRY [address] [place] [address] David, Destinee, OD [address] [place] [address] 03/23/2025 9:00 AM EDT Office Visit [facility] ADULT DENTAL [address] [place] [address] Ana Koehler Health Maintenance Due Date Last [...] Associated Diagnosis Comments GLUCOSE, WHOLE BLOOD Routine 01/26/2025 7:44 AM EDT MR BRAIN W AND WO CONTRAST Routine [...] Maintenance Results * (ABNORMAL) Glucose, Whole Blood (01/26/2025 7:44 AM EDT) Only the most recent of2 resultswithin the time period is included. Glucose, Whole Blood 299(H) 60 - 115 mg/dL [facility] Comment:METER #: [id number] Testing performed in the Endocrinology Department [address] , [address], [place] SRIVASTAVA. 01/26/2025 7:44 AM EDT 01/26/2025 7:48 AM EDT us Generic External Data Provider LAB BLOOD ORDERAB LES Final Result Performing Organization Address City/State/[facility] Co de Phone Number [facility] [address] [place] [address] [phone] * Mr Brain w/ and w/o Contrast (01/15/2025 3:31 PM EST) Anatomical Region Laterality Modality Brain Magnetic Resonan ce 01/15/2025 3:31 PM EST Narrative 01/15/2025 3:33 PM EST ? [facility] ?[address] ?[place] [address] ? Magnetic Resonance Report ? Signed ? Patient: Stephanie Tracy,Kendra ?MR# ?? : [id number] ? : 1980 ?Acct:[id number] ? Age/Sex: 44 / F ?ADM Date: 03/02/25 ? Loc: HO.MRI ? Attending Dr: Mia Tristan MD ? Ordering Physician: Mia Tristan MD ?? Date of Service: 01/15/25 ?? Procedure(s): MR head/brain wo/w con ?? Accession Number(s): [id number] ? cc: Raya Pan NP; Mia Tristan [...] DD/ 1531 ? TD/TT: 01/15/25 1531 ? Cleaning And Maintenance Worker: ? Procedure Note Alonzo Garcia - 01/15/[address] [address] Magnetic Resonance Report Signed Patient: Stephanie YeyoMellissa srivastava [facility]# : [id number] : 1980Acct:[id number] Age/Sex: 44 / FADM Date: 01/15/25 Loc: HO.MRI Attending Dr: Mia Tristan MD Ordering Physician: Mia Tristan MD Date of Service: 01/15/25 Procedure(s): MR head/brain wo/w con Accession Number(s): [id number] cc: Raya Pan PULVERIZER MILL OPERATOR; Mia Tristan MD CLINICAL HISTORY: D35.2 - [...] Tripathi MD in OV> 01/15/25 1532 DD/ 1531 TD/TT: 01/15/25 1531 Cleaning And Maintenance Worker: [facility] External Provider IMG MRI PROCEDURES Edited Result - Final * Cortisol Random (12/26/2024 8:49 AM EST) Only the most recent of2 resultswithin the time period is included. Pathologist [facility] Cortisol Random 2.3 ug/dL [facility] Comment:Reference Range*: Be fore 10 am 6.2-19.4 ug/dL After 5 pm 2.3-11.9 ug/dL*Please interpret above results accordingly.This test was performed using the [facility] chemiluminescentmethod. Values obtained from different assay methods cannotbe used interchangeably.Patients receiving fludrocortisone, prednisolone orprednisone may show artificially elevated cortisol valuesdue to cross-reactivity. 12/26/2024 8:49 AM EST 12/26/2024 8:49 AM EST us Generic External Data Provider LAB BLOOD ORDERAB LES Final Result [facility] [address] [place] [phone] * (ABNORMAL) CBC auto differential (12/26/2024 8:49 AM EST) Pathologist [facility] White Blood Count 6.3 4.8 - 10.8 X10*3/uL [facility] Red Blood Count 4.70 4.20 - 5.50 X10*6/uL [facility] Hemoglobin 13.6 12.0 - 16.0 g/dl [facility] Hematocrit 39.7 37.0 - 47.0 % [facility] Mean Corpuscular Volume 84.5 80.0 - 98.0 fL [facility] Mean Corpuscular Hemoglobin 28.9 27.0 - 33.0 pg [facility] Mean Corpuscular HGB Conc 34.3 31.0 - 35.0 g/dl [facility] Red Cell Distribution Width 13.2 11.0 - 16.0 % [facility] Platelet Count 146(L) 160 - 400 X10*3/uL [facility] Mean Platelet Volume 12.1 9.4 - 12.3 fL [facility] Neutrophils Percent Auto 68.2 45 - 73 % [facility] Imm Gran Pct Auto 0.6(H) 0.0 - 0.4 % [facility] Lymphocytes Percent Auto 25.0 20 - 40 % [facility] Monocytes Percent Auto 5.6 2 - 11 % [facility] Eosinophils Percent Auto 0.3 0 - 4 % [facility] Basophils Percent Auto 0.3 0 - 2 % [facility] NRBC Pct Auto 0.0 0.0 - 0.2 /100WBC [facility] Neutrophils Absolute Auto 4.3 2.0 - 8.3 x10*3/uL [facility] Imm Gran Abs Auto 0.04(H) 0.00 - 0.03 X10*3/uL [facility] Lymphocytes Absolute Auto 1.6 1.2 - 4.9 X10*3/uL [facility] Monocytes Absolute Auto 0.4 0.1 - 1.2 X10*3/uL [facility] Eosinophils Absolute Auto 0.0 0.0 - 0.4 X10*3/uL [facility] Basophils Absolute Auto 0.0 0.0 - 0.2 X10*3/uL [facility] NRBC Abs Auto 0.000 0.0 - 0.012 X10*3/uL [facility] Blood Venous blood specimen / Unknown 12/26/2024 8:49 AM EST 12/26/2024 9:05 AM EST us Raya Pan PULVERIZER MILL OPERATOR LAB BLOOD ORDERABLES Final Resul t [facility] [address] [place], [place] [phone] * Iron And Total Iron Binding Capacity (12/26/2024 8:49 AM EST) Iron 48 30 - 160 mcg/dL [facility] Total Iron Binding Capacity 321 228 - 428 mcg/dL [facility] Percent Iron Saturation 15 15 - 50 % [facility] Unsaturated Iron Binding 273 ug/dL [facility] Blood Venous blood specimen / Unknown 12/26/2024 8:49 AM EST 12/26/2024 8:49 AM EST us Raya Pan NP LAB BLOOD ORDERABLES Final Resul t Performing Organization Address [facility]/ZIP Co de Phone Number [facility] [address] [place] [phone] * DHEA Sulfate (12/26/2024 8:49 AM EST) Only the most recent of2 resultswithin the time period is included. DHEA Sulfate 19 15 - 205 mcg/dL [facility] Comment:THIS TEST WAS PERFOR MED AT:[employer] [address] [id number] HERNANDEZ MD 12/26/2024 8:49 AM EST 12/26/2024 8:49 AM EST us Generic External Data Provider LAB BLOOD ORDERAB LES Final Result Performing Organization Address [facility] de Phone Number [facility] [address] [place] [phone] * ACTH, Plasma (12/26/2024 8:49 AM EST) Only the most recent of2 resultswithin the time period is included. ACTH, Plasma 15 6 - 50 pg/mL [facility] Comment:Reference range appl ies only to specimens collectedbetween 7am-10am.THIS TEST WAS PERFORMED AT:[employer]/[id number] [place] [address]RLTIXTSSRAVANI SLAUGHTER MD,PHD 12/26/2024 8:49 AM EST 12/26/2024 8:49 AM EST us Generic External Data Provider LAB BLOOD ORDERAB LES Final Result Performing Organization Address City/[facility]/ZIP Co de Phone Number [facility] [address] [place] [phone] * TSH (12/26/2024 8:49 AM EST) Only the most recent of2 resultswithin the time period is included. Thyroid Stimulating Hormone 1.75 0.32 - 4.0 uIU/mL [facility] Comment:TSH 3rd Generation ( [facility]) 12/26/2024 8:49 AM EST 12/26/2024 8:49 AM EST Generic External Data Provider LAB BLOOD ORDERAB LES Final Result Performing Organization Address City/[facility]/ZIP Co de Phone Number [facility] [address] [place] [phone] * T4, Free (12/26/2024 8:49 AM EST) Only the most recent of2 resultswithin the time period is included. Free T4 (Free Thyroxine) 1.05 0.71 - 1.85 ng/dL [facility] 12/26/2024 8:49 AM EST 12/26/2024 8:49 AM EST Generic External Data Provider LAB BLOOD ORDERAB LES Final Result Performing Organization Address City/[facility]/ZIP Co de Phone Number [facility] [address] [place] [phone] * (ABNORMAL) Hemoglobin A1c (12/26/2024 8:49 AM EST) Hemoglobin A1c 12.9(H) <6.0 % [facility] Comment:Hemoglobin A1C Refer ence Range Adults: 4.8 - 6.0 % Non diabetic: < 6.0 % Goal: < 7.0 %Additional Action Suggested: > 8.0 %Note: Hemoglobin A1c results are invalid for patients with abnormal amounts of HbF. Blood transfusions may impact the HbA1c concentration in the patient sample. Estimated Average Glucose 324 mg/dL [facility] Comment:eAG = Estimated ave rage glucose which is %A1C expressed asaverage glucose, using the formula of the U1P-MsebfqzTqgulrm Glucose study (ADAG), Diabetes Care, Vol.31,#8,2007 Blood Venous blood specimen / Unknown 12/26/2024 8:49 AM EST 12/26/2024 8:49 AM EST us Raya Pan PULVERIZER MILL OPERATOR LAB BLOOD ORDERABLES Final Resul t Performing Organization Address [facility] Co de Phone Number [facility] [address] [place] [phone] * LH (12/26/2024 8:49 AM EST) Only the most recent of2 resultswithin the time period is included. Lutenizing Hormone 21.0 mIU/mL [facility] Comment:Reference Range Foll icular Phase 1.9-12.5 Mid-Cycle Peak 8.7-76.3 Luteal Phase 0.5-16.9 Postmenopausal 10.0-54.7THIS TEST WAS PERFORMED AT:[employer] [place] [phone] HERNANDEZ MD 12/26/2024 8:49 AM EST 12/26/2024 8:49 AM EST us Generic External Data Provider LAB BLOOD ORDERAB LES Final Result Performing Organization Address [facility] de Phone Number [facility] [address] [place] [phone] * FSH (12/26/2024 8:49 AM EST) Only the most recent of2 resultswithin the time period is included. Follicle Stimulating Hormone 9.5 mIU/mL [facility] Comment:Reference Range Foll icular Phase 2.5-10.2 Mid-cycle Peak 3.1-17.7 Luteal Phase 1.5- 9.1 Postmenopausal 23.0-116.3THIS TEST WAS PERFORMED AT:[facility] [place] [phone] HERNANDEZ MD 12/26/2024 8:49 AM EST 12/26/2024 8:49 AM EST us Generic External Data Provider LAB BLOOD ORDERAB LES Final Result [facility] [address] [place] [phone] * (ABNORMAL) Comprehensive Metabolic Panel (12/26/2024 8:49 AM EST) Sodium 137 135 - 145 mmol/L [facility] Potassium 3.9 3.3 - 5.1 mmol/L [facility] Chloride 104 96 - 108 mmol/L [facility] Carbon Dioxide 24 22 - 29 mmol/L [facility] Anion Gap 13 12 - 20 [facility] Urea Nitrogen (BUN) 15 9 - 16 mg/dL [facility] Creatinine, Serum 0.67 0.5 - 1.4 mg/dL [facility] Estimated Glomerular Filt Rate >60 [facility] Comment:Chronic Kidney Disea se: Estimated GFR < 60 mL/min/1.56r2Ilgyhi Kidney Disease: Estimated GFR < 15 mL/min/1.73m2 Glucose 328(H) 60 - 115 mg/dL [facility] Calcium 9.3 8.4 - 10.2 mg/dL [facility] Bilirubin, Total 0.5 0.0 - 1.0 mg/dL [facility] Aspartate Amino Transferase 82(H) 5 - 31 U/L [facility] Alanine Aminotransferase 170(H) 0 - 31 U/L [facility] Total Protein 7.7 6.5 - 8.0 g/dL [facility] Albumin Level 4.0 3.5 - 5.0 g/dL [facility] Alkaline Phosphatase 149(H) 39 - 117 U/L [facility] Blood Venous blood specimen / Unknown 12/26/2024 8:49 AM EST 12/26/2024 8:49 AM EST us Raya Radhaguerda PULVERIZER MILL OPERATOR LAB BLOOD ORDERABLES Final Resul t Performing Organization Address [facility] de Phone Number [facility] [address] [place] [phone] * Alpha Subunit (12/20/2024 8:53 AM EST) Alpha Subunit 0.2 ng/mL [facility] Comment:Reference Range for Alpha Subunit:Premenopausal Females: 0.1-0.6 ng/mLPostmenopausal Females: 0.1-1.5 ng/mLPregnancy (1st and 2nd Trimesters): 35.0-186.0 ng/mLHypothyroidism: 0.2-3.2 ng/mLThis test measures the free alpha subunit that is common toLH, FSH, TSH and hCG. These hormones are comprised ofidentical alpha subunits and unique beta subunits thatconfer biological specificity.This test was developed and its analytical performancecharacteristics have been determined by sones.It has not been cleared or approved by FDA. This assay hasbeen validated pursuant to the CLIA regulations and is usedfor clinical purposes.THIS TEST WAS PERFORMED AT:[employer] [id number] [place] [address]WHOHXLEVON FORTE MD,PHD,JOSHUA 12/20/2024 8:53 AM EST 12/20/2024 8:53 AM EST us Generic External Data Provider LAB BLOOD ORDERAB LES Final Result Performing Organization Address [facility] Co de Phone Number [facility] [address] [place] [phone] * Prolactin, Dilution Study (12/20/2024 8:53 AM EST) Prolactin, Undiluted 20.7 ng/mL [facility] Prolactin, Diluted SEE NOTE ng/mL [facility] Comment:Result confirmed by 1:100 dilution. No high dosehook effect detected. Reference Range Females Non- 3.0-30.0 10.0-209.0 Postmenopausal 2.0-20.0Prolactin dilution studies are done to determine ifthere is a high-dose hook effect (i.e. a non-linearassay response due to a very high concentration ofProlactin). This is reported to occur at Prolactinconcentrations at or above 30,000 ng/mL.This test is not recommended for identifyingmacroprolactin. [facility], Prolactin, Total and Monomeric is therecommended test (Order code [id number]).THIS TEST WAS PERFORMED AT:[employer] [address] [phone] HERNANDEZ MD 12/20/2024 8:53 AM EST 12/20/2024 8:53 AM EST Generic External Data Provider LAB BLOOD ORDERAB LES Final Result Performing Organization Address [facility] de [facility] [address] [place] [phone] * Prolactin (12/20/2024 8:53 AM EST) Prolactin [facility] Comment:DUPLICATE 12/20/2024 8:53 AM EST 12/20/2024 8:53 AM EST Generic External Data Provider LAB BLOOD ORDERAB LES Final Result Performing Organization Address [facility] de [facility] Number [facility] [address] [place] [phone] * IGF-1, LC/MS (12/20/2024 8:53 AM EST) IGF 1, LC/MS 73 52 - 328 ng/mL [facility] Z Score (Male) [facility] Z Score (Female) -1.3 -2.0 - 2.0 SD [facility] Comment:This test was develo ped and its analytical performancecharacteristics have been determined by sones.It has not been cleared or approved by FDA. This assay hasbeen validated pursuant to the CLIA regulations and is usedfor clinical purposes.THIS TEST WAS PERFORMED AT:[employer] [id number] [place] [address]RJIDCLEVON FORTE MD,PHD,JOSHUA 12/20/2024 8:53 AM EST 12/20/2024 8:53 AM EST us Generic External Data Provider LAB BLOOD ORDERAB LES Final Result [facility] [address] [place] [phone] * Growth Hormone (GH) (12/20/2024 8:53 AM EST) Growth Hormone 0.2 < OR = 7.1 ng/mL [facility] Comment: Because of a pulsatile [...] or = 10.0 ng/mLTHIS TEST WAS PERFORMED AT:[employer] [address] ??[phone] HERNANDEZ MD 12/20/2024 8:53 AM EST 12/20/2024 8:53 AM EST Generic External Data Provider LAB BLOOD ORDERAB LES Final Result Performing Organization Address [facility] Co de Phone Number [facility] [address] [place] [phone] [phone] * Estradiol (12/20/2024 8:53 AM EST) Pathologist [facility] Estradiol Ultra Sensitive 45 pg/mL [facility] Comment:Female Reference Ran ges for Estradiol, Ultrasensitive (pg/mL): Follicular Phase: 39-375 Luteal Phase: 48-440 Postmenopausal Phase: < or = 10This test was developed and its analytical performancecharacteristics have been determined by sones.It has not been cleared or approved by FDA. This assay hasbeen validated pursuant to the CLIA regulations and is usedfor clinical purposes.THIS TEST WAS PERFORMED AT:[employer] [id number] [facility] [place] [address]IMBKLLEVON FORTE MD,PHD,JOSHUA 12/20/2024 8:53 AM EST 12/20/2024 8:53 AM EST [facility] External Data Provider LAB BLOOD ORDERAB LES Final Result Performing Organization Address [facility] Co de Phone Number [facility] [address] [place] [phone] [phone] * HEPATITIS C AB W/REFL TO HCV RNA, QN, PCR (12/23/2021 10:03 AM EST) Pathologist [facility] HEPATITIS C ANTIBODY NON-REACT VERONA NON-REACT VERONA [facility] INDEX 0.01 <1.00 [facility] Comment: ?? HCV antibody was non-reactive. There is no laboratory ?? evidence of HCV infection. ?? In most cases, no further action is required. However, if recent HCV exposure is suspected, a test for HCV RNA (test code 53172) is suggested. ?? For additional information please refer to http://SocietyOne.AudioCompass/faq/TFZ49x5 (This link is being provided for informational/ educational purposes only.) ?? 12/23/2021 10:0 3 AM EST Isi Lind CNM HISTORICAL/NON ORDERABLE LABS Final Result Performing Organization Address [facility] Phone Number [facility] [address] [place] [address], * HIV 1/2 ANTIGEN/ANTIBODY,FOURTH GENERATION W/RFL (12/23/2021 10:03 AM EST) Pathologist [facility] HIV-1/2 ANTIGEN AND ANTIBODIES, 4TH GENERATION W/ REFLEX NON-REACT VERONA NON-REACT VERONA [facility] Comment: HIV-1 antigen and HIV-1/HIV-2 [...] ? For additional information please refer to http://SocietyOne.AudioCompass/faq/WFZ059 (This link is being provided for informational/ educational purposes only.) ? The performance of this assay has not been clinically validated in patients less than 2 years old. ?? 12/23/2021 10:0 3 AM EST Isi OBREGON LAB BLOOD ORDERABLES Melvina l Result Performing Organization Address [facility] Phone Number [facility] [address] [place] [address], * THINPREP TIS PAP AND HPV mRNA E6/E7, CT/NG, TRICH (12/23/2021 9:16 AM EST) Chlamydia trachomatis RNA, TMA, Urogenital NOT DETECTED NOT DETECTED [facility] Clinical Information: None given [facility] COMMENT SEE COMMENT [facility] Comment: The analytical performance characteristics of this assay, when used to test SurePath(TM) specimens have been determined by sones. The modifications have not been cleared or approved by the FDA. This assay has been validated pursuant to the CLIA regulations and is used for clinical purposes. ?? For additional information, please refer to https://SocietyOne.AudioCompass/faq/TIL754 (This link is being provided for information/ [...] has been evaluated with computer assisted technology. [facility] Senior Compensation Consultant: SEE COMMENT [facility] Comment: KALIE GARCIA(ASCP) CT screening location: [address] ??[phone] HPV nRNA E6/E7 Not Detected Not Detected [facility] Comment: Methodology: Candy Mixer-Mediated Amplification This assay detects E6/E7 viral messenger RNA (mRNA) from 14 high-risk HPV types (16,18,31,33,35,39,45,51,52,56,58,59,66,68). ? The analytical performance characteristics of this assay have been determined by sones. The modifications have not been cleared or approved by the FDA. This assay has been validated pursuant to the CLIA regulations and is used for clinical purposes. ?? For additional information, please refer to http://SocietyOne.AudioCompass/faq/SPQ487z6 (This link if provided for information/ educational purposes only.) Interpretation/Re sult: Negative for intraepithelial lesion or malignancy. [facility] LMP: 12/09/2021 [facility] Neisseria gonorrhoeae RNA, TMA, Urogenital [...] of this assay have been determined by sones. The modifications have not been cleared or approved by the FDA. This assay has been validated pursuant to the CLIA regulations and is used for clinical purposes. ?? For additional information, please refer to http://education.AudioCompass/ faq/Trichomonastma (This link is being provided for information/ educational purposes only.) ?? 12/23/2021 9:16 AM EST Isi OBREGON LAB PATHOLOGY ORDERABLES Final Result [facility] [address] * Pap Smear (12/23/2021 12:00 AM EST) Swab Isi OBREGON LAB CYTOLOGY ORDERABLES F inal Result [facility] [address] [place] [address], [place] [phone] from Last 3 Months or Most Recently Relevant to Health Maintenance Insurance [employer] FULL [facility] STANDARD DENTAL-[facility] [address] Care Teams Continuous Improvement Engineer Relationship Specialty Start Date End Date Raya Pan NP [address] [place] [address] PCP - General Family Medicine 12/18/23
--- OUTSIDE RECORDS SUMMARY | 2025-01-30 08:10 | XMS_ITS | Encounter Summary ---
Author Organization [facility] Address [address] [place] [address] Care Team Providers Care Tumbler Dyeing Machine Operator Name Role Phone Raya Pan NP Primary Care Provider [phone] Encounter Details Date Type Department Care Team (Late st Contact Info) Description 01/04/2025 Telephone [facility] MEDICINE [address] [place], [place] [phone] Raya Pan NP [address] [place], [place] [phone] Social History Tobacco Use Types Packs/Day Years [...] Description 03/17/2025 9:30 AM EDT Office Visit [facility] OPTOMETRY [address] [place] [address] David, Destinee, OD [address] [place] [address] 03/23/2025 9:00 AM EDT Office Visit [facility] ADULT DENTAL [address] [place] [address] Ana Koehler documented as of this encounter Visit Diagnoses Not on filedocumented in this encounter Additional Health Concerns Assessment Noted Time PHQ-9 Depression Total Score: 11 024 9:22 AM EST documented as of this encounter Care Teams Tumbler Dyeing Machine Operator Relationship Specialty Start Date End Date Raya Pan NP [address] [place] [address] PCP - General Family Medicine 12/18/23 documented as of this encounter
--- OUTSIDE RECORDS SUMMARY | 2025-01-30 08:10 | XMS_ITS | Encounter Summary ---
Author Organization [facility] Address [address] [place] [address] Care Team Providers Care Soccer Player Name Role Phone Kim Johnson Primary Care Provider [phone] Raya Pan NP Primary Care Provider [phone] Encounter Details Date Type Department Care Team (Latest Contact Info) Description 03/07/[address] [facility] CONVERSIONS [...] [facility] OPTOMETRY [address] [place] [address] David, Destinee, OD [address] [place] [address] 03/23/2025 9:00 AM EDT Office Visit [facility] ADULT DENTAL [address] [place] [address] Ana Koehler documented as of this encounter Visit Diagnoses Not on filedocumented in this encounter Care Teams Soccer Player Relationship Specialty Start Date End Date Kim Johnson FNP [address] [place] [address] PCP - General Family Medicine 05/14/22 12/17/23 Raya Pan NP [address] [place] [address] PCP - General Family Medicine 12/18/23 documented as of this encounter
--- OUTSIDE RECORDS SUMMARY | 2025-01-30 08:10 | XMS_ITS | Encounter Summary ---
Author Organization [employer] [facility] Address [address] [place] [address] Care Team Providers Care Fish Bait Picker Name Role Phone MaximRaya RADHA Primary Care Provider [phone] Encounter Details Date Type Department Care Team (Late st Contact Info) Description 01/27/2025 Population Health Risk Score [facility] ([facility]) Department [address] [facility] [address] [place] [phone] Provider, Population Health Generic Social History Tobacco Use Types Packs/Day Years [...] your housing situation today? I have mark morgna 09/29/[address] you li [...] [facility] OPTOMETRY [address] [place] [address] DavidDestinee roman, OD [address] [place] [address] 03/23/2025 9:00 AM EDT Office Visit [facility] ADULT DENTAL [address] [place] [address] Ana Koehler documented as of this encounter Visit Diagnoses Not on filedocumented in this encounter Additional Health Concerns Assessment Noted Time PHQ-9 Depression Total Score: 11 024 9:22 AM EST documented as of this encounter Care Teams Fish Bait Picker Relationship Specialty Start Date End Date Raya Pan NP [address] [place] [address] PCP - General Family Medicine 12/18/23 documented as of this encounter
--- OUTSIDE RECORDS SUMMARY | 2025-01-30 08:10 | XMS_ITS | Encounter Summary ---
Author Organization [facility] Address [address] [place] [address] Care Team Providers Care It Specialist Name Role Phone Maxim Raya RADHA Primary Care Provider Reason for Visit * Reason Onset Date Comments pain from crown 09/09/2024 Encounter Details Date Type Department Care Team ([facility] st Contact Info) Description 09/09/2024 Telephone [facility] ADULT DENTAL [address] [place], [place] [phone] Kate Mejia DDS [address] [place], [place] [phone] pain from crown Social History Tobacco Use [facility] [address] [place] [address] Destinee Hernandez, OD [address] [place] [address] 03/23/2025 9:00 AM EDT Office Visit [facility] ADULT DENTAL [address] [place] [address] Ana Koehler documented as of this encounter Visit Diagnoses Not on filedocumented in this encounter Care Teams It Specialist Relationship Specialty Start Date End Date Raya Pan NP [address] [place] [address] PCP - General Family Medicine 12/18/23 documented as of this encounter
--- NOTE | 2025-01-30 08:59 | A.OFFVIS_ITS ---
Intake Intake Visit Reasons: T2DM Assistant Produce Manager Required: Yes Assistant Produce Manager Language: [place] Citizen Accompanied by: Self / Same As Patient Allergies No Known Allergies Allergy (Verified 01/13/25 07:53) HPI Comprehensive Diabetes Asmnt General Diabetes type undetermined Age of onset 44 Diabetes pertinent visit history endocrinology visit Date of last diabetes education 01/30/25 Comorbidities reports hyperlipidemia History of nephropathy No Microalbuminuria No Proteinuria No History of neuropathy No Followed by parole agent No Wears diabetic shoes No Toenails trimmed by self (Pt has current referral to podiatry) Medications Current medications reviewed, see updated home meds list Long acting insulin treatment details Lantus 8 units daily Uses insulin pump No Past diabetes medications reports other (Trulicity 0.75 mg) side effects: No (D enies n/v, GI side effects after 1st dose) Lifestyle Physical activity functional status independent ambulation Nutrition Dietary counseling other (Carbohydrates) Who buys your food self Who prepares/cooks your food self Self Mgmt What meter brand do you use? Reports Pwintystyle Glucose continuous monitoring comment Margot 3+ Areas of life affected by diabetes family life and finances Insured status medicaid Insurance pays for glucose meter, strips, lancets, diabetes medication and diabetes education Education What would you like to learn about living with diabetes? eat healthy, treat high and low blood sugar and test blood sugar regularly How do you learn best? One-on-One Instruction Patient comprehension yes Defines diabetes in basic terms Nutrition yes States the effect of food on BG levels and Food plate method Monitoring and record keeping yes Describes/demonstrates how to care for equipment and Identifies potential barriers to Diabetes monitoring plan Medication management yes Identifies prescribed diabetes medication, proper dose and frequency Problem solving yes Sets behavior change goals following SMART guidelines Healthy coping yes Recognizes that managing chronic disease requires ongoing adaptation Reducing risks yes Understands A1C blood pressure and Sets realistic/measurable goals for reducing risks Most Recent Diabetes Results: Hemoglobin A1c 6.4 % 10/04/19 Microalb/Creat Ratio 28.4 ug/mg cr (<30) 01/13/25 Cholesterol 244 mg/dL (<200) H 01/13/25 HDL Cholesterol 49 mg/dL (>40) 01/13/25 Triglycerides 120 mg/dL (<150) 01/13/25 Creatinine 0.67 mg/dL (0.5-1.4) 12/26/24 Blood Urea Nitrogen 15 mg/dL (9-16) 12/26/24 Sodium 137 mmol/L (135-145) 12/26/24 Potassium 3.9 mmol/L (3.3-5.1) 12/26/24 Chloride 104 mmol/L (96-108) 12/26/24 Carbon Dioxide 24 mmol/L (22-29) 12/26/24 Calcium 9.3 mg/dL (8.4-10.2) 12/26/24 AST 82 U/L (5-31) H 12/26/24 ALT 170 U/L (0-31) H 12/26/24 Total Protein 7.7 g/dL (6.5-8.0) 12/26/24 Albumin 4.0 g/dL (3.5-5.0) 12/26/24 [facility] Medical History (Updated 01/26/25 @ 08:28 by Mia Tristan MD) HLD (hyperlipidemia) Diabetes mellitus with hyperglycemia Pituitary macroadenoma Surgical History History of bilateral tubal ligation Social History Alcohol intake: never Patient Tobacco Use Status: Never used Tobacco Assessment & Plan Assessment & Plan (1) Diabetes mellitus with hyperglycemia: Code(s): E11.65 - Type 2 diabetes mellitus with hyperglycemia Qualifiers: Diabetes mellitus type: type 2 Diabetes mellitus penitentiary insulin use: with penitentiary use Qualified Code(s): E11.65 - Type 2 diabetes mellitus with hyperglycemia; Z79.4 - ferry terminal agent (current) use of insulin Plan: Diabetes self-management education and support participation record Assessment/scale: 1= needs instructed? 2= needs review? 3= comprehend keep point? 4= demonstrates understanding/ competent? NC= Not Covered Topics Learning Objective: Initial visit Initial or post srvc Initial or post srvc Initial or post srvc Initial or post srvc Initial or post srvc Post srvc Comments Pre Edu-assessment/plan Outcome or reassess Outcome or reassess Outcome or reassess Outcome or reassess Outcome or reassess Outcome or reassess Diabetes pathophysiology 1 Healthy eating 1 Being active 1 Taking medication 1 Monitoring glucose 1 Acute complication Chronic complicated Lifestyle and healthy coping Diabetes distress in support ?Diabetes pathophysiology: ?Defined diabetes med identify own type of diabetes; list 3 options for treating diabetes Healthy eating: ?Described effect of type, amount and ?timing of food on blood glucose; list 3 methods for planning meal Being active: ?State effect of exercise on blood glucose level Taking medication: ?State effect of diabetes medications on diabetes; name diabetes medications taking, action and side effects Monitoring glucose: ?Identify recommended blood glucose targets and personal target Acute complication: ?List symptoms and treatment of hyper and hypoglycemia, DKA, sick day guidelines and guidelines for severe weather or situations of crisis and diabetes supply manage Chronic complication: ?To find the relationship of blood glucose levels to long- term complications of diabetes in screening and preventative measures Lifestyle and healthy coping: ?Described lifestyle and healthy coping strategies to rule out diabetes self-management Diabetes to stress and support: ?Recognize Diabetes to stress and be able to id entified support options Learning objectives: The patient was provided with verbal and written education on the following topics as outlined below. The patient met all learning objectives and was able to verbalize understanding and provide teach back of education topics discussed . The patient was provided with the opportunity to ask questions and all questions were answered. Patient Assessment Assess patient education level/literacy/barriers, patient is [place] Citizen-speaking, recently diagnosed at hot knife cutter visit A1c of 12.9% Patient questions/concerns, ask questions managing glucose her dietary changes What is Diabetes? Pathophysiology How the body produces and uses insulin Identify type of DM Risk factors Signs of Diabetes Brief overview of Diabetes Management Monitoring blood sugar Following a meal plan Regular exercise Maintaining a healthy weight Taking medication as needed Members of the care team (PCP, RN, MA, RD, CDE, hot knife cutter) Blood glucose monitoring When/how often to test Target blood sugar ranges Introduction to Nutrition Importance of healthy diet in managing DM Diet is personalized to individual preference Review patient?s regular diet/food preferences Who prepares meals/does food shopping/ Dining out?/ Barriers? How diet effects glucose Eating 3 balanced meals a day with small, healthy snacks between meals Review food groups Carbohydrates: What is a carbohydrate/Which food/food groups are considered carbohydrates Effect of carbohydrates on blood glucose Portion sizes Reading food labels Basic carb counting (if applicable per nursing assessment) Plate method Meal planning Recommendations: Follow plate method, consistent carbs and read nutritional labels. Smart Goal: Identify foods and current meal plan that contain carbohydrates between now and next visit Educational Materials: The patient was provided with the following written educational materials: Planning Healthy Meals Handout Patient Response to instructions: Comprehension of Instructions: Fair Readiness to make changes: Contemplation How confident they feel about making changes: fair Portions of this note were created using voice recognition software, please excuse any words or phrases that may have been misinterpreted. Patient Instructions: Incluir actividad diaria regular. ADA recomienda 30 minutos de ejercicio 5 d?as a la semana. P?rdida de peso, hable con el PCP o el cardi?logo antes de comenzar un nuevo plan. Mida el nivel de az?car en la sabi seg?n las indicaciones; Ayuno y comida m?s rory de 2hpp. Observe las tendencias en los resultados. Utilice los resultados y eval?e c?mo los alimentos, la actividad f?kaylyn y los medicamentos afectan los resultados de az?car en la sabi. Lleve el gluc?metro o CGM a la pr?xima visita. Conocer los medicamentos para la diabetes, henao acci?n, los efectos secundarios, la eficacia, la toxicidad, la dosis prescrita, el momento y la frecuencia de administraci?n apropiados, el efecto de las dosis olvidadas y retrasadas y las instrucciones de almacenamiento, viaje y seguridad. T?cnicas de resoluci?n de problemas para el seguimiento de episodios de hipo/hiperglucemia y tratamientos. Reducir los comportamientos de reducci?n de riesgos, dejar de fumar, ex?menes regulares de ojos, pies y dentales. Coding Level of Care Code Est Pt Level 1 (08506) Diagnoses Type 2 diabetes mellitus with hyperglycemia, with long-term current use of insulin E11.65; Z79.4 Diabetes mellitus type: type 2 Diabetes mellitus penitentiary insulin use: with penitentiary use
== END 2025-01-30 09:08 | disposition home or self-care (01) ==
LOC: HO.ENCR 08:05
PROVIDERS: PCP Nurse Practitioner Family; Visit Provider Registered Nurse Diabetes Educator
DX: E11.65 Type 2 diabetes mellitus with hyperglycemia (principal); Z79.4 Long term (current) use of insulin

== ENCOUNTER → 2025-01-30 08:05 | Outpatient (BNVA) | payer MEDICAID, SELFPAY | PROVIDERS: PCP Nurse Practitioner Family; Visit Provider Registered Nurse Diabetes Educator | DX: E11.65 Type 2 diabetes mellitus with hyperglycemia (principal); Z79.4 Long term (current) use of insulin | CPT/HCPCS: 99211 ==

== ENCOUNTER 2025-02-09 08:38 | Outpatient (AMB) | payer MEDICAID, SELFPAY ==
--- NOTE | 2025-02-09 08:40 | MHC.AMNUTRGE ---
VS Expanded 02/09/25 08:43 02/09/25 08:50 Height 5 ft 5 ft Weight 127 lb 13.89 oz 128 lb BMI 25.0 25.0 Intake Visit Reasons: T2DM Allergies No Known Allergies Allergy (Verified 01/13/25 07:53) Nutrition Presentation Details: Pt presents for MNT for unspecifed DM food frequency fruits: 0-1/d veg: daily 2 servings at least dairy 2-3 /d fish 0-1x/wk starches 22 serving/d beverages: drinking water or diluted juices with water eoth/smoking:denies physical activity: ADL BS Monitoring Most Recent Diabetes Results: Microalb/Creat Ratio 28.4 ug/mg cr (<30) 01/13/25 Cholesterol 244 mg/dL (<200) H 01/13/25 HDL Cholesterol 49 mg/dL (>40) 01/13/25 Triglycerides 120 mg/dL (<150) 01/13/25 [id number]-Fs.Jeor Equation Height: 5 ft Weight: 128 lb Resting Metabolic Rate: 1155.04 Calculated Activity Level: Moderate Activity Calories Needed to Maintain Weight: 1790.31 [facility] Medical History (Updated 01/26/25 @ 08:28 by Mia Tristan MD) HLD (hyperlipidemia) Diabetes mellitus with hyperglycemia Pituitary macroadenoma Surgical History History of bilateral tubal ligation Social History Alcohol intake: never Patient Tobacco Use Status: Never used Tobacco Assessment & Plan Assessment & Plan (1) Diabetes mellitus with hyperglycemia: Code(s): E11.65 - Type 2 diabetes mellitus with hyperglycemia Category: Medical Qualifiers: Diabetes mellitus type: type 2 Diabetes mellitus senior care insulin use: with senior care use Qualified Code(s): E11.65 - Type 2 diabetes mellitus with hyperglycemia; Z79.4 - intermission coordinator (current) use of insulin Plan: Wt: 58 Kg ( 02/07) Est kcal needs as per MSJ: 1700 (40% carb, 30% protein/fat) Est fluid needs as per 25-30 ml/d: 1700 Est prot per day as per 1 g/kg bw: 60 Recommend fiber intake : 8-10 g per day and gradually increase to 25-28 g per day for women and 35-38 g for men or as tolerated Recommend sodium intake per day : less than 2000 mg Educated patient on: ( R = reviewed V = verbalizes understanding N/R = needs review N/A = not applicable Food sources of carbohydrate, adequate serving sizes and its role in various health conditions: R Differences between complex carbohydrates a simple carbohydrates, role of fiber in diet: R Lean protein sources of foods: R V NR Differences between types of fats and role in diet (mono on saturated fat fatty acids, saturated fatty acids, trans fats): R Food sources of sodium in salt and healthy modifications for heart health in kidney health: R V R/V Vitamins and minerals: R V N/R Healthy plate method concept: R Physical activity: Benefits a precaution: R V N/R Hypoglycemia protocol (rule of 15): R V N/R Dietary prevention of Hyperglycemia: R Patient Instructions: work on follwing helathy plate method, reducing total carb to 30-45 g per meal choose fiber rich foods and keep hydrated Sigue el pmetodo del plato saludable, reduciendo el total carbohidrato de 30-45 g por comida Escoja comidas altas en fibras (lentejas, frutas, maiz/vegetales almidonosos) Incluya lavonne protein en hali meriendas (nueces, huevo , por ejemplo Coding Level of Care Code Nutr Indiv Intake (48988) Diagnoses Type 2 diabetes mellitus with hyperglycemia, with long-term current use of insulin E11.65; Z79.4 Diabetes mellitus type: type 2 Diabetes mellitus extermination inspector insulin use: with senior care use Time Spent (min) 30
[2025-02-09 08:43] VITALS: BMI 25.0
[2025-02-14 13:33] VITALS: BMI 25.0
== END 2025-02-09 09:16 | disposition home or self-care (01) ==
LOC: HO.ENCR 08:38
PROVIDERS: PCP Nurse Practitioner Family; Visit Provider Dietitian, Registered
DX: E11.65 Type 2 diabetes mellitus with hyperglycemia (principal); Z79.4 Long term (current) use of insulin

== ENCOUNTER → 2025-02-09 08:38 | Outpatient (BNVA) | payer MEDICAID, SELFPAY | PROVIDERS: PCP Nurse Practitioner Family; Visit Provider Dietitian, Registered | DX: E11.65 Type 2 diabetes mellitus with hyperglycemia (principal); Z79.4 Long term (current) use of insulin | CPT/HCPCS: 97802 ==

== ENCOUNTER 2025-02-17 07:55 | Outpatient (AMB) | payer MEDICAID, SELFPAY ==
--- NOTE | 2025-02-17 07:57 | A.OFFVIS_ITS ---
Vital Signs 3 02/17/25 08:05 Height 5 ft Weight 133 lb 2.547 oz BMI 26.0 BP 90/68 Blood Pressure Location Rt brachial Position Sitting Pulse 68 Pulse Source Pulse Oximeter Pulse Oximetry (%) 99 Oxygen Delivery Method Room Air Intake Visit Reasons: T2DM Intake Note: Patient presents today for a follow-up on Type 2 Diabetes Mellitus: Last Diabetic eye exam was on: 02/13/2025 negrita Last Podiatry exam was on: Patient does not see a Concierge Most recent HbA1c: 12.9%, 12/26/2024 glucose 157 mg/dl Compensation And Benefits Administrator Name: won [id number] Information Interpreted: non-clinical & clinical Accompanied by: Self / Same As Patient Allergies No Known Allergies Allergy (Verified 02/17/25 08:07) Medication List - Last Reconciled 02/17/25 by Mia Tristan MD atorvastatin 40 mg PO BEDTIME blood sugar diagnostic (FreeStyle Lite Strips) As directed to check blood sugars three times a day type 2 diabetes mellitus with hyperglycemia and long-term insulin use is E11.65 plus Z79.4 blood-glucose meter (FreeStyle Lite Meter kit) As directed to check blood sugars three times a day type 2 diabetes mellitus with hyperglycemia and long-term insulin use is E11.65 plus Z79.4 blood-glucose sensor (FreeStyle Margot 3 Plus Sensor device) As directed every 15 days type 2 diabetes mellitus with hyperglycemia and long-term insulin use is E11.65 plus Z79.4 celecoxib 200 mg PO DAILY cyclobenzaprine 5 mg PO BEDTIME dulaglutide (Trulicity) 0.75 mg (0.5 mL) subcut QWEEK famotidine 20 mg PO BID glucose (Dex4 Glucose) 4 grams PO Q15M PRN hydrocortisone orally 2 times a day; Take 1 tablet in the morning and 0.5 tablet at 2 PM in the afternoon daily ibuprofen 800 mg PO Q8H PRN insulin glargine (Lantus Solostar U-100 Insulin) 8 units (0.08 mL) subcut QAM lancets (FreeStyle Lancets) As directed to check blood sugars thrice a day type 2 diabetes mellitus with hyperglycemia and long-term insulin use is E11.65 plus Z79.4 pen needle, diabetic As directed to inject insulin daily HPI Comments Details: 44-year-old female here today for follow up of type 2 diabetes mellitus. 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 Pituitary incidentaloma and adrenal insufficiency not addressed for today's visit. Type 2 diabetes mellitus History of diabetes Diagnosed Dec 2024 Prior therapy: None Current regimen: insulin Lantus 8 units in AM Trulicity 0.75 mg weekly started 01/25/25 takes it on Thursday fasting today Glucose: 157 mg/dl HgA1C: 12.9% 12/26/24 Denies polyuria, polydipsia currently, says she was having that a few months ago. Weight stable. . Denies any hypoglycemic symptoms. SMBG's glucometer : says she doesnt have the meter , i told her this was prescribed again 01/30/25, she keeps saying she wasnt given the meter Not wearing the sensor today says it caused pain in her arm , did not try the other arm Complications Last Diabetic eye exam: saw 02/15/25, she was told visual coe are intact, no diabetic retinopathy, just some bleeding in 1 eye, I will obtain these records Last Podiatry Visit: Doesn't have one Neuropathy: no symptoms Kidney disease: no history Macrovascular complications: No history of macrovascular complications. Statin: Atorvastatin 40 mg daily started January 2025 VISHNU/ARB: none Exercise: None Active at work but other gamez no Diet control: Most days Breakfast: rice beans and fried chicken tomatoes Some pakoras and samosas sometimes at restaurant Dinner rice and soup No desserts Stopped drinking sodas and juices CDE appointment done 01/30/25, has fup in February Spacecraft Systems Engineer appointment done 02/09/25 He has never had any hospitalizations for hyperglycemia/hypoglycemia. 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 no mass effect on optic chiasm. No dedicated MRI of the pituitary done. 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 ? Easy bruising: yes Proximal muscle weakness: none has uncontrolled DM Nausea: none Vomiting:none Lightheadedness: intermittent Weight: lost 5 lbs in 1 month Labs from 12/20/2024 showed normal thyroid function, undetectable cortisol level, acth of 13, DHEA-S of 29, IGF-1, estradiol level pending. Prolactin level normal 20.7. She is very inconsistent with her history and said that she was having some lightheadedness or dizziness that had already resolved before she started the medication that we had prescribed to her over the phone hydrocortisone 10 mg twice a day. She has lost 5 lb since the last visit. 12/26/2024: after holding the hydrocortisone the afternoon before in the morning off, cortisol level in a.m. was 2.3 with a ACTH of 15. 12/27/2024: Again after holding the hydrocortisone in the afternoon before and the morning of, cortisol level was 0.5 in a.m. at [facility] with ACTH of 3.9 01/15/2025: MRI of the pituitary with and without contrast showed a T1 isointense and a T2 mildly hyperintense, mildly heterogenously enhancing mass measuring 1.6 X 1.2 X 1.5 cm within the sella turcica with the pituitary stalk shifted to the left. Mass abuts the optic chiasm. Cavernous sinuses appear symmetric. No evidence of mass, mass effect or midline shift. Appearance consistent with pituitary macroadenoma. Interval history Continues on hydrocortisone 10 mg in a.m. and 5 mg in the afternoon No vision changes, no eye symptoms No nausea, vomiting , dizziness , lightheadedness. Medical alert bracelet:hasnt bought yet Ophthalmology referral: Has appointment 12/20/2024, per patient visual coe were normal, I do not have these records, have message staff to obtain Neurosurgery referral:Patient scheduled on 03/27/25 @ 12:30. with Dr. Apple Cornejo [facility] [place] Physical exam General: sitting comfortably in no acute distress HEENT: normocephalic/atraumatic, , moist oral mucosa, visual coe grossly intact Neck: supple, Cardiac: normal heart sounds Pulm: normal breath sounds B/L, no added breath sounds Abd: not distended, no tenderness Foot exam: done 01/13/25 Warm, well-perfused, right big toenail has thickening, Intact sensation to monofilament, intact pulses, intact vibration Laboratory Tests 12/20/24 08:53 TSH 1.14 Free T4 1.05 FSH 7.6 Luteinizing Hormone 7.7 Prolactin Undiluted 20.7 DHEA Sulfate 29 Human Growth Hormone 0.2 Random Cortisol < 1.0 ACTH 13 Laboratory Tests 12/20/24 12/26/24 08:53 08:49 Sodium 137 Potassium 3.9 Chloride 104 Carbon Dioxide 24 Anion Gap 13 BUN 15 Creatinine 0.67 Estimated GFR > 60 Alpha Subunit Marker 0.2 TSH 1.14 1.75 Free T4 1.05 1.05 Estradiol Ultra LCMSMS 45 FSH 7.6 9.5 Luteinizing Hormone 7.7 21.0 Prolactin Undiluted 20.7 DHEA Sulfate 29 19 Human Growth Hormone 0.2 Somatomedin-C 73 Somato-C Z-Score Female -1.3 Random Cortisol < 1.0 2.3 ACTH 13 15 Laboratory Tests 12/26/24 01/13/25 01/13/25 08:49 07:57 10:18 Plt Count 146 L Sodium 137 Potassium 3.9 Creatinine 0.67 Estimated GFR > 60 Glucose (Clinic) 325 H Random Glucose 328 H Estimat Average Glucose 324 Hemoglobin A1c % 12.9 H AST 82 H ALT 170 H Alkaline Phosphatase 149 H Albumin 4.0 Triglycerides 120 Cholesterol 244 H LDL Cholesterol, Calc 171 H HDL Cholesterol 49 Urine Creatinine 38.72 Urine Microalbumin 11.0 Microalb/Creat Ratio 28.4 01/26/25 07:44 Plt Count Sodium Potassium Creatinine Estimated GFR Glucose (Clinic) 299 H Random Glucose Estimat Average Glucose Hemoglobin A1c % AST ALT Alkaline Phosphatase Albumin Triglycerides Cholesterol LDL Cholesterol, Calc HDL Cholesterol Urine Creatinine Urine Microalbumin Microalb/Creat Ratio MR brain without contrast. Thin slice imaging through the pituitary gland was obtained. 01/15/25 COMPARISON: None FINDINGS: High-resolution imaging of the pituitary region demonstrates a T1 isointense, T2 mildly hyperintense, FLAIR hyperintense, diffusion restricting, mildly heterogeneously enhancing mass measuring 1.6 x 1.2 x 1.5 cm within the sella turcica. The pituitary stalk is shifted to the left. Neurohypophysis appears normal in position. Mass abuts the optic chiasm. Cavernous sinuses appear symmetric. Flow voids within the carotid siphons normal. There is likely mild expansion of the sella turcica. No abnormal diffusion restriction in the brain parenchyma or extra-axial spaces. No evidence of mass, mass effect or midline shift. No intracranial hemorrhage or abnormal extra-axial fluid collection. No evidence of hydrocephalus. The basilar cisterns are patent. A few scattered foci of T2/FLAIR hyperintensity within the chapman radiata white matter in the frontal lobes bilaterally and in the right temporal lobe. Cerebellar hemispheres and cerebellar vermis are normal. Fourth ventricle is normal. No brainstem abnormality is identified. Intracranial flow voids are patent. The visualized paranasal sinuses and mastoid air-cells are clear. IMPRESSION: 1. Pituitary mass measuring up to 1.6 cm abuts the optic chiasm and shift the pituitary stalk to the left. 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 A1c 12.9% from December 2024. It has been very challenging to stressed with the patient importance of monitoring blood sugars. She said she wore the sensor for a few days, but it caused pain in her arms so she has not been wearing it. Today she is not wearing the sensor. I could not pull up the torres on her phone. 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 I discussed with her that she told me last visit she did not get the meter from her pharmacy and I did prescribe it again, but she seems very lost regarding what happened to it. I stressed to her importance of going in picking of the meter and checking her fingersticks fasting every day and 2 hours after a meal. Also told her to try the other arm for the sensor on bring me some data to next visit. Her fasting blood sugar today is 157 mg/dL these are much more improved numbers done her previous 300s. Plan: -continue insulin Lantus 8 units daily in the morning -continue Trulicity 0.75 mg weekly, denies history of pancreatitis, no alcohol use, no history of gallstones, no family history of medullary thyroid cancer , advised about GI intolerance -check blood sugars daily fasting in a.m. and 2 hours post meal -prescribed freestyle Margot 3 less sensor she has a an iPhone for continuous glucose monitoring given she is going to be on insulin needs, has a an appointment coming up with educator follow up end of February, told her to bring sensor to that visit if she is having trouble with putting it on. -lifestyle modification advised with the avoiding carbs, eliminating any sugars are sugary drinks such as soda isn't juices -150 minutes of exercise advised with 30 minutes of walking daily -saw Ophthalmology 02/15/2025 at [facility] with Dr. Isabel, we will obtain records. -foot exam done 01/13/25, she does not have any symptoms of neuropathy - I had ordered C-peptide and insulin antibodies given her BMI is only 24.4 kg per m2, and she does not have any family history of type 2 diabetes mellitus, evaluating for JONATHAN, these were not drawn with her other labs given how challenging her situation is right now, I will have her do these later to avoid multiple visits to labs. I am not sure why the lab did not draw these with her other labs. -podiatry referral in place (2) HLD (hyperlipidemia): Code(s): E78.5 - Hyperlipidemia, unspecified Category: Medical Qualifiers: Hyperlipidemia type: mixed hyperlipidemia Qualified Code(s): E78.2 - Mixed hyperlipidemia Plan: LDL elevated at 171 mg/dL. Goal LDL less than 70 mg/dL. started atorvatstain 40 mg daily 01/26/25 Plan: - continue atorvastatin 40 mg daily -will plan to repeat lipid panel in 3 months sometime around April 2025 (3) Pituitary macroadenoma: Code(s): D35.2 - Benign neoplasm of pituitary gland Category: Medical Plan: 44-year-old female here today for followup of pituitary macroadenoma. Seen with the help of hatch boss Patient had CT scan of her orbits June 2024 due to ocular pain to rule out orbital cellulitis which showed a macroadenoma of the pituitary gland measuring 1.6 X 1.5 cm. No optic chiasm compression. 01/15/2025: MRI of the pituitary with and without contrast showed a T1 isointense and a T2 mildly hyperintense, mildly heterogenously enhancing mass measuring 1.6 X 1.2 X 1.5 cm within the sella turcica with the pituitary stalk shifted to the left. Mass abuts the optic chiasm. Cavernous sinuses appear symmetric. No evidence of mass, mass effect or midline shift. Appearance consistent with pituitary macroadenoma. Given macroadenoma we decided to evaluate her for both hyper secretion and hypo secretion of the pituitary gland with a full pituitary panel as well as 24 hour urine cortisol levels. She does report some intermittent blurriness, however visual coe grossly intact however given macroadenoma Labs from 12/20/2024 showed normal thyroid function, undetectable cortisol level, acth of 13, DHEA-S of 29, IGF-1, estradiol level pending. Prolactin level normal 20.7. Started on hydrocortisone 10 mg in a.m. and 10 mg in the afternoon. 12/26/2024: after holding the hydrocortisone the afternoon before in the morning off, cortisol level in a.m. was 2.3 with a ACTH of 15. 12/27/2024: Again after holding the hydrocortisone in the afternoon before and the morning of, cortisol level was 0.5 in a.m. at [facility] with ACTH of 3.9 Summarizing her case she has a pituitary macroadenoma 1.6 cm abutting the optic chiasm and is pending appointment with neurosurgery at [facility], with secondary adrenal insufficiency on hydrocortisone, Medical alert bracelet:hasnt bought yet Ophthalmology referral: Saw Ophthalmology 02/15/2025, we will obtain records Neurosurgery referral:Patient scheduled on 03/27/25 @ 12:30. with Dr. Apple Cornejo [facility] [place] Plan: -obtain ophthalmology records -has neurosurgery appointment 03/27/2025, patient given time, date, address and number to confirm address -continue hydrocortisone 10 mg in a.m. and 5 mg in the afternoon -discussed adrenal insufficiency sick rules and emphasized again to obtain a medical bracelet -follow up in 4-5 weeks Plan I spent 45 minutes in reviewing the record, seeing the patient and documenting in the medical record. Patient Instructions: You have an appointment with Dr. Apple Cornejo at [facility] in [place] on 03/27/25 at 12:30. Please make sure you show 30 mins before your appointment time [facility] [address] [place] [address] [address] [place],?[place]?[id number] ? Please call this number above to confirm exact address Please bring meter and phone to next appointment with blood sugar readings supervisory forester your meter from the pharmacy Continue insulin lantus 8 units in morning Continue Trulicity medication Rule of 15 Treatment for Hypoglycemia (Low blood sugar) If your blood glucose is low (70 and below)*, follow the steps below to treat: Eat or drink something from the list below equal to 15 grams of carbohydrate (carb). Rest for 15 minutes Re-check your blood glucose. If it is still low, (below 70), repeat step 1 above. ? If your next meal is more than an hour away, you will need to eat one carbohydrate choice as a snack to keep your blood glucose from going low again. ?If you can't figure out why you have low blood glucose, call your healthcare provider, as your medicine may need to be adjusted. ?Always carry something with you to treat an insulin reaction. Use food from the list below. ? Foods equal to One Carbohydrate Choice (15 grams of carbohydrate): 3 Glucose ?tablets or 4 Dextrose tablets 4 ounces of fruit juice 5-6 ounces (about 1/2 can) of regular soda such as Coke or Pepsi ? 7-8 gummy or regular Life Savers ? 1 Tbsp. of sugar or jelly NOTE: If your blood sugar is less than 50, double the portion above for a total of 30 gm. ?Carbohydrate. ? Follow meal plan of 45-60 g of consistent carbohydrates at 3 meals each day and 15 g of carbohydrate at 1-2 snacks each day. ADRENAL SICK DAY RULE Minor ailments can affect anyone with a steroid-dependent adrenal condition very differently. Things like vomiting, diarrhea, colds and flu could cause an adrenal crisis. It's important that you spot the early symptoms of a bug or cold and adjust your steroid replacement medication. The Sick Day Rules are here to help you. If you're feeling ill or injured follow these rules to keep safe and reduce the chances of an adrenal crisis.?Make sure that you keep taking your medication whatever is going on. An adrenal crisis is serious, uncomfortable and can be life-threatening. What to do Double?your daily hydrocortisone, prednisone or prednisolone dose if: ? You have a temperature of 100.4 degrees or above. ? You get a bad cold, flu, diarrhea or other infection that makes you feel poorly or weak. ? You break a bone or suffer from any similar significant injury. For how long? ? Double your dose for 48-72 hours. If you are feeling better, go back to your usual dose. ? If you don't feel better after 48hrs, continue to double your does and speak to your doctor for more advice. ? If you are prescribed antibiotics, continue to double your dose until you finish the course or feel completely back to normal. I can't keep my medication down 1. If you vomit and bring up your medication within 30 minutes of taking it, take a double dose again immediately. 2. If you bring up the second dose,?inject yourself with 100mg of hydrocortisone?(if this has been prescribed to you) and seek medical advice immediately. 3. If you carry on vomiting, you will become dehydrated Tiene lavonne remi con rebecca Cornejo en el [facility] el 10/20/25 a las 12:30. Por favor, aseg?rese de presentarse 30 minutos antes de henao remi. Neuro[facility]?a del [facility]) [address] [facility] [address] [facility] [address] [place] [address] Tel?fono: [phone] Por favor, llame al n?conner de arriba para confirmar la direcci?n exacta. Por favor, traiga henao medidor y tel?fono a la pr?xima remi con las lecturas de glucosa. Recoja henao medidor en la farmacia. Contin?e con la administraci?n de 8 unidades de insulina Lantus por la ma?daysi. Contin?e con la medicaci?n Trulicity. Tratamiento de la Shannon del 15 para la Hipoglucemia (nivel bajo de az?car en sabi) Si henao nivel de glucosa en sabi es bajo (70 o menos)*, siga los pasos a continuaci?n para tratarlo: Coma o nikole algo de la lista a continuaci?n equivalente a 15 gramos de carbohidratos. Descanse 15 minutos. Vuelva a medir henao nivel de glucosa en sabi. Si sigue bajo (menos de 70), repita el paso 1 anterior. Si henao pr?xima comida es en m?s de lavonne hora, deber? consumir un carbohidrato efe refrigerio para evitar que henao nivel de glucosa en sabi baje de nuevo. Si no puede determinar la causa de henao nivel bajo de glucosa en sabi, llame a henao m?dico, ya que podr?a ser necesario ajustar henao medicaci?n. Lleve siempre consigo algo para tratar lavonne reacci?n a la insulina. Use alimentos de la lista a continuaci?n. Alimentos equivalentes a lavonne opci?n de carbohidratos (15 gramos): 3 tabletas de glucosa o 4 tabletas de dextrosa 113 g de jugo de fruta 140 g (aproximadamente 1/2 ericka) de refresco regular efe Coca-Cola o Pepsi 7-8 gomitas o Life Savers regulares 1 cucharada de az?car o jalea NOTA: Si henao nivel de az?car en sabi es inferior a 50, duplique la porci?n anterior para un total de 30 g de carbohidratos. Siga un plan de alimentaci?n de 45 a 60 g de carbohidratos consistentes en 3 comidas al d?a y 15 g de carbohidratos en 1 o 2 refrigerios al d?a. SHANNON PARA LOS D? DE ENFERMEDAD SUPRARRENAL Las dolencias menores pueden afectar de forma muy diferente a cualquier persona con lavonne afecci?n suprarrenal dependiente de esteroides. S?ntomas efe v?mitos, diarrea, resfriados y gripe pueden causar lavonne crisis suprarrenal. Es importante que detectes los primeros s?ntomas de un resfriado o gripe y ajustes tu medicaci?n de reemplazo de esteroides. Las Reglas para los D?as de Enfermer?a est?n aqu? para ayudarte. Si te sientes enfermo o lesionado, sigue estas reglas para mantenerte seguro y reducir las probabilidades de lavonne crisis suprarrenal. Aseg?rate de seguir tomando tu medicaci?n pase lo que pase. Lavonne crisis suprarrenal es grave, inc?moda y puede poner en peligro la benigno. Qu? hacer Duplique henao dosis diaria de hidrocortisona, prednisona o prednisolona si: ? Tiene fiebre de 38 ?C o m?s. ? Tiene un resfriado esau, gripe, diarrea u otra infecci?n que te lizandro sentir mal o d?clarence. ? Se fractura un hueso o sufre lavonne lesi?n significativa similar. ?Por cu?nto tiempo? ? Duplique la dosis aidan 48-72 horas. Si se siente mejor, vuelva a henao dosis habitual. ? Si no se siente mejor despu?s de 48 horas, contin?e duplicando la dosis y consulte a henao m?dico para obtener m?s consejos. ? Si le recetan antibi?ticos, contin?e duplicando la dosis hasta que termine el tratamiento o se sienta completamente normal. No puedo retener la medicaci?n. 1. Si vomita y vomita la medicaci?n dentro de los 30 minutos posteriores a la reid, tome lavonne dosis doble de inmediato. 2. Si vomita la segunda dosis, iny?ctese 100 mg de hidrocortisona (si se la thomas recetado) y busque atenci?n m?dica de inmediato. 3. Si contin?a vomitando, se deshidratar?. Coding Level of Care Code Est Pt Level 5 (02946) Complex EM visit Add On G2211 Diagnoses Type 2 diabetes mellitus with hyperglycemia, with long-term current use of insulin E11.65; Z79.4 Diabetes mellitus halfway insulin use: with halfway use Diabetes mellitus type: type 2 Mixed hyperlipidemia E78.2 Hyperlipidemia type: mixed hyperlipidemia Pituitary macroadenoma D35.2 Time Spent (min) 45
--- OUTSIDE RECORDS SUMMARY | 2025-02-17 08:00 | XMS_ITS | Encounter Summary ---
Author Organization [facility] Address [address] [place] [address] Care Team Providers Care Occupational Health Physician Name Role Phone Kim Johnson Primary Care Provider [phone] Raya Pan NP Primary Care Provider [phone] Encounter Details Date Type Department Care Team (Latest Contact Info) Description 10/17/2021 Abstract [facility] CONVERSIONS Dental, Provider, DDS Social History [...] 03/17/2025 9:30 AM EDT Office Visit [facility] OPTOMETRY [address] [place] [address] David, Destinee, OD [address] [place] [address] 03/23/2025 9:00 AM EDT Office Visit [facility] ADULT DENTAL [address] [place] [address] Ana Koehler documented as of this encounter Visit Diagnoses Not on filedocumented in this encounter Care Teams Occupational Health Physician Relationship Specialty Start Date End Date DamonKim FNP [address] [place] [address] PCP - General Family Medicine 05/14/22 12/17/23 Raya Pan NP [address] [place] [id number] PCP - General Family Medicine 12/18/23 documented as of this encounter
--- OUTSIDE RECORDS SUMMARY | 2025-02-17 08:00 | XMS_ITS | Encounter Summary ---
Author Organization [facility] Address [address] [place] [address] Care Team Providers Care Accounts Clerk Name Role Phone Maxim Raya RADHA Primary Care Provider [phone] Reason for Visit * Reason Onset Date Comments pain from crown 09/09/2024 Encounter Details Date Type Department Care Team ([facility] st Contact Info) Description 09/09/2024 Telephone [facility] ADULT DENTAL [address] [place], [place] [phone] Kate Mejia DDS [address] [place], [place] [phone] pain from crown Social History Tobacco Use [...] Description 03/17/2025 9:30 AM EDT Office Visit [facility] OPTOMETRY [address] [place] [address] Destinee Hernandez, OD [address] [place] [address] 03/23/2025 9:00 AM EDT Office Visit [facility] ADULT DENTAL [address] [place] [address] Ana Koehler documented as of this encounter Visit Diagnoses Not on filedocumented in this encounter Care Teams Accounts Clerk Relationship Specialty Start Date End Date Raya Pan NP [address] [place] [address] PCP - General Family Medicine 12/18/23 documented as of this encounter
--- OUTSIDE RECORDS SUMMARY | 2025-02-17 08:00 | XMS_ITS | Clinical Summary ---
Author Organization [employer] Address [address] [facility] 7t [place] [address] Care Team Providers Care Lead Recoverer Name Role Phone Raya Pan NP Primary Care Provider [phone] Allergies Active Allergy Reactions Criticality Noted Date [...] Team Description 01/27/2025 Population Health Risk Score [facility] (C3) Department [address] [phone] Provider, Population Health Generic 01/17/2025 Telephone [facility] [address] [place] [phone] Raya Pan NP 01/04/2025 Telephone [facility] [address] [place] [phone] Raya Pan NP 12/28/[address] [address] Alena Vega MA Chart Prep 12/26/[address] [phone] Alena Vega [place] appointment for results 12/23/2024 10:30 AM EST Office Visit [address] [phone] Raya Pan NP Hair loss (Primary Dx); Dietary counseling; Exercise counseling; Tinea pedis of right foot; Pain due to onychomycosis of toenail of right foot; 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[facility]) 12/20/2024 Orders Only GENERIC EXTERNAL DATA DEPARTMENT Provider, Generic External Data 12/13/[address] [address] Alena Vega MA Chart Prep 11/30/[address] [address] Alena Vega MA Chart Prep 11/21/2024 9:00 AM EST Office Visit [facility] [address] [place] [phone] Kate Mejia, EMILIE Dental plaque (Primary Dx) 11/21/2024 Refill [facility] [address] [place] [address] Raya Pan NP from Last 3 Months [...] Description 03/17/2025 9:30 AM EDT Office Visit [facility] [address] [place] [address] David, Destinee, OD [address] [place] [address] 03/23/2025 9:00 AM EDT Office Visit [facility] [address] [place] [address] Ana Koehler Health Maintenance Due Date Last [...] Whole Blood 299(H) 60 - 115 mg/dL [facility] Comment:METER #: [id number] Testing performed in the Endocrinology Department [address] , [address], Amanda SRIVASTAVA. 01/26/2025 7:44 AM EDT 01/26/2025 7:48 AM EDT us Generic External Data Provider LAB BLOOD ORDERAB LES Final Result Performing Organization Address City/State/[facility] Co de Phone Number [facility] [address] [place] [address] [phone] * Mr Brain w/ and w/o Contrast (01/15/2025 3:31 PM EST) Anatomical Region Laterality Modality Brain Magnetic Resonan ce 01/15/2025 3:31 PM EST Narrative 01/15/2025 3:33 PM EST ? [facility] ?[address] ?[place] [address] ? Magnetic Resonance Report ? Signed ? Patient: Stephanie Tracy,Kendra ?MR# ?? : [id number] ? : 1980 ?Acct:[id number] ? Age/Sex: 44 / F ?ADM Date: 03/02/25 ? Loc: HO.MRI ? Attending Dr: Mia Tristan MD ? Ordering Physician: Mia Tristan MD ?? Date of Service: 01/15/25 ?? Procedure(s): MR head/brain wo/w con ?? Accession Number(s): [id number] ? cc: Raya Pan NP; Mia Tristan [...] DD/ 1531 ? TD/TT: 01/15/25 1531 ? Enrollment Advisor: ? Procedure Note Alonzo Garcia - 01/15/[address] [address] Magnetic Resonance Report Signed Patient: Stephanie YeyoMellissa srivastava [facility]# : [id number] : 1980Acct:[id number] Age/Sex: 44 / FADM Date: 01/15/25 Loc: HO.MRI Attending Dr: Mia Tristan MD Ordering Physician: Mia Tristan MD Date of Service: 01/15/25 Procedure(s): MR head/brain wo/w con Accession Number(s): [id number] cc: Raya Pan [employer]; Mia Tristan MD CLINICAL HISTORY: D35.2 - [...] 01/15/25 1532 DD/ 1531 TD/TT: 01/15/25 1531 Enrollment Advisor: [facility] External Provider IMG MRI PROCEDURES Edited Result - Final * Cortisol Random (12/26/2024 8:49 AM EST) Only the most recent of2 resultswithin the time period is included. Pathologist [facility] Cortisol Random 2.3 ug/dL [facility] Comment:Reference Range*: Be fore 10 am 6.2-19.4 ug/dL After 5 pm 2.3-11.9 ug/dL*Please interpret above results accordingly.This test was performed using the [employer] chemiluminescentmethod. Values obtained from different assay methods cannotbe used interchangeably.Patients receiving fludrocortisone, prednisolone orprednisone may show artificially elevated cortisol valuesdue to cross-reactivity. 12/26/2024 8:49 AM EST 12/26/2024 8:49 AM EST us Generic External Data Provider LAB BLOOD ORDERAB LES Final Result [facility] [address] [place] [phone] * (ABNORMAL) CBC auto differential (12/26/2024 8:49 AM EST) Pathologist [facility] White Blood Count 6.3 4.8 - 10.8 X10*3/uL [facility] Red Blood Count 4.70 4.20 - 5.50 X10*6/uL [facility] Hemoglobin 13.6 12.0 - 16.0 g/dl [facility] Hematocrit 39.7 37.0 - 47.0 % [facility] Mean Corpuscular Volume 84.5 80.0 - 98.0 fL [facility] Mean Corpuscular Hemoglobin 28.9 27.0 - 33.0 pg [facility] Mean Corpuscular HGB Conc 34.3 31.0 - 35.0 g/dl [facility] Red Cell Distribution Width 13.2 11.0 - 16.0 % [facility] Platelet Count 146(L) 160 - 400 X10*3/uL [facility] Mean Platelet Volume 12.1 9.4 - 12.3 fL [facility] Neutrophils Percent Auto 68.2 45 - 73 % [facility] Imm Gran Pct Auto 0.6(H) 0.0 - 0.4 % [facility] Lymphocytes Percent Auto 25.0 20 - 40 % [facility] Monocytes Percent Auto 5.6 2 - 11 % [facility] Eosinophils Percent Auto 0.3 0 - 4 % [facility] Basophils Percent Auto 0.3 0 - 2 % [facility] NRBC Pct Auto 0.0 0.0 - 0.2 /100WBC [facility] Neutrophils Absolute Auto 4.3 2.0 - 8.3 x10*3/uL [facility] Imm Gran Abs Auto 0.04(H) 0.00 - 0.03 X10*3/uL [facility] Lymphocytes Absolute Auto 1.6 1.2 - 4.9 X10*3/uL [facility] Monocytes Absolute Auto 0.4 0.1 - 1.2 X10*3/uL [facility] Eosinophils Absolute Auto 0.0 0.0 - 0.4 X10*3/uL [facility] Basophils Absolute Auto 0.0 0.0 - 0.2 X10*3/uL [facility] NRBC Abs Auto 0.000 0.0 - 0.012 X10*3/uL [facility] Blood Venous blood specimen / Unknown 12/26/2024 8:49 AM EST 12/26/2024 9:05 AM EST us Raya Pan [employer] LAB BLOOD ORDERABLES Final Resul t [facility] [address] [place], [place] [phone] * Iron And Total Iron Binding Capacity (12/26/2024 8:49 AM EST) Iron 48 30 - 160 mcg/dL [facility] Total Iron Binding Capacity 321 228 - 428 mcg/dL [facility] Percent Iron Saturation 15 15 - 50 % [facility] Unsaturated Iron Binding 273 ug/dL [facility] Blood Venous blood specimen / Unknown 12/26/2024 8:49 AM EST 12/26/2024 8:49 AM EST us Raya Pan NP LAB BLOOD ORDERABLES Final Resul t Performing Organization Address [facility]/ZIP Co de Phone Number [facility] [address] [place] [phone] * DHEA Sulfate (12/26/2024 8:49 AM EST) Only the most recent of2 resultswithin the time period is included. DHEA Sulfate 19 15 - 205 mcg/dL [facility] Comment:THIS TEST WAS PERFOR MED AT:[email or web address] [address] [address]LPNIZTAMIA HERNANDEZ MD 12/26/2024 8:49 AM EST 12/26/2024 8:49 AM EST us Generic External Data Provider LAB BLOOD ORDERAB LES Final Result Performing Organization Address [facility] de Phone Number [facility] [address] [place] [phone] * ACTH, Plasma (12/26/2024 8:49 AM EST) Only the most recent of2 resultswithin the time period is included. ACTH, Plasma 15 6 - 50 pg/mL [facility] Comment:Reference range appl ies only to specimens collectedbetween 7am-10am.THIS TEST WAS PERFORMED AT:[email or web address]/[email or web address] [place] [address]VQKTOCQSRAVANI SLAUGHTER MD,PHD 12/26/2024 8:49 AM EST 12/26/2024 8:49 AM EST us Generic External Data Provider LAB BLOOD ORDERAB LES Final Result Performing Organization Address City/[facility]/ZIP Co de Phone Number [facility] [address] [place] [phone] * TSH (12/26/2024 8:49 AM EST) Only the most recent of2 resultswithin the time period is included. Thyroid Stimulating Hormone 1.75 0.32 - 4.0 uIU/mL [facility] Comment:TSH 3rd Generation ( [facility]) 12/26/2024 8:49 AM EST 12/26/2024 8:49 AM EST Generic External Data Provider LAB BLOOD ORDERAB LES Final Result Performing Organization Address City/[facility]/ZIP Co de Phone Number [facility] [address] [place] [phone] * T4, Free (12/26/2024 8:49 AM EST) Only the most recent of2 resultswithin the time period is included. Free T4 (Free Thyroxine) 1.05 0.71 - 1.85 ng/dL [facility] 12/26/2024 8:49 AM EST 12/26/2024 8:49 AM EST Generic External Data Provider LAB BLOOD ORDERAB LES Final Result Performing Organization Address City/[facility]/ZIP Co de Phone Number [facility] [address] [place] [phone] * (ABNORMAL) Hemoglobin A1c (12/26/2024 8:49 AM EST) Hemoglobin A1c 12.9(H) <6.0 % [facility] Comment:Hemoglobin A1C Refer ence Range Adults: 4.8 - 6.0 % Non diabetic: < 6.0 % Goal: < 7.0 %Additional Action Suggested: > 8.0 %Note: Hemoglobin A1c results are invalid for patients with abnormal amounts of HbF. Blood transfusions may impact the HbA1c concentration in the patient sample. Estimated Average Glucose 324 mg/dL [facility] Comment:eAG = Estimated ave rage glucose which is %A1C expressed asaverage glucose, using the formula of the I1N-LpdtrqtSoycrfh Glucose study (ADAG), Diabetes Care, Vol.31,#8,2007 Blood Venous blood specimen / Unknown 12/26/2024 8:49 AM EST 12/26/2024 8:49 AM EST us Raya Pan [employer] LAB BLOOD ORDERABLES Final Resul t Performing Organization Address [facility] Co de Phone Number [facility] [address] [place] [phone] * LH (12/26/2024 8:49 AM EST) Only the most recent of2 resultswithin the time period is included. Lutenizing Hormone 21.0 mIU/mL [facility] Comment:Reference Range Foll icular Phase 1.9-12.5 Mid-Cycle Peak 8.7-76.3 Luteal Phase 0.5-16.9 Postmenopausal 10.0-54.7THIS TEST WAS PERFORMED AT:[address] [employer] [place] [id number] HERNANDEZ MD 12/26/2024 8:49 AM EST 12/26/2024 8:49 AM EST us Generic External Data Provider LAB BLOOD ORDERAB LES Final Result Performing Organization Address [facility] de Phone Number [facility] [address] [place] [phone] * FSH (12/26/2024 8:49 AM EST) Only the most recent of2 resultswithin the time period is included. Follicle Stimulating Hormone 9.5 mIU/mL [facility] Comment:Reference Range Foll icular Phase 2.5-10.2 Mid-cycle Peak 3.1-17.7 Luteal Phase 1.5- 9.1 Postmenopausal 23.0-116.3THIS TEST WAS PERFORMED AT:[address] [employer] [place] [id number] HERNANDEZ MD 12/26/2024 8:49 AM EST 12/26/2024 8:49 AM EST us Generic External Data Provider LAB BLOOD ORDERAB LES Final Result [facility] [address] [place] [phone] * (ABNORMAL) Comprehensive Metabolic Panel (12/26/2024 8:49 AM EST) Sodium 137 135 - 145 mmol/L [facility] Potassium 3.9 3.3 - 5.1 mmol/L [facility] Chloride 104 96 - 108 mmol/L [facility] Carbon Dioxide 24 22 - 29 mmol/L [facility] Anion Gap 13 12 - 20 [facility] Urea Nitrogen (BUN) 15 9 - 16 mg/dL [facility] Creatinine, Serum 0.67 0.5 - 1.4 mg/dL [facility] Estimated Glomerular Filt Rate >60 [facility] Comment:Chronic Kidney Disea se: Estimated GFR < 60 mL/min/1.76b7Gcaqzb Kidney Disease: Estimated GFR < 15 mL/min/1.73m2 Glucose 328(H) 60 - 115 mg/dL [facility] Calcium 9.3 8.4 - 10.2 mg/dL [facility] Bilirubin, Total 0.5 0.0 - 1.0 mg/dL [facility] Aspartate Amino Transferase 82(H) 5 - 31 U/L [facility] Alanine Aminotransferase 170(H) 0 - 31 U/L [facility] Total Protein 7.7 6.5 - 8.0 g/dL [facility] Albumin Level 4.0 3.5 - 5.0 g/dL [facility] Alkaline Phosphatase 149(H) 39 - 117 U/L [facility] Blood Venous blood specimen / Unknown 12/26/2024 8:49 AM EST 12/26/2024 8:49 AM EST us Raya Radhaguerda [employer] LAB BLOOD ORDERABLES Final Resul t Performing Organization Address [facility] de Phone Number [facility] [address] [place] [phone] * Alpha Subunit (12/20/2024 8:53 AM EST) Alpha Subunit 0.2 ng/mL [facility] Comment:Reference Range for Alpha Subunit:Premenopausal Females: 0.1-0.6 ng/mLPostmenopausal Females: 0.1-1.5 ng/mLPregnancy (1st and 2nd Trimesters): 35.0-186.0 ng/mLHypothyroidism: 0.2-3.2 ng/mLThis test measures the free alpha subunit that is common toLH, FSH, TSH and hCG. These hormones are comprised ofidentical alpha subunits and unique beta subunits thatconfer biological specificity.This test was developed and its analytical performancecharacteristics have been determined by [employer].It has not been cleared or approved by FDA. This assay hasbeen validated pursuant to the CLIA regulations and is usedfor clinical purposes.THIS TEST WAS PERFORMED AT:[email or web address] [id number] [place] [address]XAVUBLEVON FORTE MD,PHD,JOSHUA 12/20/2024 8:53 AM EST 12/20/2024 8:53 AM EST us Generic External Data Provider LAB BLOOD ORDERAB LES Final Result Performing Organization Address [facility] Co de Phone Number [facility] [address] [place] [address] [phone] * Prolactin, Dilution Study (12/20/2024 8:53 AM EST) Prolactin, Undiluted 20.7 ng/mL [facility] Prolactin, Diluted SEE NOTE ng/mL [facility] Comment:Result confirmed by 1:100 dilution. No high dosehook effect detected. Reference Range Females Non- 3.0-30.0 10.0-209.0 Postmenopausal 2.0-20.0Prolactin dilution studies are done to determine ifthere is a high-dose hook effect (i.e. a non-linearassay response due to a very high concentration ofProlactin). This is reported to occur at Prolactinconcentrations at or above 30,000 ng/mL.This test is not recommended for identifyingmacroprolactin. The [facility] [employer] [facility], Prolactin, Total and Monomeric is therecommended test (Order code [id number]).THIS TEST WAS PERFORMED AT:[email or web address] [address] [phone] HERNANDEZ MD 12/20/2024 8:53 AM EST 12/20/2024 8:53 AM EST Generic External Data Provider LAB BLOOD ORDERAB LES Final Result Performing Organization Address [facility] de [facility] [address] [place] [phone] * Prolactin (12/20/2024 8:53 AM EST) Prolactin [facility] Comment:DUPLICATE 12/20/2024 8:53 AM EST 12/20/2024 8:53 AM EST Generic External Data Provider LAB BLOOD ORDERAB LES Final Result Performing Organization Address [facility] de [facility] Number [facility] [address] [place] [phone] * IGF-1, LC/MS (12/20/2024 8:53 AM EST) IGF 1, LC/MS 73 52 - 328 ng/mL [facility] Z Score (Male) [facility] Z Score (Female) -1.3 -2.0 - 2.0 SD [facility] Comment:This test was develo ped and its analytical performancecharacteristics have been determined by [employer].It has not been cleared or approved by FDA. This assay hasbeen validated pursuant to the CLIA regulations and is usedfor clinical purposes.THIS TEST WAS PERFORMED AT:[email or web address] [id number] [place] [address]UBURKLEVON FORTE MD,PHD,JOSHUA 12/20/2024 8:53 AM EST 12/20/2024 8:53 AM EST us Generic External Data Provider LAB BLOOD ORDERAB LES Final Result [facility] [address] [place] [phone] * Growth Hormone (GH) (12/20/2024 8:53 AM EST) Growth Hormone 0.2 < OR = 7.1 ng/mL [facility] Comment: Because of a pulsatile [...] or = 10.0 ng/mLTHIS TEST WAS PERFORMED AT:[email or web address] [address] ??[phone] HERNANDEZ MD 12/20/2024 8:53 AM EST 12/20/2024 8:53 AM EST Generic External Data Provider LAB BLOOD ORDERAB LES Final Result Performing Organization Address [facility] Co de Phone Number [facility] [address] [place] [phone] * Estradiol (12/20/2024 8:53 AM EST) Pathologist [facility] Estradiol Ultra Sensitive 45 pg/mL [facility] Comment:Female Reference Ran ges for Estradiol, Ultrasensitive (pg/mL): Follicular Phase: 39-375 Luteal Phase: 48-440 Postmenopausal Phase: < or = 10This test was developed and its analytical performancecharacteristics have been determined by [employer].It has not been cleared or approved by FDA. This assay hasbeen validated pursuant to the CLIA regulations and is usedfor clinical purposes.THIS TEST WAS PERFORMED AT:[email or web address]/[email or web address] [id number] [facility] [place] [address]CJNDALEVON FORTE MD,PHD,JOSHUA 12/20/2024 8:53 AM EST 12/20/2024 8:53 AM EST [facility] External Data Provider LAB BLOOD ORDERAB LES Final Result Performing Organization Address [facility] Co de Phone Number [facility] [address] [place] [phone] [phone] * HEPATITIS C AB W/REFL TO HCV RNA, QN, PCR (12/23/2021 10:03 AM EST) Pathologist [facility] HEPATITIS C ANTIBODY NON-REACT [facility] NON-REACT [facility] INDEX 0.01 <1.00 [facility] Comment: ?? HCV antibody was non-reactive. There is no laboratory ?? evidence of HCV infection. ?? In most cases, no further action is required. However, if recent HCV exposure is suspected, a test for HCV RNA (test code 43804) is suggested. ?? For additional information please refer to http://[employer]/faq/ELE00j7 (This link is being provided for informational/ educational purposes only.) ?? 12/23/2021 10:0 3 AM EST Isi Lind CNM HISTORICAL/NON ORDERABLE LABS Final Result Performing Organization Address [facility] Phone Number [facility] [address] [place] [address], * HIV 1/2 ANTIGEN/ANTIBODY,FOURTH GENERATION W/RFL (12/23/2021 10:03 AM EST) Pathologist [facility] HIV-1/2 ANTIGEN AND ANTIBODIES, 4TH GENERATION W/ [...] ? For additional information please refer to http://[employer]/faq/DKD357 (This link is being provided for informational/ educational purposes only.) ? The performance of this assay has not been clinically validated in patients less than 2 years old. ?? 12/23/2021 10:0 3 AM EST Isi [facility] LAB BLOOD ORDERABLES Melvina l Result Performing Organization Address [facility] Phone Number [facility] [address] [place] [address], * THINPREP TIS PAP AND HPV mRNA E6/E7, CT/NG, TRICH (12/23/2021 9:16 AM EST) Chlamydia trachomatis RNA, TMA, Urogenital NOT DETECTED NOT DETECTED [facility] Clinical Information: None given [facility] COMMENT SEE COMMENT [facility] Comment: The analytical performance characteristics of this assay, when used to test SurePath(TM) specimens have been determined by [employer]. The modifications have not been cleared or approved by the FDA. This assay has been validated pursuant to the CLIA regulations and is used for clinical purposes. ?? For additional information, please refer to https://[employer]/faq/CHB913 (This link is being provided for information/ [...] has been evaluated with computer assisted technology. [facility] Advertising Sales Executive: SEE COMMENT [facility] Comment: KALIE GARCIA(ASCP) CT screening location: [address] ??[phone] HPV nRNA E6/E7 Not Detected Not Detected [facility] Comment: Methodology: Counter Cutter-Mediated Amplification This assay detects E6/E7 viral messenger RNA (mRNA) from 14 high-risk HPV types (16,18,31,33,35,39,45,51,52,56,58,59,66,68). ? The analytical performance characteristics of this assay have been determined by [employer]. The modifications have not been cleared or approved by the FDA. This assay has been validated pursuant to the CLIA regulations and is used for clinical purposes. ?? For additional information, please refer to http://[employer]/faq/GYC929h7 (This link if provided for information/ educational [...] of this assay have been determined by [employer]. The modifications have not been cleared or approved by the FDA. This assay has been validated pursuant to the CLIA regulations and is used for clinical purposes. ?? For additional information, please refer to http://education.[employer]/ faq/Trichomonastma (This link is being provided for information/ educational purposes only.) ?? 12/23/2021 9:16 AM EST Isi [facility] PATHOLOGY ORDERABLES Final Result [facility] [address] * Pap Smear (12/23/2021 12:00 AM EST) Swab [facility]i [facility] CYTOLOGY ORDERABLES F inal Result [facility] [address] [place] [address], [place] [address] from Last 3 Months or Most Recently Relevant to Health Maintenance Insurance [employer] [facility] [address] Care Teams Lead Recoverer Relationship Specialty Start Date End Date Raya Pan NP [address] [place] [address] PCP - General Family Medicine 12/18/23
--- OUTSIDE RECORDS SUMMARY | 2025-02-17 08:00 | XMS_ITS | Encounter Summary ---
Author Organization [facility] Address [address] [facility] 7t [place] [address] Care Team Providers Care Stock Mover Name Role Phone Kim Johnson ZIPPER MEASURER Primary Care Provider [phone] Raya Pan NP Primary Care Provider Encounter Details Date Type Department Care Team (Late st Contact Info) Description 09/25/2023 Abstract [facility] ADULT DENTAL [address] [place] [address] Kate Mejia DDS [address] [place] [address] Social History Tobacco Use Types Packs/Day Years [...] Description 03/17/2025 9:30 AM EDT Office Visit [facility] OPTOMETRY [address] [place] [address] David, Destinee, OD [address] [place] [address] 03/23/2025 9:00 AM EDT Office Visit [facility] ADULT DENTAL [address] [place] [address] Ana Koehler documented as of this encounter Visit Diagnoses Not on filedocumented in this encounter Care Teams Stock Mover Relationship Specialty Start Date End Date Kim Johnson GLORIA [address] [place] [address] PCP - General Family Medicine 05/14/22 12/17/23 Raya Pan NP [address] [place] [address] PCP - General Family Medicine 12/18/23 documented as of this encounter
--- OUTSIDE RECORDS SUMMARY | 2025-02-17 08:00 | XMS_ITS | Encounter Summary ---
Author Organization [facility] Address [address] [facility] [address] [place] [address] Care Team Providers Care Overhead Cleaner Maintainer Name Role Phone Kim Johnson Primary Care Provider Raya Pan NP Primary Care Provider [phone] Encounter Details Date Type Department Care Team (Latest Contact Info) Description 03/07/2019 Abstract [facility] CONVERSIONS Dental, Provider, DDS Social [...] Description 03/17/2025 9:30 AM EDT Office Visit [facility] OPTOMETRY [address] [place] [address] David, Destinee, OD [address] [place] [address] 03/23/2025 9:00 AM EDT Office Visit [facility] ADULT DENTAL [address] [place] [address] Ana Koehler documented as of this encounter Visit Diagnoses Not on filedocumented in this encounter Care Teams Overhead Cleaner Maintainer Relationship Specialty Start Date End Date Kim Johnson FNP [address] [place] [address] PCP - General Family Medicine 05/14/22 12/17/23 Raya Pan NP [address] [place] [address] PCP - General Family Medicine 12/18/23 documented as of this encounter
--- OUTSIDE RECORDS SUMMARY | 2025-02-17 08:00 | XMS_ITS | Encounter Summary ---
Author Organization [facility] Address [address] [facility] [address] [place] [address] Care Team Providers Care Industrial Sociologist Name Role Phone Kim Johnson Primary Care Provider [phone] Raya Pan NP Primary Care Provider [phone] Encounter Details Date Type Department Care Team (Late st Contact Info) Description 06/30/2023 Abstract [facility] ADULT DENTAL [address] [place] [address] Abena Mascorro [address] [place] [address] Social History Tobacco Use Types Packs/Day Years [...] Visit [facility] OPTOMETRY [address] [place] [address] David, Destinee, OD [address] [place] [address] 03/23/2025 9:00 AM EDT Office Visit [facility] ADULT DENTAL [address] [place] [address] Ana Koehler documented as of this encounter Visit Diagnoses Not on filedocumented in this encounter Care Teams Industrial Sociologist Relationship Specialty Start Date End Date Kim Johnson FNP [address] [place] [address] PCP - General Family Medicine 05/14/22 12/17/23 Raya Pan NP [address] [place] [address] PCP - General Family Medicine 12/18/23 documented as of this encounter
[2025-02-17 08:05] VITALS: BP 90/68; PULSE 68; O2SAT 99; BMI 26.0
[2025-02-17 08:22] LABS: Glucose, Whole Blood 157 mg/dL (60-115)
== END 2025-02-17 08:42 | disposition home or self-care (01) ==
LOC: HO.ENCR 07:56
PROVIDERS: PCP Nurse Practitioner Family; Visit Provider Student in an Organized Health Care Education/Training Program
DX: E11.65 Type 2 diabetes mellitus with hyperglycemia (principal); Z79.4 Long term (current) use of insulin; E78.2 Mixed hyperlipidemia; D35.2 Benign neoplasm of pituitary gland
CPT/HCPCS: 99215

== ENCOUNTER → 2025-02-17 07:55 | Outpatient (BNVA) | payer MEDICAID, SELFPAY | PROVIDERS: PCP Nurse Practitioner Family; Visit Provider Student in an Organized Health Care Education/Training Program | DX: E11.65 Type 2 diabetes mellitus with hyperglycemia (principal); E78.2 Mixed hyperlipidemia; D35.2 Benign neoplasm of pituitary gland; Z79.4 Long term (current) use of insulin; Z79.899 Other long term (current) drug therapy | CPT/HCPCS: 82947; 99212 ==

== ENCOUNTER 2025-03-13 08:03 | Outpatient (AMB) | payer MEDICAID, SELFPAY ==
--- OUTSIDE RECORDS SUMMARY | 2025-03-13 08:15 | XMS_ITS | Encounter Summary ---
Author Organization [facility] Address [address] [facility] [address] [place] [address] Care Team Providers Care Sterilizer Operator Name Role Phone Kim Johnson ACCOUNTANT BOOKKEEPER Primary Care Provider [phone] Raya Pan NP Primary Care Provider [phone] Encounter Details Date Type Department Care Team (Late st Contact Info) Description 09/25/2023 Abstract [facility] ADULT DENTAL [address] [place] [address] Kate Mejia DDS [address] [place] [address] Social History Tobacco Use Types Packs/Day Years [...] Description 03/17/2025 9:30 AM EDT Office Visit [facility] OPTOMETRY [address] [place] [address] David, Destinee, OD [address] [place] [address] 03/23/2025 9:00 AM EDT Office Visit [facility] ADULT DENTAL [address] [place] [address] Ana Koehler documented as of this encounter Visit Diagnoses Not on filedocumented in this encounter Care Teams Sterilizer Operator Relationship Specialty Start Date End Date Kim Johnson GLORIA [address] [place] [address] PCP - General Family Medicine 05/14/22 12/17/23 Raya Pan NP [address] [place] [address] PCP - General Family Medicine 12/18/23 documented as of this encounter
--- OUTSIDE RECORDS SUMMARY | 2025-03-13 08:16 | XMS_ITS | Encounter Summary ---
Author Organization [facility] Address [address] [facility] [address] [place] [address] Care Team Providers Care Assistant Front Desk Manager Name Role Phone Kim Johnson Primary Care Provider [phone] Raya Pan NP Primary Care Provider [phone] Encounter Details Date Type Department Care Team (Latest Contact Info) Description 03/07/2019 Abstract [facility] CONVERSIONS Dental, Provider, DDS Social History [...] 03/17/2025 9:30 AM EDT Office Visit [facility] OPTOMETRY [address] [place] [address] David, Destinee, OD [address] [place] [address] 03/23/2025 9:00 AM EDT Office Visit [facility] ADULT DENTAL [address] [place] [address] Ana Koehler documented as of this encounter Visit Diagnoses Not on filedocumented in this encounter Care Teams Assistant Front Desk Manager Relationship Specialty Start Date End Date Kim Johnson FNP [address] [place] [address] PCP - General Family Medicine 05/14/22 12/17/23 Raya Pan NP [address] [place] [address] PCP - General Family Medicine 12/18/23 documented as of this encounter
--- OUTSIDE RECORDS SUMMARY | 2025-03-13 08:16 | XMS_ITS | Encounter Summary ---
Author Organization [facility] Address [address] [facility] [address] [place] [address] Care Team Providers Care Market News Reporter Name Role Phone Kim Johnson Primary Care Provider [phone] Raya Pan NP Primary Care Provider [phone] Encounter Details Date Type Department Care Team (Late st Contact Info) Description 06/30/2023 Abstract [facility] ADULT DENTAL [address] [place] [address] Abena Mascorro [address] [place] [address] Social History Tobacco Use Types Packs/Day Years [...] Visit [facility] OPTOMETRY [address] [place] [address] David, Destinee, OD [address] [place] [address] 03/23/2025 9:00 AM EDT Office Visit [facility] ADULT DENTAL [address] [place] [address] Ana Koehler documented as of this encounter Visit Diagnoses Not on filedocumented in this encounter Care Teams Market News Reporter Relationship Specialty Start Date End Date Kim Johnson FNP [address] [place] [address] PCP - General Family Medicine 05/14/22 12/17/23 Raya Pan NP [address] [place] [address] PCP - General Family Medicine 12/18/23 documented as of this encounter
--- OUTSIDE RECORDS SUMMARY | 2025-03-13 08:16 | XMS_ITS | Encounter Summary ---
Author Organization [facility] Address [address] [facility] [address] [place] [address] Care Team Providers Care Vision Therapist Name Role Phone Kim Johnson Primary Care Provider Raya Pan NP Primary Care Provider [phone] Encounter Details Date Type Department Care Team (Latest Contact Info) Description 10/17/2021 Abstract [facility] CONVERSIONS Dental, Provider, DDS Social [...] Description 03/17/2025 9:30 AM EDT Office Visit [facility] OPTOMETRY [address] [place] [address] David, Destinee, OD [address] [place] [address] 03/23/2025 9:00 AM EDT Office Visit [facility] ADULT DENTAL [address] [place] [address] Ana Koehler documented as of this encounter Visit Diagnoses Not on filedocumented in this encounter Care Teams Vision Therapist Relationship Specialty Start Date End Date AlexKim FNP [address] [place] [address] PCP - General Family Medicine 05/14/22 12/17/23 Raya Pan NP [address] [place] [address] PCP - General Family Medicine 12/18/23 documented as of this encounter
--- OUTSIDE RECORDS SUMMARY | 2025-03-13 08:16 | XMS_ITS | Clinical Summary ---
Author Organization [employer] Address [address] [facility] 7t [place] [address] Care Team Providers Care Commercial Cleaner Name Role Phone Raya Pan NP Primary Care Provider [phone] Allergies Active Allergy Reactions Criticality Noted Date [...] Team Description 01/27/2025 Population Health Risk Score [facility] (C3) Department [address] [phone] Provider, Population Health Generic 01/17/2025 Telephone [facility] [address] [place] [phone] Raya Pan NP 01/04/[address] [address] Raya Pan NP 12/28/[address] [address] Alena Vega [place] Chart Prep 12/26/[address] [address] Alena Vega [place] appointment for results 12/23/2024 10:30 AM EST Office Visit [address] [address] Raya Pan NP Hair loss (Primary Dx); Dietary counseling; Exercise counseling; Tinea pedis of right foot; Pain due to onychomycosis of toenail of right foot; 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) 12/20/2024 Orders Only GENERIC EXTERNAL DATA DEPARTMENT Provider, Generic External Data 12/13/[address] [address] Alena Vega [place] Chart Prep from Last 3 Months Immunizations Name Administration [...] Description 03/17/2025 9:30 AM EDT Office Visit [facility] [address] [place], [place] [phone] David, Destinee, OD [address] [place], [place] [phone] 03/23/2025 9:00 AM EDT Office Visit [facility] [address] [place], [place] [phone] Ana Koehler Health Maintenance Due Date Last [...] Diabetes: Hemoglobin A1C 03/25/2025 12/26/2024 Depression Monitoring 04/06/2025 10/07/2024, 024 SDOH Screening 09/29/2025 09/29/2024 Alcohol/Substance Use Screening [...] Associated Diagnosis Comments GLUCOSE, WHOLE BLOOD Routine 02/17/2025 8:18 AM EDT GLUCOSE, WHOLE BLOOD Routine 01/26/2025 7:44 AM [...] T4, FREE Routine 12/20/2024 8:53 AM EST BITEWING - SINGLE RADIOGRAPHIC IMAGE Routine 11/21/2024 9:00 AM EST PERIODIC ORAL [...] Maintenance Results * (ABNORMAL) Glucose, Whole Blood (02/17/2025 8:18 AM EDT) Only the most recent of3 resultswithin the time period is included. Glucose, Whole Blood 157(H) 60 - 115 mg/dL [facility] Comment:METER #: [id number] Testing performed in the Endocrinology Department [address] , [address], [place]. 02/17/2025 8:18 AM EDT 02/17/2025 8:22 AM EDT us Generic External Data Provider LAB BLOOD ORDERAB LES Final Result [facility] [address] [place] [address] [phone] * Mr Brain w/ and w/o Contrast (01/15/2025 3:31 PM EST) Anatomical Region Laterality Modality Brain Magnetic Resonan ce 01/15/2025 3:31 PM EST Narrative 01/15/2025 3:33 PM EST ? [facility] ?[address] ?[place] [address] ? Magnetic Resonance Report ? Signed ? Patient: Stephanie GuzmanjanetjoseKendra ?MR# ?? : [id number] ? : 1980 ?Acct:[id number] ? Age/Sex: 44 / F ?ADM Date: 01/15/25 ? Loc: HO.MRI ? Attending Dr: Mia Tristan MD ? Ordering Physician: Mia Tristan MD ?? Date of Service: 01/15/25 ?? Procedure(s): MR head/brain wo/w con ?? Accession Number(s): [id number] ? cc: Raya Pan NP; Mia Tristan [...] MD in OV> ?01/15/25 1532 ? DD/ 30 ? TD/TT: 01/15/251530 ? Polishing Pad Mounter: ? Procedure Note Radha, Image - 01/15/2025 [place] [address] Magnetic Resonance Report Signed Patient: Mellissa Basurto [facility]# : [id number] : 1980Acct:[id number] Age/Sex: 44 / FADM Date: 01/15/25 Loc: HO.MRI Attending Dr: Mia Tristan MD Ordering Physician: Mia Tristan MD Date of Service: 01/15/25 Procedure(s): MR head/brain wo/w con Accession Number(s): [id number] cc: Raya Pan PATTERNMAKER SAMPLE; Mia Tristan MD CLINICAL HISTORY: D35.2 - [...] 01/15/25 1532 DD/ 1531 TD/TT: 01/15/25 1531 Polishing Pad Mounter: [facility] External Provider IMG MRI PROCEDURES Edited Result - Final * Cortisol Random (12/26/2024 8:49 AM EST) Only the most recent of2 resultswithin the time period is included. Cortisol Random 2.3 ug/dL [facility] Comment:Reference Range*: Be fore 10 am 6.2-19.4 ug/dL After 5 pm 2.3-11.9 ug/dL*Please interpret above results accordingly.This test was performed using the WALTOP chemiluminescentmethod. Values obtained from different assay methods cannotbe used interchangeably.Patients receiving fludrocortisone, prednisolone orprednisone may show artificially elevated cortisol valuesdue to cross-reactivity. 12/26/2024 8:49 AM EST 12/26/2024 8:49 AM EST us Generic External Data Provider LAB BLOOD ORDERAB LES Final Result [facility] [address] [place] [address] [phone] * (ABNORMAL) CBC auto differential (12/26/2024 8:49 AM EST) White Blood Count 6.3 4.8 - 10.8 X10*3/uL [facility] Red Blood Count 4.70 4.20 - 5.50 X10*6/uL [facility] Hemoglobin 13.6 12.0 - 16.0 g/dl [facility] Hematocrit 39.7 37.0 - 47.0 % [facility] Mean Corpuscular Volume 84.5 80.0 - 98.0 fL [facility] Mean Corpuscular Hemoglobin 28.9 27.0 - 33.0 pg [facility] Mean Corpuscular HGB Conc 34.3 31.0 - 35.0 g/dl [facility] Red Cell Distribution Width 13.2 11.0 - 16.0 % [facility] Platelet Count 146(L) 160 - 400 X10*3/uL [facility] Mean Platelet Volume 12.1 9.4 - 12.3 fL [facility] Neutrophils Percent Auto 68.2 45 - 73 % [facility] Imm Gran Pct Auto 0.6(H) 0.0 - 0.4 % [facility] Lymphocytes Percent Auto 25.0 20 - 40 % [facility] Monocytes Percent Auto 5.6 2 - 11 % [facility] Eosinophils Percent Auto 0.3 0 - 4 % [facility] Basophils Percent Auto 0.3 0 - 2 % [facility] NRBC Pct Auto 0.0 0.0 - 0.2 /100WBC [facility] Neutrophils Absolute Auto 4.3 2.0 - 8.3 x10*3/uL [facility] Imm Gran Abs Auto 0.04(H) 0.00 - 0.03 X10*3/uL [facility] Lymphocytes Absolute Auto 1.6 1.2 - 4.9 X10*3/uL [facility] Monocytes Absolute Auto 0.4 0.1 - 1.2 X10*3/uL [facility] Eosinophils Absolute Auto 0.0 0.0 - 0.4 X10*3/uL [facility] Basophils Absolute Auto 0.0 0.0 - 0.2 X10*3/uL [facility] NRBC Abs Auto 0.000 0.0 - 0.012 X10*3/uL [facility] Blood Venous blood specimen / Unknown 12/26/2024 8:49 AM EST 12/26/2024 9:05 AM EST us Raya Pan PATTERNMAKER SAMPLE LAB BLOOD ORDERABLES Final Resul t Performing Organization Address City/[facility]/ZIP Co de Phone Number [facility] [address] [place] [address] [phone] * Iron And Total Iron Binding Capacity (12/26/2024 8:49 AM EST) Iron 48 30 - 160 mcg/dL [facility] Total Iron Binding Capacity 321 228 - 428 mcg/dL [facility] Percent Iron Saturation 15 15 - 50 % [facility] Unsaturated Iron Binding 273 ug/dL [facility] Blood Venous blood specimen / Unknown 12/26/2024 8:49 AM EST 12/26/2024 8:49 AM EST us Raya Pan PATTERNMAKER SAMPLE LAB BLOOD ORDERABLES Final Resul t Performing Organization Address [facility] Co de Phone Number [facility] [address] [place] [address] [phone] * DHEA Sulfate (12/26/2024 8:49 AM EST) Only the most recent of2 resultswithin the time period is included. DHEA Sulfate 19 15 - 205 mcg/dL [facility] Comment:THIS TEST WAS PERFOR MED AT:[facility] [address] [address]LVOLJTAMIA HERNANDEZ MD 12/26/2024 8:49 AM EST 12/26/2024 8:49 AM EST us Generic External Data Provider LAB BLOOD ORDERAB LES Final Result Performing Organization Address [facility] Co de Phone Number [facility] [address] [place] [phone] * ACTH, Plasma (12/26/2024 8:49 AM EST) Only the most recent of2 resultswithin the time period is included. ACTH, Plasma 15 6 - 50 pg/mL [facility] Comment:Reference range appl ies only to specimens collectedbetween 7am-10am.THIS TEST WAS PERFORMED AT:[facility]/[id number] [place] [address]BNQVUIA W. MASON,MD,PHD 12/26/2024 8:49 AM EST 12/26/2024 8:49 AM EST us Generic External Data Provider LAB BLOOD ORDERAB LES Final Result Performing Organization Address [facility]/ZIP Co de Phone Number [facility] [address] [place] [phone] * TSH (12/26/2024 8:49 AM EST) Only the most recent of2 resultswithin the time period is included. Thyroid Stimulating Hormone 1.75 0.32 - 4.0 uIU/mL [facility] Comment:TSH 3rd Generation ( [facility]) 12/26/2024 8:49 AM EST 12/26/2024 8:49 AM EST us Generic External Data Provider LAB BLOOD ORDERAB LES Final Result Performing Organization Address [facility]/ZIP Co de Phone Number [facility] [address] [place] [phone] * T4, Free (12/26/2024 8:49 AM EST) Only the most recent of2 resultswithin the time period is included. Free T4 (Free Thyroxine) 1.05 0.71 - 1.85 ng/dL [facility] 12/26/2024 8:49 AM EST 12/26/2024 8:49 AM EST us Generic External Data Provider LAB BLOOD ORDERAB LES Final Result Performing Organization Address [facility] Co de Phone Number [facility] [address] [place] [phone] * (ABNORMAL) Hemoglobin A1c (12/26/2024 8:49 AM EST) Hemoglobin A1c 12.9(H) <6.0 % [facility] Comment:Hemoglobin A1C Refer ence Range Adults: 4.8 - 6.0 % Non diabetic: < 6.0 % Goal: < 7.0 %Additional Action Suggested: > 8.0 %Note: Hemoglobin A1c results are invalid for patients with abnormal amounts of HbF. Blood transfusions may impact the HbA1c concentration in the patient sample. Estimated Average Glucose 324 mg/dL [facility] Comment:eAG = Estimated ave rage glucose which is %A1C expressed asaverage glucose, using the formula of the B4F-KfyubetVzfaajx Glucose study (ADAG), Diabetes Care, Vol.31,#8,2007 Blood Venous blood specimen / Unknown 12/26/2024 8:49 AM EST 12/26/2024 8:49 AM EST us Raya Pan NP LAB BLOOD ORDERABLES Final Resul t Performing Organization Address [facility] Co de Phone Number [facility] [address] [place] [phone] * LH (12/26/2024 8:49 AM EST) Only the most recent of2 resultswithin the time period is included. Lutenizing Hormone 21.0 mIU/mL [facility] Comment:Reference Range Foll icular Phase 1.9-12.5 Mid-Cycle Peak 8.7-76.3 Luteal Phase 0.5-16.9 Postmenopausal 10.0-54.7THIS TEST WAS PERFORMED AT:[facility] [address] [address]LSJASTAMIA HERNANDEZ MD 12/26/2024 8:49 AM EST 12/26/2024 8:49 AM EST [facility] External Data Provider LAB BLOOD ORDERAB LES Final Result Performing Organization Address [facility] Number [facility] [address] [place] [phone] * FSH (12/26/2024 8:49 AM EST) Only the most recent of2 resultswithin the time period is included. Pathologist [facility] Follicle Stimulating Hormone 9.5 mIU/mL [facility] Comment:Reference Range Foll icular Phase 2.5-10.2 Mid-cycle Peak 3.1-17.7 Luteal Phase 1.5- 9.1 Postmenopausal 23.0-116.3THIS TEST WAS PERFORMED AT:[facility] [address] [address]QVJICTAMIA HERNANDEZ MD 12/26/2024 8:49 AM EST 12/26/2024 8:49 AM EST Generic External Data Provider LAB BLOOD ORDERAB LES Final Result Performing Organization Address [facility] Co de Phone Number [facility] [address] [place] [phone] * (ABNORMAL) Comprehensive Metabolic Panel (12/26/2024 8:49 AM EST) Sodium 137 135 - 145 mmol/L [facility] Potassium 3.9 3.3 - 5.1 mmol/L [facility] Chloride 104 96 - 108 mmol/L [facility] Carbon Dioxide 24 22 - 29 mmol/L [facility] Anion Gap 13 12 - 20 [facility] Urea Nitrogen (BUN) 15 9 - 16 mg/dL [facility] Creatinine, Serum 0.67 0.5 - 1.4 mg/dL [facility] Estimated Glomerular Filt Rate >60 [facility] Comment:Chronic Kidney Disea se: Estimated GFR < 60 mL/min/1.18z7Skdwjg Kidney Disease: Estimated GFR < 15 mL/min/1.73m2 Glucose 328(H) 60 - 115 mg/dL [facility] Calcium 9.3 8.4 - 10.2 mg/dL [facility] Bilirubin, Total 0.5 0.0 - 1.0 mg/dL [facility] Aspartate Amino Transferase 82(H) 5 - 31 U/L [facility] Alanine Aminotransferase 170(H) 0 - 31 U/L [facility] Total Protein 7.7 6.5 - 8.0 g/dL [facility] Albumin Level 4.0 3.5 - 5.0 g/dL [facility] Alkaline Phosphatase 149(H) 39 - 117 U/L [facility] Blood Venous blood specimen / Unknown 12/26/2024 8:49 AM EST 12/26/2024 8:49 AM EST us Raya Pan NP LAB BLOOD ORDERABLES Final Resul t [facility] [address] [place] [address] [phone] * Alpha Subunit (12/20/2024 8:53 AM EST) Pathologist [facility] Alpha Subunit 0.2 ng/mL [facility] Comment:Reference Range for Alpha Subunit:Premenopausal Females: 0.1-0.6 ng/mLPostmenopausal Females: 0.1-1.5 ng/mLPregnancy (1st and 2nd Trimesters): 35.0-186.0 ng/mLHypothyroidism: 0.2-3.2 ng/mLThis test measures the free alpha subunit that is common toLH, FSH, TSH and hCG. These hormones are comprised ofidentical alpha subunits and unique beta subunits thatconfer biological specificity.This test was developed and its analytical performancecharacteristics have been determined by [employer].It has not been cleared or approved by FDA. This assay hasbeen validated pursuant to the CLIA regulations and is usedfor clinical purposes.THIS TEST WAS PERFORMED AT:[facility]/[employer] [id number] [place] [address]UCPZXLEVON FORTE MD,PHD,JOSHUA 12/20/2024 8:53 AM EST 12/20/2024 8:53 AM EST us Generic External Data Provider LAB BLOOD ORDERAB LES Final Result [facility] [address] [place] [phone] * Prolactin, Dilution Study (12/20/2024 8:53 AM EST) Prolactin, Undiluted 20.7 ng/mL [facility] Prolactin, Diluted SEE NOTE ng/mL [facility] Comment:Result confirmed by 1:100 dilution. No high dosehook effect detected. Reference Range Females Non- 3.0-30.0 10.0-209.0 Postmenopausal 2.0-20.0Prolactin dilution studies are done to determine ifthere is a high-dose hook effect (i.e. a non-linearassay response due to a very high concentration ofProlactin). This is reported to occur at Prolactinconcentrations at or above 30,000 ng/mL.This test is not recommended for identifyingmacroprolactin. The [employer] [facility], Prolactin, Total and Monomeric is therecommended test (Order code [id number]).THIS TEST WAS PERFORMED AT:[facility] [address] [address]FDZZFTAMIA HERNANDEZ MD 12/20/2024 8:53 AM EST 12/20/2024 8:53 AM EST us Generic External Data Provider LAB BLOOD ORDERAB LES Final Result Performing Organization Address [facility] Co de Phone Number [facility] [address] [place] [phone] * Prolactin (12/20/2024 8:53 AM EST) Prolactin [facility] Comment:DUPLICATE 12/20/2024 8:53 AM EST 12/20/2024 8:53 AM EST Generic External Data Provider LAB BLOOD ORDERAB LES Final Result Performing Organization Address [facility] [address] [place] [phone] * IGF-1, LC/MS (12/20/2024 8:53 AM EST) IGF 1, LC/MS 73 52 - 328 ng/mL [facility] Z Score (Male) [facility] Z Score (Female) -1.3 -2.0 - 2.0 SD [facility] Comment:This test was develo ped and its analytical performancecharacteristics have been determined by [employer].It has not been cleared or approved by FDA. This assay hasbeen validated pursuant to the CLIA regulations and is usedfor clinical purposes.THIS TEST WAS PERFORMED AT:[facility]/[employer] [id number] [place] [address]ZJUNRLEVON FORTE MD,PHD,JOSHUA 12/20/2024 8:53 AM EST 12/20/2024 8:53 AM EST Generic External Data Provider LAB BLOOD ORDERAB LES Final Result Performing Organization Address [facility] Co de Phone Number [facility] [address] [place] [address] [phone] * Growth Hormone (GH) (12/20/2024 8:53 AM EST) Growth Hormone 0.2 < OR = 7.1 ng/mL [facility] Comment: Because of a pulsatile [...] or = 10.0 ng/mLTHIS TEST WAS PERFORMED AT:[employer] [place] [address] ??[address]KFXLPTAMIA HERNANDEZ MD 12/20/2024 8:53 AM EST 12/20/2024 8:53 AM EST us Generic External Data Provider LAB BLOOD ORDERAB LES Final Result Performing Organization Address [facility] Co de Phone Number [facility] [address] [place] [address] [phone] * Estradiol (12/20/2024 8:53 AM EST) Estradiol Ultra Sensitive 45 pg/mL [facility] Comment:Female Reference Ran ges for Estradiol, Ultrasensitive (pg/mL): Follicular Phase: 39-375 Luteal Phase: 48-440 Postmenopausal Phase: < or = 10This test was developed and its analytical performancecharacteristics have been determined by [employer].It has not been cleared or approved by FDA. This assay hasbeen validated pursuant to the CLIA regulations and is usedfor clinical purposes.THIS TEST WAS PERFORMED AT:[facility]/[employer] [id number] [place] [address]YLZWRLEVON FORTE MD,PHD,JOSHUA 12/20/2024 8:53 AM EST 12/20/2024 8:53 AM EST us Generic External Data Provider LAB BLOOD ORDERAB LES Final Result [facility] [address] [place] [address] [phone] * HEPATITIS C AB W/REFL TO HCV RNA, QN, PCR (12/23/2021 10:03 AM EST) HEPATITIS C ANTIBODY NON-REACT VERONA NON-REACT VERONA [facility] INDEX 0.01 <1.00 [facility] Comment: ?? HCV antibody was non-reactive. There is no laboratory ?? evidence of HCV infection. ?? In most cases, no further action is required. However, if recent HCV exposure is suspected, a test for HCV RNA (test code 03634) is suggested. ?? For additional information please refer to http://education.Praedicat/faq/YQU74z4 (This link is being provided for informational/ educational purposes only.) ?? 12/23/2021 10:0 3 AM EST us Isi Lind CNM HISTORICAL/NON ORDERABLE LABS Final Result Performing Organization Address [facility] Co de Phone Number [facility] [address] [place] [address], * HIV 1/2 ANTIGEN/ANTIBODY,FOURTH GENERATION W/RFL (12/23/2021 10:03 AM EST) HIV-1/2 ANTIGEN AND ANTIBODIES, 4TH GENERATION W/ REFLEX NON-REACT VERONA NON-REACT VERONA [facility] Comment: HIV-1 antigen [...] ? For additional information please refer to http://education.Praedicat/faq/XJU252 (This link is being provided for informational/ educational purposes only.) ? The performance of this assay has not been clinically validated in patients less than 2 years old. ?? 12/23/2021 10:0 3 AM EST Isi OBREGON LAB BLOOD ORDERABLES Melvina l Result Performing Organization Address [facility] de Phone Number [facility] [address] [place] [address], * THINPREP TIS PAP AND HPV mRNA E6/E7, CT/NG, TRICH (12/23/2021 9:16 AM EST) Chlamydia trachomatis RNA, TMA, Urogenital NOT DETECTED NOT DETECTED [facility] Clinical Information: None given [facility] COMMENT SEE COMMENT [facility] Comment: The analytical performance characteristics of this assay, when used to test SurePath(TM) specimens have been determined by [employer]. The modifications have not been cleared or approved by the FDA. This assay has been validated pursuant to the CLIA regulations and is used for clinical purposes. ?? For additional information, please refer to https://[employer].Praedicat/faq/PPF024 (This link is being provided for information/ [...] has been evaluated with computer assisted technology. [facility] Pitch Gatherer: SEE COMMENT [facility] Comment: RMM CT(ASCP) CT screening location: [address] ??[id number] HPV nRNA E6/E7 Not Detected Not Detected [facility] Comment: Methodology: Supervisor Cabinetmaker-Mediated Amplification This assay detects E6/E7 viral messenger RNA (mRNA) from 14 high-risk HPV types (16,18,31,33,35,39,45,51,52,56,58,59,66,68). ? The analytical performance characteristics of this assay have been determined by [employer]. The modifications have not been cleared or approved by the FDA. This assay has been validated pursuant to the CLIA regulations and is used for clinical purposes. ?? For additional information, please refer to http://[employer].Praedicat/faq/THY206g7 (This link if provided for information/ educational purposes only.) Interpretation/Re sult: Negative for intraepithelial lesion or malignancy. [facility] LMP: 12/09/2021 [facility] Neisseria gonorrhoeae RNA, TMA, Urogenital NOT DETECTED NOT DETECTED [facility] Prev. BX: NONE GIVEN [facility] Prev. PAP: NONE GIVEN [facility] SOURCE: None given [facility] Statement Of Adequacy: SEE COMMENT [facility] Comment: Satisfactory for evaluation. Endocervical/transformation zone component present. Trichomonas vaginalis, QL, TMA, PAP Vial NOT DETECTED NOT DETECTED [facility] Comment: The analytical performance characteristics of this assay have been determined by [employer]. The modifications have not been cleared or approved by the FDA. This assay has been validated pursuant to the CLIA regulations and is used for clinical purposes. ?? For additional information, please refer to http://education.Praedicat/ faq/Trichomonastma (This link is being provided for information/ educational purposes only.) ?? 12/23/2021 9:16 AM EST Isi OBREGON LAB PATHOLOGY ORDERABLES Final Result [facility] [address] * Pap Smear (12/23/2021 12:00 AM EST) Swab Isi Lind CNM LAB CYTOLOGY ORDERABLES F inal Result Performing Organization Address [facility]/ZIP Co de Phone Number [address], [place] [phone] from Last 3 Months or Most Recently Relevant to Health Maintenance Insurance N FULL [facility] STAND ADULT Care Teams Commercial Cleaner Relationship Specialty Start Date End Date Raya Pan NP [address] [place] [phone] PCP - General Family Medicine 12/18/23
--- OUTSIDE RECORDS SUMMARY | 2025-03-13 08:16 | XMS_ITS | Encounter Summary ---
Author Organization [facility] Address [address] [place] [address] Care Team Providers Care Sheet Metal Welder Name Role Phone Maxim Raya RADHA Primary Care Provider [phone] Reason for Visit * Reason Onset Date Comments pain from crown 09/09/2024 Encounter Details Date Type Department Care Team ([facility] st Contact Info) Description 09/09/2024 Telephone [facility] ADULT DENTAL [address], [place] [phone] Kate Mejia DDS [address], [place] [phone] pain from crown Social History Tobacco Use [...] Office Visit [facility] OPTOMETRY [address] [place] [address] Destinee Hernandez, OD [address] [place] [address] 03/23/2025 9:00 AM EDT Office Visit [facility] [address] [place] [address] Ana Koehler documented as of this encounter Visit Diagnoses Not on filedocumented in this encounter Care Teams Sheet Metal Welder Relationship Specialty Start Date End Date Raya Pan NP [address] [place] [address] PCP - General Family Medicine 12/18/23 documented as of this encounter
--- NOTE | 2025-03-13 08:56 | A.OFFVIS_ITS ---
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 Name: Nyasia [facility] Accompanied by: Self / Same As Patient Allergies No Known Allergies Allergy (Verified 02/17/25 08:07) HPI Comprehensive Diabetes Asmnt Most Recent Diabetes Results: Hemoglobin A1c 6.4 % 10/04/19 Microalb/Creat Ratio 28.4 ug/mg cr (<30) 01/13/25 Cholesterol 244 mg/dL (<200) H 01/13/25 HDL Cholesterol 49 mg/dL (>40) 01/13/25 Triglycerides 120 mg/dL (<150) 01/13/25 Creatinine 0.67 mg/dL (0.5-1.4) 12/26/24 Blood Urea Nitrogen 15 mg/dL (9-16) 12/26/24 Sodium 137 mmol/L (135-145) 12/26/24 Potassium 3.9 mmol/L (3.3-5.1) 12/26/24 Chloride 104 mmol/L (96-108) 12/26/24 Carbon Dioxide 24 mmol/L (22-29) 12/26/24 Calcium 9.3 mg/dL (8.4-10.2) 12/26/24 AST 82 U/L (5-31) H 12/26/24 ALT 170 U/L (0-31) H 12/26/24 Total Protein 7.7 g/dL (6.5-8.0) 12/26/24 Albumin 4.0 g/dL (3.5-5.0) 12/26/24 PFSH Medical History HLD (hyperlipidemia) Diabetes mellitus with hyperglycemia Pituitary macroadenoma Surgical History History of bilateral tubal ligation Social History Alcohol intake: never Patient Tobacco Use Status: Never used Tobacco Assessment & Plan Assessment & Plan (1) Diabetes mellitus with hyperglycemia: Code(s): E11.65 - Type 2 diabetes mellitus with hyperglycemia Qualifiers: Diabetes mellitus machine long goods helper insulin use: with machine long goods helper use Diabetes mellitus type: type 2 Qualified Code(s): E11.65 - Type 2 diabetes mellitus with hyperglycemia; Z79.4 - prison (current) use of insulin Plan: Diabetes self-management education and support participation record Assessment/scale: 1= needs instructed? 2= needs review? 3= comprehend keep point? 4= demonstrates understanding/ competent? NC= Not Covered Topics Learning Objective: Initial visit Initial or post srvc Initial or post srvc Initial or post srvc Initial or post srvc Initial or post srvc Post srvc Comments Pre Edu-assessment/plan Outcome or reassess Outcome or reassess Outcome or reassess Outcome or reassess Outcome or reassess Outcome or reassess Diabetes pathophysiology 1 2 Healthy eating 1 2 Being active 1 2 Taking medication 1 2 Monitoring glucose 1 2 Acute complication 1 Chronic complicated 1 Lifestyle and healthy coping 1 Diabetes distress in support 1 ?Diabetes pathophysiology: ?Defined diabetes med identify own type of diabetes; list 3 options for treating diabetes Healthy eating: ?Described effect of type, amount and ?timing of food on blood glucose; list 3 methods for planning meal Being active: ?State effect of exercise on blood glucose level Taking medication: ?State effect of diabetes medications on diabetes; name diabetes medications taking, action and side effects Monitoring glucose: ?Identify recommended blood glucose targets and personal target Acute complication: ?List symptoms and treatment of hyper and hypoglycemia, DKA, sick day guidelines and guidelines for severe weather or situations of crisis and diabetes supply manage Chronic complication: ?To find the relationship of blood glucose levels to long- term complications of diabetes in screening and preventative measures Lifestyle and healthy coping: ?Described lifestyle and healthy coping strategies to rule out diabetes self-management Diabetes to stress and support: ?Recognize Diabetes to stress and be able to identified support options Patient Assessment Assess patient education level/literacy/barriers, patient is French-speaking, 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 Instructed patient to contact pharmacy she has if prescription for freestyle Lite meter. Patient also has labs pending, from last visit with Dr. Tristan Patient reports that Dr. Tristan had Center to a lab in [place] and she had done all of her labs. Message sent to Dr. Tristan to confirm that she had received lab results. Dr. Tristan responded that patient is still needs labs drawn. Message sent to front office supervisor staff to contact patient and ask her to have labs drawn here at [facility] so the for for her appointment on 03/18/[address] Tristan. Patient also reports she will be getting surgery on Mar 27 2025. Discussed with patient the effects that stress can have on glucose levels. Reviewed sick day rules and the importance of controlling glucose while trying to heal from surgery. Patient also reported she is taking a supplement that she bought called Blood Glucose , instructed patient she needs to discuss all supplements with provider Learning objectives: The patient was provided with verbal and written education on the following topics as outlined below. Assess patient education level/literacy/barriers, patient agreed to contact pharmacy to get new glucose meter. However, after multiple attempts to explain the importance of discussing all medications and supplements with her providers. Patient insists that her supplement is an all natural supplement and that she is taking it because people that she knows have been taking it and it has improved there glucose levels. The patient met all learning objectives and was able to verbalize understanding and provide teach back of education topics discussed . The patient was provided with the opportunity to ask questions and all questions were answered. Topics covered in today?s session included: Medications (If applicable) * Name of medication? * Dosing/administration instructions? * Mechanism of action? * Potential side effects? * Potential adverse reaction and appropriate treatment? * Review onset, peak, duration Assess for concerns re: insurance coverage, cost, barriers to compliance Insulin/Injectables (If applicable) * Storage/care of insulin?? * Injection sites? * Site rotation? * Onset, peak, duration * Drawing up insulin? * Injecting insulin/other injectables? * Sharps disposal Continuous blood glucose monitoring (if applicable) Hypoglycemia and Hyperglycemia * Signs and symptoms? * Causes?? * Treatment? * Preventing hypoglycemia? * When to seek medical attention Target Goals: * Blood glucose targets and how you feel when your blood glucose is in and out of your target ranges. * Monitoring and knowing your A1C. * What can make blood glucose go up and down and preventing high and low blood glucose. * Review of blood sugar targets in expected goal range and outside of expected goal range. * Problem solving and preventing hyper/hypoglycemia. * Sick day management of diabetes. * Using blood sugar results in decision making process in managing diabetes. ?Patient was receptive to information provided and participated in the discussion. Asked?appropriate questions and demonstrated good understanding of the topics discussed.? ? Educational Materials: The patient was provided with the following written educational materials: Target Goal handout Smart Goal Assessment:? Identify foods and current meal plan that contain carbohydrates between now and next visit Pt met goal less than 25% New Smart Goal: Continue to identify foods and current meal plan that contain carbohydrates between now and next visit Patient Response to instructions: Comprehension of Instructions:poor Readiness to make changes:? Pre contemplation How confident they feel about making changes: Poor Portions of this note were created using voice recognition software, please excuse any words or phrases that may have been misinterpreted. Coding Level of Care Code Est Pt Level 1 (60064) Diagnoses Type 2 diabetes mellitus with hyperglycemia, with long-term current use of insulin E11.65; Z79.4 Diabetes mellitus machine long goods helper insulin use: with prison use Diabetes mellitus type: type 2
== END 2025-03-13 09:14 | disposition home or self-care (01) ==
LOC: HO.ENCR 08:04
PROVIDERS: PCP Nurse Practitioner Family; Visit Provider Registered Nurse Diabetes Educator
DX: E11.65 Type 2 diabetes mellitus with hyperglycemia (principal); Z79.4 Long term (current) use of insulin

== ENCOUNTER → 2025-03-13 08:03 | Outpatient (BNVA) | payer MEDICAID, SELFPAY | PROVIDERS: PCP Nurse Practitioner Family; Visit Provider Registered Nurse Diabetes Educator | DX: E11.65 Type 2 diabetes mellitus with hyperglycemia (principal); Z79.4 Long term (current) use of insulin | CPT/HCPCS: 99211 ==

== ENCOUNTER 2025-03-16 09:26 | Outpatient (REF) | payer MEDICAID, SELFPAY ==
[2025-03-16 09:43] LABS: MANUAL DIFF FLAG NO
[2025-03-16 09:55] LABS: Basophils Percent Auto 0.3 % (0-2); Eosinophils Absolute Auto 0.1 X10*3/uL (0.0-0.4); Eosinophils Percent Auto 2.1 % (0-4); Hematocrit 37.3 % (37.0-47.0); Hemoglobin 12.2 g/dl (12.0-16.0); Imm Gran Abs Auto 0.02 X10*3/uL (0.00-0.03); Imm Gran Pct Auto 0.6 % (0.0-0.4); Lymphocytes Absolute Auto 1.4 X10*3/uL (1.2-4.9); Lymphocytes Percent Auto 39.8 % (20-40); Mean Corpuscular HGB Conc 32.7 g/dl (31.0-35.0); Mean Corpuscular Hemoglobin 28.4 pg (27.0-33.0); Mean Corpuscular Volume 86.7 fL (80.0-98.0); Mean Platelet Volume 11.8 fL (9.4-12.3); Monocytes Absolute Auto 0.3 X10*3/uL (0.1-1.2); Neutrophils Absolute Auto 1.7 x10*3/uL (2.0-8.3); Neutrophils Percent Auto 49.2 % (45-73); Platelet Count 129 X10*3/uL (160-400); White Blood Count 3.4 X10*3/uL (4.8-10.8)
[2025-03-16 10:05] LABS: Estimated Average Glucose 200 mg/dL; Hemoglobin A1c % 8.6 % (<6.0); Total Hemoglobin (HGBA1C) 3174.3441 umol/L
--- OUTSIDE RECORDS SUMMARY | 2025-03-16 10:20 | XMS_ITS | Encounter Summary ---
Author Organization [employer] [facility] Address [address] [place] [address] Care Team Providers Care Editor News Name Role Phone Kim Johnson PRODUCT INFO SPECIALIST Primary Care Provider [phone] Raya Pan NP Primary Care Provider [phone] Encounter Details Date Type Department Care Team (Late st Contact Info) Description 09/25/2023 Abstract [facility] ADULT DENTAL [address] [place] [address] Kate Mejia DDS [address] [place] [address] Social History Tobacco Use Types Packs/Day Years [...] 9:30 AM EDT Office Visit [facility] OPTOM[facility]RY [address] [place] [address] David, Destinee, OD [address] [place] [address] 03/23/2025 9:00 AM EDT Office Visit [facility] ADULT DENTAL [address] [place] [address] Ana Koehler documented as of this encounter Visit Diagnoses Not on filedocumented in this encounter Care Teams Editor News Relationship Specialty Start Date End Date Kim Johnson GLORIA [address] [place] [address] PCP - General Family Medicine 05/14/22 12/17/23 Raya Pan NP [address] [place] [address] PCP - General Family Medicine 12/18/23 documented as of this encounter
--- OUTSIDE RECORDS SUMMARY | 2025-03-16 10:20 | XMS_ITS | Encounter Summary ---
Author Organization [facility] Address [address] [facility] [address] [place] [address] Care Team Providers Care Statistical Secretary Name Role Phone Kim Johnson Primary Care Provider [phone] Raya Pan NP Primary Care Provider [phone] Encounter Details Date Type Department Care Team (Late st Contact Info) Description 06/30/[address] [facility] ADULT DENTAL [address] [place] [address] Abena Mascorro [address] [place] [address] Social History Tobacco Use Types Packs/Day Years [...] AM EDT Office Visit [facility] OPTOMETRY [address] [place] [address] David, Destinee, OD [address] [place] [address] 03/23/2025 9:00 AM EDT Office Visit [facility] ADULT DENTAL [address] [place] [address] Ana Koehler documented as of this encounter Visit Diagnoses Not on filedocumented in this encounter Care Teams Statistical Secretary Relationship Specialty Start Date End Date Kim Johnson FNP [address] [place] [address] PCP - General Family Medicine 05/14/22 12/17/23 Raya Pan NP [address] [place] [address] PCP - General Family Medicine 12/18/23 documented as of this encounter
--- OUTSIDE RECORDS SUMMARY | 2025-03-16 10:20 | XMS_ITS | Encounter Summary ---
Author Organization [facility] Address [address] [facility] [facility] [place] [address] Care Team Providers Care Internal Medicine Nurse Practitioner Name Role Phone Maxim Raya RADHA Primary Care Provider [phone] Reason for Visit * Reason Onset Date Comments pain from crown 09/09/2024 Encounter Details Date Type Department Care Team ([facility] st Contact Info) Description 09/09/[address] [facility] ADULT DENTAL [address] [place], [place] [phone] Kate Mejia DDS [address] [place], [place] [phone] pain from crown Social History Tobacco Use [...] [facility] [address] [place] [address] Destinee Hernandez, OD [address] [place] [address] 03/23/2025 9:00 AM EDT Office Visit [facility] ADULT DENTAL [address] [place] [address] Ana Koehler documented as of this encounter Visit Diagnoses Not on filedocumented in this encounter Care Teams Internal Medicine Nurse Practitioner Relationship Specialty Start Date End Date Raya Pan NP [address] [place] [address] PCP - General Family Medicine 12/18/23 documented as of this encounter
--- OUTSIDE RECORDS SUMMARY | 2025-03-16 10:20 | XMS_ITS | Encounter Summary ---
Author Organization [employer] [facility] Address [address] [place] [address] Care Team Providers Care Library Circulation Department Chief Name Role Phone Kim Johnson Primary Care Provider [phone] Raya Pan NP Primary Care Provider [phone] Encounter Details Date Type Department Care Team (Latest Contact Info) Description 10/17/2021 Abstract [facility] CONVERSION[facility] Dental, Provider, DDS Social History [...] Description 03/17/2025 9:30 AM EDT Office Visit [facility] OPTOMETRY [address] [place] [address] David, Destinee, OD [address] [place] [address] 03/23/2025 9:00 AM EDT Office Visit [facility] ADULT DENTAL [address] [place] [address] Ana Koehler documented as of this encounter Visit Diagnoses Not on filedocumented in this encounter Care Teams Library Circulation Department Chief Relationship Specialty Start Date End Date AlexKim FNP [address] [place] [address] PCP - General Family Medicine 05/14/22 12/17/23 Raya Pan NP [address] [place] [address] PCP - General Family Medicine 12/18/23 documented as of this encounter
--- OUTSIDE RECORDS SUMMARY | 2025-03-16 10:20 | XMS_ITS | Clinical Summary ---
Author Organization [employer] Address [address] [facility] [address] [place] [address] Care Team Providers Care Electrical Superintendent Name Role Phone Raya Pan NP Primary Care Provider [phone] Allergies Active Allergy Reactions Criticality Noted Date [...] Team Description 01/27/2025 Population Health Risk Score [facility] (C3) Department [address] [phone] Provider, Population Health Generic 01/17/2025 Telephone [facility] MED[facility] [address] [place] [address] Raya Pan NP 01/04/2025 Telephone [facility] [address] [place] [address] Raya Pan NP 12/28/[address] [address] Alena Vega [place] Chart Prep 12/26/[address] [address] Alena Vega [place] appointment for results 12/23/2024 10:30 AM EST Office Visit [address] [address] Raya Pan NP Hair loss (Primary Dx); Dietary counseling; Exercise counseling; Tinea pedis of right foot; Pain due to onychomycosis of toenail of right foot; 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[facility]CC) 12/20/2024 Orders Only GENERIC EXTERNAL DATA DEPARTMENT Provider, Generic External Data from Last 3 Months Immunizations Name Administration [...] [facility] OPTOMETRY [address] [place], [place] [phone] David, Destinee, OD [address] [place] [address] 03/23/2025 9:00 AM EDT Office Visit [facility] ADULT DENTAL [address] [place], [place] [phone] Ana Koehler Health Maintenance Due Date Last [...] 12/23/2024 12/23/2021, 12/23/2021 Diabetes: Hemoglobin A1C 03/25/2025 03/16/2025, 12/17 SDOH Screening 09/29/2025 09/29/2024 Alcohol/Substance Use Screening [...] Procedure Name Priority Date/Time Associated Diagnosis Comments CBC WITH AUTO DIFFERENTIAL Routine 03/16/2025 9:42 AM EDT Hair loss HEMOGLOBIN A1C Routine 03/16/2025 9:42 AM EDT History of enlargement of pituitary gland GLUCOSE, WHOLE BLOOD Routine 02/17/2025 8:18 AM [...] Relevant to Health Maintenance Results * (ABNORMAL) CBC auto differential (03/16/2025 9:42 AM EDT) Only the most recent of2 resultswithin the time period is included. White Blood Count 3.4(L) 4.8 - 10.8 X10*3/uL [facility] Red Blood Count 4.30 4.20 - 5.50 X10*6/uL [facility] Hemoglobin 12.2 12.0 - 16.0 g/dl [facility] Hematocrit 37.3 37.0 - 47.0 % [facility] Mean Corpuscular Volume 86.7 80.0 - 98.0 fL [facility] Mean Corpuscular Hemoglobin 28.4 27.0 - 33.0 pg [facility] Mean Corpuscular HGB Conc 32.7 31.0 - 35.0 g/dl [facility] Red Cell Distribution Width 14.0 11.0 - 16.0 % [facility] Platelet Count 129(L) 160 - 400 X10*3/uL [facility] Mean Platelet Volume 11.8 9.4 - 12.3 fL [facility] Neutrophils Percent Auto 49.2 45 - 73 % [facility] Imm Gran Pct Auto 0.6(H) 0.0 - 0.4 % [facility] Lymphocytes Percent Auto 39.8 20 - 40 % [facility] Monocytes Percent Auto 8.0 2 - 11 % [facility] Eosinophils Percent Auto 2.1 0 - 4 % [facility] Basophils Percent Auto 0.3 0 - 2 % [facility] NRBC Pct Auto 0.0 0.0 - 0.2 /100WBC [facility] Neutrophils Absolute Auto 1.7(L) 2.0 - 8.3 x10*3/uL [facility] Imm Gran Abs Auto 0.02 0.00 - 0.03 X10*3/uL [facility] Lymphocytes Absolute Auto 1.4 1.2 - 4.9 X10*3/uL [facility] Monocytes Absolute Auto 0.3 0.1 - 1.2 X10*3/uL [facility] Eosinophils Absolute Auto 0.1 0.0 - 0.4 X10*3/uL [facility] Basophils Absolute Auto 0.0 0.0 - 0.2 X10*3/uL [facility] NRBC Abs Auto 0.000 0.0 - 0.012 X10*3/uL [facility] Blood Venous blood specimen / Unknown 03/16/2025 9:42 AM EDT 03/16/2025 9:42 AM EDT Raya Pan NP LAB BLOOD ORDERABLES Final Resul t Performing Organization Address [facility] Co de Phone Number [facility] [address] [place] [address] [phone] * (ABNORMAL) Hemoglobin A1c (03/16/2025 9:42 AM EDT) Only the most recent of2 resultswithin the time period is included. Hemoglobin A1c 8.6(H) <6.0 % [facility] Comment:Hemoglobin A1C Refer ence Range Adults: 4.8 - 6.0 % Non diabetic: < 6.0 % Goal: < 7.0 %Additional Action Suggested: > 8.0 %Note: Hemoglobin A1c results are invalid for patients with abnormal amounts of HbF. Blood transfusions may impact the HbA1c concentration in the patient sample. Estimated Average Glucose 200 mg/dL [facility] Comment:eAG = Estimated ave rage glucose which is %A1C expressed asaverage glucose, using the formula of the M0I-JptfumgIvhoufp Glucose study (ADAG), Diabetes Care, Vol.31,#8,Jun. 2007 Blood Venous blood specimen / Unknown 03/16/2025 9:42 AM EDT 03/16/2025 9:42 AM EDT Raya Pan NP LAB BLOOD ORDERABLES Final Resul t Performing Organization Address [facility] Co de Phone Number [facility] [address] [place] [address] [phone] * (ABNORMAL) Glucose, Whole Blood (02/17/2025 8:18 AM EDT) Only the most recent of3 resultswithin the time period is included. Glucose, Whole Blood 157(H) 60 - 115 mg/dL [facility] Comment:METER #: [id number] Testing performed in the Endocrinology Department [address] , [address], [place]. 02/17/2025 8:18 AM EDT 02/17/2025 8:22 AM EDT us Generic External Data Provider LAB BLOOD ORDERAB LES Final Result [facility] [address] [facility] [place] [phone] * Mr Brain w/ and w/o Contrast (01/15/2025 3:31 PM EST) Anatomical Region Laterality Modality Brain Magnetic Resonan ce 01/15/2025 3:31 PM EST Narrative 01/15/2025 3:33 PM EST ? [facility] ?[address] ?[place] [address] ? Magnetic Resonance Report ? Signed ? Patient: Stephanie Mellissa Tracy ?MR# ?? : [id number] ? : 1980 ?Acct:[id number] ? Age/Sex: 44 / F ?ADM Date: 01/15/25 ? Loc: HO.MRI ? Attending Dr: Mia Tristan MD ? Ordering Physician: Mia Tristan MD ?? Date of Service: 01/15/25 ?? Procedure(s): MR head/brain wo/w con ?? Accession Number(s): [id number] ? cc: Raya Pan NP; Mia Tristan [...] DD/ 1531 ? TD/TT: 01/15/25 1531 ? Registration Manager: ? Procedure Note Radha, Image - 01/15/2025 [place] [address] Magnetic Resonance Report Signed Patient: Mellissa Basurto [facility]# : [id number] : 1980Acct:[id number] Age/Sex: 44 / FADM Date: 01/15/25 Loc: HO.MRI Attending Dr: Mia Tristan MD Ordering Physician: Mia Tristan MD Date of Service: 01/15/25 Procedure(s): MR head/brain wo/w con Accession Number(s): [id number] cc: Raya Pan ELA TEACHER; Mia Tristan MD CLINICAL HISTORY: D35.2 - [...] 01/15/25 1532 DD/ 1531 TD/TT: 01/15/25 1531 Registration Manager: [facility] External Provider IMG MRI PROCEDURES Edited Result - Final * Cortisol Random (12/26/2024 8:49 AM EST) Only the most recent of2 resultswithin the time period is included. Cortisol Random 2.3 ug/dL [facility] Comment:Reference Range*: Be fore 10 am 6.2-19.4 ug/dL After 5 pm 2.3-11.9 ug/dL*Please interpret above results accordingly.This test was performed using the [employer] chemiluminescentmethod. Values obtained from different assay methods cannotbe used interchangeably.Patients receiving fludrocortisone, prednisolone orprednisone may show artificially elevated cortisol valuesdue to cross-reactivity. 12/26/2024 8:49 AM EST 12/26/2024 8:49 AM EST us Generic External Data Provider LAB BLOOD ORDERAB LES Final Result Performing Organization Address [facility] Co de Phone Number [facility] [address] [place] [phone] * Iron And Total Iron Binding Capacity (12/26/2024 8:49 AM EST) Iron 48 30 - 160 mcg/dL [facility] Total Iron Binding Capacity 321 228 - 428 mcg/dL [facility] Percent Iron Saturation 15 15 - 50 % [facility] Unsaturated Iron Binding 273 ug/dL [facility] Blood Venous blood specimen / Unknown 12/26/2024 8:49 AM EST 12/26/2024 8:49 AM EST us Raya Pan NP LAB BLOOD ORDERABLES Final Resul t Performing Organization Address [facility] Phone Number [facility] [address] [place] [phone] * DHEA Sulfate (12/26/2024 8:49 AM EST) Only the most recent of2 resultswithin the time period is included. DHEA Sulfate 19 15 - 205 mcg/dL [facility] Comment:THIS TEST WAS PERFOR MED AT:[email or web address] [place] [id number] HERNANDEZ MD 12/26/2024 8:49 AM EST 12/26/2024 8:49 AM EST us Generic External Data Provider LAB BLOOD ORDERAB LES Final Result Performing Organization Address [facility] Co de Phone Number [facility] [address] [place] [phone] * ACTH, Plasma (12/26/2024 8:49 AM EST) Only the most recent of2 resultswithin the time period is included. ACTH, Plasma 15 6 - 50 pg/mL [facility] Comment:Reference range appl ies only to specimens collectedbetween 7am-10am.THIS TEST WAS PERFORMED AT:[id number] [place] [address]LJRUOLSSRAVANI SLAUGHTER MD,PHD 12/26/2024 8:49 AM EST 12/26/2024 8:49 AM EST Generic External Data Provider LAB BLOOD ORDERAB LES Final Result Performing Organization Address City/[facility]/ZIP Co de Phone Number [facility] [address] [place] [phone] * TSH (12/26/2024 8:49 AM EST) Only the most recent of2 resultswithin the time period is included. Thyroid Stimulating Hormone 1.75 0.32 - 4.0 uIU/mL [facility] Comment:TSH 3rd Generation ( [facility]) 12/26/2024 8:49 AM EST 12/26/2024 8:49 AM EST Generic External Data Provider LAB BLOOD ORDERAB LES Final Result Performing Organization Address City/[facility]/ZIP Co de Phone Number [facility] [address] [place] [phone] * T4, Free (12/26/2024 8:49 AM EST) Only the most recent of2 resultswithin the time period is included. Free T4 (Free Thyroxine) 1.05 0.71 - 1.85 ng/dL [facility] 12/26/2024 8:49 AM EST 12/26/2024 8:49 AM EST Generic External Data Provider LAB BLOOD ORDERAB LES Final Result Performing Organization Address [facility] Co de Phone Number [facility] [address] [place] [phone] * LH (12/26/2024 8:49 AM EST) Only the most recent of2 resultswithin the time period is included. Lutenizing Hormone 21.0 mIU/mL [facility] Comment:Reference Range Foll icular Phase 1.9-12.5 Mid-Cycle Peak 8.7-76.3 Luteal Phase 0.5-16.9 Postmenopausal 10.0-54.7THIS TEST WAS PERFORMED AT:[email or web address] [place] [phone] HERNANDEZ MD 12/26/2024 8:49 AM EST 12/26/2024 8:49 AM EST Generic External Data Provider LAB BLOOD ORDERAB LES Final Result Performing Organization Address [employer] [facility] [employer] [facility] Number [facility] [address] [place] [phone] * FSH (12/26/2024 8:49 AM EST) Only the most recent of2 resultswithin the time period is included. Follicle Stimulating Hormone 9.5 mIU/mL [facility] Comment:Reference Range Foll icular Phase 2.5-10.2 Mid-cycle Peak 3.1-17.7 Luteal Phase 1.5- 9.1 Postmenopausal 23.0-116.3THIS TEST WAS PERFORMED AT:[email or web address] [place] [phone] HERNANDEZ MD 12/26/2024 8:49 AM EST 12/26/2024 8:49 AM EST Generic External Data Provider LAB BLOOD ORDERAB LES Final Result Performing Organization Address [facility] Co de Phone Number [facility] [address] [place] [phone] * (ABNORMAL) Comprehensive Metabolic Panel (12/26/2024 8:49 AM EST) Sodium 137 135 - 145 mmol/L [facility] Potassium 3.9 3.3 - 5.1 mmol/L [facility] Chloride 104 96 - 108 mmol/L [facility] Carbon Dioxide 24 22 - 29 mmol/L [facility] Anion Gap 13 12 - 20 [facility] Urea Nitrogen (BUN) 15 9 - 16 mg/dL [facility] Creatinine, Serum 0.67 0.5 - 1.4 mg/dL [facility] Estimated Glomerular Filt Rate >60 [facility] Comment:Chronic Kidney Disea se: Estimated GFR < 60 mL/min/1.62c0Uvwxmx Kidney Disease: Estimated GFR < 15 mL/min/1.73m2 Glucose 328(H) 60 - 115 mg/dL [facility] Calcium 9.3 8.4 - 10.2 mg/dL [facility] Bilirubin, Total 0.5 0.0 - 1.0 mg/dL [facility] Aspartate Amino Transferase 82(H) 5 - 31 U/L [facility] Alanine Aminotransferase 170(H) 0 - 31 U/L [facility] Total Protein 7.7 6.5 - 8.0 g/dL [facility] Albumin Level 4.0 3.5 - 5.0 g/dL [facility] Alkaline Phosphatase 149(H) 39 - 117 U/L [facility] Blood Venous blood specimen / Unknown 12/26/2024 8:49 AM EST 12/26/2024 8:49 AM EST us Raya Pan NP LAB BLOOD ORDERABLES Final Resul t [facility] [address] [place] [phone] [phone] * Alpha Subunit (12/20/2024 8:53 AM EST) Alpha Subunit 0.2 ng/mL [facility] Comment:Reference Range for Alpha Subunit:Premenopausal Females: 0.1-0.6 ng/mLPostmenopausal Females: 0.1-1.5 ng/mLPregnancy (1st and 2nd Trimesters): 35.0-186.0 ng/mLHypothyroidism: 0.2-3.2 ng/mLThis test measures the free alpha subunit that is common toLH, FSH, TSH and hCG. These hormones are comprised ofidentical alpha subunits and unique beta subunits thatconfer biological specificity.This test was developed and its analytical performancecharacteristics have been determined by [employer].It has not been cleared or approved by FDA. This assay hasbeen validated pursuant to the CLIA regulations and is usedfor clinical purposes.THIS TEST WAS PERFORMED AT:[facility]/[employer] [id number] [facility] [place] [address]PUILVLEVON FORTE MD,PHD,JOSHUA 12/20/2024 8:53 AM EST 12/20/2024 8:53 AM EST us Generic External Data Provider LAB BLOOD ORDERAB LES Final Result [facility] [address] [place] [phone] * Prolactin, Dilution Study (12/20/2024 8:53 AM EST) Prolactin, Undiluted 20.7 ng/mL [facility] Prolactin, Diluted SEE NOTE ng/mL [facility] Comment:Result confirmed by 1:100 dilution. No high dosehook effect detected. Reference Range Females Non- 3.0-30.0 10.0-209.0 Postmenopausal 2.0-20.0Prolactin dilution studies are done to determine ifthere is a high-dose hook effect (i.e. a non-linearassay response due to a very high concentration ofProlactin). This is reported to occur at Prolactinconcentrations at or above 30,000 ng/mL.This test is not recommended for identifyingmacroprolactin. The [facility], Prolactin, Total and Monomeric is therecommended test (Order code [id number]).THIS TEST WAS PERFORMED AT:[facility] [address] [address]KEWTFTAMIA HERNANDEZ MD 12/20/2024 8:53 AM EST 12/20/2024 8:53 AM EST Generic External Data Provider LAB BLOOD ORDERAB LES Final Result Performing Organization Address [facility]/ZIP Co de Phone Number [facility] [address] [place] [phone] * Prolactin (12/20/2024 8:53 AM EST) Prolactin [facility] Comment:DUPLICATE 12/20/2024 8:53 AM EST 12/20/2024 8:53 AM EST Generic External Data Provider LAB BLOOD ORDERAB LES Final Result Performing Organization Address [facility] Co de Phone Number [facility] [address] [place] [phone] * IGF-1, LC/MS (12/20/2024 8:53 AM EST) IGF 1, LC/MS 73 52 - 328 ng/mL [facility] Z Score (Male) [facility] Z Score (Female) -1.3 -2.0 - 2.0 SD [facility] Comment:This test was develo ped and its analytical performancecharacteristics have been determined by [employer].It has not been cleared or approved by FDA. This assay hasbeen validated pursuant to the CLIA regulations and is usedfor clinical purposes.THIS TEST WAS PERFORMED AT:[employer] [id number] [place], [place] [address]AGHESLEVON FORTE MD,PHD,JOSHUA 12/20/2024 8:53 AM EST 12/20/2024 8:53 AM EST us Generic External Data Provider LAB BLOOD ORDERAB LES Final Result [facility] [address] [place] [phone] * Growth Hormone (GH) (12/20/2024 8:53 AM EST) Growth Hormone 0.2 < OR = 7.1 ng/mL [facility] Comment: Because of a pulsatile [...] or = 10.0 ng/mLTHIS TEST WAS PERFORMED AT:[email or web address] [place] [address] ??[phone] HERNANDEZ MD 12/20/2024 8:53 AM EST 12/20/2024 8:53 AM EST Generic External Data Provider LAB BLOOD ORDERAB LES Final Result Performing Organization Address [facility] Co de Phone Number [facility] [address] [place] [phone] * Estradiol (12/20/2024 8:53 AM EST) Estradiol Ultra Sensitive 45 pg/mL [facility] Comment:Female Reference Ran ges for Estradiol, Ultrasensitive (pg/mL): Follicular Phase: 39-375 Luteal Phase: 48-440 Postmenopausal Phase: < or = 10This test was developed and its analytical performancecharacteristics have been determined by [employer].It has not been cleared or approved by FDA. This assay hasbeen validated pursuant to the CLIA regulations and is usedfor clinical purposes.THIS TEST WAS PERFORMED AT:[facility] [id number] [facility] [place] [address]IJFNVLEVON FORTE MD,PHD,JOSHUA 12/20/2024 8:53 AM EST 12/20/2024 8:53 AM EST Generic External Data Provider LAB BLOOD ORDERAB LES Final Result Performing Organization Address [facility] de Phone Number [facility] [address] [place] [phone] * HEPATITIS C AB W/REFL TO HCV RNA, QN, PCR (12/23/2021 10:03 AM EST) Pathologist [facility] HEPATITIS C ANTIBODY NON-REACT [facility] NON-REACT [facility] INDEX 0.01 <1.00 [facility] Comment: ?? HCV antibody was non-reactive. There is no laboratory ?? evidence of HCV infection. ?? In most cases, no further action is required. However, if recent HCV exposure is suspected, a test for HCV RNA (test code 54163) is suggested. ?? For additional information please refer to http://education.[employer]/faq/GLT37i9 (This link is being provided for informational/ educational purposes only.) ?? 12/23/2021 10:0 3 AM EST Isi Lind CNM HISTORICAL/NON ORDERABLE LABS Final Result Performing Organization Address [facility] de Phone Number [facility] [address] [place] [address], * HIV 1/2 ANTIGEN/ANTIBODY,FOURTH GENERATION W/RFL (12/23/2021 10:03 AM EST) Pathologist [facility] HIV-1/2 ANTIGEN AND ANTIBODIES, 4TH GENERATION W/ [...] ? For additional information please refer to http://education.[employer]/faq/YBQ914 (This link is being provided for informational/ educational purposes only.) ? The performance of this assay has not been clinically validated in patients less than 2 years old. ?? 12/23/2021 10:0 3 AM EST Isi Lind CNM LAB BLOOD ORDERABLES Melvina l Result Performing Organization Address [facility] Co de Phone Number [facility] [address] [place] [address], * THINPREP TIS PAP AND HPV mRNA E6/E7, CT/NG, TRICH (12/23/2021 9:16 AM EST) Pathologist [facility] Chlamydia trachomatis RNA, TMA, Urogenital NOT DETECTED NOT DETECTED [facility] Clinical Information: None given [facility] COMMENT SEE COMMENT [facility] Comment: The analytical performance characteristics of this assay, when used to test SurePath(TM) specimens have been determined by [employer]. The modifications have not been cleared or approved by the FDA. This assay has been validated pursuant to the CLIA regulations and is used for clinical purposes. ?? For additional information, please refer to https://SimpliField.[employer]/faq/FXF417 (This link is being provided for information/ [...] has been evaluated with computer assisted technology. [facility] Expanded Duty Dental Assistant: SEE COMMENT [facility] Comment: RMM, CT(ASCP) CT screening location: [address] ??[phone] HPV nRNA E6/E7 Not Detected Not Detected [facility] [employer] Comment: Methodology: Technology Auditor-Mediated Amplification This assay detects E6/E7 viral messenger RNA (mRNA) from 14 high-risk HPV types (16,18,31,33,35,39,45,51,52,56,58,59,66,68). ? The analytical performance characteristics of this assay have been determined by [employer]. The modifications have not been cleared or approved by the FDA. This assay has been validated pursuant to the CLIA regulations and is used for clinical purposes. ?? For additional information, please refer to http://SimpliField.[employer]/faq/TPS311l7 (This link if provided for information/ educational purposes only.) Interpretation/Re sult: Negative for intraepithelial lesion or malignancy. [facility] LMP: 12/09/2021 [facility] [facility] Neisseria gonorrhoeae RNA, TMA, Urogenital NOT DETECTED NOT DETECTED [facility] Prev. BX: NONE GIVEN [facility]OUND[facility] [...] of this assay have been determined by [employer]. The modifications have not been cleared or approved by the FDA. This assay has been validated pursuant to the CLIA regulations and is used for clinical purposes. ?? For additional information, please refer to http://education.[employer]/ faq/Trichomonastma (This link is being provided for information/ educational purposes only.) ?? 12/23/2021 9:16 AM EST [facility] ORDERABLES Final Result [facility] [address] * Pap Smear (12/23/2021 12:00 AM EST) Swab [facility] ORDERABLES F inal Result [facility] [address], [place] [address] from Last 3 Months or Most Recently Relevant to Health Maintenance Insurance [facility] [employer] [place] [facility] STAND AD[place] Care Teams Electrical Superintendent Relationship Specialty Start Date End Date Raya Pan NP [address] [place] [phone] PCP - General Family Medicine 12/18/23
--- OUTSIDE RECORDS SUMMARY | 2025-03-16 10:20 | XMS_ITS | Encounter Summary ---
Author Organization [facility] Address [address] [facility] 7t [place] [address] Care Team Providers Care Jewelry Finisher Name Role Phone Kim Johnson Primary Care Provider [phone] Raya Pan NP Primary Care Provider [phone] Encounter Details Date Type Department Care Team (Latest Contact Info) Description 03/07/2019 Abstract [facility] CONVERSIONS Dental, Provider, DDS Social History [...] 9:30 AM EDT Office Visit [facility] OPTOMETRY [address] [place] [address] David, Destinee, OD [address] [place] [address] 03/23/2025 9:00 AM EDT Office Visit [facility] ADULT DENTAL [address] [place] [address] Ana Koehler documented as of this encounter Visit Diagnoses Not on filedocumented in this encounter Care Teams Jewelry Finisher Relationship Specialty Start Date End Date Kim Johnson FNP [address] [place] [address] PCP - General Family Medicine 05/14/22 12/17/23 Raya Pan NP [address] [place] [address] PCP - General Family Medicine 12/18/23 documented as of this encounter
[2025-03-16 11:10] LABS: Alanine Aminotransferase 37 U/L (0-31); Albumin Level 4.1 g/dL (3.5-5.0); Alkaline Phosphatase 93 U/L (39-117); Anion Gap 11 (12-20); Aspartate Amino Transferase 34 U/L (5-31); Bilirubin Total 0.4 mg/dL (0.0-1.0); Blood Urea Nitrogen 15 mg/dL (9-16); Calcium 9.3 mg/dL (8.4-10.2); Carbon Dioxide 24 mmol/L (22-29); Chloride 111 mmol/L (96-108); Estimated Glomerular Filt Rate > 60; Glucose Fasting 170 mg/dL (60-99); Glucose Random 169 mg/dL (60-115); Potassium 3.8 mmol/L (3.3-5.1); Sodium 142 mmol/L (135-145); Total Protein 7.1 g/dL (6.5-8.0)
[2025-03-17 11:24] LABS: C Peptide 4.68 ng/mL (0.80-3.85)
[2025-03-19 14:38] LABS: Adrenocorticotropic Hormone 23 pg/mL (6-50)
[2025-03-19 22:19] LABS: Glutamic acid decarboxylase Ab <5 IU/mL (<5)
[2025-03-22 08:04] LABS: Islet Cell Antibody Screen NEGATIVE (NEGATIVE)
== END 2025-03-16 09:27 | disposition home or self-care (01) ==
LOC: HO.LAB 09:26
PROVIDERS: PCP Nurse Practitioner Family; Visit Provider Student in an Organized Health Care Education/Training Program
DX: E11.65 Type 2 diabetes mellitus with hyperglycemia (principal); L65.9 Nonscarring hair loss, unspecified; D35.2 Benign neoplasm of pituitary gland; Z86.39 Personal history of other endocrine, nutritional and metabolic disease
CPT/HCPCS: 36415; 80053; 82024; 82533; 83036; 84681; 85025; 86341

== ENCOUNTER 2025-03-17 07:46 | Outpatient (AMB) | payer MEDICAID, SELFPAY ==
--- OUTSIDE RECORDS SUMMARY | 2025-03-17 07:47 | XMS_ITS | Encounter Summary ---
Author Organization [facility] Address [address] [facility] [address] [place] [address] Care Team Providers Care Raw Juice Weigher Name Role Phone Maxim Raya RADHA Primary Care Provider [phone] Reason for Visit * Reason Onset Date Comments pain from crown 09/09/2024 Encounter Details Date Type Department Care Team ([facility] st Contact Info) Description 09/09/2024 Telephone [facility] ADULT DENTAL [address] [place], [place] [phone] Kate Mejia DDS [address] [place], [place] [phone] pain from crown Social History Tobacco Use [...] Care Team (Late st Contact Info) Description 03/23/2025 9:00 AM EDT Office Visit [facility] ADULT DENTAL [address] [place] [address] Ana Koehler documented as of this encounter Visit Diagnoses Not on filedocumented in this encounter Care Teams Raw Juice Weigher Relationship Specialty Start Date End Date Raya Pan NP [address] [place] [address] PCP - General Family Medicine 12/18/23 documented as of this encounter
--- OUTSIDE RECORDS SUMMARY | 2025-03-17 07:47 | XMS_ITS | Encounter Summary ---
Author Organization [facility] Address [address] [facility] [address] [place] [address] Care Team Providers Care Weight Engineer Name Role Phone Kim Johnson CAMPAIGN COORDINATOR Primary Care Provider [phone] Raya Pan DRESS OPERATOR Primary Care Provider [phone] Encounter Details Date Type Department Care Team (Latest Contact Info) Description 03/07/2019 Abstract [facility] CONVERSIONS Dental, Provider, DDS Social History Tobacco [...] 9:00 AM EDT Office Visit [facility] ADULT DENTAL [address] [place] [address] Ana Koehler documented as of this encounter Visit Diagnoses Not on filedocumented in this encounter Care Teams Weight Engineer Relationship Specialty Start Date End Date Kim JohnsonGLORIA [address] [place] [address] PCP - General Family Medicine 05/14/22 12/17/23 Raya Pan NP [address] [place] [address] PCP - General Family Medicine 12/18/23 documented as of this encounter
--- OUTSIDE RECORDS SUMMARY | 2025-03-17 07:47 | XMS_ITS | Encounter Summary ---
Author Organization [facility] Address [address] [place] [address] 7[address] [place] [address] Care Team Providers Care Typewriter Ribbon Winder Name Role Phone Kim Johnson Primary Care Provider [phone] Raya Pan NP Primary Care Provider [phone] Encounter Details Date Type Department Care Team (Late st Contact Info) Description 09/25/2023 Abstract [facility] ADULT DENTAL [address] [place] [address] Kate Mejia DDS [address] [place], [place] [phone] Social History Tobacco Use Types Packs/Day Years [...] Description 03/23/2025 9:00 AM EDT Office Visit [facility] ADULT DENTAL [address] [place] [address] Ana Koehler documented as of this encounter Visit Diagnoses Not on filedocumented in this encounter Care Teams Typewriter Ribbon Winder Relationship Specialty Start Date End Date MattoonKim FNP [address] [place] [address] PCP - General Family Medicine 05/14/22 12/17/23 Raya Pan NP [address] [place] [address] PCP - General Family Medicine 12/18/23 documented as of this encounter
--- NOTE | 2025-03-17 07:48 | A.OFFVIS_ITS ---
Vital Signs 3 03/17/25 07:49 Height 5 ft Weight 133 lb 2.547 oz BMI 26.0 BP 102/72 Blood Pressure Location Lt brachial Position Sitting Pulse 70 Pulse Source Pulse Oximeter Pulse Oximetry (%) 97 Oxygen Delivery Method Room Air Intake Visit Reasons: T2DM Intake Note: Patient present today for Type 2 Diabetes Mellitus Last Diabetic eye exam: 02/2025 Last Podiatry Visit: Doesn't have one Random Glucose: 142 mg/dl HgA1C: 8.6% 03/16/25 Woodworking Machine Operator Required: Yes Woodworking Machine Operator Language: Marketing Sales Supervisor Services: Woodworking Machine Operator Present Woodworking Machine Operator Name: Myra [id number] Information Interpreted: non-clinical & clinical Accompanied by: Self / Same As Patient Allergies No Known Allergies Allergy (Verified 03/17/25 07:54) HPI Comments Details: 44-year-old female here today for follow up of type 2 diabetes mellitus. 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 Pituitary incidentaloma and adrenal insufficiency not addressed for today's visit. Type 2 diabetes mellitus History of diabetes Diagnosed Dec 2024 Prior therapy: None Current regimen: insulin Lantus 8 units in AM Trulicity 0.75 mg weekly started 01/25/25 takes it on Thursday Random Glucose: 142 mg/dl HgA1C: 8.6% 03/16/25 HgA1C: 12.9% 12/26/24 Denies polyuria, polydipsia currently, says she was having that a few months ago. Weight stable. . Denies any hypoglycemic symptoms. mycirQleyle Margot 3 data downloaded from January 28 to 02/10/2025 Time CGM active 100% Average glucose 173 mg/dL G AK 7.4% glucose variability 24.8% Within target range 57% High 38% Very high 5% Low 0% Interpretation: Improved blood sugars but continues to have postprandial highs especially after breakfast and lunch,. Also runs high between 00:12 mostly in the 200s. Complications Last Diabetic eye exam: saw 02/15/25, she was told visual coe are intact, no diabetic retinopathy, just some bleeding in 1 eye, I will obtain these records Last Podiatry Visit: Doesn't have one Neuropathy: no symptoms Kidney disease: no history Macrovascular complications: No history of macrovascular complications. Statin: Atorvastatin 40 mg daily started January 2025 Screening for MASLD : Fib 4 score for labs from February 2025 comes down to 1.91, she needs further investigation so we will need GI referral VISHNU/ARB: none Exercise: None Active at work but other gamez no Diet control: Most days Breakfast: rice beans and fried chicken tomatoes Some pakoras and samosas sometimes at restaurant Dinner rice and soup No desserts Stopped drinking sodas and juices CDE appointment done most recent fup 03/13/25 Limehouse Worker appointment done 02/09/25 He has never had any hospitalizations for hyperglycemia/hypoglycemia. 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 no mass effect on optic chiasm. No dedicated MRI of the pituitary done. Vision changes: blurry vision intermittently trouble with reading , reports ocular pain intermittently Headache: none Nipple discharge: none Surgical Technician history: LMP: mid October 2024, regular Pregnancies : 4 , 4 living children , no fertility issues Change in sense of smell: no Change in ring size: none Change in shoe size: none Patient currently denies heat or cold intolerance, diarrhea or constipation, hair loss, palpitation, anxiety, weight changes, mood changes, low energy, changes in appearance of eyes or vision changes, tremors, increased diaphoresis or dry skin. ? Easy bruising: yes Proximal muscle weakness: none has uncontrolled DM Nausea: none Vomiting:none Lightheadedness: intermittent Weight: lost 5 lbs in 1 month Labs from 12/20/2024 showed normal thyroid function, undetectable cortisol level, acth of 13, DHEA-S of 29, IGF-1, estradiol level pending. Prolactin level normal 20.7. She is very inconsistent with her history and said that she was having some lightheadedness or dizziness that had already resolved before she started the medication that we had prescribed to her over the phone hydrocortisone 10 mg twice a day. She has lost 5 lb since the last visit. 12/26/2024: after holding the hydrocortisone the afternoon before in the morning off, cortisol level in a.m. was 2.3 with a ACTH of 15. 12/27/2024: Again after holding the hydrocortisone in the afternoon before and the morning of, cortisol level was 0.5 in a.m. at [facility] with ACTH of 3.9 01/15/2025: MRI of the pituitary with and without contrast showed a T1 isointense and a T2 mildly hyperintense, mildly heterogenously enhancing mass measuring 1.6 X 1.2 X 1.5 cm within the sella turcica with the pituitary stalk shifted to the left. Mass abuts the optic chiasm. Cavernous sinuses appear symmetric. No evidence of mass, mass effect or midline shift. Appearance consistent with pituitary macroadenoma. Continues on hydrocortisone 10 mg in a.m. and 5 mg in the afternoon No vision changes, no eye symptoms No nausea, vomiting , dizziness , lightheadedness. Medical alert bracelet:hasnt bought yet Ophthalmology referral: inital appointment 12/20/2024, visual coe not done , has appt 03/22/25 for visual coe Neurosurgery referral:Patient scheduled on 03/27/25 @ 12:30. with Dr. Apple Cornejo [facility] Physical exam General: sitting comfortably in no acute distress HEENT: normocephalic/atraumatic, , moist oral mucosa, visual coe grossly intact Neck: supple, Cardiac: normal heart sounds Pulm: normal breath sounds B/L, no added breath sounds Abd: not distended, no tenderness Foot exam: done 01/13/25 Warm, well-perfused, right big toenail has thickening, Intact sensation to monofilament, intact pulses, intact vibration Laboratory Tests 12/20/24 08:53 TSH 1.14 Free T4 1.05 FSH 7.6 Luteinizing Hormone 7.7 Prolactin Undiluted 20.7 DHEA Sulfate 29 Human Growth Hormone 0.2 Random Cortisol < 1.0 ACTH 13 Laboratory Tests 12/20/24 12/26/24 08:53 08:49 Sodium 137 Potassium 3.9 Chloride 104 Carbon Dioxide 24 Anion Gap 13 BUN 15 Creatinine 0.67 Estimated GFR > 60 Alpha Subunit Marker 0.2 TSH 1.14 1.75 Free T4 1.05 1.05 Estradiol Ultra LCMSMS 45 FSH 7.6 9.5 Luteinizing Hormone 7.7 21.0 Prolactin Undiluted 20.7 DHEA Sulfate 29 19 Human Growth Hormone 0.2 Somatomedin-C 73 Somato-C Z-Score Female -1.3 Random Cortisol < 1.0 2.3 ACTH 13 15 Laboratory Tests 0201/13/25 01/13/25 08:49 07:57 10:18 Plt Count 146 L Sodium 137 Potassium 3.9 Creatinine 0.67 Estimated GFR > 60 Glucose (Clinic) 325 H Random Glucose 328 H Estimat Average Glucose 324 Hemoglobin A1c % 12.9 H AST 82 H ALT 170 H Alkaline Phosphatase 149 H Albumin 4.0 Triglycerides 120 Cholesterol 244 H LDL Cholesterol, Calc 171 H HDL Cholesterol 49 Urine Creatinine 38.72 Urine Microalbumin 11.0 Microalb/Creat Ratio 28.4 01/26/25 07:44 Plt Count Sodium Potassium Creatinine Estimated GFR Glucose (Clinic) 299 H Random Glucose Estimat Average Glucose Hemoglobin A1c % AST ALT Alkaline Phosphatase Albumin Triglycerides Cholesterol LDL Cholesterol, Calc HDL Cholesterol Urine Creatinine Urine Microalbumin Microalb/Creat Ratio Laboratory Tests 01/13/25 03/16/25 10:18 09:42 Hgb 12.2 Hct 37.3 Plt Count 129 L Sodium 142 Potassium 3.8 Creatinine 0.61 Estimated GFR > 60 Random Glucose 169 H Fasting Glucose 170 H Estimat Average Glucose 200 Hemoglobin A1c % 8.6 H Calcium 9.3 AST 34 H ALT 37 H Alkaline Phosphatase 93 Triglycerides 120 Cholesterol 244 H LDL Cholesterol, Calc 171 H HDL Cholesterol 49 Urine Creatinine 38.72 Urine Microalbumin 11.0 Microalb/Creat Ratio 28.4 MR brain without contrast. Thin slice imaging through the pituitary gland was obtained. 01/15/25 COMPARISON: None FINDINGS: High-resolution imaging of the pituitary region demonstrates a T1 isointense, T2 mildly hyperintense, FLAIR hyperintense, diffusion restricting, mildly heterogeneously enhancing mass measuring 1.6 x 1.2 x 1.5 cm within the sella turcica. The pituitary stalk is shifted to the left. Neurohypophysis appears normal in position. Mass abuts the optic chiasm. Cavernous sinuses appear symmetric. Flow voids within the carotid siphons normal. There is likely mild expansion of the sella turcica. No abnormal diffusion restriction in the brain parenchyma or extra-axial spaces. No evidence of mass, mass effect or midline shift. No intracranial hemorrhage or abnormal extra-axial fluid collection. No evidence of hydrocephalus. The basilar cisterns are patent. A few scattered foci of T2/FLAIR hyperintensity within the chapman radiata white matter in the frontal lobes bilaterally and in the right temporal lobe. Cerebellar hemispheres and cerebellar vermis are normal. Fourth ventricle is normal. No brainstem abnormality is identified. Intracranial flow voids are patent. The visualized paranasal sinuses and mastoid air-cells are clear. IMPRESSION: 1. Pituitary mass measuring up to 1.6 cm abuts the optic chiasm and shift the pituitary stalk to the left. 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 This document has been electronically signed by: Lam Tripathi MD on 01/15/2025 15:31:23 [facility] Medical History (Updated 03/17/25 @ 08:19 by Mia Tristan MD) Metabolic dysfunction-associated steatotic liver disease (MASLD) HLD (hyperlipidemia) Diabetes mellitus with hyperglycemia Pituitary macroadenoma Surgical History History of bilateral tubal ligation Social History Alcohol intake: never Patient Tobacco Use Status: Never used Tobacco Physical Exam Vital Signs: Last Vital Signs Pulse 70 03/17/25 07:49 BP 102/72 03/17/25 07:49 Pulse Ox 97 03/17/25 07:49 Oxygen Delivery Method Room Air 03/17/25 07:49 BMI result Body Mass Index 26.0 Office Procedures Glucose Monitoring Details Details: see [facility] [address] - Glucose monitoring, continuous-physician I&R Procedure code (CPT) selection complete Assessment & Plan Assessment & Plan (1) Diabetes mellitus with hyperglycemia: Code(s): E11.65 - Type 2 diabetes mellitus with hyperglycemia Category: Medical Qualifiers: Diabetes mellitus intermodal customer service insulin use: with intermodal customer service use Diabetes mellitus type: type 2 Qualified Code(s): E11.65 - Type 2 diabetes mellitus with hyperglycemia; Z79.4 - exterminator helper (current) use of insulin Plan: 44-year-old female who was seeing me for pituitary incidentaloma and adrenal insufficiency on steroids, was noted to have uncontrolled hyperglycemia, with no prior history of diabetes, now with new onset of type 2 diabetes mellitus. A1c 12.9% from December 2024. Down to 8.6% from February 2025. Blood sugars are much improved, CGM data reviewed and she is still continues to have high fasting and postprandial blood sugars but improved from 300s to mostly in the late 150s. Plan: -increase insulin to Lantus 10 units daily in the morning -increase Trulicity to 1.5 mg weekly -continue with Applied Cav[employer] Margot 3 sensor monitoring -lifestyle modification advised with the avoiding carbs, eliminating any sugars are sugary drinks such as soda isn't juices -150 minutes of exercise advised with 30 minutes of walking daily -saw Ophthalmology 02/15/2025 at [facility] [place] , no retinopathy -foot exam done 01/13/25, she does not have any symptoms of neuropathy - pending levels of C-peptide and insulin antibodies given her BMI is only 24.4 kg per m2, and she does not have any family history of type 2 diabetes mellitus, evaluating for JONATHAN, -podiatry referral in place, patient has not made the appointment yet Her fib 4 score is 1.9, requiring further investigation with liver elastography, at this time she is already very overwhelmed with the idea follow up with eye doctor for visual coe and her neurosurgery appointment that is coming up in March. I will 1st wait for her to address all of those appointments and then we can place a GI referral. In the meantime we are increasing her Trulicity 1.5 mg weekly and Lifestyle modification advised. (2) HLD (hyperlipidemia): Code(s): E78.5 - Hyperlipidemia, unspecified Category: Medical Qualifiers: Hyperlipidemia type: mixed hyperlipidemia Qualified Code(s): E78.2 - Mixed hyperlipidemia Plan: LDL elevated at 171 mg/dL. Goal LDL less than 70 mg/dL. started atorvatstain 40 mg daily 01/26/25 Plan: - continue atorvastatin 40 mg daily -will plan to repeat lipid panel in 3 months sometime around April 2025 (3) Metabolic dysfunction-associated steatotic liver disease (MASLD): Code(s): K76.0 - Fatty (change of) liver, not elsewhere classified Category: Medical Plan: Her fib 4 score is 1.9, requiring further investigation with liver elastography, at this time she is already very overwhelmed with the idea follow up with eye doctor for visual coe and her neurosurgery appointment that is coming up in March. I will 1st wait for her to address all of those appointments and then we can place a GI referral. In the meantime we are increasing her Trulicity 1.5 mg weekly and Lifestyle modification advised. Plan: -increase Trulicity to 1.5 mg weekly -Lifestyle modification advised Plan I spent 30 minutes in reviewing the record, seeing the patient and documenting in the medical record. Orders: Orders 2 AMB Glucose Monitoring Today E11.65 - Type 2 diabetes mellitus with hyperglycemia, Z79.4 - exterminator helper (current) use of insulin Medications: New 2 dulaglutide (Trulicity) 1.5 mg (0.5 mL) subcut QWEEK 2 mL 4RF Changed 2 From insulin glargine (Lantus Solostar U-100 Insulin) 8 units (0.08 mL) subcut QAM 6 mL 5RF To insulin glargine (Lantus Solostar U-100 Insulin) 10 units (0.1 mL) subcut QAM 6 mL 5RF Discontinued 2 dulaglutide (Trulicity) Discontinued Reason: Doctor's Order 0.75 mg (0.5 mL) subcut QWEEK 2 mL 5RF Patient Instructions: Increase Trulicity to 1.5 mg weekly Increase insulin Lantus to 10 units daily Rule of 15 Treatment for Hypoglycemia (Low blood sugar) If your blood glucose is low (70 and below)*, follow the steps below to treat: Eat or drink something from the list below equal to 15 grams of carbohydrate (carb). Rest for 15 minutes Re-check your blood glucose. If it is still low, (below 70), repeat step 1 above. ? If your next meal is more than an hour away, you will need to eat one carbohydrate choice as a snack to keep your blood glucose from going low again. ?If you can't figure out why you have low blood glucose, call your healthcare provider, as your medicine may need to be adjusted. ?Always carry something with you to treat an insulin reaction. Use food from the list below. ? Foods equal to One Carbohydrate Choice (15 grams of carbohydrate): 3 Glucose ?tablets or 4 Dextrose tablets 4 ounces of fruit juice 5-6 ounces (about 1/2 can) of regular soda such as Coke or Pepsi ? 7-8 gummy or regular Life Savers ? 1 Tbsp. of sugar or jelly NOTE: If your blood sugar is less than 50, double the portion above for a total of 30 gm. ?Carbohydrate. ? Follow meal plan of 45-60 g of consistent carbohydrates at 3 meals each day and 15 g of carbohydrate at 1-2 snacks each day. Make sure you go to the eye doctor [facility] 03/22/25 Make sure you are on time for your neurosurgery appointment please show up 30 mins before for Neurosurgery appointment Aumente la dosis de Trulicity a 1.5 mg semanales. Aumente la insulina Lantus a 10 unidades diarias. Tratamiento de la [place] del 15 para la Hipoglucemia (nivel bajo de az?car en sabi) Si henao nivel de glucosa en sabi es bajo (70 o menos)*, siga los pasos a continuaci?n para tratarlo: Coma o nikole algo de la lista a continuaci?n equivalente a 15 gramos de carbohidratos. Descanse 15 minutos. Vuelva a medir henao nivel de glucosa en sabi. Si sigue bajo (menos de 70), repita el paso 1 anterior. Si henao pr?xima comida es en m?s de lavonne hora, deber? consumir un carbohidrato efe refrigerio para evitar que henao nivel de glucosa en sabi baje de nuevo. Si no puede determinar la causa de henao nivel bajo de glucosa en sabi, llame a henao profesional de la deborah, ya que podr?a ser necesario ajustar henao medicamento. Lleve siempre consigo algo para tratar lavonne reacci?n a la insulina. Use alimentos de la lista a continuaci?n. Alimentos equivalentes a lavonne opci?n de carbohidratos (15 gramos): 3 tabletas de glucosa o 4 tabletas de dextrosa 113 ml de jugo de fruta 140 ml (aproximadamente 1/2 ericka) de refresco regular efe Coca-Cola o Pepsi 7-8 gomitas o Life Savers regulares 1 cucharada de az?car o mermelada NOTA: Si henao nivel de az?car en sabi es inferior a 50, duplique la porci?n anterior para un total de 30 g de carbohidratos. Siga henao plan de alimentaci?n de 45-60 g de carbohidratos consistentes en 3 comidas al d?a y 15 g de carbohidratos en 1-2 refrigerios al d?a. Aseg?rese de acudir al oftalm?logo de [place] el 05/20/25. Aseg?rese de llegar puntual a henao remi de neurocirug?a. Por favor, llegue 30 minutos antes de la remi. Coding Level of Care Code Est Pt Level 4 (76564) Diagnoses Type 2 diabetes mellitus with hyperglycemia, with long-term current use of insulin E11.65; Z79.4 Diabetes mellitus group home insulin use: with intermodal customer service use Diabetes mellitus type: type 2 Mixed hyperlipidemia E78.2 Hyperlipidemia type: mixed hyperlipidemia Metabolic dysfunction-associated steatotic liver disease (MASLD) K76.0 CPT Codes Details - CPT: 79970 - Glucose monitoring, continuous-physician I&R ([id number]) Time Spent (min) 30
--- OUTSIDE RECORDS SUMMARY | 2025-03-17 07:48 | XMS_ITS | Encounter Summary ---
Author Organization [employer] [facility] Address [address] [place] [address] [address] [place] [address] Care Team Providers Care Social Media Specialist Name Role Phone Kim JohnsonP Primary Care Provider [phone] Raya Pan NP Primary Care Provider [phone] Encounter Details Date Type Department Care Team (Late st Contact Info) Description 06/30/2023 Abstract [facility] ADULT DENTAL [address] [place] [address] Abena Mascorro [address] [place] [address] Social History Tobacco Use Types Packs/Day Years [...] Description 03/23/2025 9:00 AM EDT Office Visit [facility] ADULT DENTAL [address] [place] [address] Ana Koehler documented as of this encounter Visit Diagnoses Not on filedocumented in this encounter Care Teams Social Media Specialist Relationship Specialty Start Date End Date Kim Johnson FNP [address] [place] [address] PCP - General Family Medicine 05/14/22 12/17/23 Raya Pan NP [address] [place] [address] PCP - General Family Medicine 12/18/23 documented as of this encounter
--- OUTSIDE RECORDS SUMMARY | 2025-03-17 07:48 | XMS_ITS | Encounter Summary ---
Author Organization [facility] Address [address] [facility] [address] [place] [address] Care Team Providers Care Comber Tender Name Role Phone Kim Johnson HEALTH PLAN ADVISOR Primary Care Provider [phone] Raya Pan BRAILLE PROOFREADER Primary Care Provider [phone] Encounter Details Date Type Department Care Team (Latest Contact Info) Description 10/17/2021 Abstract [facility] CONVERSIONS Dental, Provider, DDS Social [...] Description 03/23/2025 9:00 AM EDT Office Visit [facility] ADULT DENTAL [address] [place] [address] Ana Koehler documented as of this encounter Visit Diagnoses Not on filedocumented in this encounter Care Teams Comber Tender Relationship Specialty Start Date End Date Kim JohnsonGLORIA [address] [place] [address] PCP - General Family Medicine 05/14/22 12/17/23 Raya Pan NP [address] [place] [address] PCP - General Family Medicine 12/18/23 documented as of this encounter
--- OUTSIDE RECORDS SUMMARY | 2025-03-17 07:48 | XMS_ITS | Clinical Summary ---
Author Organization [employer] Address [address] [facility] [facility] [address] [place] [address] Care Team Providers Care Senior Wind Turbine Technician Name Role Phone Raya Pan NP Primary Care Provider [phone] Allergies Active Allergy Reactions Criticality Noted Date [...] Team Description 01/27/[address] [facility] (C3) Department [address] [phone] Provider, Population Health Generic 01/17/2025 Telephone [facility] [address] [place] [address] Raya Pan NP 01/04/2025 Telephone [facility] [address] [place] [phone] Raya Pan NP 12/28/[address] [address] Alena Vega MA Chart Prep 12/26/[address] [address] Alena Vega [place] appointment for results 12/23/2024 10:30 AM EST Office Visit [address] [address] Raya Pan NP Hair loss (Primary Dx); Dietary counseling; Exercise counseling; Tinea pedis of right foot; Pain due to onychomycosis of toenail of right foot; 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) 12/20/2024 Orders Only GENERIC EXTERNAL DATA DEPARTMENT [...] Description 03/23/2025 9:00 AM EDT Office Visit [facility] [address] [place] [address] Ana Koehler Health Maintenance Due Date Last [...] Smear 12/23/2024 12/23/2021, 12/23/2021 Diabetes: Hemoglobin A1C 06/16/2025 03/16/2025, 12/17 SDOH Screening 09/29/2025 09/29/2024 Alcohol/Substance [...] Date/Time Associated Diagnosis Comments CORTISOL RANDOM Routine 03/16/2025 9:42 AM EDT COMPREHENSIVE METABOLIC PANEL, FASTING Routine 03/16/2025 9:42 AM EDT CBC WITH AUTO DIFFERENTIAL Routine 03/16/2025 9:42 AM EDT Hair loss HEMOGLOBIN A1C Routine 03/16/2025 9:42 AM EDT History of enlargement of pituitary gland COMPREHENSIVE METABOLIC PANEL Routine 03/16/2025 9:42 AM EDT History of [...] to Health Maintenance Results * Cortisol Random (03/16/2025 9:42 AM EDT) Only the most recent of3 resultswithin the time period is included. Cortisol Random 11.0 ug/dL [facility] Comment:Reference Range*: Be fore 10 am 6.2-19.4 ug/dL After 5 pm 2.3-11.9 ug/dL*Please interpret above results accordingly.This test was performed using the Baker chemiluminescentmethod. Values obtained from different assay methods cannotbe used interchangeably.Patients receiving fludrocortisone, prednisolone orprednisone may show artificially elevated cortisol valuesdue to cross-reactivity. 03/16/2025 9:42 AM EDT 03/16/2025 9:42 AM EDT Generic External Data Provider LAB BLOOD ORDERAB LES Final Result Performing Organization Address [facility]/ZIP Co de Phone Number [facility] [address] [place] [phone] * (ABNORMAL) Comprehensive Metabolic Panel, Fasting (03/16/2025 9:42 AM EDT) Pathologist [facility] [place] Glucose Fasting 170(H) 60 - 99 mg/dL [facility] Comment:A fasting glucose of 126 mg/dl or greater on more than oneoccasion is considered diagnostic of diabetes. 03/16/2025 9:42 AM EDT 03/16/2025 9:42 AM EDT Generic External Data Provider LAB BLOOD ORDERAB LES Final Result Performing Organization Address [facility]/ZIP Co de Phone Number [facility] [address] [place] [phone] * (ABNORMAL) CBC auto differential (03/16/2025 9:42 AM EDT) Only the most recent of2 resultswithin the time period is included. White Blood Count 3.4(L) 4.8 - 10.8 X10*3/uL [facility] Red Blood Count 4.30 4.20 - 5.50 X10*6/uL [facility] Hemoglobin 12.2 12.0 - 16.0 g/dl [facility] Hematocrit 37.3 37.0 - 47.0 % [facility] Mean Corpuscular Volume 86.7 80.0 - 98.0 fL [facility] Mean Corpuscular Hemoglobin 28.4 27.0 - 33.0 pg [facility] Mean Corpuscular HGB Conc 32.7 31.0 - 35.0 g/dl [facility] Red Cell Distribution Width 14.0 11.0 - 16.0 % [facility] Platelet Count 129(L) 160 - 400 X10*3/uL [facility] Mean Platelet Volume 11.8 9.4 - 12.3 fL [facility] Neutrophils Percent Auto 49.2 45 - 73 % [facility] Imm Gran Pct Auto 0.6(H) 0.0 - 0.4 % [facility] Lymphocytes Percent Auto 39.8 20 - 40 % [facility] Monocytes Percent Auto 8.0 2 - 11 % [facility] Eosinophils Percent Auto 2.1 0 - 4 % [facility] Basophils Percent Auto 0.3 0 - 2 % [facility] NRBC Pct Auto 0.0 0.0 - 0.2 /100WBC [facility] Neutrophils Absolute Auto 1.7(L) 2.0 - 8.3 x10*3/uL [facility] Imm Gran Abs Auto 0.02 0.00 - 0.03 X10*3/uL [facility] Lymphocytes Absolute Auto 1.4 1.2 - 4.9 X10*3/uL [facility] Monocytes Absolute Auto 0.3 0.1 - 1.2 X10*3/uL [facility] Eosinophils Absolute Auto 0.1 0.0 - 0.4 X10*3/uL [facility] Basophils Absolute Auto 0.0 0.0 - 0.2 X10*3/uL [facility] NRBC Abs Auto 0.000 0.0 - 0.012 X10*3/uL [facility] Blood Venous blood specimen / Unknown 03/16/2025 9:42 AM EDT 03/16/2025 9:42 AM EDT Raya Pan PLANNER LAB BLOOD ORDERABLES Final Resul t Performing Organization Address [facility]/ZIP Co de Phone Number [facility] [address] [place] [address] [phone] * (ABNORMAL) Hemoglobin A1c (03/16/2025 9:42 AM EDT) Only the most recent of2 resultswithin the time period is included. Hemoglobin A1c 8.6(H) <6.0 % [facility] Comment:Hemoglobin A1C Refer ence Range Adults: 4.8 - 6.0 % Non diabetic: < 6.0 % Goal: < 7.0 %Additional Action Suggested: > 8.0 %Note: Hemoglobin A1c results are invalid for patients with abnormal amounts of HbF. Blood transfusions may impact the HbA1c concentration in the patient sample. Estimated Average Glucose 200 mg/dL [facility] Comment:eAG = Estimated ave rage glucose which is %A1C expressed asaverage glucose, using the formula of the S1O-FseujqzGdvqyfz Glucose study (ADAG), Diabetes Care, Vol.31,#8,Jun. 2007 Blood Venous blood specimen / Unknown 03/16/2025 9:42 AM EDT 03/16/2025 9:42 AM EDT Raya Pan NP LAB BLOOD ORDERABLES Final Resul t Performing Organization Address [facility] Co de Phone Number [facility] [address] [place] [address] [phone] * (ABNORMAL) Comprehensive Metabolic Panel (03/16/2025 9:42 AM EDT) Only the most recent of2 resultswithin the time period is included. Sodium 142 135 - 145 mmol/L [facility] Potassium 3.8 3.3 - 5.1 mmol/L [facility] Chloride 111(H) 96 - 108 mmol/L [facility] Carbon Dioxide 24 22 - 29 mmol/L [facility] Anion Gap 11(L) 12 - 20 [facility] Urea Nitrogen (BUN) 15 9 - 16 mg/dL [facility] Creatinine, Serum 0.61 0.5 - 1.4 mg/dL [facility] Estimated Glomerular Filt Rate >60 [facility] Comment:Chronic Kidney Disea se: Estimated GFR < 60 mL/min/1.61x5Fowufy Kidney Disease: Estimated GFR < 15 mL/min/1.73m2 Glucose 169(H) 60 - 115 mg/dL [facility] Calcium 9.3 8.4 - 10.2 mg/dL [facility] Bilirubin, Total 0.4 0.0 - 1.0 mg/dL [facility] Aspartate Amino Transferase 34(H) 5 - 31 U/L [facility] Alanine Aminotransferase 37(H) 0 - 31 U/L [facility] Total Protein 7.1 6.5 - 8.0 g/dL [facility] Albumin Level 4.1 3.5 - 5.0 g/dL [facility] Alkaline Phosphatase 93 39 - 117 U/L [facility] Blood Venous blood specimen / Unknown 03/16/2025 9:42 AM EDT 03/16/2025 9:42 AM EDT us Raya Pan NP LAB BLOOD ORDERABLES Final Resul t [facility] [address] [place] [phone] * (ABNORMAL) Glucose, Whole Blood (02/17/2025 8:18 AM EDT) Only the most recent of3 resultswithin the time period is included. Glucose, Whole Blood 157(H) 60 - 115 mg/dL [facility] Comment:METER #: [id number] Testing performed in the Endocrinology Department [address] , [address], [facility]. 02/17/2025 8:18 AM EDT 02/17/2025 8:22 AM EDT us Generic External Data Provider LAB BLOOD ORDERAB LES Final Result [facility] [address] [place] [address] [phone] * Mr Brain w/ and w/o Contrast (01/15/2025 3:31 PM EST) Anatomical Region Laterality Modality Brain Magnetic Resonan ce 01/15/2025 3:31 PM EST Narrative 01/15/2025 3:33 PM EST ? [facility] ?[address] ?[place] [address] ? Magnetic Resonance Report ? Signed ? Patient: Stephanie RiverabarrettMellissa srivastava ?MR# ?? : [id number] ? : 1980 ?Acct:[id number] ? Age/Sex: 44 / F ?ADM Date: 01/15/25 ? Loc: HO.MRI ? Attending Dr: Mia Tristan MD ? Ordering Physician: Mia Tristan MD ?? Date of Service: 01/15/25 ?? Procedure(s): MR head/brain wo/w con ?? Accession Number(s): [id number] ? cc: Raya Pan NP; Mia Tristan [...] DD/ 1531 ? TD/TT: 01/15/25 1531 ? Dog Daycare Provider: ? Procedure Note Donzechariahter, Image - 01/15/2025 [place] [address] Magnetic Resonance Report Signed Patient: Mellissa Basurto AMR# : [id number] : 1980Acct:[id number] Age/Sex: 44 / FADM Date: 01/15/25 Loc: HO.MRI Attending Dr: Mia Tristan MD Ordering Physician: Mia Tristan MD Date of Service: 01/15/25 Procedure(s): MR head/brain wo/w con Accession Number(s): [id number] cc: Raya Pan PLANNER; Mia Tristan MD CLINICAL HISTORY: D35.2 - [...] 01/15/25 1532 DD/ 1531 TD/TT: 01/15/25 1531 Dog Daycare Provider: [facility] External Provider IMG MRI PROCEDURES Edited Result - Final * Iron And Total Iron Binding Capacity (12/26/2024 8:49 AM EST) Iron 48 30 - 160 mcg/dL [facility] Total Iron Binding Capacity 321 228 - 428 mcg/dL [facility] Percent Iron Saturation 15 15 - 50 % [facility] Unsaturated Iron Binding 273 ug/dL [facility] Blood Venous blood specimen / Unknown 12/26/2024 8:49 AM EST 12/26/2024 8:49 AM EST Raya Pan PLANNER LAB BLOOD ORDERABLES Final Resul t [facility] [address] [place] [address] [phone] * DHEA Sulfate (12/26/2024 8:49 AM EST) Only the most recent of2 resultswithin the time period is included. DHEA Sulfate 19 15 - 205 mcg/dL [facility] Comment:THIS TEST WAS PERFOR MED AT:[employer] [address] [address]GANZTTAMIA HERNANDEZ MD 12/26/2024 8:49 AM EST 12/26/2024 8:49 AM EST Generic External Data Provider LAB BLOOD ORDERAB LES Final Result Performing Organization Address [facility] Co de Phone Number [facility] [address] [place] [phone] * ACTH, Plasma (12/26/2024 8:49 AM EST) Only the most recent of2 resultswithin the time period is included. ACTH, Plasma 15 6 - 50 pg/mL [facility] Comment:Reference range appl ies only to specimens collectedbetween 7am-10am.THIS TEST WAS PERFORMED AT:[employer]/[id number] [place] [address]LACUEWZSRAVANI SLAUGHTER MD,PHD 12/26/2024 8:49 AM EST 12/26/2024 8:49 AM EST Generic External Data Provider LAB BLOOD ORDERAB LES Final Result Performing Organization Address City/[facility]/ZIP Co de Phone Number [facility] [address] [place] [phone] * TSH (12/26/2024 8:49 AM EST) Only the most recent of2 resultswithin the time period is included. Thyroid Stimulating Hormone 1.75 0.32 - 4.0 uIU/mL [facility] Comment:TSH 3rd Generation ( [facility]) 12/26/2024 8:49 AM EST 12/26/2024 8:49 AM EST Generic External Data Provider LAB BLOOD ORDERAB LES Final Result Performing Organization Address [facility] Phone Number [facility] [address] [place] [phone] * T4, Free (12/26/2024 8:49 AM EST) Only the most recent of2 resultswithin the time period is included. Free T4 (Free Thyroxine) 1.05 0.71 - 1.85 ng/dL [facility] 12/26/2024 8:49 AM EST 12/26/2024 8:49 AM EST Generic External Data Provider LAB BLOOD ORDERAB LES Final Result Performing Organization Address [facility] [address] [place] [phone] * LH (12/26/2024 8:49 AM EST) Only the most recent of2 resultswithin the time period is included. Lutenizing Hormone 21.0 mIU/mL [facility] Comment:Reference Range Foll icular Phase 1.9-12.5 Mid-Cycle Peak 8.7-76.3 Luteal Phase 0.5-16.9 Postmenopausal 10.0-54.7THIS TEST WAS PERFORMED AT:[employer] [address] [phone] HERNANDEZ MD 12/26/2024 8:49 AM EST 12/26/2024 8:49 AM EST Generic External Data Provider LAB BLOOD ORDERAB LES Final Result Performing Organization Address [facility] Phone Number [facility] [address] [place] [phone] * FSH (12/26/2024 8:49 AM EST) Only the most recent of2 resultswithin the time period is included. Follicle Stimulating Hormone 9.5 mIU/mL [facility] Comment:Reference Range Foll icular Phase 2.5-10.2 Mid-cycle Peak 3.1-17.7 Luteal Phase 1.5- 9.1 Postmenopausal 23.0-116.3THIS TEST WAS PERFORMED AT:[employer] [address] [address]PJUFTTAMIA HERNANDEZ MD 12/26/2024 8:49 AM EST 12/26/2024 8:49 AM EST Generic External Data Provider LAB BLOOD ORDERAB LES Final Result [facility] [address] [place] [phone] * Alpha Subunit (12/20/2024 8:53 AM EST) Alpha Subunit 0.2 ng/mL [facility] Comment:Reference Range for Alpha Subunit:Premenopausal Females: 0.1-0.6 ng/mLPostmenopausal Females: 0.1-1.5 ng/mLPregnancy (1st and 2nd Trimesters): 35.0-186.0 ng/mLHypothyroidism: 0.2-3.2 ng/mLThis test measures the free alpha subunit that is common toLH, FSH, TSH and hCG. These hormones are comprised ofidentical alpha subunits and unique beta subunits thatconfer biological specificity.This test was developed and its analytical performancecharacteristics have been determined by [employer].It has not been cleared or approved by FDA. This assay hasbeen validated pursuant to the CLIA regulations and is usedfor clinical purposes.THIS TEST WAS PERFORMED AT:[employer]/ZAMORA [id number] [place] [address]KLBXELEVON FORTE MD,PHD,JOSHUA 12/20/2024 8:53 AM EST 12/20/2024 8:53 AM EST us Generic External Data Provider LAB BLOOD ORDERAB LES Final Result Performing Organization Address [facility]/ZIP Co de Phone Number [facility] [address] [place] [phone] * Prolactin, Dilution Study (12/20/2024 8:53 AM EST) Prolactin, Undiluted 20.7 ng/mL [facility] Prolactin, Diluted SEE NOTE ng/mL [facility] Comment:Result confirmed by 1:100 dilution. No high dosehook effect detected. Reference Range Females Non- 3.0-30.0 10.0-209.0 Postmenopausal 2.0-20.0Prolactin dilution studies are done to determine ifthere is a high-dose hook effect (i.e. a non-linearassay response due to a very high concentration ofProlactin). This is reported to occur at Prolactinconcentrations at or above 30,000 ng/mL.This test is not recommended for identifyingmacroprolactin. [facility], Prolactin, Total and Monomeric is therecommended test (Order code 99333).THIS TEST WAS PERFORMED AT:[employer] [address] [id number] HERNANDEZ MD 12/20/2024 8:53 AM EST 12/20/2024 8:53 AM EST Generic External Data Provider LAB BLOOD ORDERAB LES Final Result Performing Organization Address [facility] Co de Phone Number [facility] [address] [place] [phone] * Prolactin (12/20/2024 8:53 AM EST) Prolactin TNP [facility] Comment:DUPLICATE 12/20/2024 8:53 AM EST 12/20/2024 8:53 AM EST Generic External Data Provider LAB BLOOD ORDERAB LES Final Result Performing Organization Address City/[facility] Co de Phone Number [facility] [address] [place] [address] [phone] * IGF-1, LC/MS (12/20/2024 8:53 AM EST) IGF 1, LC/MS 73 52 - 328 ng/mL [facility] Z Score (Male) TNP [facility] Z Score (Female) -1.3 -2.0 - 2.0 SD [facility] Comment:This test was develo ped and its analytical performancecharacteristics have been determined by [employer].It has not been cleared or approved by FDA. This assay hasbeen validated pursuant to the CLIA regulations and is usedfor clinical purposes.THIS TEST WAS PERFORMED AT:[employer]/[facility] [id number] [facility] [place] [address]VUZKWLEVON FORTE MD,PHD,JOSHUA 12/20/2024 8:53 AM EST 12/20/2024 8:53 AM EST us Generic External Data Provider LAB BLOOD ORDERAB LES Final Result [facility] [address] [place] [phone] * Growth Hormone (GH) (12/20/2024 8:53 AM EST) [facility] Growth Hormone 0.2 < OR = 7.1 ng/mL [facility] Comment: Because of a pulsatile [...] or = 10.0 ng/mLTHIS TEST WAS PERFORMED AT:[employer] [place] [address] ??[phone] HERNANDEZ MD 12/20/2024 8:53 AM EST 12/20/2024 8:53 AM EST us Generic External Data Provider LAB BLOOD ORDERAB LES Final Result [facility] [address] [place] [phone] * Estradiol (12/20/2024 8:53 AM EST) Estradiol Ultra Sensitive 45 pg/mL [facility] Comment:Female Reference Ran ges for Estradiol, Ultrasensitive (pg/mL): Follicular Phase: 39-375 Luteal Phase: 48-440 Postmenopausal Phase: < or = 10This test was developed and its analytical performancecharacteristics have been determined by [employer].It has not been cleared or approved by FDA. This assay hasbeen validated pursuant to the CLIA regulations and is usedfor clinical purposes.THIS TEST WAS PERFORMED AT:[employer]/[facility] [id number] [place] [address]TQNQPLEVON FORTE MD,PHD,JOSHUA 12/20/2024 8:53 AM EST 12/20/2024 8:53 AM EST us Generic External Data Provider LAB BLOOD ORDERAB LES Final Result [facility] [address] [place] [phone] [phone] * HEPATITIS C AB W/REFL TO HCV RNA, QN, PCR (12/23/2021 10:03 AM EST) HEPATITIS C ANTIBODY NON-REACT VERONA NON-REACT VERONA [facility] INDEX 0.01 <1.00 [facility] Comment: ?? HCV antibody was non-reactive. There is no laboratory ?? evidence of HCV infection. ?? In most cases, no further action is required. However, if recent HCV exposure is suspected, a test for HCV RNA (test code 86226) is suggested. ?? For additional information please refer to http://[employer]/faq/HNR51a6 (This link is being provided for informational/ educational purposes only.) ?? 12/23/2021 10:0 3 AM EST Isi Lind CN HISTORICAL/NON ORDERABLE LABS Final Result [facility] [address] * HIV 1/2 ANTIGEN/ANTIBODY,FOURTH GENERATION W/RFL (12/23/2021 10:03 AM EST) HIV-1/2 ANTIGEN AND ANTIBODIES, 4TH GENERATION W/ REFLEX NON-REACT VERONA NON-REACT VERONA [facility] Comment: HIV-1 antigen and HIV-1/HIV-2 [...] ? For additional information please refer to http://education.URX/faq/HXX214 (This link is being provided for informational/ educational purposes only.) ? The performance of this assay has not been clinically validated in patients less than 2 years old. ?? 12/23/2021 10:0 3 AM EST us Isi Lelo [facility] BLOOD ORDERABLES Melvina marr Result [facility] [address] [place] [address], * THINPREP TIS PAP AND HPV mRNA E6/E7, CT/NG, TRICH (12/23/2021 9:16 AM EST) Chlamydia trachomatis RNA, TMA, Urogenital NOT DETECTED NOT DETECTED [facility] Clinical Information: None given [facility] COMMENT SEE COMMENT [facility] Comment: The analytical performance characteristics of this assay, when used to test SurePath(TM) specimens have been determined by [employer]. The modifications have not been cleared or approved by the FDA. This assay has been validated pursuant to the CLIA regulations and is used for clinical purposes. ?? For additional information, please refer to https://Cimet[employer].URX/faq/ACS960 (This link is being provided for information/ [...] has been evaluated with computer assisted technology. [employer] Archival Records Clerk: SEE COMMENT [facility] Comment: RMM, CT(ASCP) CT screening location: [address] ??[address] HPV nRNA E6/E7 Not Detected Not Detected [facility] Comment: Methodology: Gasoline Attendant-Mediated Amplification This assay detects E6/E7 viral messenger RNA (mRNA) from 14 high-risk HPV types (16,18,31,33,35,39,45,51,52,56,58,59,66,68). ? The analytical performance characteristics of this assay have been determined by [employer]. The modifications have not been cleared or approved by the FDA. This assay has been validated pursuant to the CLIA regulations and is used for clinical purposes. ?? For additional information, please refer to http://C[employer]X/faq/YKG327y8 (This link if provided for information/ educational purposes only.) Interpretation/Re sult: Negative for intraepithelial lesion or malignancy. [facility] LMP: 12/09/2021 [facility] Neisseria gonorrhoeae RNA, TMA, Urogenital [...] of this assay have been determined by [employer]. The modifications have not been cleared or approved by the FDA. This assay has been validated pursuant to the CLIA regulations and is used for clinical purposes. ?? For additional information, please refer to http://C[employer]URX/ faq/Trichomonastma (This link is being provided for information/ educational purposes only.) ?? 12/23/2021 9:16 AM EST Isi Lind [facility] PATHOLOGY ORDERABLES Final Result [facility] [address] * Pap Smear (12/23/2021 12:00 AM EST) Swab Isi Lind [facility] CYTOLOGY ORDERABLES F inal Result [address], [place] [phone] from Last 3 Months or Most Recently Relevant to Health Maintenance Insurance HSN F[facility] STANDARD DENTAL-[facility] MEDICAID STAND ADULT Care Teams Senior Wind Turbine Technician Relationship Specialty Start Date End Date Raya Pan NP [address] [place] [phone] PCP - General Family Medicine 12/18/23
[2025-03-17 07:49] VITALS: BP 102/72; PULSE 70; O2SAT 97; BMI 26.0
[2025-03-17 08:03] LABS: Glucose, Whole Blood 142 mg/dL (60-115)
== END 2025-03-17 08:14 | disposition home or self-care (01) ==
LOC: HO.ENCR 07:46
PROVIDERS: PCP Nurse Practitioner Family; Visit Provider Student in an Organized Health Care Education/Training Program
DX: E11.65 Type 2 diabetes mellitus with hyperglycemia (principal); Z79.4 Long term (current) use of insulin; E78.2 Mixed hyperlipidemia; K76.0 Fatty (change of) liver, not elsewhere classified
CPT/HCPCS: 95251; 99214

== ENCOUNTER → 2025-03-17 07:46 | Outpatient (BNVA) | payer MEDICAID, SELFPAY | PROVIDERS: PCP Nurse Practitioner Family; Visit Provider Student in an Organized Health Care Education/Training Program | DX: E11.65 Type 2 diabetes mellitus with hyperglycemia (principal); E78.2 Mixed hyperlipidemia; K76.0 Fatty (change of) liver, not elsewhere classified; Z79.4 Long term (current) use of insulin; Z79.85 Long-term (current) use of injectable non-insulin antidiabetic drugs | CPT/HCPCS: 82947; 99212 ==

== ENCOUNTER 2025-04-12 08:47 | Outpatient (REF) | payer MEDICAID, SELFPAY ==
--- OUTSIDE RECORDS SUMMARY | 2025-04-12 09:08 | XMS_ITS | Encounter Summary ---
Author Organization [facility] Address [address] [place] [address] 7[address] [place] [address] Care Team Providers Care Supervisor [employer] Name Role Phone Kim Johnson RN INTERNSHIP Primary Care Provider [phone] Raya Pan COMMUNITY DIRECTOR Primary Care Provider [phone] Encounter Details Date Type Department Care Team (Late st Contact Info) Description 09/25/2023 Abstract [facility] [address] [place] [address] Kate Mejia DDS [address], [place] [phone] Social History Tobacco Use Types Packs/Day Years [...] Care Team (Late st Contact Info) Description 10/09/2025 8:00 AM EST Office Visit [facility] [address] [place] [address] Ana Koehler documented as of this encounter Visit Diagnoses Not on filedocumented in this encounter Care Teams Supervisor [employer] Plant Relationship Specialty Start Date End Date AlexKim FNP [address] [place] [address] PCP - General Family Medicine 05/14/22 12/17/23 Raya Pan NP [address] [place] [address] PCP - General Family Medicine 12/18/23 documented as of this encounter
[2025-04-12 12:30] LABS: Glucose Random 289 mg/dL (60-115)
[2025-04-12 17:43] LABS: Rheumatoid Factor < 13.0 IU/mL (<15.0)
[2025-04-12 17:44] LABS: Uric Acid 4.3 mg/dL (2.4-5.7)
[2025-04-17 12:59] LABS: Anti Nuclear Antibody Screen POSITIVE (NEGATIVE)
[2025-04-17 13:03] LABS: ANA Pattern 2 Nuclear, Speckled; ANA Titer 2 1:40 titer; Anti Nuclear Antibody Titer 1:40 titer
== END 2025-04-12 08:48 | disposition home or self-care (01) ==
LOC: HO.HHCL 08:47
PROVIDERS: Visit Provider Emergency Medicine
DX: M79.601 Pain in right arm (principal); M79.602 Pain in left arm; E11.65 Type 2 diabetes mellitus with hyperglycemia
CPT/HCPCS: 36415; 82550; 82947; 84550; 86038; 86039; 86431

== ENCOUNTER 2025-04-13 12:14 | Outpatient (REF) | payer MEDICAID, SELFPAY ==
--- OUTSIDE RECORDS SUMMARY | 2025-04-13 12:15 | XMS_ITS | Encounter Summary ---
Author Organization [facility] Address [address] [place] [address] 7t [place] [address] Care Team Providers Care Medical Case Worker Name Role Phone Kim Johnson CAMPUS SUPERVISOR Primary Care Provider Raya Pan SECURITY SCREENER Primary Care Provider [phone] Encounter Details Date Type Department Care Team (Late st Contact Info) Description 09/25/2023 Abstract [facility]ULT [facility] [address] [place] [address] Kate Mejia DDS [address] [place], [place] [phone] Social History Tobacco Use Types Packs/Day Years [...] Description 10/09/2025 8:00 AM EST Office Visit [facility] [address] [place] [address] Ana Koehler documented as of this encounter Visit Diagnoses Not on filedocumented in this encounter Care Teams Medical Case Worker Relationship Specialty Start Date End Date AlexKim FNP [address] [place] [address] PCP - General Family Medicine 05/14/22 12/17/23 Raya Pan NP [address] [place] [address] PCP - General Family Medicine 12/18/23 documented as of this encounter
[2025-04-13 13:11] LABS: Creatinine, mg/dL 60.41
[2025-04-13 13:58] LABS: Creatinine, 24Hr Urine 0.4 G/Day (1.0-2.0); Total Volume 24 Hour Urine 700 mL
[2025-04-19 18:09] LABS: Cortisol Free, 24 Hr Urine 6.4 mcg/24 h (4.0-50.0); Creatinine, 24 Hr Urine 0.44 g/24 h (0.50-2.15); Total Volume, 24 Hr Urine 700 mL
== END 2025-04-13 12:15 | disposition home or self-care (01) ==
LOC: HO.HHCLNP 12:14
PROVIDERS: Student in an Organized Health Care Education/Training Program; Visit Provider Emergency Medicine
DX: D35.2 Benign neoplasm of pituitary gland (principal); M79.601 Pain in right arm; M79.602 Pain in left arm
CPT/HCPCS: 82530; 82570; 87338

== ENCOUNTER 2025-05-05 08:46 | Outpatient (AMB) | payer MEDICAID, SELFPAY ==
[2025-05-05 08:48] VITALS: BP 104/64; PULSE 71; O2SAT 97; BMI 25.3
--- NOTE | 2025-05-05 08:48 | A.OFFVIS_ITS ---
Vital Signs 3 05/05/25 08:48 Height 5 ft Weight 129 lb 6.581 oz BMI 25.3 BP 104/64 Blood Pressure Location Lt brachial Position Sitting Pulse 71 Pulse Source Pulse Oximeter Pulse Oximetry (%) 97 Oxygen Delivery Method Room Air Intake Visit Reasons: Enlargement of pituitary gland Intake Note: Patient present today for Enlargement of pituitary gland office visit. Agriculture Inspector Required: Yes Agriculture Inspector Language: Fare Enforcement Officer Services: Agriculture Inspector Present Agriculture Inspector Name: Philip [id number] Information Interpreted: non-clinical & clinical Accompanied by: Self / Same As Patient Allergies No Known Allergies Allergy (Verified 05/05/25 08:52) Medication List - Last Reconciled 05/05/25 by Mia Tristan MD atorvastatin 40 mg PO BEDTIME blood sugar diagnostic (FreeStyle Lite Strips) As directed to check blood sugars three times a day type 2 diabetes mellitus with hyperglycemia and long-term insulin use is E11.65 plus Z79.4 blood-glucose meter (FreeStyle Lite Meter kit) As directed to check blood sugars three times a day type 2 diabetes mellitus with hyperglycemia and long-term insulin use is E11.65 plus Z79.4 blood-glucose sensor (FreeStyle Margot 3 Plus Sensor device) As directed every 15 days type 2 diabetes mellitus with hyperglycemia and long-term insulin use is E11.65 plus Z79.4 celecoxib 200 mg PO DAILY cyclobenzaprine 5 mg PO BEDTIME dulaglutide (Trulicity) 1.5 mg (0.5 mL) subcut QWEEK famotidine 20 mg PO BID glucose (Dex4 Glucose) 4 grams PO Q15M PRN hydrocortisone orally 2 times a day; Take 1 tablet in the morning and 0.5 tablet at 2 PM in the afternoon daily ibuprofen 800 mg PO Q8H PRN insulin glargine (Lantus Solostar U-100 Insulin) 10 units (0.1 mL) subcut QAM lancets (FreeStyle Lancets) As directed to check blood sugars thrice a day type 2 diabetes mellitus with hyperglycemia and long-term insulin use is E11.65 plus Z79.4 pen needle, diabetic As directed to inject insulin daily HPI Comments Details: 44-year-old female here today for follow up pituitary macroadenoma and adrenal insufficiency. She also follows with me for type 2 diabetes mellitus, this was not addressed during today's visit, she has a follow up on 05/12/2025 to address diabetes. Patient was again 20 minutes late for her appointment, she has always late for her appointments and this has been reiterated to her multiple times, I discussed with her that if she shows of late another time, I will be rescheduling her and no more seeing her for late appointments. Pituitary incidentaloma/adrenal insufficiency: HPI Patient had CT scan of her orbits June 2024 due to ocular pain to rule out orbital cellulitis which showed a macroadenoma of the pituitary gland measuring 1.6 X 1.5 cm. no mass effect on optic chiasm. No dedicated MRI of the pituitary done. Vision changes: blurry vision intermittently trouble with reading , reports ocular pain intermittently Headache: none Nipple discharge: none Assessment Specialist history: LMP: mid October 2024, regular Pregnancies : 4 , 4 living children , no fertility issues Change in sense of smell: no Change in ring size: none Change in shoe size: none Patient currently denies heat or cold intolerance, diarrhea or constipation, hair loss, palpitation, anxiety, weight changes, mood changes, low energy, changes in appearance of eyes or vision changes, tremors, increased diaphoresis or dry skin. ? Easy bruising: yes Proximal muscle weakness: none has uncontrolled DM Nausea: none Vomiting:none Lightheadedness: intermittent Weight: lost 5 lbs in 1 month Labs from 12/20/2024 showed normal thyroid function, undetectable cortisol level, acth of 13, DHEA-S of 29, IGF-1, estradiol level pending. Prolactin level normal 20.7. She is very inconsistent with her history and said that she was having some lightheadedness or dizziness that had already resolved before she started the medication that we had prescribed to her over the phone hydrocortisone 10 mg twice a day. She has lost 5 lb since the last visit. 12/26/2024: after holding the hydrocortisone the afternoon before in the morning off, cortisol level in a.m. was 2.3 with a ACTH of 15. 12/27/2024: Again after holding the hydrocortisone in the afternoon before and the morning of, cortisol level was 0.5 in a.m. at [facility] with ACTH of 3.9 01/15/2025: MRI of the pituitary with and without contrast showed a T1 isointense and a T2 mildly hyperintense, mildly heterogenously enhancing mass measuring 1.6 X 1.2 X 1.5 cm within the sella turcica with the pituitary stalk shifted to the left. Mass abuts the optic chiasm. Cavernous sinuses appear symmetric. No evidence of mass, mass effect or midline shift. Appearance consistent with pituitary macroadenoma. Interval history Status post transsphenoidal resection of the pituitary macroadenoma 04/25/[address] Apple Cornejo, I did not receive any of these records from her surgeon. Per patient they have been monitoring her blood work, Denies any excessive thirst or urination. She showed me some instructions which showed that she was on prednisone 5 mg daily after the surgery, but at this time patient is super confused whether she is on prednisone or hydrocortisone. I have asked her to bring all of her medication bottles to next visit. Very poor health literacy. After much inquiry she thinks she was taking prednisone initially but now switch to hydrocortisone 2 days ago. Continues on hydrocortisone 10 mg in a.m. and 5 mg in the afternoon No vision changes, no eye symptoms , she has a follow up appointment with her neurosurgeon on 06/12/2025. No nausea, vomiting , dizziness , lightheadedness. Medical alert bracelet:hasnt bought yet Ophthalmology referral: Visual coe done 03/22/25 , no interpretation provided they provided me with some diagrams without any interpretation of what her visual coe are like. Physical exam General: sitting comfortably in no acute distress HEENT: normocephalic/atraumatic, , moist oral mucosa, visual coe grossly intact Neck: supple, Cardiac: normal heart sounds Pulm: normal breath sounds B/L, no added breath sounds Abd: not distended, no tenderness Foot exam: done 01/13/25 Warm, well-perfused, right big toenail has thickening, Intact sensation to monofilament, intact pulses, intact vibration Laboratory Tests 12/20/24 08:53 TSH 1.14 Free T4 1.05 FSH 7.6 Luteinizing Hormone 7.7 Prolactin Undiluted 20.7 DHEA Sulfate 29 Human Growth Hormone 0.2 Random Cortisol < 1.0 ACTH 13 Laboratory Tests 12/20/24 12/26/24 08:53 08:49 Sodium 137 Potassium 3.9 Chloride 104 Carbon Dioxide 24 Anion Gap 13 BUN 15 Creatinine 0.67 Estimated GFR > 60 Alpha Subunit Marker 0.2 TSH 1.14 1.75 Free T4 1.05 1.05 Estradiol Ultra LCMSMS 45 FSH 7.6 9.5 Luteinizing Hormone 7.7 21.0 Prolactin Undiluted 20.7 DHEA Sulfate 29 19 Human Growth Hormone 0.2 Somatomedin-C 73 Somato-C Z-Score Female -1.3 Random Cortisol < 1.0 2.3 ACTH 13 15 Laboratory Tests 12/26/24 01/13/25 01/13/25 08:49 07:57 10:18 Plt Count 146 L Sodium 137 Potassium 3.9 Creatinine 0.67 Estimated GFR > 60 Glucose (Clinic) 325 H Random Glucose 328 H Estimat Average Glucose 324 Hemoglobin A1c % 12.9 H AST 82 H ALT 170 H Alkaline Phosphatase 149 H Albumin 4.0 Triglycerides 120 Cholesterol 244 H LDL Cholesterol, Calc 171 H HDL Cholesterol 49 Urine Creatinine 38.72 Urine Microalbumin 11.0 Microalb/Creat Ratio 28.4 01/26/25 07:44 Plt Count Sodium Potassium Creatinine Estimated GFR Glucose (Clinic) 299 H Random Glucose Estimat Average Glucose Hemoglobin A1c % AST ALT Alkaline Phosphatase Albumin Triglycerides Cholesterol LDL Cholesterol, Calc HDL Cholesterol Urine Creatinine Urine Microalbumin Microalb/Creat Ratio Laboratory Tests 01/13/25 03/16/25 10:18 09:42 Hgb 12.2 Hct 37.3 Plt Count 129 L Sodium 142 Potassium 3.8 Creatinine 0.61 Estimated GFR > 60 Random Glucose 169 H Fasting Glucose 170 H Estimat Average Glucose 200 Hemoglobin A1c % 8.6 H Calcium 9.3 AST 34 H ALT 37 H Alkaline Phosphatase 93 Triglycerides 120 Cholesterol 244 H LDL Cholesterol, Calc 171 H HDL Cholesterol 49 Urine Creatinine 38.72 Urine Microalbumin 11.0 Microalb/Creat Ratio 28.4 MR brain without contrast. Thin slice imaging through the pituitary gland was obtained. 01/15/25 COMPARISON: None FINDINGS: High-resolution imaging of the pituitary region demonstrates a T1 isointense, T2 mildly hyperintense, FLAIR hyperintense, diffusion restricting, mildly heterogeneously enhancing mass measuring 1.6 x 1.2 x 1.5 cm within the sella turcica. The pituitary stalk is shifted to the left. Neurohypophysis appears normal in position. Mass abuts the optic chiasm. Cavernous sinuses appear symmetric. Flow voids within the carotid siphons normal. There is likely mild expansion of the sella turcica. No abnormal diffusion restriction in the brain parenchyma or extra-axial spaces. No evidence of mass, mass effect or midline shift. No intracranial hemorrhage or abnormal extra-axial fluid collection. No evidence of hydrocephalus. The basilar cisterns are patent. A few scattered foci of T2/FLAIR hyperintensity within the chapman radiata white matter in the frontal lobes bilaterally and in the right temporal lobe. Cerebellar hemispheres and cerebellar vermis are normal. Fourth ventricle is normal. No brainstem abnormality is identified. Intracranial flow voids are patent. The visualized paranasal sinuses and mastoid air-cells are clear. IMPRESSION: 1. Pituitary mass measuring up to 1.6 cm abuts the optic chiasm and shift the pituitary stalk to the left. 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 Status post resection with Dr. Apple Cornejo at [facility] on 04/25/2025. I do not have any available records of the surgery. Seen with the help of remelt worker, she has a very poor health literacy, she is unable to tell me whether she is on hydrocortisone or prednisone. I have told her to bring all her medication bottles to next visit. Per patient she was taking prednisone up until 2 days ago and then switch to hydrocortisone? Currently denies any nausea vomiting dizziness, denies any excessive thirst or urination. Per patient she has been doing blood work monitoring with the [facility] but sodium and cortisol checks I do not have records of these. I am going to order blood work for to be done tomorrow. I told her to not take the dose of steroid whether she is taking hydrocortisone or prednisone the morning of up until after the blood work. I discussed with her signs of SIADH, or hi sodium levels. Discussed with her importance of going to the emergency room if that happens. Plan: -do blood work tomorrow a.m., hold the dose of hydrocortisone that morning up until after the blood work, ordered BMP and cortisol level, serum osmolality -obtain records from Neurosurgery including pituitary pathology -continue hydrocortisone 10 mg in a.m. and 5 mg in the afternoon -discussed adrenal insufficiency sick rules and emphasized again to obtain a medical bracelet -follow up in 4 weeks (2) Adrenal insufficiency: Code(s): E27.40 - Unspecified adrenocortical insufficiency Category: Medical Plan: See above Plan I spent 30 minutes in reviewing the record, seeing the patient and documenting in the medical record. Orders: Orders 2 Cortisol Random Today D35.2 - Benign neoplasm of pituitary gland Basic Metabolic Panel Today D35.2 - Benign neoplasm of pituitary gland Osmolality, Serum Today D35.2 - Benign neoplasm of pituitary gland Medications: Refilled 2 blood-glucose sensor (FreeStyle Margot 3 Plus Sensor device) As directed every 15 days type 2 diabetes mellitus with hyperglycemia and long-term insulin use is E11.65 plus Z79.4 6 ea 6RF Patient Instructions: Please bring your medication bottles to next visit Do blood work tomorrow morning , at 8 AM please dont take hydrocrotisone until after the blood work Por favor, traiga hali frascos de medicamentos a la pr?xima visita. Ted el an?lisis de sabi ma?daysi por la ma?daysi a las 8 a. m. Por favor, no tome hidrocrotisona hasta despu?s del an?lisis de sabi. Coding Level of Care Code Est Pt Level 4 (07669) Complex EM visit Add On G2211 Diagnoses Pituitary macroadenoma D35.2 Adrenal insufficiency E27.40 Time Spent (min) 30
--- OUTSIDE RECORDS SUMMARY | 2025-05-05 08:53 | XMS_ITS | Encounter Summary ---
Author Organization [facility] [employer] [facility] Address [address] [place] [address] 7t [place] [address] Care Team Providers Care Office Specialist Name Role Phone Kim Johnson SURFACE LOGGING SYSTEMS LOGGER Primary Care Provider [phone] Raya Pan KLYSTROM TUBE TESTER Primary Care Provider [phone] Encounter Details Date Type Department Care Team (Late st Contact Info) Description 09/25/2023 Abstract [facility] ADULT D[facility] [address] [place] [address] Kate Mejia DDS [address] [place], [place] [phone] Social History Tobacco Use Types Packs/Day Years [...] Description 10/09/2025 8:00 AM EST Office Visit [facility]ULT [facility] [address] [place] [address] Ana Koehler documented as of this encounter Visit Diagnoses Not on filedocumented in this encounter Care Teams Office Specialist Relationship Specialty Start Date End Date AlexKim FNP [address] [place] [address] PCP - General Family Medicine 05/14/22 12/17/23 Raya Pan NP [address] [place] [address] PCP - General Family Medicine 12/18/23 documented as of this encounter
== END 2025-05-05 09:14 | disposition home or self-care (01) ==
LOC: HO.ENCR 08:47
PROVIDERS: PCP Nurse Practitioner Family; Visit Provider Student in an Organized Health Care Education/Training Program
DX: D35.2 Benign neoplasm of pituitary gland (principal); E27.40 Unspecified adrenocortical insufficiency
CPT/HCPCS: 99214

== ENCOUNTER → 2025-05-05 08:46 | Outpatient (BNVA) | payer MEDICAID, SELFPAY | PROVIDERS: PCP Nurse Practitioner Family; Visit Provider Student in an Organized Health Care Education/Training Program | DX: D35.2 Benign neoplasm of pituitary gland (principal); E27.40 Unspecified adrenocortical insufficiency | CPT/HCPCS: 99212 ==

== ENCOUNTER 2025-05-08 12:19 | Outpatient (REF) | payer MEDICAID, SELFPAY ==
--- OUTSIDE RECORDS SUMMARY | 2025-05-08 13:41 | XMS_ITS | Clinical Summary ---
Author Organization [facility] Address [address] [place] [address] Phone Care Team Providers Care Bioanalyst Name Role Phone Raya Pan GLORIA Primary Care Provider [phone] Social History Tobacco Use Types Packs/Day Years Used Date Smoking Tobacco: Never Assessed Comments Unknown Sex and Gender Information Value Date Recorded Sex Assigned at Not on file Legal Sex Female 11:37 AM EST Gender Identity Not on file Sexual Orientation Not on file Plan of Treatment Upcoming Encounters Date Type Department Care Team ([facility] Contact Info) Description 05/24/2025 8:15 AM EDT Consult Orthopedic Surgery [place] [address] [phone] Kameron Ward, DPM [address] [address] Health Maintenance Due Date Last Done Comments Breast Cancer Screening 1980 Diabetes: Annual GFR (Glomer ular Filtration Rate) 1980 Diabetes: Annual Foot Exam 1990 Diabetes: Annual Retina Eye Exam 1990 DTaP,Tdap,and Td Vaccines (1 - Tdap) 1999 Hepatitis B Vaccines (1 of 3 - 19+ 3-dose series) 1999 Pneumococcal Vaccine: Pediat rics (0 to 5 Years) and At-Risk Patients (6 to 64 Years) (1 of 2 - PCV) 1999 Cervical Cancer Screening: P ap Smear 2001 COVID-19 Vaccine (2023-2 5 season) 2024 Cholesterol Screening (Lipid Panel) 10/28/2024 Depression Screening 10/28/2024 HIV Screening 10/28/2024 Hepatitis C Screening 10/28/2024 Social Influencers of Health Screening 10/28/2024 Diabetes: Annual Urine Albumin-Creatinine Ratio (uACR) 03/02/2025 Diabetes: Blood Sugar Contro l Test (HGBA1C) 03/02/2025 Influenza Vaccine (Season Ended) 2025 HIB Vaccines Aged Out No longer eligi [...] on patient's age to complete this topic MMR Vaccines Aged Out No longer eligi ble based on patient's age to complete this topic Meningococcal ACWY Vaccine Aged Out N o longer eligible based on patient's age to complete this topic Meningococcal B Vaccine Aged Out No l onger eligible based on patient's age to complete this topic RSV Immunization Patients Un sae 20 months Aged Out No longer eligible b ased on patient's age to complete this topic Varicella Vaccines Aged Out No longer eligible based on patient's age to complete this topic Insurance MEDICAID - [place] Care Teams Bioanalyst Relationship Specialty Start Date End Date Raya Pan FNP [address] [place] [id number] PCP - General Nurse Practitioner 10/28/24
== END 2025-05-08 12:20 | disposition home or self-care (01) ==
LOC: HO.LAB 12:19
PROVIDERS: PCP Nurse Practitioner Family; Referring Provider Internal Medicine Endocrinology, Diabetes & Metabolism; Visit Provider Student in an Organized Health Care Education/Training Program
DX: Z13.89 Encounter for screening for other disorder (principal)

== ENCOUNTER 2025-05-09 08:27 | Outpatient (REF) | payer MEDICAID, SELFPAY ==
--- OUTSIDE RECORDS SUMMARY | 2025-05-09 08:41 | XMS_ITS | Encounter Summary ---
Author Organization [facility] Address [address] [place] [address] 7t [place] [address] Care Team Providers Care Coffee Shop Aide Name Role Phone Kim Johnson SUPERVISOR CIGAR MAKING MACHINE Primary Care Provider [phone] Raya Pan ACCOUNT STRATEGIST Primary Care Provider [phone] Encounter Details Date Type Department Care Team (Late st Contact Info) Description 09/25/2023 Abstract [facility] ADULT D[facility] [address] [place] [address] Kate Mejia DDS [address] [place], [place] [phone] Social History Tobacco Use Types Packs/Day Years [...] Description 10/09/2025 8:00 AM EST Office Visit [facility] ADULT [facility] [address] [place] [address] Ana Koehler documented as of this encounter Visit Diagnoses Not on filedocumented in this encounter Care Teams Coffee Shop Aide Relationship Specialty Start Date End Date AlexKim FNP [address] [place] [address] PCP - General Family Medicine 05/14/22 12/17/23 Raya Pan NP [address] [place] [address] PCP - General Family Medicine 12/18/23 documented as of this encounter
[2025-05-09 09:05] LABS: Anion Gap 12 (12-20); Blood Urea Nitrogen 17 mg/dL (9-16); Carbon Dioxide 21 mmol/L (22-29); Chloride 109 mmol/L (96-108); Estimated Glomerular Filt Rate > 60; Glucose Random 271 mg/dL (60-115); Potassium 3.9 mmol/L (3.3-5.1); Sodium 138 mmol/L (135-145)
[2025-05-09 09:10] LABS: Osmolality, Serum 300 mosm/kg (281-305)
[2025-05-09 09:22] LABS: Free T4 (Free Thyroxine) 1.04 ng/dL (0.71-1.85); Thyroid Stimulating Hormone 2.37 uIU/mL (0.32-4.0)
[2025-05-10 06:59] LABS: DHEA Sulfate 75 mcg/dL (15-205)
[2025-05-12 21:58] LABS: Adrenocorticotropic Hormone 13 pg/mL (6-50)
== END 2025-05-09 08:28 | disposition home or self-care (01) ==
LOC: HO.LAB 08:27
PROVIDERS: PCP Nurse Practitioner Family; Referring Provider Internal Medicine Endocrinology, Diabetes & Metabolism; Visit Provider Student in an Organized Health Care Education/Training Program
DX: D35.2 Benign neoplasm of pituitary gland (principal); E27.40 Unspecified adrenocortical insufficiency; R68.89 Other general symptoms and signs
CPT/HCPCS: 80048; 82024; 82533; 82627; 83930; 84439; 84443

== ENCOUNTER 2025-05-12 07:42 | Outpatient (AMB) | payer MEDICAID, SELFPAY ==
--- NOTE | 2025-05-12 07:44 | A.OFFVIS_ITS ---
Vital Signs 3 05/12/25 07:45 Height 5 ft Weight 127 lb 10.362 oz BMI 24.9 BP 108/72 Blood Pressure Location Rt brachial Position Sitting Pulse 70 Pulse Source Pulse Oximeter Pulse Oximetry (%) 98 Oxygen Delivery Method Room Air Intake Visit Reasons: T2DM Intake Note: Patient present today for Type 2 Diabetes Mellitus Last Diabetic eye exam: 02/2025 Last Podiatry Visit: Has upcoming appt in May 2025. Random Glucose: 307 mg/dl HgA1C: 8.6% 03/16/25 Senior Product Integrity Engineer Required: Yes Senior Product Integrity Engineer Language: Parts Manager Services: Senior Product Integrity Engineer Present Senior Product Integrity Engineer Name: Sana [id number] Information Interpreted: non-clinical & clinical Accompanied by: Self / Same As Patient Allergies No Known Allergies Allergy (Verified 05/12/25 07:49) HPI Comments Details: 44-year-old female here today for follow up of type 2 diabetes mellitus. 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 Type 2 diabetes mellitus History of diabetes Diagnosed Dec 2024 Prior therapy: None Current regimen: insulin Lantus 10 units in AM Trulicity 1.5 mg weekly , initial dose started 01/25/25 takes it on Thursday Interval history She underwent pituitary surgery on 04/25/2025, I still have not received records from them Patient has been on prednisone 5 mg daily post surgery but at some point she got confused and was taking both hydrocortisone and prednisone over the last few weeks, likely resulting in high blood sugars. However on the CGM, she was even running in the 200s prior to surgery. Random Glucose: 307 mg/dl HgA1C: 8.6% 03/16/25 HgA1C: 12.9% 12/26/24 Denies polyuria, polydipsia currently, says she was having that a few months ago. Weight stable. . Denies any hypoglycemic symptoms. CGM report downloaded from April 21 to May 04 2025 Time CGM active 98% Average glucose 292 mg/dL G IL 10.3% Glucose variability 22.2% Within target range 4% High 22% Very high 74% Low 0% Interpretation: Running hyperglycemic throughout with a very high blood sugars mostly in the 300s and 200s. Complications Last Diabetic eye exam: saw 02/15/25, she was told visual coe are intact, no diabetic retinopathy, just some bleeding in 1 eye, Last Podiatry Visit: Has upcoming appt in May 2025. Neuropathy: no symptoms Kidney disease: no history Macrovascular complications: No history of macrovascular complications. Statin: Atorvastatin 40 mg daily started January 2025 Screening for MASLD : Fib 4 score for labs from February 2025 comes down to 1.91, she needs further investigation so we will need GI referral VISHNU/ARB: none Exercise: None Active at work but other gamez no Diet control: Most days Breakfast: rice beans and fried chicken tomatoes Some pakoras and samosas sometimes at restaurant Dinner rice and soup No desserts Stopped drinking sodas and juices CDE appointment done most recent fup 03/13/25 Account Underwriter appointment done 02/09/25 He has never had any hospitalizations for hyperglycemia/hypoglycemia. 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 no mass effect on optic chiasm. No dedicated MRI of the pituitary done. Vision changes: blurry vision intermittently trouble with reading , reports ocular pain intermittently Headache: none Nipple discharge: none Trouble Shooter history: LMP: mid October 2024, regular Pregnancies : 4 , 4 living children , no fertility issues Change in sense of smell: no Change in ring size: none Change in shoe size: none Patient currently denies heat or cold intolerance, diarrhea or constipation, hair loss, palpitation, anxiety, weight changes, mood changes, low energy, changes in appearance of eyes or vision changes, tremors, increased diaphoresis or dry skin. ? Easy bruising: yes Proximal muscle weakness: none has uncontrolled DM Nausea: none Vomiting:none Lightheadedness: intermittent Weight: lost 5 lbs in 1 month Labs from 12/20/2024 showed normal thyroid function, undetectable cortisol level, acth of 13, DHEA-S of 29, IGF-1, estradiol level pending. Prolactin level normal 20.7. She is very inconsistent with her history and said that she was having some lightheadedness or dizziness that had already resolved before she started the medication that we had prescribed to her over the phone hydrocortisone 10 mg twice a day. She has lost 5 lb since the last visit. 12/26/2024: after holding the hydrocortisone the afternoon before in the morning off, cortisol level in a.m. was 2.3 with a ACTH of 15. 12/27/2024: Again after holding the hydrocortisone in the afternoon before and the morning of, cortisol level was 0.5 in a.m. at [facility] with ACTH of 3.9 01/15/2025: MRI of the pituitary with and without contrast showed a T1 isointense and a T2 mildly hyperintense, mildly heterogenously enhancing mass measuring 1.6 X 1.2 X 1.5 cm within the sella turcica with the pituitary stalk shifted to the left. Mass abuts the optic chiasm. Cavernous sinuses appear symmetric. No evidence of mass, mass effect or midline shift. Appearance consistent with pituitary macroadenoma. Interval history Status post transsphenoidal resection of the pituitary macroadenoma 04/25/[address] Apple Cornejo, I did not receive any of these records from her surgeon. we have requested Per patient they have been monitoring her blood work, Denies any excessive thirst or urination. She showed me some instructions which showed that she was on prednisone 5 mg daily after the surgery, but at this time patient is super confused whether she is on prednisone or hydrocortisone. I have asked her to bring all of her medication bottles to next visit. Very poor health literacy. Today she brings in her medication bottles and says she is now back on prednisone 5 mg daily and apparently was taking both hydrocortisone and prednisone up until a few days ago. Continues on prednisone 5 mg daily No vision changes, no eye symptoms , she has a follow up appointment with her neurosurgeon on 06/12/2025. No nausea, vomiting , dizziness , lightheadedness. Denies excessive thirst or urination Medical alert bracelet:yeimi bought yet Ophthalmology referral: Visual coe done 03/22/25 , no interpretation provided they provided me with some diagrams without any interpretation of what her visual coe are like. Labs from 05/09/2025 showed normal sodium 138, normal kidney function, normal serum osmolality of 300, normal TSH of 2.37, normal free T4 of 1.04, her cortisol at 08:00 was 6, this is equivocal, however it is very confusing whether she held the prednisone that morning or the hydrocortisone or what she was on. I am not going to rely on this. Physical exam General: sitting comfortably in no acute distress HEENT: normocephalic/atraumatic, , moist oral mucosa, visual coe grossly intact Neck: supple, Cardiac: normal heart sounds Pulm: normal breath sounds B/L, no added breath sounds Abd: not distended, no tenderness Foot exam: done 01/13/25 Warm, well-perfused, right big toenail has thickening, Intact sensation to monofilament, intact pulses, intact vibration Laboratory Tests 12/20/24 08:53 TSH 1.14 Free T4 1.05 FSH 7.6 Luteinizing Hormone 7.7 Prolactin Undiluted 20.7 DHEA Sulfate 29 Human Growth Hormone 0.2 Random Cortisol < 1.0 ACTH 13 Laboratory Tests 12/20/24 12/26/24 08:53 08:49 Sodium 137 Potassium 3.9 Chloride 104 Carbon Dioxide 24 Anion Gap 13 BUN 15 Creatinine 0.67 Estimated GFR > 60 Alpha Subunit Marker 0.2 TSH 1.14 1.75 Free T4 1.05 1.05 Estradiol Ultra LCMSMS 45 FSH 7.6 9.5 Luteinizing Hormone 7.7 21.0 Prolactin Undiluted 20.7 DHEA Sulfate 29 19 Human Growth Hormone 0.2 Somatomedin-C 73 Somato-C Z-Score Female -1.3 Random Cortisol < 1.0 2.3 ACTH 13 15 Laboratory Tests 12/26/24 01/13/25 01/13/25 08:49 07:57 10:18 Plt Count 146 L Sodium 137 Potassium 3.9 Creatinine 0.67 Estimated GFR > 60 Glucose (Clinic) 325 H Random Glucose 328 H Estimat Average Glucose 324 Hemoglobin A1c % 12.9 H AST 82 H ALT 170 H Alkaline Phosphatase 149 H Albumin 4.0 Triglycerides 120 Cholesterol 244 H LDL Cholesterol, Calc 171 H HDL Cholesterol 49 Urine Creatinine 38.72 Urine Microalbumin 11.0 Microalb/Creat Ratio 28.4 01/26/25 07:44 Plt Count Sodium Potassium Creatinine Estimated GFR Glucose (Clinic) 299 H Random Glucose Estimat Average Glucose Hemoglobin A1c % AST ALT Alkaline Phosphatase Albumin Triglycerides Cholesterol LDL Cholesterol, Calc HDL Cholesterol Urine Creatinine Urine Microalbumin Microalb/Creat Ratio Laboratory Tests 01/13/25 03/16/25 10:18 09:42 Hgb 12.2 Hct 37.3 Plt Count 129 L Sodium 142 Potassium 3.8 Creatinine 0.61 Estimated GFR > 60 Random Glucose 169 H Fasting Glucose 170 H Estimat Average Glucose 200 Hemoglobin A1c % 8.6 H Calcium 9.3 AST 34 H ALT 37 H Alkaline Phosphatase 93 Triglycerides 120 Cholesterol 244 H LDL Cholesterol, Calc 171 H HDL Cholesterol 49 Urine Creatinine 38.72 Urine Microalbumin 11.0 Microalb/Creat Ratio 28.4 Laboratory Tests 03/16/25 05/09/25 09:42 08:41 Hgb 12.2 Hct 37.3 Plt Count 129 L Sodium 138 Potassium 3.9 Creatinine 0.49 L Estimated GFR > 60 Random Glucose 271 H Osmolality 300 Calcium 9.0 TSH 2.37 Free T4 1.04 DHEA Sulfate 75 Random Cortisol 6.0 MR brain without contrast. Thin slice imaging through the pituitary gland was obtained. 01/15/25 COMPARISON: None FINDINGS: High-resolution imaging of the pituitary region demonstrates a T1 isointense, T2 mildly hyperintense, FLAIR hyperintense, diffusion restricting, mildly heterogeneously enhancing mass measuring 1.6 x 1.2 x 1.5 cm within the sella turcica. The pituitary stalk is shifted to the left. Neurohypophysis appears normal in position. Mass abuts the optic chiasm. Cavernous sinuses appear symmetric. Flow voids within the carotid siphons normal. There is likely mild expansion of the sella turcica. No abnormal diffusion restriction in the brain parenchyma or extra-axial spaces. No evidence of mass, mass effect or midline shift. No intracranial hemorrhage or abnormal extra-axial fluid collection. No evidence of hydrocephalus. The basilar cisterns are patent. A few scattered foci of T2/FLAIR hyperintensity within the chapman radiata white matter in the frontal lobes bilaterally and in the right temporal lobe. Cerebellar hemispheres and cerebellar vermis are normal. Fourth ventricle is normal. No brainstem abnormality is identified. Intracranial flow voids are patent. The visualized paranasal sinuses and mastoid air-cells are clear. IMPRESSION: 1. Pituitary mass measuring up to 1.6 cm abuts the optic chiasm and shift the pituitary stalk to the left. 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 Metabolic dysfunction-associated steatotic liver disease (MASLD) HLD (hyperlipidemia) Diabetes mellitus with hyperglycemia Pituitary macroadenoma Surgical History History of bilateral tubal ligation Social History Alcohol intake: never Patient Tobacco Use Status: Never used Tobacco Physical Exam Vital Signs: Last Vital Signs Pulse 70 05/12/25 07:45 BP 108/72 05/12/25 07:45 Pulse Ox 98 05/12/25 07:45 Oxygen Delivery Method Room Air 05/12/25 07:45 BMI result Body Mass Index 24.9 Office Procedures Glucose Monitoring Details Details: see [id number] - Glucose monitoring, continuous-physician I&R Procedure code (CPT) selection complete Results Reviewed Results Reviewed: Laboratory Last Values Glucose (Clinic) 307 mg/dL (60-115) H 05/12/25 07:53 Assessment & Plan Assessment & Plan (1) Diabetes mellitus with hyperglycemia: Code(s): E11.65 - Type 2 diabetes mellitus with hyperglycemia Category: Medical Qualifiers: Diabetes mellitus fci insulin use: with terminal gauger supervisor use Diabetes mellitus type: type 2 Qualified Code(s): E11.65 - Type 2 diabetes mellitus with hyperglycemia; Z79.4 - penitentiary (current) use of insulin Plan: 44-year-old female who was seeing me for pituitary incidentaloma and adrenal insufficiency on steroids, was noted to have uncontrolled hyperglycemia, with no prior history of diabetes, now with new onset of type 2 diabetes mellitus December 2024. A1c 12.9% from December 2024. Down to 8.6% from March 2025. Her blood sugars had improved previously, now again with hyperglycemia no, but most blood sugars in the 200s and 300s on CGM download. She also got confused about prednisone and hydrocortisone and for the past few weeks she might have been taking both hydrocortisone and prednisone resulting in hyperglycemia. At this visit I have really tried to clarify to her that she can only be on 1 of them at a time, and currently she is on prednisone 5 mg daily. Plan: -increase insulin to Lantus 14 units daily in the morning -increase Trulicity to 3 mg weekly -continue with freestyle Margot 3 sensor monitoring -lifestyle modification advised with the avoiding carbs, eliminating any sugars are sugary drinks such as soda isn't juices -150 minutes of exercise advised with 30 minutes of walking daily -saw Ophthalmology 02/15/2025 at [facility] , no retinopathy -foot exam done 01/13/25, she does not have any symptoms of neuropathy , has podiatry appointment in May 2025. -follow up in 2 weeks Her fib 4 score is 1.9, requiring further investigation with liver elastography, at this time she is already very overwhelmed with her recent pituitary surgery. I will 1st wait for her to address all of those appointments and then we can place a GI referral. In the meantime we are increasing her Trulicity 3 mg weekly and Lifestyle modification advised. (2) HLD (hyperlipidemia): Code(s): E78.5 - Hyperlipidemia, unspecified Category: Medical Qualifiers: Hyperlipidemia type: mixed hyperlipidemia Qualified Code(s): E78.2 - Mixed hyperlipidemia Plan: LDL elevated at 171 mg/dL. Goal LDL less than 70 mg/dL. started atorvatstain 40 mg daily 01/26/25 Plan: - continue atorvastatin 40 mg daily -will plan to repeat lipid panel with the next set of labs (3) Metabolic dysfunction-associated steatotic liver disease (MASLD): Code(s): K76.0 - Fatty (change of) liver, not elsewhere classified Category: Medical Plan: Her fib 4 score is 1.9, requiring further investigation with liver elastography, at this time she is already very overwhelmed recent pituitary surgery I will 1st wait for her to address all of those appointments and then we can place a GI referral. In the meantime we are increasing her Trulicity 3 mg weekly and Lifestyle modification advised. Plan: -increase Trulicity to 3 mg weekly -Lifestyle modification advised (4) Pituitary macroadenoma: Code(s): D35.2 - Benign neoplasm of pituitary gland Category: Medical Plan: 44-year-old female here today for followup of 1.6 cm pituitary macroadenoma abutting the optic chiasm with adrenal insufficiency. Status post resection with Dr. Apple Cornejo at [facility] [place]. I do not have any available records of the surgery. Seen with the help of sample checker, she has a very poor health literacy, she is unable to tell me whether she is on hydrocortisone or prednisone. Last visit 6 days ago she told me she was on hydrocortisone, today she is telling me she was taking both prednisone and hydrocortisone and then now she is only on prednisone 5 mg daily. Currently denies any nausea vomiting dizziness, denies any excessive thirst or urination. Per patient she has been doing blood work monitoring with the [facility] [place] but sodium and cortisol checks I do not have records of these. Labs from 05/09/2025 showed normal sodium 138, normal kidney function, normal serum osmolality of 300, normal TSH of 2.37, normal free T4 of 1.04, her cortisol at 08:00 was 6, this is equivocal, however it is very confusing whether she held the prednisone that morning or the hydrocortisone or what she was on. I am not going to rely on this. I discussed with her signs of SIADH, or high sodium levels. Discussed with her importance of going to the emergency room if that happens. Plan: -obtain records from Neurosurgery including pituitary pathology -continue prednisone 5 mg daily till she she is done with her current bottle and then switch to hydrocortisone 10 mg in a.m. and 5 mg in the afternoon -discussed adrenal insufficiency sick rules and emphasized again to obtain a medical bracelet -follow up in 2 weeks (5) Adrenal insufficiency: Code(s): E27.40 - Unspecified adrenocortical insufficiency Category: Medical Plan: See above Plan I spent 45 minutes in reviewing the record, seeing the patient and documenting in the medical record. Orders: Orders 2 AMB Glucose Monitoring Today E11.65 - Type 2 diabetes mellitus with hyperglycemia, Z79.4 - watermelon harvesting supervisor (current) use of insulin Medications: New 2 dulaglutide (Trulicity) 3 mg (0.5 mL) subcut QWEEK 2 mL 5RF Changed 2 From insulin glargine (Lantus Solostar U-100 Insulin) 10 units (0.1 mL) subcut QAM 6 mL 5RF To insulin glargine (Lantus Solostar U-100 Insulin) 14 units (0.14 mL) subcut QAM 6 mL 5RF Discontinued 2 dulaglutide (Trulicity) Discontinued Reason: Doctor's Order 1.5 mg (0.5 mL) subcut QWEEK 2 mL 4RF Patient Instructions: Increase Trulicity to 3 mg weekly, merchandise pickup/receiving associate your new prescription from pharmacy Increase insulin Lantus to 14 units daily Rule of 15 Treatment for Hypoglycemia (Low blood sugar) If your blood glucose is low (70 and below)*, follow the steps below to treat: Eat or drink something from the list below equal to 15 grams of carbohydrate (carb). Rest for 15 minutes Re-check your blood glucose. If it is still low, (below 70), repeat step 1 above. ? If your next meal is more than an hour away, you will need to eat one carbohydrate choice as a snack to keep your blood glucose from going low again. ?If you can't figure out why you have low blood glucose, call your healthcare provider, as your medicine may need to be adjusted. ?Always carry something with you to treat an insulin reaction. Use food from the list below. ? Foods equal to One Carbohydrate Choice (15 grams of carbohydrate): 3 Glucose ?tablets or 4 Dextrose tablets 4 ounces of fruit juice 5-6 ounces (about 1/2 can) of regular soda such as Coke or Pepsi ? 7-8 gummy or regular Life Savers ? 1 Tbsp. of sugar or jelly NOTE: If your blood sugar is less than 50, double the portion above for a total of 30 gm. ?Carbohydrate. ? Follow meal plan of 45-60 g of consistent carbohydrates at 3 meals each day and 15 g of carbohydrate at 1-2 snacks each day. Continue Prednisone 5 mg daily till you finish the bottle, then switch back to hydrocortisone 10 mg in AM and 5 mg in the afternoon once your are done with prednisone From now onwards please bring all of your medication bottles to every visit of [facility] Aumente la dosis de Trulicity a 3 mg semanales y recoja henao nueva receta en la farmacia. Aumente la insulina Lantus a 14 unidades diarias. Tratamiento de la Shannon del 15 para la hipoglucemia (nivel bajo de az?car en sabi) Si henao nivel de glucosa en sabi es bajo (70 o menos)*, siga los pasos a continuaci?n para tratarlo: Coma o nikole algo de la lista a continuaci?n equivalente a 15 gramos de carbohidratos. Descanse 15 minutos. Vuelva a medir henao nivel de glucosa en sabi. Si sigue bajo (menos de 70), repita el paso 1 anterior. Si henao pr?xima comida es en m?s de lavonne hora, deber? consumir un carbohidrato efe refrigerio para evitar que henao nivel de glucosa en sabi baje de nuevo. Si no puede determinar la causa de henao nivel bajo de glucosa en sabi, llame a henao profesional de la deborah, ya que podr?a ser necesario ajustar henao medicamento. Lleve siempre consigo algo para tratar lavonne reacci?n a la insulina. Use alimentos de la lista a continuaci?n. Alimentos equivalentes a lavonne opci?n de carbohidratos (15 gramos de carbohidratos): 3 tabletas de glucosa o 4 tabletas de dextrosa 113 g de jugo de fruta 140-170 g (aproximadamente 1/2 ericka) de refresco regular efe Coca-Cola o Pepsi 7-8 gomitas o Life Savers regulares 1 cucharada de az?car o jalea NOTA: Si henao nivel de az?car en la sabi es inferior a 50, duplique la porci?n anterior para un total de 30 g de carbohidratos. Siga un plan de alimentaci?n de 45-60 g de carbohidratos consistentes en 3 comidas al d?a y 15 g de carbohidratos en 1 o 2 refrigerios al d?a. Contin?e con 5 mg de prednisona al d?a hasta terminar el frasco y luego vuelva a 10 mg de hidrocortisona por la ma?daysi y 5 mg por la tarde lavonne vez que termine la prednisona. De ahora en adelante, por favor, traiga todos hali frascos de medicamentos a cada lavonne de mis visitas. Coding Level of Care Code Est Pt Level 5 (89164) Diagnoses Type 2 diabetes mellitus with hyperglycemia, with long-term current use of insulin E11.65; Z79.4 Diabetes mellitus terminal gauger supervisor insulin use: with terminal gauger supervisor use Diabetes mellitus type: type 2 Mixed hyperlipidemia E78.2 Hyperlipidemia type: mixed hyperlipidemia Metabolic dysfunction-associated steatotic liver disease (MASLD) K76.0 Pituitary macroadenoma D35.2 Adrenal insufficiency E27.40 CPT Codes Details - CPT: 91093 - Glucose monitoring, continuous-physician I&R ([id number]) Time Spent (min) 45
[2025-05-12 07:45] VITALS: BP 108/72; PULSE 70; O2SAT 98; BMI 24.9
[2025-05-12 08:06] LABS: Glucose, Whole Blood 307 mg/dL (60-115)
== END 2025-05-12 08:17 | disposition home or self-care (01) ==
LOC: HO.ENCR 07:43
PROVIDERS: PCP Nurse Practitioner Family; Visit Provider Student in an Organized Health Care Education/Training Program
DX: E11.65 Type 2 diabetes mellitus with hyperglycemia (principal); Z79.4 Long term (current) use of insulin; E78.2 Mixed hyperlipidemia; K76.0 Fatty (change of) liver, not elsewhere classified; D35.2 Benign neoplasm of pituitary gland; E27.40 Unspecified adrenocortical insufficiency
CPT/HCPCS: 95251; 99215

== ENCOUNTER → 2025-05-12 07:42 | Outpatient (BNVA) | payer MEDICAID, SELFPAY | PROVIDERS: PCP Nurse Practitioner Family; Visit Provider Student in an Organized Health Care Education/Training Program | DX: E11.65 Type 2 diabetes mellitus with hyperglycemia (principal); D35.2 Benign neoplasm of pituitary gland; E27.40 Unspecified adrenocortical insufficiency; Z79.4 Long term (current) use of insulin; E78.2 Mixed hyperlipidemia; K76.0 Fatty (change of) liver, not elsewhere classified | CPT/HCPCS: 82947; 99212 ==

== ENCOUNTER 2025-05-15 08:00 | Outpatient (AMB) | payer MEDICAID, SELFPAY ==
--- OUTSIDE RECORDS SUMMARY | 2025-05-15 08:03 | XMS_ITS | Encounter Summary ---
Author Organization [facility] Address [address] [place] [address] Care Team Providers Care Systems Analyst Name Role Phone Kim Johnson [employer]ER Primary Care Provider [phone] Raya Pan [facility] INTERN Primary Care Provider [phone] Encounter Details Date Type Department Care Team (Latest Contact Info) Description 03/07/2019 Abstract [facility] CONVERSIONS Dental, Provider, DDS Social [...] Description 10/09/2025 8:00 AM EST Office Visit [facility] ADULT DENTAL [address] [place] [address] Ana Koelher documented as of this encounter Visit Diagnoses Not on filedocumented in this encounter Care Teams Systems Analyst Relationship Specialty Start Date End Date Kim JohnsonGLORIA [address] [place] [address] PCP - General Family Medicine 05/14/22 12/17/23 Raya Pan NP [address] [place] [address] PCP - General Family Medicine 12/18/23 documented as of this encounter
--- NOTE | 2025-05-15 08:25 | MHC.AMDMED ---
Intake Intake Visit Reasons: 60 min Instructor Adjunct Pharmacy Technician Required: Yes Instructor Adjunct Pharmacy Technician Language: Cutter Operator Tile Name: Manual [id number] Accompanied by: Self / Same As Patient Allergies No Known Allergies Allergy (Verified 05/12/25 07:49) HPI Comprehensive Diabetes Asmnt Most Recent Diabetes Results: Hemoglobin A1c 6.4 % 10/04/19 Microalb/Creat Ratio, (<30) 28.4 ug/mg cr 01/13/25 Cholesterol, (<200) 244 mg/dL H 01/13/25 HDL Cholesterol, (>40) 49 mg/dL 01/13/25 Triglycerides, (<150) 120 mg/dL 01/13/25 Creatinine, (0.5-1.4) 0.49 mg/dL L 05/09/25 BUN, (9-16) 17 mg/dL H 05/09/25 Sodium, (135-145) 138 mmol/L 05/09/25 Potassium, (3.3-5.1) 3.9 mmol/L 05/09/25 Chloride, (96-108) 109 mmol/L H 05/09/25 Carbon Dioxide, (22-29) 21 mmol/L L 05/09/25 Calcium, (8.4-10.2) 9.0 mg/dL 05/09/25 AST, (5-31) 34 U/L H 03/16/25 ALT, (0-31) 37 U/L H 03/16/25 Total Protein, (6.5-8.0) 7.1 g/dL 03/16/25 Albumin, (3.5-5.0) 4.1 g/dL 03/16/25 [facility] Medical History (Updated 05/05/25 @ 09:22 by Mia Tristan MD) Adrenal insufficiency 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 Metabolic dysfunction-associated steatotic liver disease (MASLD) HLD (hyperlipidemia) Diabetes mellitus with hyperglycemia Pituitary macroadenoma Surgical History History of bilateral tubal ligation Social History Alcohol intake: never Patient Tobacco Use Status: Never used Tobacco Assessment & Plan Assessment & Plan (1) Diabetes mellitus with hyperglycemia: Code(s): E11.65 - Type 2 diabetes mellitus with hyperglycemia Qualifiers: Diabetes mellitus type: type 2 Diabetes mellitus termite treater helper insulin use: with termite treater helper use Qualified Code(s): E11.65 - Type 2 diabetes mellitus with hyperglycemia; 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 2= needs review? 3= comprehend keep point? 4= demonstrates understanding/ competent? NC= Not Covered Topics Learning Objective: Initial visit Initial or post srvc Initial or post srvc Initial or post srvc Initial or post srvc Initial or post srvc Post srvc Comments Pre Edu-assessment/plan Outcome or reassess Outcome or reassess Outcome or reassess Outcome or reassess Outcome or reassess Outcome or reassess Diabetes pathophysiology 1 2 Healthy eating 1 2 Being active 1 2 Taking medication 1 2 Monitoring glucose 1 2 3 Acute complication 1 3 Chronic complicated 1 Lifestyle and healthy coping 1 Diabetes distress in support 1 ?Diabetes pathophysiology: ?Defined diabetes med identify own type of diabetes; list 3 options for treating diabetes Healthy eating: ?Described effect of type, amount and ?timing of food on blood glucose; list 3 methods for planning meal Being active: ?State effect of exercise on blood glucose level Taking medication: ?State effect of diabetes medications on diabetes; name diabetes medications taking, action and side effects Monitoring glucose: ?Identify recommended blood glucose targets and personal target Acute complication: ?List symptoms and treatment of hyper and hypoglycemia, DKA, sick day guidelines and guidelines for severe weather or situations of crisis and diabetes supply manage Chronic complication: ?To find the relationship of blood glucose levels to long-term complications of diabetes in screening and preventative measures Lifestyle and healthy coping: ?Described lifestyle and healthy coping strategies to rule out diabetes self-management Diabetes to stress and support: ?Recognize Diabetes to stress and be able to identified support options Learning objectives: The patient was provided with verbal and written education on the following topics as outlined below. The patient met all learning objectives and was able to verbalize understanding and provide teach back of education topics discussed . The patient was provided with the opportunity to ask questions and all questions were answered. Patient Assessment A1c improved to 8.6% on 03/16/2025, from 12.4 % in December 2024 Assess patient education level/literacy/barriers, patient recently had pituitary surgery. She is currently taking prednisone 5 mg daily. She was seen by a provider on 05/12/2025 Trulicity was increased from 1.5 mg to 3 mg, she has not started new dose Tresiba increased to 14 units daily Patient questioned why CGM readings were different than glucometer readings Reviewed information below: CGM Info Instructed Pt on what CGM can and can't do CGM Can: Give Pt minute by minute reading of glucose levels Displays glucose trend arrows that represents the direction glucose levels are fluctuating Give insight on decisions about how to dose insulin CGM cannot: Improve glucose control on its own Completely eliminate the need for all finger sticks Make dosing decision for you CGM is the reading of glucose in the interstitial fluid not actual blood glucose, finger sticks are still necessary when Pt's symptom?s do not match sensor reading and if sensors prompts Pt to do a fingerstick Patient?uses [employer] 3+ with reader Reviewed delay of CGM from fingersticks Reminded pt that if symptoms do not match sensor still needs to check fingersticks. Know your goals A1C Blood sugar targets Blood pressure Cholesterol/LDL Urine microalbumin Smart Goal Assessment: Patient identified current foods in meal plan that contain carbohydrates Pt met goal 75% New Goal:? Patient will increase non carbohydrate fluids when glucose levels are above target Portions of this note were created using voice recognition software, please excuse any words or phrases that may have been misinterpreted. Patient Instructions: Incluir actividad diaria regular. ADA recomienda 30 minutos de ejercicio 5 d?as a la semana. P?rdida de peso, hable con el PCP o el cardi?logo antes de comenzar un nuevo plan. Mida el nivel de az?car en la sabi seg?n las indicaciones; Ayuno y comida m?s rory de 2hpp. Observe las tendencias en los resultados. Utilice los resultados y eval?e c?mo los alimentos, la actividad f?[place] y los medicamentos afectan los resultados de az?car en la sabi. Lleve el gluc?metro o CGM a la pr?xima visita. Conocer los medicamentos para la diabetes, henao acci?n, los efectos secundarios, la eficacia, la toxicidad, la dosis prescrita, el momento y la frecuencia de administraci?n apropiados, el efecto de las dosis olvidadas y retrasadas y las instrucciones de almacenamiento, viaje y seguridad. T?cnicas de resoluci?n de problemas para el seguimiento de episodios de hipo/hiperglucemia y tratamientos. Reducir los comportamientos de reducci?n de riesgos, dejar de fumar, ex?menes regulares de ojos, pies y dentales. Coding Level of Care Code Est Pt Level 1 (23913) Diagnoses Type 2 diabetes mellitus with hyperglycemia, with long-term current use of insulin E11.65; Z79.4 Diabetes mellitus type: type 2 Diabetes mellitus termite treater helper insulin use: with termite treater helper use
== END 2025-05-15 08:53 | disposition home or self-care (01) ==
LOC: HO.ENCR 08:01
PROVIDERS: PCP Nurse Practitioner Family; Visit Provider Registered Nurse Diabetes Educator
DX: E11.65 Type 2 diabetes mellitus with hyperglycemia (principal); Z79.4 Long term (current) use of insulin

== ENCOUNTER → 2025-05-15 08:00 | Outpatient (BNVA) | payer MEDICAID, SELFPAY | PROVIDERS: PCP Nurse Practitioner Family; Visit Provider Registered Nurse Diabetes Educator | DX: E11.65 Type 2 diabetes mellitus with hyperglycemia (principal); Z79.4 Long term (current) use of insulin | CPT/HCPCS: 99211 ==

== ENCOUNTER 2025-05-26 07:37 | Outpatient (AMB) | payer MEDICAID, SELFPAY ==
--- OUTSIDE RECORDS SUMMARY | 2025-05-26 07:39 | XMS_ITS | Encounter Summary ---
Author Organization [facility] Address [address] [place] [address] [address] [place] [address] Care Team Providers Care Retirement Village Manager Name Role Phone Kim Johnson RING STAMPER Primary Care Provider [phone] Raya Pan UNIX CONSULTANT Primary Care Provider [phone] Encounter Details Date Type Department Care Team (Late st Contact Info) Description 09/25/2023 Abstract [facility] [address] [place] [address] Kate Mejia DDS [address], [place] [id number] Social History Tobacco Use Types Packs/Day Years [...] Description 10/09/2025 8:00 AM EST Office Visit [facility] [address] [place] [address] Ana Koehler documented as of this encounter Visit Diagnoses Not on filedocumented in this encounter Care Teams Retirement Village Manager Relationship Specialty Start Date End Date AlexKim FNP [address] [place] [address] PCP - General Family Medicine 05/14/22 12/17/23 Raya Pan NP [address] [place] [id number] PCP - General Family Medicine 12/18/23 documented as of this encounter
--- NOTE | 2025-05-26 07:40 | MHC.OFFVIS ---
Vital Signs 05/26/25 07:43 Height 5 ft Weight 128 lb 15.527 oz BMI 25.2 BP 98/62 Blood Pressure Location Rt brachial Position Sitting Pulse 91 Pulse Source Pulse Oximeter Pulse Oximetry (%) 100 Oxygen Delivery Method Room Air Intake Visit Reasons: T2DM Intake Note: Patient present today for Type 2 Diabetes Mellitus Last Diabetic eye exam: 02/2025 Last Podiatry Visit: Has upcoming appt in May 2025. Random Glucose: 224 mg/dl HgA1C: 8.6% 03/16/25 Director Trust Required: Yes Director Trust Language: Manager Mail Services: Director Trust Present Director Trust Name: Marquis [id number] Information Interpreted: non-clinical & clinical Accompanied by: Self / Same As Patient Allergies No Known Allergies Allergy (Verified 05/26/25 07:44) Medication List - Last Reconciled 05/26/25 by Mia Tristan MD atorvastatin 40 mg PO BEDTIME blood sugar diagnostic (FreeStyle Lite Strips) As directed to check blood sugars three times a day type 2 diabetes mellitus with hyperglycemia and long-term insulin use is E11.65 plus Z79.4 blood-glucose meter (FreeStyle Lite Meter kit) As directed to check blood sugars three times a day type 2 diabetes mellitus with hyperglycemia and long-term insulin use is E11.65 plus Z79.4 blood-glucose sensor (FreeStyle Margot 3 Plus Sensor device) As directed every 15 days type 2 diabetes mellitus with hyperglycemia and long-term insulin use is E11.65 plus Z79.4 celecoxib 200 mg PO DAILY cyclobenzaprine 5 mg PO BEDTIME dulaglutide (Trulicity) 3 mg (0.5 mL) subcut QWEEK famotidine 20 mg PO BID glucose (Dex4 Glucose) 4 grams PO Q15M PRN hydrocortisone orally 2 times a day; Take 1 tablet in the morning and 0.5 tablet at 2 PM in the afternoon daily ibuprofen 800 mg PO Q8H PRN insulin glargine (Lantus Solostar U-100 Insulin) 14 units (0.14 mL) subcut QAM lancets (FreeStyle Lancets) As directed to check blood sugars thrice a day type 2 diabetes mellitus with hyperglycemia and long-term insulin use is E11.65 plus Z79.4 oxycodone 5 mg PO BID PRN pen needle, diabetic As directed to inject insulin daily prednisone 5 mg PO DAILY HPI Comments Details: 44-year-old female here today for follow up of type 2 diabetes mellitus. We are also see her for pituitary incidentaloma and adrenal insufficiency. Was not addressed today. Type 2 diabetes mellitus History of diabetes Diagnosed Dec 2024 Prior therapy: None Current regimen: insulin Lantus 14 units in AM Trulicity 3 mg weekly , initial dose started 01/25/25 takes it on Thursday now, patient doesnt know how many injections she has taken of the new dose ,she is always very confused about her dose. Interval history She underwent pituitary surgery on 04/25/2025, I still have not received records from them Patient has been on prednisone 5 mg daily post surgery but at some point she got confused and was taking both hydrocortisone and prednisone over the last few weeks, likely resulting in high blood sugars. However on the CGM, she was even running in the 200s prior to surgery. Random Glucose: 224 mg/dl HgA1C: 8.6% 03/16/25 HgA1C: 12.9% 12/26/24 Denies polyuria, polydipsia currently, says she was having that a few months ago. Weight stable. . Denies any hypoglycemic symptoms. [employer] Margot 3 downloaded from May 13 to 05/26/2025 Time CGM active 86% Average glucose 315 mg/dL G NE 10.8% Glucose variability 18.5% Within target range 1% High 14% Very high 85% Low 0% Interpretation: Running hyperglycemic throughout with a very high blood sugars mostly in the 300s and 200s. Complications Last Diabetic eye exam: saw 02/15/25, she was told visual coe are intact, no diabetic retinopathy, just some bleeding in 1 eye, Last Podiatry Visit: Has upcoming appt in May 2025. Neuropathy: no symptoms Kidney disease: no history Macrovascular complications: No history of macrovascular complications. Statin: Atorvastatin 40 mg daily started January 2025 Screening for MASLD : Fib 4 score for labs from February 2025 comes down to 1.91, she needs further investigation so we will need GI referral VISHNU/ARB: none Exercise: None Active at work but other gamez no Diet control: Most days Breakfast: rice beans and fried chicken tomatoes Some p[place] and samosas sometimes at restaurant Dinner rice and soup No desserts Stopped drinking sodas and juices CDE appointment done most recent fup 05/15/25 Emergency Dept Tech appointment done 02/09/25 He has never had any hospitalizations for hyperglycemia/hypoglycemia. 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 no mass effect on optic chiasm. No dedicated MRI of the pituitary done. Vision changes: blurry vision intermittently trouble with reading , reports ocular pain intermittently Headache: none Nipple discharge: none [employer] history: LMP: mid October 2024, regular Pregnancies : 4 , 4 living children , no fertility issues Change in sense of smell: no Change in ring size: none Change in shoe size: none Patient currently denies heat or cold intolerance, diarrhea or constipation, hair loss, palpitation, anxiety, weight changes, mood changes, low energy, changes in appearance of eyes or vision changes, tremors, increased diaphoresis or dry skin. ? Easy bruising: yes Proximal muscle weakness: none has uncontrolled DM Nausea: none Vomiting:none Lightheadedness: intermittent Weight: lost 5 lbs in 1 month Labs from 12/20/2024 showed normal thyroid function, undetectable cortisol level, acth of 13, DHEA-S of 29, IGF-1, estradiol level pending. Prolactin level normal 20.7. She is very inconsistent with her history and said that she was having some lightheadedness or dizziness that had already resolved before she started the medication that we had prescribed to her over the phone hydrocortisone 10 mg twice a day. She has lost 5 lb since the last visit. 12/26/2024: after holding the hydrocortisone the afternoon before in the morning off, cortisol level in a.m. was 2.3 with a ACTH of 15. 12/27/2024: Again after holding the hydrocortisone in the afternoon before and the morning of, cortisol level was 0.5 in a.m. at [facility] with ACTH of 3.9 01/15/2025: MRI of the pituitary with and without contrast showed a T1 isointense and a T2 mildly hyperintense, mildly heterogenously enhancing mass measuring 1.6 X 1.2 X 1.5 cm within the sella turcica with the pituitary stalk shifted to the left. Mass abuts the optic chiasm. Cavernous sinuses appear symmetric. No evidence of mass, mass effect or midline shift. Appearance consistent with pituitary macroadenoma. Interval history Status post transsphenoidal resection of the pituitary macroadenoma 04/25/[address] Apple Cornejo, I did not receive any of these records from her surgeon. we have requested Per patient they have been monitoring her blood work, Denies any excessive thirst or urination. She showed me some instructions which showed that she was on prednisone 5 mg daily after the surgery, but at this time patient is super confused whether she is on prednisone or hydrocortisone. I have asked her to bring all of her medication bottles to next visit. Very poor health literacy. Today she brings in her medication bottles and says she is now back on prednisone 5 mg daily and apparently was taking both hydrocortisone and prednisone up until a few days ago. Continues on prednisone 5 mg daily No vision changes, no eye symptoms , she has a follow up appointment with her neurosurgeon on 06/12/2025. No nausea, vomiting , dizziness , lightheadedness. Denies excessive thirst or urination Medical alert bracelet:yeimi bought yet Ophthalmology referral: Visual coe done 03/22/25 , no interpretation provided they provided me with some diagrams without any interpretation of what her visual coe are like. Labs from 05/09/2025 showed normal sodium 138, normal kidney function, normal serum osmolality of 300, normal TSH of 2.37, normal free T4 of 1.04, her cortisol at 08:00 was 6, this is equivocal, however it is very confusing whether she held the prednisone that morning or the hydrocortisone or what she was on. I am not going to rely on this. Physical exam General: sitting comfortably in no acute distress HEENT: normocephalic/atraumatic, , moist oral mucosa, visual coe grossly intact Neck: supple, Cardiac: normal heart sounds Pulm: normal breath sounds B/L, no added breath sounds Abd: not distended, no tenderness Foot exam: done 01/13/25 Warm, well-perfused, right big toenail has thickening, Intact sensation to monofilament, intact pulses, intact vibration Laboratory Tests 12/20/24 08:53 TSH 1.14 Free T4 1.05 FSH 7.6 Luteinizing Hormone 7.7 Prolactin Undiluted 20.7 DHEA Sulfate 29 Human Growth Hormone 0.2 Random Cortisol < 1.0 ACTH 13 Laboratory Tests 12/20/24 12/26/24 08:53 08:49 Sodium 137 Potassium 3.9 Chloride 104 Carbon Dioxide 24 Anion Gap 13 BUN 15 Creatinine 0.67 Estimated GFR > 60 Alpha Subunit Marker 0.2 TSH 1.14 1.75 Free T4 1.05 1.05 Estradiol Ultra LCMSMS 45 FSH 7.6 9.5 Luteinizing Hormone 7.7 21.0 Prolactin Undiluted 20.7 DHEA Sulfate 29 19 Human Growth Hormone 0.2 Somatomedin-C 73 Somato-C Z-Score Female -1.3 Random Cortisol < 1.0 2.3 ACTH 13 15 Laboratory Tests 12/26/24 01/13/25 01/13/25 08:49 07:57 10:18 Plt Count 146 L Sodium 137 Potassium 3.9 Creatinine 0.67 Estimated GFR > 60 Glucose (Clinic) 325 H Random Glucose 328 H Estimat Average Glucose 324 Hemoglobin A1c % 12.9 H AST 82 H ALT 170 H Alkaline Phosphatase 149 H Albumin 4.0 Triglycerides 120 Cholesterol 244 H LDL Cholesterol, Calc 171 H HDL Cholesterol 49 Urine Creatinine 38.72 Urine Microalbumin 11.0 Microalb/Creat Ratio 28.4 01/26/25 07:44 Plt Count Sodium Potassium Creatinine Estimated GFR Glucose (Clinic) 299 H Random Glucose Estimat Average Glucose Hemoglobin A1c % AST ALT Alkaline Phosphatase Albumin Triglycerides Cholesterol LDL Cholesterol, Calc HDL Cholesterol Urine Creatinine Urine Microalbumin Microalb/Creat Ratio Laboratory Tests 01/13/25 03/16/25 10:18 09:42 Hgb 12.2 Hct 37.3 Plt Count 129 L Sodium 142 Potassium 3.8 Creatinine 0.61 Estimated GFR > 60 Random Glucose 169 H Fasting Glucose 170 H Estimat Average Glucose 200 Hemoglobin A1c % 8.6 H Calcium 9.3 AST 34 H ALT 37 H Alkaline Phosphatase 93 Triglycerides 120 Cholesterol 244 H LDL Cholesterol, Calc 171 H HDL Cholesterol 49 Urine Creatinine 38.72 Urine Microalbumin 11.0 Microalb/Creat Ratio 28.4 Laboratory Tests 03/16/25 05/09/25 09:42 08:41 Hgb 12.2 Hct 37.3 Plt Count 129 L Sodium 138 Potassium 3.9 Creatinine 0.49 L Estimated GFR > 60 Random Glucose 271 H Osmolality 300 Calcium 9.0 TSH 2.37 Free T4 1.04 DHEA Sulfate 75 Random Cortisol 6.0 MR brain without contrast. Thin slice imaging through the pituitary gland was obtained. 01/15/25 COMPARISON: None FINDINGS: High-resolution imaging of the pituitary region demonstrates a T1 isointense, T2 mildly hyperintense, FLAIR hyperintense, diffusion restricting, mildly heterogeneously enhancing mass measuring 1.6 x 1.2 x 1.5 cm within the sella turcica. The pituitary stalk is shifted to the left. Neurohypophysis appears normal in position. Mass abuts the optic chiasm. Cavernous sinuses appear symmetric. Flow voids within the carotid siphons normal. There is likely mild expansion of the sella turcica. No abnormal diffusion restriction in the brain parenchyma or extra-axial spaces. No evidence of mass, mass effect or midline shift. No intracranial hemorrhage or abnormal extra-axial fluid collection. No evidence of hydrocephalus. The basilar cisterns are patent. A few scattered foci of T2/FLAIR hyperintensity within the chapman radiata white matter in the frontal lobes bilaterally and in the right temporal lobe. Cerebellar hemispheres and cerebellar vermis are normal. Fourth ventricle is normal. No brainstem abnormality is identified. Intracranial flow voids are patent. The visualized paranasal sinuses and mastoid air-cells are clear. IMPRESSION: 1. Pituitary mass measuring up to 1.6 cm abuts the optic chiasm and shift the pituitary stalk to the left. 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 Metabolic dysfunction-associated steatotic liver disease (MASLD) HLD (hyperlipidemia) Diabetes mellitus with hyperglycemia Pituitary macroadenoma Surgical History History of bilateral tubal ligation Social History Alcohol intake: never Patient Tobacco Use Status: Never used Tobacco Physical Exam Vital Signs: BMI result Body Mass Index 25.2 Assessment & Plan Assessment & Plan (1) Diabetes mellitus with hyperglycemia: Code(s): E11.65 - Type 2 diabetes mellitus with hyperglycemia Category: Medical Qualifiers: Diabetes mellitus type: type 2 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 A1c 12.9% from December 2024. Down to 8.6% from March 2025. Her blood sugars had improved previously, now again with hyperglycemia no, but most blood sugars in the 200s and 300s on CGM download. She also got confused about prednisone and hydrocortisone and for the past few weeks she might have been taking both hydrocortisone and prednisone resulting in hyperglycemia. I have really tried to clarify to her that she can only be on 1 of them at a time, and currently she is on prednisone 5 mg daily. She is now on Trulicity 3 mg weekly, I verified with the pharmacy that she picked up the new dose. very challenging to take history and patient never remembers what dose she is on and how many injections she has taken. For the past week she has also been drinking orange and lemon juices, I advised her to avoid any sugary drinks. Plan: -increase insulin to Lantus 18 units daily in the morning -continue Trulicity to 3 mg weekly -continue with freestyle Margot 3 sensor monitoring -lifestyle modification advised with the avoiding carbs, eliminating any sugars are sugary drinks such as soda isn't juices -150 minutes of exercise advised with 30 minutes of walking daily -saw Ophthalmology 02/15/2025 at [facility] , no retinopathy -foot exam done 01/13/25, she does not have any symptoms of neuropathy , has podiatry appointment in May 2025. -follow up in 5 weeks Her fib 4 score is 1.9, requiring further investigation with liver elastography, at this time she is already very overwhelmed with her recent pituitary surgery. I will 1st wait for her to address all of those appointments and then we can place a GI referral. In the meantime we are increasing her Trulicity 3 mg weekly and Lifestyle modification advised. (2) HLD (hyperlipidemia): Code(s): E78.5 - Hyperlipidemia, unspecified Category: Medical Qualifiers: Hyperlipidemia type: mixed hyperlipidemia Qualified Code(s): E78.2 - Mixed hyperlipidemia Plan: LDL elevated at 171 mg/dL Dec 2024. Goal LDL less than 70 mg/dL. started atorvatstain 40 mg daily 01/26/25 Plan: - continue atorvastatin 40 mg daily -will plan to repeat lipid panel with the next set of labs (3) Metabolic dysfunction-associated steatotic liver disease (MASLD): Code(s): K76.0 - Fatty (change of) liver, not elsewhere classified Category: Medical Plan: Her fib 4 score is 1.9, requiring further investigation with liver elastography, at this time she is already very overwhelmed recent pituitary surgery I will 1st wait for her to address all of those appointments and then we can place a GI referral. In the meantime we are increasing her Trulicity 3 mg weekly and Lifestyle modification advised. She has taken 2 injections of the Trulicity 3 mg weekly per my estimate given she picked it up from the pharmacy on 12 May. Plan: -continue Trulicity to 3 mg weekly -Lifestyle modification advised Plan I spent 30 minutes in reviewing the record, seeing the patient and documenting in the medical record. 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
[2025-05-26 07:43] VITALS: BP 98/62; PULSE 91; O2SAT 100; BMI 25.2
[2025-05-26 07:53] LABS: Glucose, Whole Blood 224 mg/dL (60-115)
== END 2025-05-26 08:15 | disposition home or self-care (01) ==
LOC: HO.ENCR 07:38
PROVIDERS: PCP Nurse Practitioner Family; Visit Provider Student in an Organized Health Care Education/Training Program
DX: E11.65 Type 2 diabetes mellitus with hyperglycemia (principal); Z79.4 Long term (current) use of insulin; E78.2 Mixed hyperlipidemia; K76.0 Fatty (change of) liver, not elsewhere classified
CPT/HCPCS: 99214

== ENCOUNTER → 2025-05-26 07:37 | Outpatient (BNVA) | payer MEDICAID, SELFPAY | PROVIDERS: PCP Nurse Practitioner Family; Visit Provider Student in an Organized Health Care Education/Training Program | DX: E11.65 Type 2 diabetes mellitus with hyperglycemia (principal); E78.2 Mixed hyperlipidemia; K76.0 Fatty (change of) liver, not elsewhere classified; Z79.4 Long term (current) use of insulin | CPT/HCPCS: 82947; 99212 ==

== ENCOUNTER 2025-06-08 13:08 | Outpatient (AMB) | payer MEDICAID, SELFPAY ==
[2025-06-08 13:09] VITALS: BP 90/56; PULSE 85; O2SAT 99; BMI 25.7
--- NOTE | 2025-06-08 13:09 | MHC.OFFVIS ---
Vital Signs 06/08/25 13:09 Height 5 ft Weight 131 lb 6.328 oz BMI 25.7 BP 90/56 L Blood Pressure Location Lt brachial Position Sitting Pulse 85 Pulse Source Pulse Oximeter Pulse Oximetry (%) 99 Oxygen Delivery Method Room Air Intake Visit Reasons: Enlargement of pituitary gland Intake Note: Patient present today for enlargement of pituitary gland. Veterinary Laboratory Diagnostician Required: Yes Veterinary Laboratory Diagnostician Language: Aquac[employer] Program Director Services: Veterinary Laboratory Diagnostician Present Veterinary Laboratory Diagnostician Name: Madonna [id number] Information Interpreted: non-clinical & clinical Accompanied by: Self / Same As Patient Allergies No Known Allergies Allergy (Verified 06/08/25 13:17) Medication List - Last Reconciled 06/08/25 by Mia Tristan MD atorvastatin 40 mg PO BEDTIME blood sugar diagnostic (FreeStyle Lite Strips) As directed to check blood sugars three times a day type 2 diabetes mellitus with hyperglycemia and long-term insulin use is E11.65 plus Z79.4 blood-glucose meter (FreeStyle Lite Meter kit) As directed to check blood sugars three times a day type 2 diabetes mellitus with hyperglycemia and long-term insulin use is E11.65 plus Z79.4 blood-glucose sensor (FreeStyle Margot 3 Plus Sensor device) As directed every 15 days type 2 diabetes mellitus with hyperglycemia and long-term insulin use is E11.65 plus Z79.4 celecoxib 200 mg PO DAILY cyclobenzaprine 5 mg PO BEDTIME dulaglutide (Trulicity) 3 mg (0.5 mL) subcut QWEEK famotidine 20 mg PO BID glucose (Dex4 Glucose) 4 grams PO Q15M PRN hydrocortisone orally 2 times a day; Take 1 tablet in the morning and 0.5 tablet at 2 PM in the afternoon daily ibuprofen 800 mg PO Q8H PRN insulin glargine (Lantus Solostar U-100 Insulin) 18 units (0.18 mL) subcut QAM lancets (FreeStyle Lancets) As directed to check blood sugars thrice a day type 2 diabetes mellitus with hyperglycemia and long-term insulin use is E11.65 plus Z79.4 oxycodone 5 mg PO BID PRN pen needle, diabetic As directed to inject insulin daily prednisone 5 mg PO DAILY HPI Comments Details: 44-year-old female here today for follow up of pituitary incidentaloma with secondary adrenal insufficiency, Status post transsphenoidal resection of the pituitary macroadenoma 04/25/2025 at [facility] with Dr. Apple Cornejo We are also see her for type 2 DM. Was not addressed today. Pituitary incidentaloma/adrenal insufficiency HPI Patient had CT scan of her orbits June 2024 due to ocular pain to rule out orbital cellulitis which showed a macroadenoma of the pituitary gland measuring 1.6 X 1.5 cm. no mass effect on optic chiasm. No dedicated MRI of the pituitary done. Vision changes: blurry vision intermittently trouble with reading , reports ocular pain intermittently Headache: none Nipple discharge: none [employer] history: LMP: mid October 2024, regular Pregnancies : 4 , 4 living children , no fertility issues Change in sense of smell: no Change in ring size: none Change in shoe size: none Patient currently denies heat or cold intolerance, diarrhea or constipation, hair loss, palpitation, anxiety, weight changes, mood changes, low energy, changes in appearance of eyes or vision changes, tremors, increased diaphoresis or dry skin. ? Easy bruising: yes Proximal muscle weakness: none has uncontrolled DM Nausea: none Vomiting:none Lightheadedness: intermittent Weight: lost 5 lbs in 1 month Labs from 12/20/2024 showed normal thyroid function, undetectable cortisol level, acth of 13, DHEA-S of 29, IGF-1, estradiol level pending. Prolactin level normal 20.7. She is very inconsistent with her history and said that she was having some lightheadedness or dizziness that had already resolved before she started the medication that we had prescribed to her over the phone hydrocortisone 10 mg twice a day. She has lost 5 lb since the last visit. 12/26/2024: after holding the hydrocortisone the afternoon before in the morning off, cortisol level in a.m. was 2.3 with a ACTH of 15. 12/27/2024: Again after holding the hydrocortisone in the afternoon before and the morning of, cortisol level was 0.5 in a.m. at [facility] with ACTH of 3.9 01/15/2025: MRI of the pituitary with and without contrast showed a T1 isointense and a T2 mildly hyperintense, mildly heterogenously enhancing mass measuring 1.6 X 1.2 X 1.5 cm within the sella turcica with the pituitary stalk shifted to the left. Mass abuts the optic chiasm. Cavernous sinuses appear symmetric. No evidence of mass, mass effect or midline shift. Appearance consistent with pituitary macroadenoma. Status post transsphenoidal resection of the pituitary macroadenoma 04/25/[address] Apple Cornejo, I did not receive any of these records from her surgeon. we have requested Per patient they have been monitoring her blood work, Denies any excessive thirst or urination. She showed me some instructions which showed that she was on prednisone 5 mg daily after the surgery, but at this time patient is super confused whether she is on prednisone or hydrocortisone. I have asked her to bring all of her medication bottles to next visit. Very poor health literacy. Today she brings in her medication bottles and says she is now back on prednisone 5 mg daily and apparently was taking both hydrocortisone and prednisone up until a few days ago. Continues on prednisone 5 mg daily No vision changes, no eye symptoms , she has a follow up appointment with her neurosurgeon on 06/12/2025. No nausea, vomiting , dizziness , lightheadedness. Denies excessive thirst or urination Medical alert bracelet:hasbushra bought yet Ophthalmology referral: Visual coe done 03/22/25 , no interpretation provided they provided me with some diagrams without any interpretation of what her visual coe are like. Labs from 05/09/2025 showed normal sodium 138, normal kidney function, normal serum osmolality of 300, normal TSH of 2.37, normal free T4 of 1.04, her cortisol at 08:00 was 6, this is equivocal, however it is very confusing whether she held the prednisone that morning or the hydrocortisone or what she was on. I am not going to rely on this. Interval history 05/19/25 reports no vision changes, last visual coe 03/22/25: some diffuse scattered loss in right eye/ unreliable??, left eye was normal , has followup with them 07/05/25 , 8 55 AM No headaches No nausea, vomiting , dizziness , lightheadedness. Denies excessive thirst or urination continues on prednisone 5 mg daily , hydrocrotisone on hold she has follow up appointments with at [facility] 06/12/25 , I still havent recieved any records from them 3-4 weeks ago had some nasal bleeding?? Medical alert bracelet:hasnt bought yet Type 2 diabetes mellitus: not addressed today History of diabetes Diagnosed Dec 2024 Prior therapy: None Current regimen: insulin Lantus 14 units in AM Trulicity 3 mg weekly , initial dose started 01/25/25 takes it on Thursday now, patient doesnt know how many injections she has taken of the new dose ,she is always very confused about her dose. Interval history She underwent pituitary surgery on 04/25/2025, I still have not received records from them Patient has been on prednisone 5 mg daily post surgery but at some point she got confused and was taking both hydrocortisone and prednisone over the last few weeks, likely resulting in high blood sugars. However on the CGM, she was even running in the 200s prior to surgery. Random Glucose: 224 mg/dl HgA1C: 8.6% 03/16/25 HgA1C: 12.9% 12/26/24 Denies polyuria, polydipsia currently, says she was having that a few months ago. Weight stable. . Denies any hypoglycemic symptoms. Ultralife 3 downloaded from May 13 to 05/26/2025 Time CGM active 86% Average glucose 315 mg/dL G GA 10.8% Glucose variability 18.5% Within target range 1% High 14% Very high 85% Low 0% Interpretation: Running hyperglycemic throughout with a very high blood sugars mostly in the 300s and 200s. Complications Last Diabetic eye exam: saw 02/15/25, she was told visual coe are intact, no diabetic retinopathy, just some bleeding in 1 eye, Last Podiatry Visit: Has upcoming appt in May 2025. Neuropathy: no symptoms Kidney disease: no history Macrovascular complications: No history of macrovascular complications. Statin: Atorvastatin 40 mg daily started January 2025 Screening for MASLD : Fib 4 score for labs from February 2025 comes down to 1.91, she needs further investigation so we will need GI referral VISHNU/ARB: none Exercise: None Active at work but other gamez no Diet control: Most days Breakfast: rice beans and fried chicken tomatoes Some pakoras and samosas sometimes at restaurant Dinner rice and soup No desserts Stopped drinking sodas and juices CDE appointment done most recent fup 05/15/25 Mixing Plant Operator appointment done 02/09/25 He has never had any hospitalizations for hyperglycemia/hypoglycemia. 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 Physical exam General: sitting comfortably in no acute distress HEENT: normocephalic/atraumatic, , moist oral mucosa, visual coe grossly intact Neck: supple, Cardiac: normal heart sounds Pulm: normal breath sounds B/L, no added breath sounds Abd: not distended, no tenderness Foot exam: done 01/13/25 Warm, well-perfused, right big toenail has thickening, Intact sensation to monofilament, intact pulses, intact vibration Laboratory Tests 12/20/24 08:53 TSH 1.14 Free T4 1.05 FSH 7.6 Luteinizing Hormone 7.7 Prolactin Undiluted 20.7 DHEA Sulfate 29 Human Growth Hormone 0.2 Random Cortisol < 1.0 ACTH 13 Laboratory Tests 12/20/24 12/26/24 08:53 08:49 Sodium 137 Potassium 3.9 Chloride 104 Carbon Dioxide 24 Anion Gap 13 BUN 15 Creatinine 0.67 Estimated GFR > 60 Alpha Subunit Marker 0.2 TSH 1.14 1.75 Free T4 1.05 1.05 Estradiol Ultra LCMSMS 45 FSH 7.6 9.5 Luteinizing Hormone 7.7 21.0 Prolactin Undiluted 20.7 DHEA Sulfate 29 19 Human Growth Hormone 0.2 Somatomedin-C 73 Somato-C Z-Score Female -1.3 Random Cortisol < 1.0 2.3 ACTH 13 15 Laboratory Tests 12/26/24 01/13/25 01/13/25 08:49 07:57 10:18 Plt Count 146 L Sodium 137 Potassium 3.9 Creatinine 0.67 Estimated GFR > 60 Glucose (Clinic) 325 H Random Glucose 328 H Estimat Average Glucose 324 Hemoglobin A1c % 12.9 H AST 82 H ALT 170 H Alkaline Phosphatase 149 H Albumin 4.0 Triglycerides 120 Cholesterol 244 H LDL Cholesterol, Calc 171 H HDL Cholesterol 49 Urine Creatinine 38.72 Urine Microalbumin 11.0 Microalb/Creat Ratio 28.4 01/26/25 07:44 Plt Count Sodium Potassium Creatinine Estimated GFR Glucose (Clinic) 299 H Random Glucose Estimat Average Glucose Hemoglobin A1c % AST ALT Alkaline Phosphatase Albumin Triglycerides Cholesterol LDL Cholesterol, Calc HDL Cholesterol Urine Creatinine Urine Microalbumin Microalb/Creat Ratio Laboratory Tests 01/13/25 03/16/25 10:18 09:42 Hgb 12.2 Hct 37.3 Plt Count 129 L Sodium 142 Potassium 3.8 Creatinine 0.61 Estimated GFR > 60 Random Glucose 169 H Fasting Glucose 170 H Estimat Average Glucose 200 Hemoglobin A1c % 8.6 H Calcium 9.3 AST 34 H ALT 37 H Alkaline Phosphatase 93 Triglycerides 120 Cholesterol 244 H LDL Cholesterol, Calc 171 H HDL Cholesterol 49 Urine Creatinine 38.72 Urine Microalbumin 11.0 Microalb/Creat Ratio 28.4 Laboratory Tests 03/16/25 05/09/25 09:42 08:41 Hgb 12.2 Hct 37.3 Plt Count 129 L Sodium 138 Potassium 3.9 Creatinine 0.49 L Estimated GFR > 60 Random Glucose 271 H Osmolality 300 Calcium 9.0 TSH 2.37 Free T4 1.04 DHEA Sulfate 75 Random Cortisol 6.0 MR brain without contrast. Thin slice imaging through the pituitary gland was obtained. 01/15/25 COMPARISON: None FINDINGS: High-resolution imaging of the pituitary region demonstrates a T1 isointense, T2 mildly hyperintense, FLAIR hyperintense, diffusion restricting, mildly heterogeneously enhancing mass measuring 1.6 x 1.2 x 1.5 cm within the sella turcica. The pituitary stalk is shifted to the left. Neurohypophysis appears normal in position. Mass abuts the optic chiasm. Cavernous sinuses appear symmetric. Flow voids within the carotid siphons normal. There is likely mild expansion of the sella turcica. No abnormal diffusion restriction in the brain parenchyma or extra-axial spaces. No evidence of mass, mass effect or midline shift. No intracranial hemorrhage or abnormal extra-axial fluid collection. No evidence of hydrocephalus. The basilar cisterns are patent. A few scattered foci of T2/FLAIR hyperintensity within the chapman radiata white matter in the frontal lobes bilaterally and in the right temporal lobe. Cerebellar hemispheres and cerebellar vermis are normal. Fourth ventricle is normal. No brainstem abnormality is identified. Intracranial flow voids are patent. The visualized paranasal sinuses and mastoid air-cells are clear. IMPRESSION: 1. Pituitary mass measuring up to 1.6 cm abuts the optic chiasm and shift the pituitary stalk to the left. 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 Metabolic dysfunction-associated steatotic liver disease (MASLD) HLD (hyperlipidemia) Diabetes mellitus with hyperglycemia Pituitary macroadenoma Surgical History History of bilateral tubal ligation Social History Alcohol intake: never Patient Tobacco Use Status: Never used Tobacco Physical Exam Vital Signs: Last Vital Signs Pulse 85 06/08/25 13:09 BP 90/56 L 06/08/25 13:09 Pulse Ox 99 06/08/25 13:09 Oxygen Delivery Method Room Air 06/08/25 13:09 BMI result Body Mass Index 25.7 Assessment & Plan Assessment & Plan (1) Pituitary macroadenoma: Code(s): D35.2 - Benign neoplasm of pituitary gland Category: Medical Plan: 44-year-old female here today for followup of 1.6 cm pituitary macroadenoma abutting the optic chiasm with adrenal insufficiency. Status post transsphenoidal resection with Dr. Apple Cornejo at [facility] on 04/25/2025. I do not have any available records of the surgery or surgical pathology. We have requested this 05/09/2025, sending staff request for another time. Seen with the help of motor vehicle parts interpreter, she has a very poor health literacy, and initially post surgery I was unable to tell whether she is on prednisone or hydrocortisone. At some point I am pretty sure she was taking both of these. now she is only on prednisone 5 mg daily. Currently denies any nausea vomiting dizziness, denies any excessive thirst or urination. Per patient she has been doing blood work monitoring with the [facility] but sodium and cortisol checks I do not have records of these. She has a appointments with them on Thursday06/12/2025, I have asked her to request them to please send me her records. Labs from 05/09/2025 showed normal sodium 138, normal kidney function, normal serum osmolality of 300, normal TSH of 2.37, normal free T4 of 1.04, her cortisol at 08:00 was 6, this is equivocal, however it is very confusing whether she held the prednisone that morning or the hydrocortisone or what she was on. I am not going to rely on this. It has been about 6 weeks post surgery now, I will repeat her thyroid function as well as her pituitary panel. At this time I am not changing her prednisone to hydrocortisone I would like to wait for her appointments on Thursday at [facility] and see what they say 1st. She can continue on prednisone 5 mg daily for now. I discussed with her signs of SIADH, or high sodium levels. Discussed with her importance of going to the emergency room if that happens. She is still has not gotten medical alert bracelet. Last visual coe done on 03/22/2025 prior to surgery showed diffuse right-sided visual loss, however thought to be an unreliable study. She has follow up on 07/05/2025, reiterated to patient about importance of following up. Plan: -obtain records from Neurosurgery including pituitary pathology -continue prednisone 5 mg daily till she she is done with her current bottle and then switch to hydrocortisone 10 mg in a.m. and 5 mg in the afternoon -discussed adrenal insufficiency sick rules and emphasized again to obtain a medical bracelet -to 08:00 blood work for pituitary panel -has follow up with Neurosurgery 06/12/2025 -has visual field follow up 07/05/2025 -follow up in 7 weeks (2) Adrenal insufficiency: Code(s): E27.40 - Unspecified adrenocortical insufficiency Category: Medical Plan: See above Plan I spent 30 minutes in reviewing the record, seeing the patient and documenting in the medical record. Orders: Orders Sodium Today D35.2 - Benign neoplasm of pituitary gland, E27.40 - Unspecified adrenocortical insufficiency Potassium Today D35.2 - Benign neoplasm of pituitary gland, E27.40 - Unspecified adrenocortical insufficiency Creatinine Today D35.2 - Benign neoplasm of pituitary gland, E27.40 - Unspecified adrenocortical insufficiency Estradiol Ultra Sensitive Today D35.2 - Benign neoplasm of pituitary gland, E27.40 - Unspecified adrenocortical insufficiency Human Growth Hormone Today D35.2 - Benign neoplasm of pituitary gland, E27.40 - Unspecified adrenocortical insufficiency Osmolality, Serum Today D35.2 - Benign neoplasm of pituitary gland, E27.40 - Unspecified adrenocortical insufficiency Adrenocorticotropic Hormone Today D35.2 - Benign neoplasm of pituitary gland, E27.40 - Unspecified adrenocortical insufficiency Cortisol Random Today D35.2 - Benign neoplasm of pituitary gland, E27.40 - Unspecified adrenocortical insufficiency Thyroid Stimulating Hormone Today D35.2 - Benign neoplasm of pituitary gland, E27.40 - Unspecified adrenocortical insufficiency Free T4 (Free Thyroxine) Today D35.2 - Benign neoplasm of pituitary gland, E27.40 - Unspecified adrenocortical insufficiency Lutenizing Hormone Today D35.2 - Benign neoplasm of pituitary gland, E27.40 - Unspecified adrenocortical insufficiency Prolactin Today D35.2 - Benign neoplasm of pituitary gland, E27.40 - Unspecified adrenocortical insufficiency Follicle Stimulating Hormone Today D35.2 - Benign neoplasm of pituitary gland, E27.40 - Unspecified adrenocortical insufficiency IGF-1 (Somatomedin C) Today D35.2 - Benign neoplasm of pituitary gland, E27.40 - Unspecified adrenocortical insufficiency Patient Instructions: Do 8 AM blood work , before you take any medications that day Please give my card with my fax number to your doctors at [facility] on Thursday , so they can fax your updated records to me Your next eye appointment is on 07/05/25 at 8 55 AM, please be there by 8 30 AM, in [facility] Please get a medical alert bracelet which says ADRENAL INSUFFICIENCY, you can buy this at [employer] or [employer] and get it customized Realice un an?lisis de sabi a las 8:00 a. m., antes de rosmery cualquier medicamento bruce d?a. Por favor, entregue mi tarjeta con mi n?conner de fax a hali m?dicos del [facility] ([facility]) el lunes para que puedan enviarme por fax eugene historial actualizado. Eugene pr?xima remi oftalmol?gica es el 05/07/25 a las 8:55 a. m., por favor, llegue a las 8:30 a. m., en [place], [place]. Por favor, consiga lavonne pulsera de alerta m?dica que indique INSUFICIENCIA SUPRARRENAL. Puede comprarla en [employer] o en [employer] y personalizarla. Coding Level of Care Code Est Pt Level 4 (34984) Complex EM visit Add On G2211 Diagnoses Pituitary macroadenoma D35.2 Adrenal insufficiency E27.40 Time Spent (min) 30
--- OUTSIDE RECORDS SUMMARY | 2025-06-08 13:20 | XMS_ITS | Encounter Summary ---
Author Organization [facility] Address [address] [place] [address] Care Team Providers Care Wet Room Supervisor Name Role Phone Kim JohnsonP Primary Care Provider [phone] Raya Pan MOLD CLAMPER Primary Care Provider [phone] Encounter Details Date Type Department Care Team (Latest Contact Info) Description 03/07/2019 Abstract [facility] CONVERSIONS Dental, Provider, DDS Social [...] Care Team ( st Contact Info) Description 06/13/2025 3:15 PM EDT Office Visit [facility] MEDICINE [address] [place] [address] Raya Pan, MOLD CLAMPER [address] [place] [address] 10/09/2025 8:00 AM EST Office Visit [facility] ADULT DENTAL [address] [place] [address] Ana Koehler documented as of this encounter Visit Diagnoses Not on filedocumented in this encounter Care Teams Wet Room Supervisor Relationship Specialty Start Date End Date Kim Johnson FNP [address] [place] [address] PCP - General Family Medicine 05/14/22 12/17/23 Raya Pan NP [address] [place] [id number] PCP - General Family Medicine 12/18/23 documented as of this encounter
--- OUTSIDE RECORDS SUMMARY | 2025-06-08 13:20 | XMS_ITS | Clinical Summary ---
Author Organization [facility] Address [address] [place] [address] Phone Care Team Providers Care Hand Laminator Name Role Phone Raya Pan COURT MONITOR Primary Care Provider Allergies Active Allergy Reactions Criticality Noted Date Comments Fish Derived Hives Medium 07/02/2024 Shrimp Medications atorvastatin (LIPITOR) 40 MG tablet Take 40 mg by mouth nightly at bedtime. at bedtime. 5 Active TRULICITY 1.5 mg/0.5 mL subcutaneous injection Inject 1.5 mg under the skin every 7 days. 5 Active famotidine (PEPCID) 20 MG tablet Take 20 mg by mouth daily. 5 Active glucose 3.75 gram Chew CHEW 4 TABLETS NEEDED FOR low blood sugar (LESS THAN 70mg/dL). REPEAT IN 15 MINUTES IF BLOOD SUGAR LESS THAN 70 MG/DL 5 Active LANTUS SOLOSTAR U-100 INSULIN 100 unit/mL (3 mL) InPn injection pen Inject 10 Units under the skin daily. In am 5 Active acetaminophen (TYLENOL) 325 mg tablet Take 2 tablets (650 mg total) by mouth every 6 (six) hours as needed for pain (specific location in comments). 5 Active oxyCODONE 5 MG immediate release tablet Take 1-2 tablets (5-10 mg total) by mouth every 4 (four) hours as needed for pain (specific location in comments). Partial fill ok 10 tablet 5 Active sodium chloride (OCEAN) 0.65 % nasal spray 1 spray by Nasal route 4 (four) times a day. 50 mL 5 Active polyethylene glycol (MIRALAX) 17 gram packet Take 17 g by mouth daily as needed for other (free text field) (severe constipation) . 5 Active predniSONE (DELTASONE) 5 MG tablet Take 1 tablet (5 mg total) by mouth daily. 60 tablet 5 Active Active Problems Problem Noted Date Diagnosed Date Pituitary adenoma 04/25/2025 Encounters Date Type Department Care Team Description 05/15/[address] [address] Ryanne Leon RN 05/13/2025 12:05 AM EDT - 05/13/2025 4:02 AM EDT Emergency [facility] [address] [place] [address] Ash Canas MD Savage, Justin G, DO Discharge Disposition: Home or Self Care 05/05/2025 Documentation [facility] [address] [place] [address], [address] [address] Dianne Campbell, DORIAN 05/05/2025 Refill [facility] [address], [address] [address] Dianne Campbell, grain trimmer Refill 05/03/2025 Documentation [facility] [address], [address] [address] Keli Meraz [place] 05/01/2025 3:00 PM EDT - 05/01/2025 11:59 PM EDT Hospital Encounter [facility] [address] [facility] [place] [address] Discharge Disposition: Home or Self Care 05/01/2025 2:30 PM EDT Office Visit [facility] [address] [address] Jerzy Kirkpatrick MD, MS Chronic ethmoidal sinusitis (Primary Dx); Chronic sphenoidal sinusitis 04/25/2025 1:10 PM EDT Anesthesia Event [facility] [address] [place] [address] Paco James MD, PhD Gin Mcfadden RN 04/25/2025 12:40 PM EDT - 04/25/2025 5:35 PM EDT Surgery [facility] [address] [place] [phone] Apple Cornejo MD ENDOSCOPIC TRANSPHENOIDAL HYPOPHYSECTOMY with [facility] 04/25/2025 10:03 AM EDT - 04/26/2025 2:43 PM EDT Hospital Encounter [facility] [address] [place] [phone] Apple Cornejo MD Discharge Disposition: Home or Self Care 04/25/2025 Orders Only [facility] [address] [facility], 5th Floor, [address] [place] [address] Konrad Upton CNP, OSCAR 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Primary Dx); Postop check 04/25/2025 Procedure Pass [facility] [address] [place] [phone] 04/24/2025 5:55 PM EDT - 04/24/2025 11:59 PM EDT Hospital Encounter [facility] [address] [place] [phone] Discharge Disposition: Home or Self Care 04/24/2025 4:28 PM EDT - 04/24/2025 5:54 PM EDT Hospital Encounter [facility] [address] [address] Konrad Upton CNP, DNP Discharge Disposition: Home or Self Care 04/24/2025 3:15 PM EDT Office Visit [facility] [address] [address] Jerzy Kirkpatrick MD, MS Pituitary adenoma (Primary Dx); Nasal septal deviation 04/24/2025 12:30 PM EDT Pre-Admission Testing [facility] Pre-Procedure Evaluation Department Please [place] [address] Apple Cornejo MD 04/24/2025 Orders Only [facility] [address] [facility], [address] [place] [address] Roman Loaiza MD, DSc Abnormal endocrine laboratory test finding (Primary Dx) 04/24/2025 Orders Only [facility] [address] [place] [address] Mary Peck Preop testing; Pituitary macroadenoma; Benign neoplasm of pituitary gland and craniopharyngeal duct (pouch) 04/24/2025 Orders Only [facility] [address] [facility], [address] [place] [address] Dianne Campbell, DORIAN Benign neoplasm of pituitary gland and craniopharyngeal duct (pouch) (Primary Dx) 04/04/2025 Patient Outreach [facility] [address] [place] [address], 5th Floor, [address] [place] [address] Becky Rowell Patient Education (Patient Pope ) 03/27/2025 12:30 PM EDT Office Visit [facility] [address] [facility], 5th Floor, [address] [place] [address] Apple Cornejo MD Preop testing (Primary Dx); Pituitary macroadenoma 03/27/2025 Procedure Pass [facility] [place] [address] [place] [address] from Last 3 Months Social History Tobacco Use Types Packs/Day Years Used Date Smoking Tobacco: Never Smokeless Tobacco: Never Tobacco Cessation:Counseling Given: Not Answered Alcohol Use Standard Drinks/Week Comments Never 0 (1 standard drink = 0.6 oz pur e alcohol) Child or Family Care Answer Date Record ed Do you have problems with on e of the following making it difficult for you to work, study, or receive health care? No 03/25/2025 Education Answer Date Recorded Are you interested in help w ith more adult education (for example, completing high school, GED, job training, learning the [place] language, technical skills, or developing parenting skills)? No 03/25/2025 Are you concerned about learning? Not on file 03/25/2025 No 03/25/2025 Yes 03/25/2025 Food Answer Date Recorded Within the past 6 months we worried whether our food would run out before we got money to buy more. I choose not to answer 03/25/2025 Food didn't last Not on file 03/25/2025 Residential Stability Answer Date Recor ded What is your housing situation today? I choose n ot to answer 03/25/2025 How many times have you move d in the past 12 months? Zero (I did not move) 03/25/2025 Paying for Meds Answer Date Recorded Do you have trouble paying for medicines? No 03/25/2025 Paying Utility Bills Answer Date Record ed Do you have trouble paying your heating or elect ricity bill? No 03/25/2025 Transportation Answer Date Recorded Has the lack of transportati on kept you from medical appointments or from getting medications? I choose not to answer 03/25/2025 Unemployment Answer Date Recorded Are you currently unemployed or working on a part-time or temporary basis, and looking for work? No 03/25/2025 Digital Access Answer Date Recorded No 03/25/2025 Yes 03/25/2025 Do you have reliable internet access at home? Ye s 03/25/2025 Do you have a device (e.g., phone, tablet, computer) with a working camera? I choose not to answer 03/25/2025 Intimate Partner Violence Answer Date R ecorded Are you denied basic needs s uch as food, clothing, or medical care? No 05/13/2025 In the past 12 months have y ou been in a relationship with a person who hurts, threatens, or tries to control you? No 05/13/2025 Are you denied basic needs s uch as food, clothing, or medical care? No 05/13/2025 In the past 12 months have y ou been in a relationship with a person who hurts, threatens, or tries to control you? No 05/13/2025 Comments No Sex and Gender Information Value Date Recorded Sex Assigned at Female 07/02/2024 3:16 AM EDT Legal Sex Female 9:22 PM EDT Gender Identity Female 07/02/2024 3:16 AM EDT Sexual Orientation Straight 07/02/2024 3: 16 AM EDT Last Filed Vital Signs Vital Sign Reading Time Taken Comments Blood Pressure 101/73 05/13/2025 3:30 AM EDT Pulse 70 05/13/2025 3:30 AM EDT Temperature 36.3 C (97.3 F) 05/13/2025 3:39 AM EDT Respiratory Rate 17 05/13/2025 3:30 AM EDT Oxygen Saturation 100% 05/13/2025 3:30 AM EDT Inhaled Oxygen Concentration - - Weight 56.7 kg (125 lb) 04/25/2025 11:56 AM EDT Height 154.9 cm (5' 1 ) 04/25/2025 11:56 AM EDT Body Mass Index 23.62 04/25/2025 11:56 AM EDT Plan of Treatment Upcoming Encounters Date Type Department Care Team (Late st Contact Info) Description 04/25/2025 Procedure Pass [facility] [address] [place] [address] 06/12/2025 1:30 PM EDT Hospital Encounter [facility] [address] [place] [address] Konrad Upton, MINES SAFETY ENGINEER, DNP [address] [facility] [address] [place] [address] [email or web address] 06/12/2025 2:30 PM EDT Office Visit [facility] [address] [facility], 5th Floor, [address] [place] [address] Apple Cornejo MD [address] [address] [email or web address] 06/12/[email or web address] 3:30 PM EDT Office Visit [facility] [place] [address] [facility] 9th [place] [address] Jerzy Kirkpatrick MD, MS [address] [place] [address] [email or web address] 06/12/2025 4:30 PM EDT Office Visit [facility] [address] [facility], [address] [place] [address] Roman Loaiza MD, DSc [address] [facility], [address] [place] [address] [email or web address] Maintenance Due Date Last Done Comments DEPRESSION SCREENING 1992 HEPATITIS C SCREENING 1998 HIV ONE-TIME SCREENING (18-6 5 YEARS) 1998 MAMMOGRAM 2020 COVID-19 VACCINE (2 - 2023-2 5 season) 2024 04/16/2021 Adult Td,Tdap Booster 08/17/2024 08/17/2014 PAP SMEAR 12/23/2024 12/23/2021 SMOKING STATUS SCREENING (On ce After 26 Yrs) Completed 05/01/2025 HEPATITIS A VACCINES Aged Out No long er eligible based on patient's age to complete this topic HIB VACCINES Aged Out No longer eligi ble based on patient's age to complete this topic MENINGOCOCCAL VACCINES (ACWY) Aged Out No longer eligible based on patient's age to complete this topic MENINGOCOCCAL VACCINES (B) Aged Out N o longer eligible based on patient's age to complete this topic PNEUMOCOCCAL VACCINES (0-49 years) Aged Out No longer eligible based on patient's age to complete this topic Medical Devices Not on file Procedures Procedure Name Priority Date/Time Associated Diagnosis Comments OUTSIDE LAB 05/16/2025 CBC AND DIFFERENTIAL STAT 05/13/2025 3:26 AM EDT POCT GLUCOSE Routine 05/13/2025 3:03 AM EDT POCT GLUCOSE Routine 05/13/2025 2:14 AM EDT CONTROL OF EPISTAXIS Routine 05/13/2025 12:40 AM EDT Hold Specimen In Blood Bank (No Testing Performed) STAT 05/13/2025 12:38 AM EDT VENOUS BLOOD GAS STAT 05/13/2025 12:38 AM EDT LIPASE STAT 05/13/2025 12:38 AM EDT LFTS (HEPATIC PANEL) STAT 05/13/2025 12:38 AM EDT HCG, SERUM QUALITATIVE STAT 05/13/2025 12:38 AM EDT BASIC METABOLIC PANEL STAT 05/13/2025 12:38 AM EDT CBC AND DIFFERENTIAL STAT 05/13/2025 12:38 AM EDT ECG 12-LEAD STAT 05/13/2025 12:16 AM EDT POCT GLUCOSE Routine 05/13/2025 12:11 AM EDT OUTSIDE LAB 05/11/2025 CORTISOL Routine 05/01/2025 3:03 PM EDT Benign neoplasm of pituitary gland and craniopharyngeal duct (pouch) SODIUM STAT 05/01/2025 3:03 PM EDT Benign neoplasm of pituitary gland and craniopharyngeal duct (pouch) POCT GLUCOSE Routine 04/26/2025 12:02 PM EDT POCT GLUCOSE Routine 04/26/2025 7:12 AM EDT CORTISOL Timed 04/26/2025 5:00 AM EDT CBC Routine 04/26/2025 5:00 AM EDT PHOSPHORUS Routine 04/26/2025 5:00 AM EDT MAGNESIUM Routine 04/26/2025 5:00 AM EDT BASIC METABOLIC PANEL Routine 04/26/2025 5:00 AM EDT URINALYSIS Routine 04/26/2025 4:10 AM EDT POCT GLUCOSE Routine 04/25/2025 9:43 PM EDT URINE SEDIMENT Routine 04/25/2025 8:00 PM EDT URINALYSIS Routine 04/25/2025 8:00 PM EDT POCT GLUCOSE Routine 04/25/2025 5:28 PM EDT POCT GLUCOSE Routine 04/25/2025 3:31 PM EDT POCT GLUCOSE Routine 04/25/2025 2:24 PM EDT AIRWAY PLACEMENT Routine 04/25/2025 1:31 PM EDT [place] NEUROENDOSCOP,EXC ,PIT [place]ANWAL,TRANSNAS/SPHE N 04/25/2025 1:15 PM EDT Pituitary macroadenoma Special Needs Endoscopic transsphenoidal surgery with ENT and Brain[facility]3 hours [place] NEUROENDOSCOP,EXC ,PIT [place]WAL,TRANSNAS/SPHE N 04/25/2025 1:15 PM EDT Pituitary macroadenoma Special Needs Endoscopic transsphenoidal surgery with ENT and Brainlab3 hours POCT GLUCOSE Routine 04/25/2025 11:58 AM EDT URINE HCG Routine 04/25/2025 11:48 AM EDT ANATOMIC PATHOLOGY Routine 04/25/2025 12:00 AM EDT TYPE AND SCREEN (ABO,RH,ANTIBODY SCREEN) Routine 04/24/2025 6:48 PM EDT CORTISOL Routine 04/24/2025 5:23 PM EDT Benign neoplasm of pituitary gland and craniopharyngeal duct (pouch) CBC Routine 04/24/2025 5:23 PM EDT Preop testing Pituitary macroadenoma BASIC METABOLIC PANEL Routine 04/24/2025 5:23 PM EDT Preop testing Pituitary macroadenoma PTT Routine 04/24/2025 5:23 PM EDT Preop testing Pituitary macroadenoma PT-INR Routine 04/24/2025 5:23 PM EDT Preop testing Pituitary macroadenoma CT ANGIO HEAD WITH AND WITHOUT CONTRAST Routine 04/24/2025 4:45 PM EDT Preop testing Pituitary macroadenoma from Last 3 Months Results * Outside Lab (05/16/2025) Only the most recent of2 resultswithin the time period is included. us Scanning Interface Provider LAB BLOOD ORDERABLES Final Result * (ABNORMAL) CBC and differential (05/13/2025 3:26 AM EDT) Only the most recent of2 resultswithin the time period is included. WBC 5.46 4.00 - 11.00 K/uL [facility] RBC 3.23(L) 4.00 - 5.20 M/uL [facility] HGB 9.2(L) 12.0 - 16.0 g/dL [facility] HCT 27.5(L) 36.0 - 46.0 % [facility] PLT 114(L) 150 - 450 K/uL [facility] MCV 85.1 80.0 - 100.0 fL [facility] MCH 28.5 27.0 - 31.0 pg [facility] MCHC 33.5 32.0 - 36.0 g/dL [facility] RDW 14.0 11.5 - 14.5 % [facility] MPV 11.6 8.4 - 12.0 fL [facility] NRBC 0.00 0.00 /100 WBCs [facility] ABSOLUTE NRBC 0.00 0.00 K/uL [facility] DIFF METHOD Auto [facility] NEUTS 77.2(H) 48.0 - 76.0 % [facility] LYMPHS 17.8(L) 18.0 - 41.0 % [facility] MONOS 4.0 4.0 - 11.0 % [facility] EOS 0.4 0.0 - 5.0 % [facility] BASOS 0.2 0.0 - 1.5 % [facility] Granulocytes, immature (%) 0.4 0.0 - 0.9 % [facility] ABSOLUTE NEUTS 4.22 1.92 - 7.60 K/uL [facility] ABSOLUTE LYMPHS 0.97 0.72 - 4.10 K/uL [facility] ABSOLUTE MONOS 0.22 0.16 - 1.10 K/uL [facility] ABSOLUTE EOS 0.02 0.00 - 0.50 K/uL [facility] ABSOLUTE BASOS 0.01 0.00 - 0.15 K/uL [facility] Granulocytes, immature 0.02 0.00 - 0.09 K/uL [facility] Blood 05/13/2025 3:26 AM EDT 05/13/2025 3:28 AM EDT us Stalin Claire DO LAB BLOOD ORDERABLES Final Re sult [address] [address] * (ABNORMAL) POCT Glucose (05/13/2025 3:03 AM EDT) Only the most recent of10 resultswithin the time period is included. [facility] Signature Glucose, POCT 378(H) 70 - 100 mg/dL [facility] 05/13/2025 3:03 AM EDT 05/13/2025 3:05 AM EDT us Stalin Claire DO POINT OF CARE TEST ORDERABLES Final Result Performing Organization Address City/[facility]/ZIP Co de Phone Number [address] [address] * CONTROL OF EPISTAXIS (05/13/2025 12:40 AM EDT) Narrative Ash Canas MD - 05/13/2025 12:40 AM EDT Ash Canas MD 05/13/2025 1:38 AM Epistaxis Control Date/Time: 05/13/2025 12:40 AM Performed by: Ash Canas MD Authorized by: Ash Canas MD Local anesthesia used?: Yes Anesthesia: Topical Sedation: Patient sedated?: No Please see separate sedation documentation: Treatment site: Left anterior Repair method: Silver nitrate Post-procedure assessment: Bleeding stopped Treatment complexity: Simple Patient tolerance: Patient tolerated the procedure well with no immediate complications us Ash Canas MD ENT ORDERABLES Final Re sult * HCG, serum qualitative (05/13/2025 12:38 AM EDT) HCG, QUALITATIVE Negative Negative IU/L [facility] Blood 05/13/2025 12:3 8 AM EDT 05/13/2025 12:41 AM EDT us Ash Canas MD LAB BLOOD ORDERABLES Fin al Result [address] [address] * Hold Specimen In Blood Bank (05/13/2025 12:38 AM EDT) Expiration Date of Sample 05/16/2025 ,2359 [facility] Resulting Agency [facility] Blood 05/13/2025 12:3 8 AM EDT 05/13/2025 12:41 AM EDT us Ash Canas MD BLOOD BANK TEST ORDERABL ES Final Result Performing Organization Address City/[facility]/ZIP Co de Phone Number [address] [address] * (ABNORMAL) LFTs (hepatic panel) (05/13/2025 12:38 AM EDT) ALKALINE PHOSPHATASE 98 39 - 117 U/L [facility] TOTAL BILIRUBIN 0.4 0.0 - 1.2 mg/dL [facility] DIRECT BILIRUBIN 0.1 0.0 - 0.2 mg/dL [facility] Bilirubin (Indirect) NOT CALCULATED 0 - 1.5 mg/dL [facility] AST 16 0 - 37 U/L [facility] ALT 20 0 - 40 U/L [facility] TOTAL PROTEIN 5.9(L) 6.5 - 8.0 g/dL [facility] ALBUMIN 3.3(L) 3.9 - 4.8 g/dL [facility] GLOBULIN 2.6 1 - 4.8 g/dL [facility] A/G Ratio 1.27 1.00 - 4.80 RATIO [facility] Blood 05/13/2025 12:3 8 AM EDT 05/13/2025 12:41 AM EDT Ash Canas MD LAB BLOOD ORDERABLES Fin al Result Performing Organization Address [facility] Co de Phone Number [address] [address] * (ABNORMAL) Lipase (05/13/2025 12:38 AM EDT) LIPASE 75(H) 16 - 63 U/L [facility] Blood 05/13/2025 12:3 8 AM EDT 05/13/2025 12:41 AM EDT Ash Canas MD LAB BLOOD ORDERABLES Fin al Result Performing Organization Address [facility] Co de Phone Number [address] [address] * (ABNORMAL) Venous blood gas (05/13/2025 12:38 AM EDT) pH, Venous 7.30(L) 7.31 - 7.41 [facility] PCO2, Venous 42.90 41.00 - 51.00 mmHg [facility] PO2, Venous 57.40(H) 35.00 - 40.00 mmHg [facility] HCO3, Venous 21(L) 23 - 28 mmol/L [facility] BASE DEFICIT VENOUS 5.5(H) 0.0 - 2.0 mmol/L [facility] SO2, VENOUS 86.10(H) 60.00 - 80.00 % [facility] FO2HB, VENOUS 84.00(H) 71.00 - 74.00 % [facility] Carboxy Hgb 2.10(H) 0 - 1.50 % [facility] MetHgb % 0.30 0 - 1.50 % [facility] Blood 05/13/2025 12:3 8 AM EDT 05/13/2025 12:40 AM EDT us Ash Canas MD LAB BLOOD ORDERABLES Fin al Result Performing Organization Address City/[facility]/ZIP Co de Phone Number [address] [address] * (ABNORMAL) Basic metabolic panel (05/13/2025 12:38 AM EDT) Only the most recent of3 resultswithin the time period is included. SODIUM 136 133 - 146 mmol/L [facility] CHLORIDE 104 96 - 108 mmol/L [facility] POTASSIUM 5.1 3.3 - 5.1 mmol/L [facility] CO2 22 21 - 35 mmol/L [facility] BUN 18 6 - 19 mg/dL [facility] CREATININE 0.60 0.5 - 1.5 mg/dL [facility] GLUCOSE 507(HH) 70 - 99 mg/dL [facility] Comment: Critical value: Results called to and read back by: JIMENA De La Garza ED at 0123 CALCIUM 8.6 8.4 - 10.3 mg/dL [facility] EGFR 113 >59 mL/min/1.7 3m2 [facility] Comment:Estimated glomerular filtration rate calculated using the CKD-EPI refit equation. ANION GAP 15 10 - 20 mmol/L [facility] Blood 05/13/2025 12:3 8 AM EDT 05/13/2025 12:41 AM EDT us Ash Canas MD LAB BLOOD ORDERABLES Fin al Result Performing Organization Address City/[facility]/ZIP Co de Phone Number [address] [address] * ECG 12-LEAD (05/13/2025 12:16 AM EDT) Ventricular Rate EKG/MIN 65 BPM [facility] Atrial Rate 65 BPM [facility] W[place] Interval 166 ms [facility] QRS Duration 90 ms [facility] QT Interval 422 ms [facility] QTC Interval 438 ms [facility] P [place] 35 degrees [facility] R Wave [place] -11 degrees [facility] T Wave [place] 10 degrees [facility] 05/13/2025 12:1 6 AM EDT 05/13/2025 9:08 AM EDT Narrative [facility] - 05/13/2025 9:08 AM EDT Normal sinus rhythm Normal ECG When compared with ECG of 22-Jul-2017 10:35, Incomplete right bundle branch block is no longer Present Confirmed by Toñito Flynn ([id number]) on 05/13/2025 9:08:26 AM us Ash Canas MD ECG ORDERABLES Final Re sult Performing Organization Address City/[facility]/ZIP Co de Phone Number [facility] * Sodium (05/01/2025 3:03 PM EDT) SODIUM 138 135 - 145 mmol/L [facility] Comment:CORRECTED FOR LIPEMI A 05/01/2025 3:03 PM EDT 05/01/2025 4:22 PM EDT us Roman Loaiza MD, DSc LAB BLOOD ORDERABLES F inal Result Performing Organization Address [facility]/ZIP Co de Phone Number [facility] [address] [place] [address] * Cortisol (05/01/2025 3:03 PM EDT) Only the most recent of3 resultswithin the time period is included. CORTISOL 1.9 ug/dL [facility] Comment: NORMALS: 8AM-12PM = 5-25 ug/dl 12PM-8PM = 5-15 ug/dl 8PM-8AM = <10 ug/dl A known interferent in this immunoassay is prednisolone (results may be falsely high by 5-8 %). Fludrocortisone (Florinef, 9-alpha fluorocortisol) does not interfere. 05/01/2025 3:03 PM EDT 05/01/2025 4:22 PM EDT us Roman Loaiza MD, DSc LAB BLOOD ORDERABLES F inal Result Performing Organization Address City/[facility]/ZIP Co de Phone Number [address] [address] * (ABNORMAL) CBC (04/26/2025 5:00 AM EDT) Only the most recent of2 resultswithin the time period is included. WBC 6.69 4.00 - 11.00 K/uL [facility] RBC 4.52 4.00 - 5.20 M/uL [facility] HGB 12.7 12.0 - 16.0 g/dL [facility] HCT 37.9 36.0 - 46.0 % [facility] PLT 126(L) 150 - 450 K/uL [facility] MCV 83.8 80.0 - 100.0 fL [facility] MCH 28.1 27.0 - 31.0 pg [facility] MCHC 33.5 32.0 - 36.0 g/dL [facility] RDW 13.6 11.5 - 14.5 % [facility] [facility] MPV 12.2(H) 8.4 - 12.0 fL [facility] NRBC 0.00 0.00 /100 WBCs [facility] ABSOLUTE NRBC 0.00 0.00 K/uL [facility] Blood 04/26/2025 5:00 AM EDT 04/26/2025 5:24 AM EDT us Apple Cornejo MD LAB BLOOD ORDERABLES Final Res ult Performing Organization Address [facility]/ZIP Co de Phone Number [address] [address] * Phosphorus (04/26/2025 5:00 AM EDT) PHOSPHORUS 3.8 2.6 - 4.5 mg/dL [facility] Blood 04/26/2025 5:00 AM EDT 04/26/2025 5:23 AM EDT us Apple Cornejo MD LAB BLOOD ORDERABLES Final Res ult Performing Organization Address City/[facility] Co de Phone Number [address] [address] * Magnesium (04/26/2025 5:00 AM EDT) MAGNESIUM 1.9 1.7 - 2.4 mg/dL [facility] Blood 04/26/2025 5:00 AM EDT 04/26/2025 5:23 AM EDT us Apple Cornejo MD LAB BLOOD ORDERABLES Final Res ult Performing Organization Address [facility] de Phone Number [address] [address] * (ABNORMAL) Urinalysis (04/26/2025 4:10 AM EDT) Only the most recent of2 resultswithin the time period is included. COLOR Yellow Yellow [facility] CLARITY Clear Clear [facility] GLUCOSE 3+(A) Negative [facility] Comment:(>=300 mg/dL) BILI Negative Negative [facility] KETONES 1+(A) Negative [facility] SPECIFIC GRAVITY 1.015 1.001 - 1.035 [facility] BLOOD Negative Negative [facility] PH 6.5 5.0 - 9.0 [facility] Protein-UA Negative Negative [facility] UROBILINOGEN Negative Negative [facility] NITRITE Negative Negative [facility] Leukocyte esterase, ur Negative Negative [facility] 04/26/2025 4:10 AM EDT 04/26/2025 4:57 AM EDT Result Catarina Cornejo MD URINE ORDERABLES Final Result Performing Organization Address [facility] Co de Phone Number [address] [address] * (ABNORMAL) Urine Sediment (04/25/2025 8:00 PM EDT) RBC 0-2 0 - 2 /hpf [facility] WBC <10 <10 /hpf [facility] Comment:5 to 9 WBC's per hpf SQUAMOUS CELLS Present(A ) None /hpf [facility] MUCUS Present(A ) None [facility] 04/25/2025 8:00 PM EDT 04/25/2025 8:30 PM EDT us Chika Dominguez MD, MS URINE ORDERABLES Final R esult [facility] [address] [place] [address] * ANES ETT DOUBLE LUMEN - AIRWAY LDA (04/25/2025 1:31 PM EDT) Narrative Giuseppe De Leon CRNA - 04/25/2025 1:31 PM EDT Giuseppe De Leon CRNA 04/25/2025 2:52 PM Airway Placement Procedure Note: Patient was not difficult to intubate. Procedure performed by: fellow/resident/PT SITTER Anesthesiologist: Paco James MD, PhD Fellow/Resident/PT SITTER: Giuseppe De Leon CRNA Airway procedure initiated at:04/25/2025 1:31 PM and ended at. Personal Protective Equipment: Mask: surgical mask Gloves: gloves Gown: no gown Mask Ventilation: Quality: easy Adjunct: jaw thrust Airway Placement: Technique: direct laryngoscopy Rapid sequence induction: no Details: Blade type: Mac Blade size: 3 Direct view: grade 3 Airway manipulation: laryngeal manipulation Assist device(s): Bougie Number of attempts: 1 ETT type: cuffed ETT size: 7.0 ETT depth at teeth: 21 ETT cuff inflation volume: 8 Tube position confirmed by: EtCO2 Outcomes: Evidence of dental injury? no Complications observed? no Notes: Best view was grade 3 with DL MAC 3, bougie used effectively to atraumatically intubate trachea us Paco James MD, PhD [place] [facility] Result * HCG, urine (04/25/2025 11:48 AM EDT) URINE TEST Negative Negative [facility] Urine (Urine) 04/25/2025 11: 48 AM EDT 04/25/2025 12:08 PM EDT Giuseppe De Leon PT SITTER URINE ORDERABLES Final R esult [address] [address] * Anatomic Pathology (04/25/2025 12:00 AM EDT) 04/25/2025 04/25/2025 2:4 7 PM EDT Narrative SEE NARRATIVE - 05/02/2025 11:28 AM EDT [address] [address] Surgical Pathology Report Patient Name: LEONARD GRAY : 1980 (Age: 44) Sex: F [place]: [place] [place] [facility] [place] of Operation: 04/25/2025 Date of Reported: 05/02/2025 11:28 Results To: Apple Kirkpatrick MD FINAL PATHOLOGIC DIAGNOSIS: A, B. PITUITARY TUMOR: CORTICOTROPH ADENOMA, see note. Note: Immunohistochemical stains demonstrate the tumor cells are positive for TPIT and negative for SF1, and PIT1. ACTH shows expression in occasional tumor cells. The Ki67 labeling index is low at 0.5% (6 positive nuclei out of 1128 total nuclei counted). Electronically Signed Out By Leonard Pina MD Resident Pathologist: Yesenia Ribeiro MD, MS By his/her signature above, the pathologist listed as making the Final Diagnosis certifies that he/she has personally reviewed the case and confirmed the diagnosis. All slides and stains were of sufficient quality to establish the diagnosis, unless otherwise stated. INTRA-OPERATIVE DIAGNOSIS FROZEN SECTION DIAGNOSIS#1;(PITUITARY TUMOR): Pituitary adenoma SMEAR DIAGNOSIS#1;(PITUITARY TUMOR): Pituitary adenoma TMB DIAGNOSIS#1;(PITUITARY TUMOR): Pituitary adenoma Intraoperative diagnosis by: Leonard Pina MD Other Pathologist(s): Margo Rowell MD, PHD Kieran Lemon MD, PhD CLINICAL HISTORY 44 year old female with 1.6 cm isointense, mildly T2 and FLAIR hyperintense, diffusion-restricting, and mildly heterogeneously enhancing mass centered within the sella turcica, consistent with pituitary macroadenoma. SPECIMENS SUBMITTED: A: PITUITARY TUMOR B: PITUITARY TUMOR GLAND BIOPSY GROSS DESCRIPTION Received are 2 parts each labeled Leonard Gray, . A. Received fresh in the frozen section lab labeled pituitary tumor, is a 0.9 x 0.6 x 0.3 cm castro-red soft tissue fragment. A operations support representative section is frozen as FX#1. A smear is made. The specimen is entirely submitted as follows: A1: Remnants of FX#1 A2: Nonfrozen tissue B. Received fresh labeled pituitary tumor is a 1.5 x 0.9 x 0.1 cm aggregate of pink-castro soft tissue submitted in toto in B1. Separately received tissue is allocated for research under protocol [id number]. Grossed by: Karmen Claros Immunohistochemical and in-situ hybridization tests performed at [facility] have been developed and their performance characteristics determined by the [facility] Laboratories in the Department of Pathology at [facility]. They have not been cleared or approved by the U.S.Food and Drug Administration (FDA); the FDA has determined that such clearance or approval is not necessary. Apple Cornejo MD PATHOLOGY ORDERABLES Final Res ult SEE NARRATIVE * Type and Screen (ABO,Rh,Antibody Screen) (04/24/2025 6:48 PM EDT) Expiration Date of Sample 04/27/2025 11:59 PM [facility] ABO O 04/24/2025 7:38 PM EDT [facility] Rh Positive 04/24/2025 7:38 PM EDT [facility] Comment:Additional Specimen for ABORH Needed for RBC Xmtch Resulting Agency [facility] Antibody Screen Negative 04/24/2025 7:48 PM EDT [facility] 04/24/2025 6:48 PM EDT 04/24/2025 6:48 PM EDT Blood Bank BLOOD BANK TEST ORDERABLES Final Result Performing Organization Address City/[facility]/ZIP Co de Phone Number [address] [address] * PTT (04/24/2025 5:23 PM EDT) APTT 28.9 24.0 - 37.5 sec [facility] Comment:Check MAR for the ta rget range that is ordered for your patient. 04/24/2025 5:23 PM EDT 04/24/2025 5:41 PM EDT Konrad Upton MINES SAFETY ENGINEER, DNP LAB BLOOD ORDERAB LES Final Result Performing Organization Address [facility]/ZIP Co de Phone Number [address] [address] * PT-INR (04/24/2025 5:23 PM EDT) PT 12.6 10.0 - 13.0 sec [facility] INR 1.1 0.9 - 1.1 [facility] 04/24/2025 5:23 PM EDT 04/24/2025 5:41 PM EDT Konrad Upton CNP, DNP LAB BLOOD ORDERAB LES Final Result Performing Organization Address [facility] Co de Phone Number [address] [address] * CT ANGIO HEAD WITH AND WITHOUT CONTRAST (04/24/2025 4:45 PM EDT) Anatomical Region Laterality Modality Neck Computed Tomogra phy 04/27/2025 3:08 PM EDT Impressions 04/27/2025 4:39 PM EDT 1. The largely unchanged pituitary sellar/suprasellar mass shows abutment of the adjacent internal carotid arteries (right greater than left) with slight splaying as detailed. The degree of contact with the adjacent brain parenchyma and optic chiasm is better evaluated on the prior MRI study. 2. No evidence for an acute intracranial process. 3. The three affiliated of Gonzalez is otherwise patent, without evidence for severe stenosis, occlusion, or aneurysm. 4. Trace scattered atherosclerotic calcifications of the intracranial vasculature is slightly greater than expected for the given age. Correlate clinically for risk factors of advanced or familial atherosclerosis. ATTESTATION: I, Tacos Tamayo as teaching physician, have reviewed the images for this case and if necessary edited the report originally created by Edward Fleming. Narrative 04/27/2025 4:[address] ANGIO HEAD WITH AND WITHOUT CONTRAST Referring clinician's provided indication for this examination in Epic: * Pituitary adenoma, known or suspected TECHNIQUE: Multidetector-row CTA of the head was performed before and after administration of intravenous contrast using tailored dose modulation techniques. Images were reconstructed in the axial, coronal, and sagittal planes, including angiographic image post-processing. 3D angiographic images with reformatting and post- processing reconstructions were performed and interpreted. COMPARISON: MRI brain dated January 15, 2025. FINDINGS: HEAD CT: Brain Parenchyma: Nonspecific mild mineralization noted of the bilateral basal ganglia. No midline shift, parenchymal hemorrhage, or evidence of acute territorial infarct. Ventricular System and Extra-Axial Spaces: Expansion of the sella by a sellar/suprasellar mass lesion measuring 1.6 x 1.5 x 1.6 cm (TV by AP by CC). There is abutment of the adjacent optic chiasm and possibly of the frontal brain parenchyma though the precise extent is better evaluated on prior brain MRI study. Adjacent vascular structures are detailed below. Trace atherosclerotic calcifications noted of the bilateral carotid siphons and vertebral arteries. No extra-axial fluid collections. Basal cisterns are patent. No hydrocephalus. Osseous and Extracranial Structures: Medialization of the right lamina papyracea (4; 94) compatible with sequela of prior trauma, without evidence for entrapment of the right orbital structures. The bilateral orbits are otherwise remarkable. Scattered mucosal thickening noted of the paranasal sinuses. CTA HEAD: Anterior Circulation: The pituitary sellar/suprasellar mass abuts the right cavernous, ophthalmic, and proximal supraclinoid segments of the right internal carotid artery. There is also probable involvement of the left cavernous segment and proximal supraclinoid segments of the left internal carotid artery. Overall, this results in slight splaying of the internal carotid arteries. No aneurysm, arteriovenous malformation or thrombosis. The intracranial internal carotid arteries are patent. The anterior and middle cerebral arteries are patent. 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 No aneurysm, arteriovenous malformation or thrombosis. The intracranial vertebral arteries and the basilar are patent. The posterior cerebral arteries are patent bilaterally. Venous Structures: Suboptimal assessment for the venous structures given the arterial nature of the study, without obvious evidence for dural venous sinus thrombosis. Dominant left dural venous sinuses noted. Procedure Note Tacos Tamayo MD - 04/27/2025 CT ANGIO HEAD WITH AND WITHOUT CONTRAST Referring clinician's provided indication for this examination in Epic: *Pituitary adenoma, known or suspected TECHNIQUE: Multidetector-row CTA of the head was performed before and afteradministration of intravenous contrast using tailored dose modulationtechniques. Images were reconstructed in the axial, coronal, and sagittalplanes, including angiographic image post-processing. 3D angiographicimages with reformatting and post-processing reconstructions wereperformed and interpreted. COMPARISON: MRI brain dated January 15, 2025. FINDINGS: HEAD CT: Brain Parenchyma: Nonspecific mild mineralization noted of the bilateralbasal ganglia. No midline shift, parenchymal hemorrhage, or evidence ofacute territorial infarct. Ventricular System and Extra-Axial Spaces: Expansion of the sella by asellar/suprasellar mass lesion measuring 1.6 x 1.5 x 1.6 cm (TV by AP byCC). There is abutment of the adjacent optic chiasm and possibly of thefrontal brain parenchyma though the precise extent is better evaluated onprior brain MRI study. Adjacent vascular structures are detailed below. Trace atherosclerotic calcifications noted of the bilateral carotidsiphons and vertebral arteries. No extra-axial fluid collections. Basalcisterns are patent. No hydrocephalus. Osseous and Extracranial Structures: Medialization of the right laminapapyracea (4; 94) compatible with sequela of prior trauma, withoutevidence for entrapment of the right orbital structures. The bilateralorbits are otherwise remarkable. Scattered mucosal thickening noted of theparanasal sinuses. CTA HEAD: Anterior Circulation: The pituitary sellar/suprasellar mass abuts theright cavernous, ophthalmic, and proximal supraclinoid segments of theright internal carotid artery. There is also probable involvement of theleft cavernous segment and proximal supraclinoid segments of the leftinternal carotid artery. Overall, this results in slight splaying of theinternal carotid arteries. No aneurysm, arteriovenous malformation orthrombosis. The intracranial internal carotid arteries are patent. Theanterior and middle cerebral arteries are patent. 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 No aneurysm, arteriovenousmalformation or thrombosis. The intracranial vertebral arteries and thebasilar are patent. The posterior cerebral arteries are patentbilaterally. Venous Structures: Suboptimal assessment for the venous structures giventhe arterial nature of the study, without obvious evidence for duralvenous sinus thrombosis. Dominant left dural venous sinuses noted. IMPRESSION: 1. The largely unchanged pituitary sellar/suprasellar mass shows abutmentof the adjacent internal carotid arteries (right greater than left) withslight splaying as detailed. The degree of contact with the adjacent brainparenchyma and optic chiasm is better evaluated on the prior MRI study. 2. No evidence for an acute intracranial process. 3. The three affiliated of Gonzalez is otherwise patent, without evidence for severestenosis, occlusion, or aneurysm. 4. Trace scattered atherosclerotic calcifications of the intracranialvasculature is slightly greater than expected for the given age. Correlateclinically for risk factors of advanced or familial atherosclerosis. ATTESTATION: I, Tacos Tamayo as teaching physician, have reviewed the imagesfor this case and if necessary edited the report originally created byEdward Fleming. Konrad Upton MINES SAFETY ENGINEER, DNP IMG CT HEAD/NECK Final Result from Last 3 Months Insurance C3 ACO C3 ACO C3 ACO C3 ACO C3 ACO [facility] C3 ACO Advance Directives For more information, please contact: [phone] (9AM - 5PM [place], Thursday-Thursday) * Full Code (Latest Code Status on File) Date Activated Date Inactivated Comments 04/25/2025 3:35 PM Question Answer Comments Code Status Confirmed With: Other (specify below ) Care Teams Hand Laminator Relationship Specialty Start Date End Date Raya Pan NP [address] [place] [id number] PCP - General Nurse Practitioner 05/13/25 Additional Source Comments The information contained in this document represents components of the legal health record. It is not the complete legal health record.[facility]
== END 2025-06-08 13:49 | disposition home or self-care (01) ==
LOC: HO.ENCR 13:08
PROVIDERS: PCP Nurse Practitioner Family; Visit Provider Student in an Organized Health Care Education/Training Program
DX: D35.2 Benign neoplasm of pituitary gland (principal); E27.40 Unspecified adrenocortical insufficiency
CPT/HCPCS: 99214

== ENCOUNTER → 2025-06-08 13:08 | Outpatient (BNVA) | payer MEDICAID, SELFPAY | PROVIDERS: PCP Nurse Practitioner Family; Visit Provider Student in an Organized Health Care Education/Training Program | DX: D35.2 Benign neoplasm of pituitary gland (principal); E27.40 Unspecified adrenocortical insufficiency; E11.65 Type 2 diabetes mellitus with hyperglycemia | CPT/HCPCS: 99212 ==

== ENCOUNTER 2025-06-30 07:47 | Outpatient (AMB) | payer MEDICAID, SELFPAY ==
--- OUTSIDE RECORDS SUMMARY | 2025-06-30 07:49 | XMS_ITS | Encounter Summary ---
Author Organization [facility] Address [address] [place] [address] 7 [place] [address] Care Team Providers Care Beach Attendant Name Role Phone Kim JohnsonP Primary Care Provider Raya Pan NP Primary Care Provider [phone] Encounter Details Date Type Department Care Team (Latest Contact Info) Description 03/07/2019 Abstract [facility] CONVERSIONS Dental, Provider, DDS Social History Tobacco [...] Care Team ( st Contact Info) Description 08/09/2025 9:30 AM EDT Office Visit [facility] MEDICINE [address] [place] [address] Raya Pan NP [address] [place] [address] 10/09/2025 8:00 AM EST Office Visit [facility] ADULT DENTAL [address] [place] [address] Ana Koehler documented as of this encounter Visit Diagnoses Not on filedocumented in this encounter Care Teams Beach Attendant Relationship Specialty Start Date End Date Kim Johnson FNP [address] [place] [address] PCP - General Family Medicine 05/14/22 12/17/23 Raya Pan NP [address] [place] [address] PCP - General Family Medicine 12/18/23 documented as of this encounter
--- OUTSIDE RECORDS SUMMARY | 2025-06-30 07:49 | XMS_ITS | Encounter Summary ---
Author Organization [facility] Address [address] [place] [address] Phone Care Team Providers Care Coal Chute Worker Name Role Phone Raya Pan HAY CHOPPER Primary Care Provider [phone] Raya Pan HAY CHOPPER Primary Care Provider [phone] Encounter Details Date Type Department Care Team (Late st Contact Info) Description 04/25/2025 Procedure Pass MRI, [facility] [address] [place], [place] [id number] Social History Tobacco Use Types Packs/Day Years [...] high school, GED, job training, learning the Slovak language, technical skills, or developing parenting skills)? [...] camera? I choose not to answer 03/25/2025 Comments No Sex and Gender Information Value Date Recorded Sex Assigned at Female 07/02/2024 3:16 AM EDT Legal Sex Female 9:22 PM EDT Gender Identity Female 07/02/2024 3:16 AM EDT Sexual Orientation Straight 07/02/2024 3: 16 AM EDT documented as of this encounter Plan of Treatment Not on file documented as of this encounter Visit Diagnoses Not on filedocumented in this encounter Care Teams Coal Chute Worker Relationship Specialty Start Date End Date Raya Pan NP PCP - General Nurse Practitioner 01/20/25 05/12/25 Raya Pan NP [address] [place] [address] PCP - General Nurse Practitioner 05/13/25 documented as of this encounter Additional Source Comments The information contained in this document represents components of the legal health record. It is not the complete legal health record.[facility]
[2025-06-30 07:51] VITALS: BP 92/58; PULSE 77; O2SAT 99; BMI 25.6
--- NOTE | 2025-06-30 07:51 | A.OFFVIS_ITS ---
Vital Signs 3 06/30/25 07:51 Height 5 ft Weight 131 lb 2.801 oz BMI 25.6 BP 92/58 L Blood Pressure Location Rt brachial Position Sitting Pulse 77 Pulse Source Pulse Oximeter Pulse Oximetry (%) 99 Oxygen Delivery Method Room Air Intake Visit Reasons: for type 2 DM Intake Note: Patient present today for Type 2 Diabetes Mellitus Last Diabetic eye exam: 03/2025 Last Podiatry Visit: Has upcoming appt Random Glucose: 166 mg/dl HgA1C: 10.0% Pawn Shop Keeper Required: Yes Pawn Shop Keeper Language: Environmental Marketing Representative Services: Pawn Shop Keeper Present Pawn Shop Keeper Name: Tiffany [id number] Information Interpreted: non-clinical & clinical Accompanied by: Self / Same As Patient Allergies No Known Allergies Allergy (Verified 06/30/25 07:56) Medication List - Last Reconciled 06/30/25 by Mia Tristan MD atorvastatin 40 mg PO BEDTIME blood sugar diagnostic (FreeStyle Lite Strips) As directed to check blood sugars three times a day type 2 diabetes mellitus with hyperglycemia and long-term insulin use is E11.65 plus Z79.4 blood-glucose meter (FreeStyle Lite Meter kit) As directed to check blood sugars three times a day type 2 diabetes mellitus with hyperglycemia and long-term insulin use is E11.65 plus Z79.4 blood-glucose sensor (FreeStyle Margot 3 Plus Sensor device) As directed every 15 days type 2 diabetes mellitus with hyperglycemia and long-term insulin use is E11.65 plus Z79.4 celecoxib 200 mg PO DAILY cyclobenzaprine 5 mg PO BEDTIME dulaglutide (Trulicity) 3 mg (0.5 mL) subcut QWEEK famotidine 20 mg PO BID glucose (Dex4 Glucose) 4 grams PO Q15M PRN hydrocortisone orally 2 times a day; Take 1 tablet in the morning and 0.5 tablet at 2 PM in the afternoon daily ibuprofen 800 mg PO Q8H PRN insulin glargine (Lantus Solostar U-100 Insulin) 18 units (0.18 mL) subcut QAM lancets (FreeStyle Lancets) As directed to check blood sugars thrice a day type 2 diabetes mellitus with hyperglycemia and long-term insulin use is E11.65 plus Z79.4 oxycodone 5 mg PO BID PRN pen needle, diabetic As directed to inject insulin daily prednisone 5 mg PO DAILY HPI Comments Details: 44-year-old female here with a history of pituitary incidentaloma with secondary adrenal insufficiency, Status post transsphenoidal resection of the pituitary macroadenoma 04/25/2025 at [facility] [place] with Dr. Apple Cornejo, here today for follow up of type 2 diabetes mellitus. Type 2 diabetes mellitus History of diabetes Diagnosed Dec 2024 Prior therapy: None Current regimen: insulin Lantus 18 units in AM Trulicity 3 mg weekly , initial dose started 01/25/25 takes it on Thursday now, Interval history Random Glucose: 166 mg/dl she is very unclear today again whether she is on prednsione or hydrocortisone a1c POC 10% 06/30/25 HgA1C: 8.6% 03/16/25 HgA1C: 12.9% 12/26/24 Denies polyuria, polydipsia currently, says she was having that a few months ago. Weight stable. . Denies any hypoglycemic symptoms. [employer] Margot 3 downloaded from May 26 to 06/08/2025 Time CGM active 98% Average glucose 185 mg/dL G HI 7.7% Glucose variability 37.4% Time within range 50% High 30% Very high 19% Low 1% Very low 0% Interpretation: Continues to have blood sugars above target range with the readings in the 200s and 300s over the day, overnight she was having some hypoglycemia in the past few days but that has resolved over the past 2-3 days. Complications Last Diabetic eye exam: saw 02/15/25, she was told visual coe are intact, no diabetic retinopathy, just some bleeding in 1 eye, Last Podiatry Visit: Has upcoming appt in May 2025. Neuropathy: no symptoms Kidney disease: no history Macrovascular complications: No history of macrovascular complications. Statin: Atorvastatin 40 mg daily started January 2025 Screening for MASLD : Fib 4 score for labs from February 2025 comes down to 1.91, she needs further investigation so we will need GI referral VISHNU/ARB: none Exercise: None Active at work but other gamez no Diet control: Most days Breakfast: rice beans and fried chicken tomatoes Some pakoras and samosas sometimes at restaurant Dinner rice and soup No desserts Stopped drinking sodas and juices CDE appointment done most recent fup 05/15/25 Admitting Supervisor appointment done 02/09/25 He has never had any hospitalizations for hyperglycemia/hypoglycemia. 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 no mass effect on optic chiasm. No dedicated MRI of the pituitary done. 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 ? Easy bruising: yes Proximal muscle weakness: none has uncontrolled DM Nausea: none Vomiting:none Lightheadedness: intermittent Weight: lost 5 lbs in 1 month Labs from 12/20/2024 showed normal thyroid function, undetectable cortisol level, acth of 13, DHEA-S of 29, IGF-1, estradiol level pending. Prolactin level normal 20.7. She is very inconsistent with her history and said that she was having some lightheadedness or dizziness that had already resolved before she started the medication that we had prescribed to her over the phone hydrocortisone 10 mg twice a day. She has lost 5 lb since the last visit. 12/26/2024: after holding the hydrocortisone the afternoon before in the morning off, cortisol level in a.m. was 2.3 with a ACTH of 15. 12/27/2024: Again after holding the hydrocortisone in the afternoon before and the morning of, cortisol level was 0.5 in a.m. at [facility] with ACTH of 3.9 01/15/2025: MRI of the pituitary with and without contrast showed a T1 isointense and a T2 mildly hyperintense, mildly heterogenously enhancing mass measuring 1.6 X 1.2 X 1.5 cm within the sella turcica with the pituitary stalk shifted to the left. Mass abuts the optic chiasm. Cavernous sinuses appear symmetric. No evidence of mass, mass effect or midline shift. Appearance consistent with pituitary macroadenoma. Status post transsphenoidal resection of the pituitary macroadenoma 04/25/[address] 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 Per neurosurgery postop MRI shows no obvious remaining tumor. 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 Plan with neurosurgery to repeat MRI 6 months from surgery and then yearly. Per patient they have been monitoring her blood work, Denies any excessive thirst or urination. She showed me some instructions which showed that she was on prednisone 5 mg daily after the surgery, but at this time patient is super confused whether she is on prednisone or hydrocortisone. I have asked her to bring all of her medication bottles to next visit. Very poor health literacy. Today she brings in her medication bottles and says she is now back on prednisone 5 mg daily and apparently was taking both hydrocortisone and prednisone up until a few days ago. Continues on prednisone 5 mg daily No vision changes, no eye symptoms , she has a follow up appointment with her neurosurgeon on 06/12/2025. No nausea, vomiting , dizziness , lightheadedness. Denies excessive thirst or urination Medical alert bracelet:hasnt bought yet Ophthalmology referral: Visual coe done 03/22/25 , no interpretation provided they provided me with some diagrams without any interpretation of what her visual coe are like. Labs from 05/09/2025 showed normal sodium 138, normal kidney function, normal serum osmolality of 300, normal TSH of 2.37, normal free T4 of 1.04, her cortisol at 08:00 was 6, this is equivocal, however it is very confusing whether she held the prednisone that morning or the hydrocortisone or what she was on. I am not going to rely on this. Interval history 05/19/25 reports no vision changes, last visual coe 03/22/25: some diffuse scattered loss in right eye/ unreliable??, left eye was normal , has followup with them 07/05/25 , 8 55 AM No headaches No nausea, vomiting , dizziness , lightheadedness. Denies excessive thirst or urination continues on prednisone 5 mg daily , hydrocrotisone on hold she has follow up appointments with at [facility] [place] 06/12/25 , 3-4 weeks ago had some nasal bleeding?? Medical alert bracelet:hasnt bought yet Physical exam General: sitting comfortably in no acute distress HEENT: normocephalic/atraumatic, , moist oral mucosa, visual coe grossly intact Neck: supple, Cardiac: normal heart sounds Pulm: normal breath sounds B/L, no added breath sounds Abd: not distended, no tenderness Foot exam: done 01/13/25 Warm, well-perfused, right big toenail has thickening, Intact sensation to monofilament, intact pulses, intact vibration Laboratory Tests 12/20/24 08:53 TSH 1.14 Free T4 1.05 FSH 7.6 Luteinizing Hormone 7.7 Prolactin Undiluted 20.7 DHEA Sulfate 29 Human Growth Hormone 0.2 Random Cortisol < 1.0 ACTH 13 Laboratory Tests 12/20/24 12/26/24 08:53 08:49 Sodium 137 Potassium 3.9 Chloride 104 Carbon Dioxide 24 Anion Gap 13 BUN 15 Creatinine 0.67 Estimated GFR > 60 Alpha Subunit Marker 0.2 TSH 1.14 1.75 Free T4 1.05 1.05 Estradiol Ultra LCMSMS 45 FSH 7.6 9.5 Luteinizing Hormone 7.7 21.0 Prolactin Undiluted 20.7 DHEA Sulfate 29 19 Human Growth Hormone 0.2 Somatomedin-C 73 Somato-C Z-Score Female -1.3 Random Cortisol < 1.0 2.3 ACTH 13 15 Laboratory Tests 12/26/24 01/13/25 01/13/25 08:49 07:57 10:18 Plt Count 146 L Sodium 137 Potassium 3.9 Creatinine 0.67 Estimated GFR > 60 Glucose (Clinic) 325 H Random Glucose 328 H Estimat Average Glucose 324 Hemoglobin A1c % 12.9 H AST 82 H ALT 170 H Alkaline Phosphatase 149 H Albumin 4.0 Triglycerides 120 Cholesterol 244 H LDL Cholesterol, Calc 171 H HDL Cholesterol 49 Urine Creatinine 38.72 Urine Microalbumin 11.0 Microalb/Creat Ratio 28.4 01/26/25 07:44 Plt Count Sodium Potassium Creatinine Estimated GFR Glucose (Clinic) 299 H Random Glucose Estimat Average Glucose Hemoglobin A1c % AST ALT Alkaline Phosphatase Albumin Triglycerides Cholesterol LDL Cholesterol, Calc HDL Cholesterol Urine Creatinine Urine Microalbumin Microalb/Creat Ratio Laboratory Tests 01/13/25 03/16/25 10:18 09:42 Hgb 12.2 Hct 37.3 Plt Count 129 L Sodium 142 Potassium 3.8 Creatinine 0.61 Estimated GFR > 60 Random Glucose 169 H Fasting Glucose 170 H Estimat Average Glucose 200 Hemoglobin A1c % 8.6 H Calcium 9.3 AST 34 H ALT 37 H Alkaline Phosphatase 93 Triglycerides 120 Cholesterol 244 H LDL Cholesterol, Calc 171 H HDL Cholesterol 49 Urine Creatinine 38.72 Urine Microalbumin 11.0 Microalb/Creat Ratio 28.4 Laboratory Tests 03/16/25 05/09/25 09:42 08:41 Hgb 12.2 Hct 37.3 Plt Count 129 L Sodium 138 Potassium 3.9 Creatinine 0.49 L Estimated GFR > 60 Random Glucose 271 H Osmolality 300 Calcium 9.0 TSH 2.37 Free T4 1.04 DHEA Sulfate 75 Random Cortisol 6.0 MR brain without contrast. Thin slice imaging through the pituitary gland was obtained. 01/15/25 COMPARISON: None FINDINGS: High-resolution imaging of the pituitary region demonstrates a T1 isointense, T2 mildly hyperintense, FLAIR hyperintense, diffusion restricting, mildly heterogeneously enhancing mass measuring 1.6 x 1.2 x 1.5 cm within the sella turcica. The pituitary stalk is shifted to the left. Neurohypophysis appears normal in position. Mass abuts the optic chiasm. Cavernous sinuses appear symmetric. Flow voids within the carotid siphons normal. There is likely mild expansion of the sella turcica. No abnormal diffusion restriction in the brain parenchyma or extra-axial spaces. No evidence of mass, mass effect or midline shift. No intracranial hemorrhage or abnormal extra-axial fluid collection. No evidence of hydrocephalus. The basilar cisterns are patent. A few scattered foci of T2/FLAIR hyperintensity within the chapman radiata white matter in the frontal lobes bilaterally and in the right temporal lobe. Cerebellar hemispheres and cerebellar vermis are normal. Fourth ventricle is normal. No brainstem abnormality is identified. Intracranial flow voids are patent. The visualized paranasal sinuses and mastoid air-cells are clear. IMPRESSION: 1. Pituitary mass measuring up to 1.6 cm abuts the optic chiasm and shift the pituitary stalk to the left. 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 [id number] - Glucose monitoring, continuous-physician I&R Procedure code (CPT) selection complete Results AMB Hemoglobin A1c 2 AMB Hemoglobin A1c 10.0 % Last Edit by RIO Awan on 06/30/25 08:11 Results Reviewed Results Reviewed: Laboratory Last Values Glucose (Clinic) 166 mg/dL (60-115) H 06/30/25 07:58 Hgb A1c (Clinic) 10.0 % (4.0-6.0) H 06/30/25 08:10 Assessment & Plan Assessment & Plan (1) Diabetes mellitus with hyperglycemia: Code(s): E11.65 - Type 2 diabetes mellitus with hyperglycemia Category: Medical Qualifiers: Diabetes mellitus type: type 2 Diabetes mellitus buttermaker continuous churn insulin use: with buttermaker continuous churn use Qualified Code(s): E11.65 - Type 2 diabetes mellitus with hyperglycemia; Z79.4 - long-term (current) use of insulin Plan: 44-year-old female who was seeing me for pituitary incidentaloma and adrenal insufficiency on steroids, was noted to have uncontrolled hyperglycemia, with no prior history of diabetes, now with new onset of type 2 diabetes mellitus December 2024. A1c POC 06/30/2025 up at 10% from 8.6% from March 2025. Her blood sugars had improved previously, now again with hyperglycemia no, but most blood sugars in the 200s and 300s on CGM download. This is still much improved compared to her last visit. Today again she forgot to bring her medication bottles despite this being reiterated to her multiple times and I am still not completely sure whether she is done with her prednisone course prescribed by [facility], but from what she is describing I believe she is now on the hydrocortisone. She does have a lot of postprandial hyperglycemia going to go up on her Trulicity. She was having some lows at night over the past week but she never verified with a meter. She again today tells me she does not have a meter despite the fact that I sent her a prescription back in January 2025. There is a lot of poor health literacy in her case and she does not follow her care properly. very challenging to take history and patient never remembers what dose she is on and how many injections she has taken. She is being better with her diet. Plan: -continue insulin Lantus 18 units -increase Trulicity to 4.5 mg weekly -continue with [employer] Margot 3 sensor monitoring -lifestyle modification advised with the avoiding carbs, eliminating any sugars are sugary drinks such as soda isn't juices -150 minutes of exercise advised with 30 minutes of walking daily -saw Ophthalmology 02/15/2025 at [facility] , no retinopathy -foot exam done 01/13/25, she does not have any symptoms of neuropathy , has podiatry appointment in May 2025. -follow up in 5 weeks Her fib 4 score is 1.9, requiring further investigation with liver elastography, at this time she is already very overwhelmed with her recent pituitary surgery. I will 1st wait for her to address all of those appointments and then we can place a GI referral. In the meantime we are increasing her Trulicity to 4.5 mg weekly and Lifestyle modification advised. (2) HLD (hyperlipidemia): Code(s): E78.5 - Hyperlipidemia, unspecified Category: Medical Qualifiers: Hyperlipidemia type: mixed hyperlipidemia Qualified Code(s): E78.2 - Mixed hyperlipidemia Plan: LDL elevated at 171 mg/dL Dec 2024. Goal LDL less than 70 mg/dL. started atorvatstain 40 mg daily 01/26/25 Plan: - continue atorvastatin 40 mg daily -will plan to repeat lipid panel with the next set of labs (3) Metabolic dysfunction-associated steatotic liver disease (MASLD): Code(s): K76.0 - Fatty (change of) liver, not elsewhere classified Category: Medical Plan: Her fib 4 score is 1.9, requiring further investigation with liver elastography, at this time she is already very overwhelmed recent pituitary surgery I will 1st wait for her to address all of those appointments and then we can place a GI referral. In the meantime we are increasing her Trulicity 3 mg weekly and Lifestyle modification advised. She per my investigation picked up Trulicity 3 mg weekly per my estimate given she picked it up from the pharmacy on 12 May. Plan: -increase Trulicity to 4.5 mg weekly -Lifestyle modification advised Plan I spent 30 minutes in reviewing the record, seeing the patient and documenting in the medical record. Orders: Orders 2 AMB Glucose Monitoring Today E11.65 - Type 2 diabetes mellitus with hyperglycemia, Z79.4 - predatory animal exterminator (current) use of insulin AMB Hemoglobin A1c Today E11.65 - Type 2 diabetes mellitus with hyperglycemia, Z13.9 - Encounter for screening, unspecified, Z79.4 - predatory animal exterminator (current) use of insulin Medications: New 2 dulaglutide (Trulicity) 4.5 mg (0.5 mL) subcut QWEEK 2 mL 4RF Refilled 2 blood sugar diagnostic (FreeStyle Lite Strips) As directed to check blood sugars three times a day type 2 diabetes mellitus with hyperglycemia and long-term insulin use is E11.65 plus Z79.4 100 ea 4RF lancets (FreeStyle Lancets) As directed to check blood sugars thrice a day type 2 diabetes mellitus with hyperglycemia and long-term insulin use is E11.65 plus Z79.4 100 ea 4RF blood-glucose meter (FreeStyle Lite Meter kit) As directed to check blood sugars three times a day type 2 diabetes mellitus with hyperglycemia and long-term insulin use is E11.65 plus Z79.4 1 ea 0RF Discontinued 2 dulaglutide (Trulicity) Discontinued Reason: Doctor's Order 3 mg (0.5 mL) subcut QWEEK 2 mL 5RF Patient Instructions: Your next eye appointment is on 07/05/25 at 8 55 AM, please be there by 8 30 AM, in [facility] Increase Trulicity to 4.5 mg weekly Continue lantus 18 units daily BRING ALL MEDICATION BOTTLES TO NEXT VISIT Rule of 15 Treatment for Hypoglycemia (Low blood sugar) If your blood glucose is low (70 and below)*, follow the steps below to treat: Eat or drink something from the list below equal to 15 grams of carbohydrate (carb). Rest for 15 minutes Re-check your blood glucose. If it is still low, (below 70), repeat step 1 above. ? If your next meal is more than an hour away, you will need to eat one carbohydrate choice as a snack to keep your blood glucose from going low again. ?If you can't figure out why you have low blood glucose, call your healthcare provider, as your medicine may need to be adjusted. ?Always carry something with you to treat an insulin reaction. Use food from the list below. ? Foods equal to One Carbohydrate Choice (15 grams of carbohydrate): 3 Glucose ?tablets or 4 Dextrose tablets 4 ounces of fruit juice 5-6 ounces (about 1/2 can) of regular soda such as Coke or Pepsi ? 7-8 gummy or regular Life Savers ? 1 Tbsp. of sugar or jelly NOTE: If your blood sugar is less than 50, double the portion above for a total of 30 gm. ?Carbohydrate. ? Follow meal plan of 45-60 g of consistent carbohydrates at 3 meals each day and 15 g of carbohydrate at 1-2 snacks each day. [place] pr?xima remi oftalmol?gica es el 05/07/25 a las 8:55 a. m. Por favor, llegue a las 8:30 a. m. en [facility] [place]. Aumente la dosis de Trulicity a 4.5 mg semanales. Contin?e con Lantus 18 unidades diarias. Traiga todos los frascos de medicamentos a eugene pr?xima visita. Tratamiento de la [place] del 15 para la Hipoglucemia (nivel bajo de az?car en sabi) Si eugene nivel de glucosa en sabi es bajo (70 o menos)*, siga los pasos a continuaci?n para tratarlo: Coma o nikole algo de la lista a continuaci?n equivalente a 15 gramos de carbohidratos. Descanse 15 minutos. Vuelva a medir eugene nivel de glucosa en sabi. Si sigue bajo (menos de 70), repita el paso 1 anterior. Si eugene pr?xima comida es en m?s de lavonne hora, deber? consumir un carbohidrato efe refrigerio para evitar que eugene nivel de glucosa en sabi baje de nuevo. Si no puede determinar la causa de eugene nivel bajo de glucosa en sabi, llame a eugene profesional de la deborah, ya que podr?a ser necesario ajustar eugene medicamento. Lleve siempre consigo algo para tratar lavonne reacci?n a la insulina. Use alimentos de la lista a continuaci?n. Alimentos equivalentes a lavonne opci?n de carbohidratos (15 gramos): 3 tabletas de glucosa o 4 tabletas de dextrosa 113 g de jugo de fruta 140 g (aproximadamente 1/2 ericka) de refresco regular efe Coca-Cola o Pepsi 7-8 gomitas o Life Savers regulares 1 cucharada de az?car o jalea NOTA: Si eugene nivel de az?car en sabi es inferior a 50, duplique la porci?n anterior para un total de 30 g de carbohidratos. Siga un plan de alimentaci?n de 45 a 60 g de carbohidratos consistentes en 3 comidas al d?a y 15 g de carbohidratos en 1 o 2 refrigerios al d?a. Coding Level of Care Code Est Pt Level 4 (54046) Diagnoses Type 2 diabetes mellitus with hyperglycemia, with long-term current use of insulin E11.65; Z79.4 Diabetes mellitus type: type 2 Diabetes mellitus snf insulin use: with buttermaker continuous churn use Mixed hyperlipidemia E78.2 Hyperlipidemia type: mixed hyperlipidemia Metabolic dysfunction-associated steatotic liver disease (MASLD) K76.0 CPT Codes Details - CPT: 47472 - Glucose monitoring, continuous-physician I&R ([id number]) Time Spent (min) 30
[2025-06-30 08:04] LABS: Glucose, Whole Blood 166 mg/dL (60-115)
== END 2025-06-30 08:21 | disposition home or self-care (01) ==
LOC: HO.ENCR 07:47
PROVIDERS: PCP Nurse Practitioner Family; Visit Provider Student in an Organized Health Care Education/Training Program
DX: E11.65 Type 2 diabetes mellitus with hyperglycemia (principal); Z79.4 Long term (current) use of insulin; E78.2 Mixed hyperlipidemia; K76.0 Fatty (change of) liver, not elsewhere classified; Z13.9 Encounter for screening, unspecified
CPT/HCPCS: 95251; 99214

== ENCOUNTER → 2025-06-30 07:47 | Outpatient (BNVA) | payer MEDICAID, SELFPAY | PROVIDERS: PCP Nurse Practitioner Family; Visit Provider Student in an Organized Health Care Education/Training Program | DX: E11.65 Type 2 diabetes mellitus with hyperglycemia (principal); Z79.4 Long term (current) use of insulin; K76.0 Fatty (change of) liver, not elsewhere classified; E78.2 Mixed hyperlipidemia | CPT/HCPCS: 82947; 83036; 99212 ==